=== PATIENT | male | born 1955 | race Caucasian/White ===

== ENCOUNTER 2019-11-20 13:26 | Emergency (ER) | payer MEDICARE, MEDICAID, SELFPAY ==
--- NOTE | 2019-11-20 | XR_ITS ---
EXAMINATION: XR ELBOW, LEFT CLINICAL INFORMATION: Fall, trauma, pain COMPARISON: None TECHNIQUE: Left elbow is imaged in 3 views. FINDINGS: There is no fracture, dislocation, or visible elbow capsular effusion. Bony mineralization is normal. There are no erosive changes. There is bulky spurring from the olecranon and lateral epicondyles. There are corticated ossicles adjacent to the medial and lateral epicondyles. IMPRESSION: 1. No fracture or dislocation. 2. Spurring at the epicondyles and olecranon.
--- NOTE | 2019-11-20 | XR_ITS ---
EXAMINATION: XR SHOULDER, LEFT CLINICAL INFORMATION: Fall, trauma, pain COMPARISON: Radiographs left shoulder 10/18/2018 TECHNIQUE: Left shoulder is imaged in 3 views. FINDINGS: There is no fracture or dislocation. No destructive process. No visible rotator cuff calcifications. There are mild degenerative changes acromioclavicular joint and small spur from the greater tuberosity. Acromioclavicular alignment is normal. IMPRESSION: No fracture or dislocation.
--- NOTE | 2019-11-20 | XR_ITS ---
EXAMINATION: XR LUMBOSACRAL SPINE CLINICAL INFORMATION: Fall, trauma, pain COMPARISON: Lumbar spine radiographs 04/14/2018 TECHNIQUE: Three views of the lumbosacral spine. FINDINGS: There is no visible fracture, vertebral compression, or spondylolisthesis. There is normal lumbar segmentation with 5 nonrib-bearing lumbar vertebrae of normal height. There are degenerative disc changes with borderline disc narrowing and vertebral spurring L2-L3, L3-L4, L4-L5. The SI joints and visualized sacrum are unremarkable. IMPRESSION: 1. No acute bony abnormality. No visible fracture, vertebral compression, or spondylolisthesis. 2. Mild degenerative disc changes L2-L3, L3-L4, and L4-L5.
[2019-11-20 13:39] VITALS: BP 130/72; PULSE 105; RESP 16; TEMP 36.4; O2SAT 96; BMI 30.8
--- NOTE | 2019-11-20 14:08 | ED_ITS ---
HPI - Fall General Chief Complaint: Fall Stated Complaint: fell hurt arm And lower back Time Seen by Provider: 11/20/19 13:54 History of Present Illness HPI Narrative: patient was going to sit down in a chair, and someone moved the chair and he fell hurting his lower back and his left elbow and his left shoulder This happened 3 days ago He had no loss of consciousness neck pain or any other injury, he has no numbness or weakness or change of bowel or bladder The pain is described as moderate, there is no radiation of pain Related Data Previous Rx's Medication Instructions Recorded acetaminophen [Tylenol] 650 mg PO Q6H PRN #20 tab 11/20/19 oxycodone 5 mg PO Q6H PRN #10 cap 11/20/19 Allergies Allergy/AdvReac Type Severity Reaction Status Date / Time aspirin [Aspirin] Allergy Mild RASH Verified 11/20/19 15:32 Penicillins Allergy Mild RASH Verified 11/20/19 15:32 penicillin V Allergy Unknown rash Verified 11/20/19 15:32 tramadol AdvReac Unknown abdominal Verified 11/20/19 15:32 pain Review of Systems Review of Systems: there is no head injury, no headache no nausea no vomiting no numbness no weakness no paresthesias no dizziness, there is no changes to bowel or bladder there is no laceration, there is no pain in the abdomen, no pain in the chest Yes all other systems are reviewed and are negative [facility] Past Medical History Source: nursing notes reviewed Medical History (Updated 11/20/19 @ 15:43 by DAMIR Peck) Arthritis Asthma Diabetes High blood pressure No known health problems Social History Social History Smoked in Last 30 Days: No Use of substances other than those prescribed or required for medical reasons: No Advance Directives: No Advance Directives Information Provided: No Physical Exam Vital Signs and I&O and Narrative: Vital Signs and I&O: Vital Signs Temp 97.6 F 11/20/19 13:39 Pulse 93 11/20/19 15:42 Resp 17 11/20/19 15:42 BP 121/67 11/20/19 15:42 Pulse Ox 97 11/20/19 15:42 Intake & Output 11/19/19 11/20/19 11/20/19 18:59 06:59 18:59 Weight 108.862 kg Body Mass Index 30.8 General appearance the patient is in no acute distress, A&O x3, cooperative, ambulatory The head is normocephalic atraumatic The neck is supple and nontender The chest is nontender Respiratory no respiratory distress The back exam there is diffuse tenderness to the lower lumbar area including bony tenderness, skin is intact, no redness warmth or swelling, no rash The extremities both legs are normal with full range of motion no limp The left shoulder has full range of motion but is very tender in the deltoid area and range of motion is painful The left elbow is tender over olecranon process and has full range of motion but again uncomfortable The hand and wrist are neurovascular intact Neuro A&O x3, no weakness, no numbness Course Course Course Narrative: x-rays of lumbar spine left shoulder and left elbow were negative for acute injury Patient remains comfortable throughout ER visit and improved after towardol Discharge Plan Discharge Clinical Impression: Sprain and strain of elbow Back pain Qualifiers: Back pain location: low back pain Patient Disposition: Home, Self-Care Additional Instructions: follow with orthopedist for left arm and shoulder pain X-rays did not show any bony injury Return any concerns Follow with primary doctor for back pain Prescriptions: New oxycodone 5 mg capsule 5 mg PO Q6H PRN (Reason: pain) Qty: 10 RF: 0 acetaminophen [Tylenol] 325 mg tablet 650 mg PO Q6H PRN (Reason: pain) Qty: 20 RF: 0 Referrals: Shiva Ortiz MD [Physician] - 2 days
[2019-11-20] MEDS: Ketorolac Tromethamine 30 MG/ML VIAL IM (15:35)
[2019-11-20 15:42] VITALS: BP 121/67; PULSE 93; RESP 17; O2SAT 97
== END 2019-11-20 16:07 | disposition home or self-care (01) ==
PROVIDERS: Emergency Provider Internal Medicine; PCP Internal Medicine
DX: S53.402A Unspecified sprain of left elbow, initial encounter (principal); M79.602 Pain in left arm; M54.5 Low back pain; W01.0XXA Fall on same level from slipping, tripping and stumbling without subsequent striking against object, initial encounter; Y93.9 Activity, unspecified; Y92.009 Unspecified place in unspecified non-institutional (private) residence as the place of occurrence of the external cause; Z79.899 Other long term (current) drug therapy
CPT/HCPCS: 72100; 73030; 73070; 96372; 99284; J1885

== ENCOUNTER → 2020-01-15 09:49 | Outpatient (BNVA) | payer OTHER, SELFPAY | PROVIDERS: PCP Internal Medicine; Visit Provider Orthopaedic Surgery | DX: M75.100 Unspecified rotator cuff tear or rupture of unspecified shoulder, not specified as traumatic (principal) | CPT/HCPCS: 99212 ==

== ENCOUNTER 2020-01-23 12:48 | Emergency (ER) | payer MEDICARE, SELFPAY ==
[2020-01-23 13:06] VITALS: BP 134/72; PULSE 89; RESP 14; TEMP 36.7; O2SAT 99; BMI 30.8
--- NOTE | 2020-01-23 13:27 | XR_ITS ---
EXAMINATION: X-RAY CLAVICLE, RIGHT X-RAY SHOULDER, RIGHT CLINICAL INFORMATION: Right shoulder and clavicle pain COMPARISON: None TECHNIQUE: Axial view of the right clavicle. AP, Grashey, Y and axillary views of the right shoulder FINDINGS: There is normal alignment of the right shoulder and right clavicle without acute fracture or dislocation. The glenohumeral joint space is preserved. There is acromioclavicular joint space narrowing with associated hypertrophic changes. The sternoclavicular joint is intact. The visualized portion of the lungs is clear. XR/XR clavicle RT IMPRESSION: No acute bony abnormality of the right shoulder and right clavicle. Mild to moderate degenerative changes of the acromioclavicular joint.
--- NOTE | 2020-01-23 13:27 | XR_ITS ---
EXAMINATION: X-RAY CLAVICLE, RIGHT X-RAY SHOULDER, RIGHT CLINICAL INFORMATION: Right shoulder and clavicle pain COMPARISON: None TECHNIQUE: Axial view of the right clavicle. AP, Grashey, Y and axillary views of the right shoulder FINDINGS: There is normal alignment of the right shoulder and right clavicle without acute fracture or dislocation. The glenohumeral joint space is preserved. There is acromioclavicular joint space narrowing with associated hypertrophic changes. The sternoclavicular joint is intact. The visualized portion of the lungs is clear. XR/XR shoulder RT min 2V IMPRESSION: No acute bony abnormality of the right shoulder and right clavicle. Mild to moderate degenerative changes of the acromioclavicular joint.
--- NOTE | 2020-01-23 13:32 | ED.UPPEXIN ---
HPI - Extremity Injury (Upper) General Chief Complaint: Neck Pain/Injury Stated Complaint: shoulder, neck pain Time Seen by Provider: 01/23/20 13:27 Source: patient Mode of arrival: ambulatory Limitations: no limitations History of Present Illness HPI narrative: This is a 64 years old male presented with right shoulder/right clavicular region pain, pain described as constant dull aching pain just localized to right shoulder area and radiate to the front aspect of the neck, pain started 5 days ago and described as constant, pain is severe 09/20, pain is worsening by moving the right shoulder, patient declined any trauma or history of falling, nothing relieves the pain patient tried Tylenol with no relief. Related Data Home Medications Medication Instructions Recorded Confirmed albuterol sulfate 0.63 mg/3 mL mg INHALATION Q4H PRN 01/11/20 01/15/20 solution for nebulization atorvastatin 40 mg tablet mg PO 01/11/20 01/15/20 blood sugar diagnostic #10 ea 01/11/20 01/15/20 citalopram 20 mg tablet 20 mg PO DAILY 01/11/20 01/15/20 clonazepam 1 mg tablet 1 mg PO BEDTIME PRN 01/11/20 01/15/20 dulaglutide 1.5 mg/0.5 mL mg SUBCUT 01/11/20 01/15/20 subcutaneous pen injector metformin 500 mg tablet,extended 1,000 mg PO BID 01/11/20 01/15/20 release 24 hr tamsulosin 0.4 mg capsule 0.4 mg PO DAILY 01/11/20 01/15/20 Previous Rx's Medication Instructions Recorded acetaminophen [Tylenol] 650 mg PO Q6H PRN #20 tab 11/20/19 cyclobenzaprine 5 mg PO TID PRN #14 tab 11/20/19 lisinopril 10 mg tablet 10 mg PO DAILY 90 Days #90 tab 01/11/20 zolpidem 10 mg tablet 10 mg PO BEDTIME PRN 30 Days #30 01/11/20 tab oxycodone 5 mg PO BID PRN #7 cap 01/23/20 Allergies Allergy/AdvReac Type Severity Reaction Status Date / Time aspirin [Aspirin] Allergy Mild RASH Verified 01/15/20 11:12 Penicillins Allergy Mild RASH Verified 01/15/20 11:12 penicillin V Allergy Unknown rash Verified 01/15/20 11:12 tramadol AdvReac Unknown abdominal Verified 01/15/20 11:12 pain Review of Systems Review of Systems: All other systems are reviewed and are negative Constitutional: Reports as per HPI and Reports no additional constitutional complaints Eyes: Reports as per HPI and Reports no additional eye complaints Reports system reviewed and no additional complaints, except as documented Cardiovascular: Reports as per HPI and Reports no additional cardiovascular complaints Respiratory: Reports as per HPI and Reports no additional respiratory complaints Gastrointestinal: Reports as per HPI and Reports no additional gastrointestinal complaints Genitourinary: Reports no additional female genitourinary complaints Musculoskeletal: Reports no additional musculoskeletal complaints Skin/Breast: Reports system reviewed and no additional complaints, except as docu Psychiatric: Reports no additional psychiatric complaints Endocrine: Reports no additional endocrine complaints Hematologic/Lymphatic: Reports no additional hematologic/lymphatic complaints Allergic/Immunologic: Reports no additional allergic/immunologic complaints Reports system reviewed and no additional complaints, except as documented and Reports Abnormal speech present [facility] Past Medical History Medical History Arthritis Asthma Diabetes mellitus Essential hypertension High blood pressure Insomnia No known health problems Obesity Pure hypercholesterolemia Rotator cuff tear Surgical History History of knee replacement procedure of right knee Family History Family History Father No problems noted. Mother Diabetes Hypertension Brother Throat cancer Social History Social History Smoking Status: Former smoker Advance Directives: No Advance Directives Information Provided: No Physical Exam Vital Signs: Vital Signs: Last Vital Signs Temp 98.1 F 01/23/20 13:06 Pulse 89 01/23/20 13:06 Resp 14 01/23/20 13:06 BP 134/72 01/23/20 13:06 Pulse Ox 99 01/23/20 13:06 Body Mass Index 30.8 Vital signs have been reviewed as normal and appeared to be correct. Blood pressure normal. Heart rate normal. Respiration rate normal. Temperature normal. Oxygen saturation normal. Appearance: Alert. Oriented X3. No acute distress. Head: Normal external exam. Normocephalic. Atraumatic. No Saha signs noted. No raccoon eyes noted Eyes: PERRLA. EOMI. Conjunctiva and sclera normal. Eyelids normal. ENT: EAC normal. TM's Normal. Pharynx normal. Uvula midline. Moist mucous membranes. No trismus noted. No drooling noted. No muffled voice noted. Neck: Normal inspection. Neck supple. FROM. No adenopathy. Thyroid Normal. No meningeal signs. No neck mass noted. CVS: Normal heart rate and rhythm. Heart sound normal. No murmurs noted. Pulses normal throughout. Respiratory: No respiratory distress. Painless inspiration. Breath sounds normal. No wheezes/rales/rhonchi noted. Chest nontender. No accessory muscle usage noted or decreased air movement noted. Abdomen: Soft and nontender. Bowel sounds normal in all 4 quadrants. No distention noted. No organomegaly noted. No visible injury noted. Back: No CVA tenderness. Full range of motion noted. Skin: Skin warm and dry. Normal skin color. Normal skin turgor. No rashes/lesions/lacerations noted. Extremities: No lower extremity edema. Tenderness over the right clavicular region, no palpable deformity, increased pain over the right clavicle when he stretch and turn his head to the left side, patient declined any trauma to this area. Neuro: Oriented X 3. No motor deficit. No sensory deficit. Reflexes normal. MDM - Extremity Injury (Upper) MDM Narrative Medical decision making narrative: 64 years old male presented with 5 days of pain over the clavicular region with no trauma or fall, physical exam showed no deformity x-ray showed no acute fracture, but physical exam is consistent with localized tenderness over the right clavicular area, patient has normal vital signs including respiratory rate of 14/O2 saturation is 99% on room air making PE is unfavorable diagnosis. Patient felt better after was given oxycodone in the emergency department, will provide patient with right shoulder sling and pain medication. Imaging Data Right shoulder/clavicle x-ray: Radiologist's impression: No acute bony abnormality of the right shoulder and right clavicle. Mild to moderate degenerative changes of the acromioclavicular joint. Discharge Plan Discharge Clinical Impression: Arthralgia of both acromioclavicular joints Patient Disposition: Home, Self-Care Instructions: Arthralgia (ED) Prescriptions: New oxycodone 5 mg capsule 5 mg PO BID PRN (Reason: pain) Qty: 7 RF: 0 No Action acetaminophen [Tylenol] 325 mg tablet 650 mg PO Q6H PRN (Reason: pain) Qty: 20 RF: 0 cyclobenzaprine 5 mg tablet 5 mg PO TID PRN (Reason: muscle spasm) Qty: 14 RF: 0 citalopram 20 mg tablet 20 mg PO DAILY RF: 0 clonazepam 1 mg tablet 1 mg PO BEDTIME PRNRF: 0 (DME) FreeStyle Lite Strips Strip See Rx Instructions ea Not Applicable TID Qty: 10 RF: 0 albuterol sulfate 0.63 mg/3 mL solution for nebulization inhalation Q4H PRNRF: 0 Trulicity 1.5 mg/0.5 mL pen injector subcut RF: 0 tamsulosin 0.4 mg capsule 0.4 mg PO DAILY RF: 0 metformin 500 mg tablet extended release 24 hr 1,000 mg PO BID RF: 0 atorvastatin 40 mg tablet PO RF: 0 lisinopril 10 mg tablet 10 mg PO DAILY 90 Days Qty: 90 RF: 3 zolpidem 10 mg tablet 10 mg PO BEDTIME PRN (Reason: sleep) 30 Days Qty: 30 RF: 0 Referrals: Allison Maradiaga MD [Primary Care Provider] - 2 days
[2020-01-23] MEDS: oxyCODONE HCl Immed Release 5 MG TABLET PO (13:42)
== END 2020-01-23 15:01 | disposition home or self-care (01) ==
PROVIDERS: Emergency Provider Emergency Medicine; PCP Internal Medicine
DX: M25.511 Pain in right shoulder (principal); I10 Essential (primary) hypertension; E11.9 Type 2 diabetes mellitus without complications; Z79.84 Long term (current) use of oral hypoglycemic drugs; Z79.899 Other long term (current) drug therapy
CPT/HCPCS: 73000; 73030; 99283

== ENCOUNTER → 2020-02-25 13:07 | Outpatient (BNVA) | payer MEDICARE, SELFPAY | PROVIDERS: PCP Internal Medicine; Visit Provider Nurse Practitioner Gerontology | DX: Z13.89 Encounter for screening for other disorder (principal) | CPT/HCPCS: Q3014 ==

== ENCOUNTER 2020-04-17 10:16 | Emergency (ER) | payer MEDICARE, SELFPAY ==
[2020-04-17 10:18] VITALS: RESP 16; TEMP 36.3; BMI 30.8
--- NOTE | 2020-04-17 11:42 | ED.BACK ---
HPI - Back Pain/Injury General Chief Complaint: Back Pain/Injury Stated Complaint: BACK PAIN LEG TINGLING Time Seen by Provider: 04/17/20 11:40 Source: patient Mode of arrival: ambulatory Limitations: language barrier (conference interpreter present for all interactions) History of Present Illness HPI Narrative: Pleasant 64-year-old male primarily [place]-speaking presenting ambulatory with complaint of right-sided lower back pain that sometimes radiates down to the mid thigh onset past 2 days. States he recently was doing pain job around the house and pain the day after. 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 Otherwise denies any GI symptoms. No lower extremity weakness. Pain feels similar to previous. No fever. No IV drug use. No history of CA. MD elicited complaint: back pain and back injury Pertinent past history: prior back pain Timing: intermittent Severity: moderate Similar Symptoms Previously: Yes Quality: aching Location: lumbar spine Exacerbating factors: movement Relieving factors: immobilization Context: turning/twisting Associated symptoms: denies other symptoms Treatments prior to arrival: cold therapy Work related injury: No Related Data Home Medications Medication Instructions Recorded Confirmed albuterol sulfate 0.63 mg/3 mL mg INHALATION Q4H PRN 01/11/20 02/25/20 solution for nebulization blood sugar diagnostic #10 ea 01/11/20 02/25/20 citalopram 20 mg tablet 20 mg PO DAILY 01/11/20 02/25/20 clonazepam 1 mg tablet 1 mg PO BEDTIME PRN 01/11/20 02/25/20 atorvastatin 40 mg tablet 40 mg PO tab 02/25/20 02/25/20 dulaglutide 1.5 mg/0.5 mL 1.5 mg SUBCUT ml 02/25/20 02/25/20 subcutaneous pen injector duloxetine 20 mg capsule,delayed 20 mg PO DAILY 02/25/20 02/25/20 release omeprazole 20 mg capsule,delayed 20 mg PO QAM 02/25/20 02/25/20 release Previous Rx's Medication Instructions Recorded acetaminophen [Tylenol] 650 mg PO Q6H PRN #20 tab 11/20/19 cyclobenzaprine 5 mg PO TID PRN #14 tab 11/20/19 lisinopril 10 mg tablet 10 mg PO DAILY 90 Days #90 tab 01/11/20 oxycodone 5 mg PO BID PRN #7 cap 01/23/20 fluticasone propionate 50 1 spray INTRANASAL DAILY 30 Days 01/24/20 mcg/actuation nasal #15.8 ml spray,suspension lancets 28 gauge #300 ea 02/25/20 metformin 500 mg tablet,extended 1,000 mg PO BID #360 tab 02/25/20 release 24 hr tamsulosin 0.4 mg capsule 0.4 mg PO DAILY #90 cap 03/03/20 zolpidem 10 mg tablet 10 mg PO BEDTIME PRN 30 Days #30 03/25/20 tab cyclobenzaprine 10 mg PO TID PRN #20 tab 04/17/20 ibuprofen 800 mg PO Q8H PRN #14 tab 04/17/20 Allergies Allergy/AdvReac Type Severity Reaction Status Date / Time aspirin [Aspirin] Allergy Mild RASH Verified 02/25/20 13:34 Penicillins Allergy Mild RASH Verified 02/25/20 13:34 penicillin V Allergy Unknown rash Verified 02/25/20 13:34 tramadol AdvReac Unknown abdominal Verified 02/25/20 13:34 pain Review of Systems Review of Systems: Constitutional: No Weight loss, No Fever, No Chills, No Night Sweats, No Fatigue, No Malaise ENT/Mouth: No Hearing loss, No Ear Pain, No Nasal Congestion, No Sinus Pain, No Hoarseness, No sore throat, No Rhinorrhea, No Swallowing Difficulty Eyes: No Eye Pain, No Swelling, No Redness, No Foreign Body, No Discharge, No Vision Changes Cardiovascular: No Chest Pain, No SOB, No Dyspnea on Exertion, No Orthopnea, No Edema, No Palpitations Respiratory: No Cough, No Sputum, No Wheezing, No Smoke Exposure, No Dyspnea Gastrointestinal: No Nausea, No Vomiting, No Diarrhea, No Constipation, No abdominal Pain, No Hematochezia, No Melena Genitourinary: No Dysuria, No Urinary Frequency, No Hematuria, No Urinary Incontinence, No Urgency, No Flank Pain, No Urinary Flow Changes, No Hesitancy Musculoskeletal: No joint pain, No Myalgias, No Joint Swelling, right-sided low back pain as noted per HPI Skin: No Skin Lesions, No rash Neuro: No Weakness, No Numbness, No Paresthesias, No Loss of Consciousness, No Dizziness, No Headache Psych: No Social Issues Heme/Lymph: No Bruising, No Bleeding,No Lymphadenopathy Endocrine: No Polyuria, No Polydipsia, No Temperature Intolerance Yes all other systems are reviewed and are negative [facility] Past Medical History Medical History Arthritis Asthma BPH (benign prostatic hyperplasia) Diabetes mellitus Essential hypertension GERD (gastroesophageal reflux disease) High blood pressure Hyperlipidemia LDL goal <100 Insomnia No known health problems Obesity Pure hypercholesterolemia Rotator cuff tear Type 2 diabetes mellitus with diabetic polyneuropathy Surgical History History of knee replacement procedure of right knee Family History Family History Father No problems noted. Mother Diabetes Hypertension Brother Throat cancer Social History Social History Household Members: Spouse Smoking Status: Former smoker Advance Directives: No Advance Directives Information Provided: No Physical Exam Vital Signs: Vital Signs: Last Vital Signs Temp 97.4 F 04/17/20 10:18 Resp 16 04/17/20 10:18 Body Mass Index 30.8 Reviewed Const: General: cooperative and healthy appearing; No acute distress or intoxicated appearing Nutritional Appearance: average body habitus Orientation/consciousness: patient oriented x3 HENMT: Head: Yes normal to inspection Ears: hearing grossly normal bilaterally Eyes: General: appearance normal, both eyes and all related structures Visual Borges: normal visual borges by confrontation Neck: Neck: Yes normal visual inspection, No positive Brudzinski's sign, No positive Kernig's sign and No tender Thyroid: Thyroid normal Chest: Chest palpation & inspection: normal inspection of the chest Resp: Effort & Inspection: normal respiratory effort Cardio: Jugular venous distension: no JVD Rhythm: regular rhythm Heart sounds: S1 normal heart sound present and S2 normal heart sound present GI: Inspection: Yes normal to inspection Palpation (GI): Soft to palpation Percussion: Yes normal to percussion Auscultation: normal bowel sounds : General: Yes no CVA tenderness Back/Spine/Pelvis: Back: no CVA tenderness Thoracic/Lumbar Spine: paraspinal muscle tenderness (Over the lower lumbar paraspinous muscle and gluteus) on the right Skin: General skin exam: no rashes or lesions noted Neuro: General: patient oriented x3 Extrem: Other: Positive pain with leg lift at about 65 degrees, negative Homans, reflexes within normal limits. Pulses within normal limits. General: Yes normal to inspection MDM - Back Pain/Injury MDM Narrative Medical decision making narrative: AP consistent with lumbar paraspinous muscle strain with sciatic involvement will need Toradol injection, muscle relaxants and NSAIDs for home short course. Exam without low back pain red flags, no signs or symptoms saddle anesthesia/cord compression. No B/B involvement. Additionally he reports all of his other chronic medical problems are well managed including his diabetes POC this morning of . Differential Diagnosis Differential diagnosis: Likely lumbar radiculopathy, sciatica and strain of lumbar region; Unlikely renal colic, pyelonephritis, thoracic back pain, AAA and discitis Medical Records Attestation: I reviewed the patient's medical records. Lab Data Attestation: I reviewed the patient's lab results. Discharge Plan Discharge Clinical Impression: Acute lumbar myofascial strain Qualifiers: Encounter type: initial encounter Qualified Code(s): S39.012A - Strain of muscle, fascia and tendon of lower back, initial encounter Patient Disposition: Home, Self-Care Instructions: Low Back Strain (ED), Lower Back Exercises (ED) Additional Instructions: Gentle stretching Home care for low back pain as reviewed Warm compresses Return precautions provided including worsening back pain, fever, abdominal pain, blood in the urine, nausea, vomiting, headache or neck pain Follow up with primary care doctor as planned Thank Prescriptions: New cyclobenzaprine 10 mg tablet 10 mg PO TID PRN (Reason: muscle spasm) Qty: 20 RF: 0 ibuprofen 800 mg tablet 800 mg PO Q8H PRN (Reason: pain) Qty: 14 RF: 0 No Action fluticasone propionate [Allergy Relief (fluticasone)] 50 mcg/actuation spray,suspension 1 spray intranasal DAILY 30 Days Qty: 15.8 RF: 8 tamsulosin 0.4 mg capsule 0.4 mg PO DAILY Qty: 90 RF: 1 zolpidem 10 mg tablet 10 mg PO BEDTIME PRN (Reason: sleep) 30 Days Qty: 30 RF: 0 oxycodone 5 mg capsule 5 mg PO BID PRN (Reason: pain) Qty: 7 RF: 0 acetaminophen [Tylenol] 325 mg tablet 650 mg PO Q6H PRN (Reason: pain) Qty: 20 RF: 0 cyclobenzaprine 5 mg tablet 5 mg PO TID PRN (Reason: muscle spasm) Qty: 14 RF: 0 citalopram 20 mg tablet 20 mg PO DAILY RF: 0 clonazepam 1 mg tablet 1 mg PO BEDTIME PRNRF: 0 (DME) FreeStyle Lite Strips Strip See Rx Instructions ea Not Applicable TID Qty: 10 RF: 0 albuterol sulfate 0.63 mg/3 mL solution for nebulization inhalation Q4H PRNRF: 0 lisinopril 10 mg tablet 10 mg PO DAILY 90 Days Qty: 90 RF: 3 atorvastatin 40 mg tablet 40 mg PO RF: 0 dulaglutide 1.5 mg/0.5 mL pen injector 1.5 mg subcut RF: 0 duloxetine 20 mg capsule,delayed release(DR/EC) 20 mg PO DAILY RF: 0 omeprazole 20 mg capsule,delayed release(DR/EC) 20 mg PO QAM RF: 0 (DME) lancets [FreeStyle Lancets] 28 gauge misc See Rx Instructions .ROUTE .MEDSUPPLY Qty: 300 RF: 3 metformin 500 mg tablet extended release 24 hr 1,000 mg PO BID Qty: 360 RF: 0 Referrals: Allison Maradiaga MD [Primary Care Provider] - 1 week
[2020-04-17] MEDS: Ketorolac Tromethamine 60 MG/2 ML VIAL IM (11:44)
== END 2020-04-17 11:55 | disposition home or self-care (01) ==
PROVIDERS: Emergency Provider Emergency Medicine; PCP Internal Medicine
DX: S39.012A Strain of muscle, fascia and tendon of lower back, initial encounter (principal); X50.1XXA Overexertion from prolonged static or awkward postures, initial encounter; Y93.E9 Activity, other interior property and clothing maintenance; Y92.019 Unspecified place in single-family (private) house as the place of occurrence of the external cause; Y99.9 Unspecified external cause status; E11.9 Type 2 diabetes mellitus without complications; I10 Essential (primary) hypertension; E78.5 Hyperlipidemia, unspecified; Z87.891 Personal history of nicotine dependence
CPT/HCPCS: 96372; 99283; 99284; J1885

== ENCOUNTER → 2020-05-23 13:14 | Outpatient (BNVA) | payer MEDICARE, SELFPAY | PROVIDERS: PCP Internal Medicine; Visit Provider Nurse Practitioner Gerontology | DX: E11.42 Type 2 diabetes mellitus with diabetic polyneuropathy (principal); E78.5 Hyperlipidemia, unspecified; I10 Essential (primary) hypertension; E66.09 Other obesity due to excess calories; Z68.32 Body mass index [BMI] 32.0-32.9, adult | CPT/HCPCS: 82947; 99212 ==

== ENCOUNTER 2020-06-06 10:50 | Emergency (ER) | payer MEDICARE, SELFPAY ==
[2020-06-06 11:18] VITALS: BP 119/66; PULSE 88; RESP 18; TEMP 37.1; O2SAT 96; BMI 30.8
--- NOTE | 2020-06-06 11:46 | ED.EPISTAXIS ---
History of Present Illness General Chief Complaint: Epistaxis Stated Complaint: nosebleed Time Seen by Provider: 06/06/20 11:45 History of Present Illness HPI Narrative: Patient complains of nasal congestion x3 weeks, he is using Flonase which does not help he has a lot of pressure feeling around his bridge of his nose , worse with bending down, there is a yellowish nasal discharge, no fever no headache no shortness of breath no chest pain Related Data Home Medications Medication Instructions Recorded Confirmed albuterol sulfate 0.63 mg/3 mL mg INHALATION Q4H PRN 01/11/20 05/23/20 solution for nebulization citalopram 20 mg tablet 20 mg PO DAILY 01/11/20 05/23/20 omeprazole 20 mg capsule,delayed 20 mg PO QAM 02/25/20 05/23/20 release Previous Rx's Medication Instructions Recorded acetaminophen [Tylenol] 650 mg PO Q6H PRN #20 tab 11/20/19 lisinopril 10 mg tablet 10 mg PO DAILY 90 Days #90 tab 01/11/20 oxycodone 5 mg PO BID PRN #7 cap 01/23/20 fluticasone propionate 50 1 spray INTRANASAL DAILY 30 Days 01/24/20 mcg/actuation nasal #15.8 ml spray,suspension lancets 28 gauge #300 ea 02/25/20 metformin 500 mg tablet,extended 1,000 mg PO BID #360 tab 02/25/20 release 24 hr tamsulosin 0.4 mg capsule 0.4 mg PO DAILY #90 cap 03/03/20 ibuprofen 800 mg PO Q8H PRN #14 tab 04/17/20 atorvastatin 40 mg tablet 40 mg PO BEDTIME #90 tab 05/23/20 dulaglutide 1.5 mg/0.5 mL 1.5 mg SUBCUT QWEEK #6 ml 05/23/20 subcutaneous pen injector zolpidem 10 mg tablet 10 mg PO BEDTIME PRN 30 Days #30 05/23/20 tab blood sugar diagnostic #200 ea 05/24/20 cetirizine 10 mg PO DAILY PRN #30 cap 06/06/20 doxycycline hyclate 100 mg PO BID 7 Days #14 cap 06/06/20 oxymetazoline [Afrin 3 spray INTRANASAL Q12H PRN 5 Days 06/06/20 (oxymetazoline)] #22 ml prednisone 60 mg PO DAILY 4 Days #12 tab 06/06/20 Allergies Allergy/AdvReac Type Severity Reaction Status Date / Time aspirin [Aspirin] Allergy Mild RASH Verified 06/06/20 11:18 Penicillins Allergy Mild RASH Verified 06/06/20 11:18 penicillin V Allergy Unknown rash Verified 06/06/20 11:18 tramadol AdvReac Unknown abdominal Verified 06/06/20 11:18 pain Review of Systems Review of Systems: Positive for nasal congestion and sinus pressure Negatives are no fever no chills no dizziness no weakness no earache no headache no sore throat no neck pain no chest pain no shortness of breath no rash PMFSH Past Medical History Source: nursing notes reviewed Medical History Arthritis Asthma BPH (benign prostatic hyperplasia) Diabetes mellitus Essential hypertension GERD (gastroesophageal reflux disease) High blood pressure Hyperlipidemia LDL goal <100 Insomnia No known health problems Obesity Pure hypercholesterolemia Rotator cuff tear Type 2 diabetes mellitus with diabetic polyneuropathy Surgical History History of knee replacement procedure of right knee Family History Family History Father No problems noted. Mother Diabetes Hypertension Brother Throat cancer Social History Social History Household Members: Spouse Smoking Status: Former smoker Advance Directives: No Advance Directives Information Provided: No Physical Exam Vital Signs: Vital Signs: Last Vital Signs Temp 98.7 F 06/06/20 11:18 Pulse 88 06/06/20 11:18 Resp 18 06/06/20 11:18 BP 119/66 06/06/20 11:18 Pulse Ox 96 06/06/20 11:18 Body Mass Index 30.8 General appearance no acute distress, calm comfortable relaxed and cooperative The eyes were not red, no discharge There was some tenderness bilaterally maxillary sinus tenderness, worse with bending head forward The nose the mucosa was somewhat inflamed, patient was congested and had difficulty breathing through his nose Pharynx was clear Neck was supple Chest was clear to auscultation bilaterally with symmetric equal breath sounds no wheezing Skin no rash Extremities full range of motion x4 Neuro no focal motor deficit, gait balance were normal Course Course Course Narrative: Patient with nasal congestion and some sinus pressure is treated for likely inflammation and allergy with prednisone and Zyrtec as well as Afrin short course for congestion As this is going on for 3 weeks he is also covered with antibiotic for possible sinusitis Discharge Plan Discharge Clinical Impression: Congested nose Sinusitis Qualifiers: Sinusitis location: unspecified location Chronicity: acute Recurrence: not specified as recurrent Qualified Code(s): J01.90 - Acute sinusitis, unspecified Patient Disposition: Home, Self-Care Additional Instructions: We are treating for possible infection with antibiotic doxycycline Main reasons for congestion are allergy and inflammation so we are treating with Zyrtec anti allergy medicine and prednisone anti inflammatory Prednisone can sometimes make sugar go up so check the sugar daily It is okay to continue the Flonase as it may help a little You can use Afrin spray 2 or 3 sprays in each nostril every 12 hours which often is the strongest nasal decongestant, but if you use it for too long more than 5 days it may stop working Follow with primary doctor for further evaluation and if these treatments do not work you may need a referral to an learning consultant Return anytime for fever, any worse condition any concerns Prescriptions: New prednisone 20 mg tablet 60 mg PO DAILY 4 Days Qty: 12 RF: 0 doxycycline hyclate 100 mg capsule 100 mg PO BID 7 Days Qty: 14 RF: 0 cetirizine 10 mg capsule 10 mg PO DAILY PRN (Reason: allergy symptoms) Qty: 30 RF: 0 oxymetazoline [Afrin (oxymetazoline)] 0.05 % spray,non-aerosol 3 spray intranasal Q12H PRN (Reason: nasal congestion) 5 Days Qty: 22 RF: 0 No Action fluticasone propionate [Allergy Relief (fluticasone)] 50 mcg/actuation spray,suspension 1 spray intranasal DAILY 30 Days Qty: 15.8 RF: 8 tamsulosin 0.4 mg capsule 0.4 mg PO DAILY Qty: 90 RF: 1 zolpidem 10 mg tablet 10 mg PO BEDTIME PRN (Reason: sleep) 30 Days Qty: 30 RF: 0 (DME) FreeStyle Lite Strips Strip See Rx Instructions .ROUTE .MEDSUPPLY Qty: 200 RF: 3 oxycodone 5 mg capsule 5 mg PO BID PRN (Reason: pain) Qty: 7 RF: 0 ibuprofen 800 mg tablet 800 mg PO Q8H PRN (Reason: pain) Qty: 14 RF: 0 acetaminophen [Tylenol] 325 mg tablet 650 mg PO Q6H PRN (Reason: pain) Qty: 20 RF: 0 citalopram 20 mg tablet 20 mg PO DAILY RF: 0 albuterol sulfate 0.63 mg/3 mL solution for nebulization inhalation Q4H PRNRF: 0 lisinopril 10 mg tablet 10 mg PO DAILY 90 Days Qty: 90 RF: 3 omeprazole 20 mg capsule,delayed release(DR/EC) 20 mg PO QAM RF: 0 (DME) lancets [FreeStyle Lancets] 28 gauge misc See Rx Instructions .ROUTE .MEDSUPPLY Qty: 300 RF: 3 metformin 500 mg tablet extended release 24 hr 1,000 mg PO BID Qty: 360 RF: 0 dulaglutide 1.5 mg/0.5 mL pen injector 1.5 mg subcut QWEEK Qty: 6 RF: 3 atorvastatin 40 mg tablet 40 mg PO BEDTIME Qty: 90 RF: 1 Interventions: ED Discharge Assessment Last Done: 06/06/20 12:10 Discharge Date/Time: 06/06/20 12:12
[2020-06-06] MEDS: predniSONE 20 MG TABLET 60 MG PO (12:08)
[2020-06-06] MEDS: Loratadine 10 MG TABLET PO (12:08)
== END 2020-06-06 12:12 | disposition home or self-care (01) ==
PROVIDERS: Emergency Provider Emergency Medicine; PCP Internal Medicine
DX: R09.81 Nasal congestion (principal); J01.90 Acute sinusitis, unspecified; E11.9 Type 2 diabetes mellitus without complications; I10 Essential (primary) hypertension; K21.9 Gastro-esophageal reflux disease without esophagitis; E78.5 Hyperlipidemia, unspecified; J45.909 Unspecified asthma, uncomplicated
CPT/HCPCS: 99283

== ENCOUNTER 2020-09-04 15:00 | Emergency (ER) | payer OTHER, SELFPAY | END 2020-09-04 16:51 | disposition left against medical advice (07) | PROVIDERS: Emergency Provider Emergency Medicine; PCP Internal Medicine | DX: R51.9 Headache, unspecified (principal) | CPT/HCPCS: 99281 ==

== ENCOUNTER 2020-09-05 05:42 | Emergency (ER) | payer OTHER, SELFPAY ==
--- NOTE | ~2020-09-05 | CT_ITS ---
EXAMINATION: CT HEAD WITHOUT CONTRAST CLINICAL INFORMATION: Right-sided headache. Rule out bleed, stroke. COMPARISON: None TECHNIQUE: Contiguous axial imaging was performed from the skull base to vertex without intravenous administration of contrast. This CT examination was performed using dose optimization techniques as appropriate, variously including the following: *Automated exposure control *Adjustment of mA and/or kV according to patient size (this includes techniques or standardized protocols for targeted exams where dose is matched to indication/reason for exam; i.e. extremities or head) *Use of iterative reconstruction technique DLP: 759 mGy-cm FINDINGS: There is no evidence of acute intracranial hemorrhage or territorial infarction. No abnormal mass effect or midline shift is seen. Lee to white matter differentiation is well preserved. No extra-axial fluid collections are identified. The ventricles are normal in size. There is no abnormal attenuation within the brain parenchyma. The osseous structures and soft tissues are normal. The mastoid air cells and visualized portions of the paranasal sinuses are well aerated. CT/CT head/brain wo con IMPRESSION: No acute intracranial process seen.
[2020-09-05 06:58] VITALS: BP 129/61; PULSE 82; RESP 16; TEMP 36.4; O2SAT 97; BMI 30.8
--- NOTE | 2020-09-05 07:14 | PC.NURSE ---
pt received in room 2 with complaint of unilateral headache associated with ear pain. Awaiting proposal manager for further evaluation. No bruising or lesions noted to scalp
[2020-09-05 07:43] VITALS: BP 109/67; PULSE 80; RESP 18; TEMP 36.6; O2SAT 97
--- NOTE | 2020-09-05 08:01 | ED_ITS ---
HPI - Headache General Chief Complaint: Headache Stated Complaint: head/ear pain Time Seen by Provider: 09/05/20 07:50 Source: patient Mode of arrival: ambulatory Limitations: no limitations History of Present Illness HPI Narrative: 65-year-old male who presents emergency department for evaluation of right-sided headache x4 days. He states the headache came on gradually. States the headache has been intermittent. The headache will last approximately 25 minutes and then resolved. He states that the headache is a pressure-like sensation. The pain is 9/10 at its worst. The pain is associated with nausea but no vomiting. He denied fever, chills, numbness, weakness, changes vision or change in his hearing. He states these had a buzzing sensation in both ears for approximately 10 years and currently he is hearing the buzzing sensation in his left ear. Patient states that it is rare for him to get headaches and that he has not had a headache that is been this persistent. Related Data Home Medications Medication Instructions Recorded Confirmed albuterol sulfate 0.63 mg/3 mL mg INHALATION Q4H PRN 01/11/20 08/23/20 solution for nebulization citalopram 20 mg tablet 20 mg PO DAILY 01/11/20 08/23/20 Previous Rx's Medication Instructions Recorded acetaminophen [Tylenol] 650 mg PO Q6H PRN #20 tab 11/20/19 lisinopril 10 mg tablet 10 mg PO DAILY 90 Days #90 tab 01/11/20 oxycodone 5 mg PO BID PRN #7 cap 01/23/20 fluticasone propionate 50 1 spray INTRANASAL DAILY 30 Days 01/24/20 mcg/actuation nasal #15.8 ml spray,suspension metformin 500 mg tablet,extended 1,000 mg PO BID #360 tab 02/25/20 release 24 hr tamsulosin 0.4 mg capsule 0.4 mg PO DAILY #90 cap 03/03/20 ibuprofen 800 mg PO Q8H PRN #14 tab 04/17/20 dulaglutide 1.5 mg/0.5 mL 1.5 mg SUBCUT QWEEK #6 ml 05/23/20 subcutaneous pen injector blood sugar diagnostic #200 ea 05/24/20 cetirizine 10 mg PO DAILY PRN #30 cap 06/06/20 lancets 28 gauge #200 ea 07/06/20 atorvastatin 40 mg tablet 40 mg PO BEDTIME #90 tab 07/25/20 omeprazole 20 mg capsule,delayed 20 mg PO QAM 90 Days #90 cap 08/23/20 release zolpidem 10 mg tablet 10 mg PO BEDTIME PRN 90 Days #90 08/23/20 tab metoclopramide HCl [Reglan] 10 mg PO Q6H PRN #14 tab 09/05/20 Allergies Allergy/AdvReac Type Severity Reaction Status Date / Time penicillin V Allergy Intermediate rash Verified 08/23/20 17:25 aspirin [Aspirin] Allergy Mild RASH Verified 08/23/20 17:25 Penicillins Allergy Mild RASH Verified 08/23/20 17:25 tramadol AdvReac Intermediate abdominal Verified 08/23/20 17:25 pain Review of Systems Review of Systems: Yes all other systems are reviewed and are negative [facility] Past Medical History [facility] Narrative: Social history: The patient is a former tobacco user, he denies alcohol and drug use. Medical History Arthritis Asthma BPH (benign prostatic hyperplasia) Diabetes mellitus Essential hypertension GERD (gastroesophageal reflux disease) High blood pressure Hyperlipidemia LDL goal <100 Insomnia No known health problems Obesity Pure hypercholesterolemia Rotator cuff tear Type 2 diabetes mellitus with diabetic polyneuropathy Surgical History History of knee replacement procedure of right knee Family History Family History (Updated 08/23/20 @ 17:12 by SINAN Torres) Father No problems noted. Mother Diabetes Hypertension Brother Throat cancer Social History Social History Household Members: Spouse Housing: Apartment Alcohol intake: unknown Patient Tobacco Use Status: Former Tobacco user Tobacco use type: Cigarette e-Cigarette/Vaping Use: Never Used Second Hand Smoke Exposure: No Use of substances other than those prescribed or required for medical reasons: No Advance Directives: Yes Advance Directives Information Provided: Yes Advance Directives on File: No service: No Current occupational status: disabled Physical Exam Vital Signs: Vital Signs: Last Vital Signs Temp 97.8 F 09/05/20 10:24 Pulse 74 09/05/20 10:24 Resp 18 09/05/20 10:24 BP 131/63 09/05/20 10:24 Pulse Ox 99 09/05/20 10:24 Body Mass Index 30.8 Const: General: cooperative and healthy appearing Orientation/consciousnes s: oriented to person and oriented to place Limitations: no limitations HENMT: Other: No tenderness palpation of the temporal artery regions of his scalp Head: Yes normal to inspection, Yes normocephalic and Yes atraumatic Ears: external ears normal General nose exam: Normal external nose present Face and sinus: Yes normal facial exam Mouth: Normal oral and palatal mucosa present Throat: Yes posterior oropharynx normal Eyes: Periorbital: periorbital findings normal Eyelids: Yes eyelids normal Conjunctivae: conjunctivae normal Sclerae: sclerae normal Corneas: corneas normal Pupils: Equal, round and reactive pupils present Direct Ophthalmoscopy: normal light reflex Neck: Neck: Yes full ROM, Yes no lymphadenopathy, Yes no meningeal signs, Yes trachea midline and Yes supple Chest: Chest palpation & inspection: normal inspection of the chest and normal palpation of entire chest wall Resp: Effort & Inspection: normal respiratory effort and able to speak in complete sentences Auscultation: clear to auscultation bilaterally Cardio: Rate: regular rate Rhythm: regular rhythm Heart sounds: S1 normal heart sound present, S2 normal heart sound present and no murmurs GI: Inspection: Yes normal to inspection Palpation (GI): Soft to palpation, nontender, no guarding, not rigid and No hepatosplenomegaly present : General: Yes no CVA tenderness Back/Spine/Pelvis: Back: no CVA tenderness Cervical Spine: normal cervical lordosis Thoracic/Lumbar Spine: thoracic and lumbar spine normal to inspection Skin: Lesions: no lesions Rashes: no rashes Wounds: no wounds Neuro: General: oriented to person, oriented to place and no meningeal signs Cranial nerves: Yes CN's II-XII intact bilaterally and Yes Equal, round and reactive pupils present Cognition (Neuro): normal cognition Motor exam (neuro): 5/5 motor strength present throughout Extrem: General: Yes normal to inspection and Yes full ROM Psych: Appearance: well kempt Mental Status: mental status grossly normal Speech and movement: Normal speech and movement present Affect: normal affect Attitude: cooperative Thought process: Normal thought process present Thought content: Normal thought content present Course Course Course Narrative: 65-year-old male who presents emergency department for ev aluation of headache x4 days. The headache came on gradually, the pain is an intermittent pressure-like pain the last 25 minutes then resolved. The pain is 9/10 at its worst. He has had associated nausea with no other associated symptoms. Vital signs were normal. Physical examination was unremarkable. I ordered a laboratory evaluation of the patient to include an ESR. Also I ordered a CT scan of the patient's brain to rule out stroke, bleed or mass effect. The patient's headache was treated with Tylenol 975 mg orally. 1041: The CT scan of the patient's head was negative. The patient's laboratory evaluation revealed mild anemia with an H&H of 12.5 and 36.8 and a slightly low platelet count of a [id number], had a normal MCV. Sedimentation rate was normal. This time, I believe the patient's headache is consistent with a migraine syndrome. Patient will be discharged home and treated with regular and 10 mg orally, Benadryl 50 mg orally and Excedrin migraine 2 tablets orally every 6 hours as needed for headache. The patient was given verbal and printed instructions prior to discharge. The patient was advised to follow-up with his PCP in 2 days and to return to the emergency department if his symptoms get worse or if they develop any new symptoms that are concerning to him. MDM - Headache Lab Data Result diagrams: 09/05/20 08:49 09/05/20 08:49 Labs: Lab Results 09/05/20 09/05/20 09/05/20 Range/Units 08:49 08:49 08:49 WBC 6.1 (4.8-10.8) X10*3/uL RBC 4.42 L (4.60-5.80) X10*6/uL Hgb 12.5 L (14.0-18.0) g/dl Hct 36.8 L (42-52) % MCV 83.3 (80-98) fL MCH 28.3 (27.0-33.0) pg MCHC 34.0 (31.0-36.0) g/dl RDW 12.4 (11.0-16.0) % Plt Count 154 L (160-400) X10*3/uL MPV 10.3 (9.4-12.4) fL Immature Gran % (Auto) 0.2 (0.0-0.4) % Neut % (Auto) 64.5 (45-73) % Lymph % (Auto) 22.0 (20-40) % [place] % (Auto) 8.8 (2-11) % Eos % (Auto) 4.2 H (0-4) % Baso % (Auto) 0.3 (0-2) % Lymph # (Auto) 1.4 (1.2-4.9) X10*3/uL [place] # (Auto) 0.5 (0.1-1.2) X10*3/uL Eos # (Auto) 0.3 (0.0-0.4) X10*3/uL Baso # (Auto) 0.0 (0.0-0.2) X10*3/uL Abs Immat Gran (auto) 0.01 (0.00-0.03) X10*3/uL Absolute Neuts (auto) 4.0 (2.0-8.3) X10*3/uL Absolute Nucleated RBC 0.000 (0.0-0.012) X10*3/uL Nucleated RBC % (auto) 0.0 (0.0-0.2) /100WBC ESR 6 (0-15) MM/HR Sodium 139 (135-145) mmol/L Potassium 4.3 (3.3-5.1) mmol/L Chloride 104 (96-108) mmol/L Carbon Dioxide 26 (22-29) mmol/L Anion Gap 13 (12-20) BUN 19 H (9-16) mg/dL Creatinine 0.87 (0.5-1.4) mg/dL Estim Creat Clear Calc 114.1 Estimated GFR > 60 Random Glucose 125 H (60-115) mg/dL Calcium 8.4 (8.4-10.2) mg/dL Total Bilirubin 0.3 (0.0-1.0) mg/dL AST 20 (5-37) U/L ALT 25 (0-40) U/L Alkaline Phosphatase 80 (39-117) U/L Total Protein 6.0 L (6.5-8.0) g/dL Albumin 3.9 (3.5-5.0) g/dL Discharge Plan Discharge Clinical Impression: Migraine Patient Disposition: Home, Self-Care Instructions: Acute Headache (ED) Additional Instructions: Your symptoms are consistent with a migraine. I want you to take the following 3 medications together every 6 hours as needed for headache, nausea or vomiting. Reglan (metoclopramide) in 10 mg, 1 pill Benadryl 25 mg, 2 pills Excedrin migraine, 2 pills. After you take these medications, lie down in a dark quiet room and try to fall asleep. These medications will make you sleepy, do not drive or work after taking these medications. Follow-up with your doctor in 2 days. Please return to the emergency department if your symptoms get worse or if you develop any symptoms that are concerning to you. Prescriptions: New metoclopramide HCl [Reglan] 10 mg tablet 10 mg PO Q6H PRN (Reason: nausea and vomiting) Qty: 14 RF: 0 No Action fluticasone propionate [Allergy Relief (fluticasone)] 50 mcg/actuation spray,suspension 1 spray intranasal DAILY 30 Days Qty: 15.8 RF: 8 tamsulosin 0.4 mg capsule 0.4 mg PO DAILY Qty: 90 RF: 1 (DME) FreeStyle Lite Strips Strip See Rx Instructions .ROUTE .MEDSUPPLY Qty: 200 RF: 3 (DME) lancets [FreeStyle Lancets] 28 gauge misc See Rx Instructions .ROUTE .MEDSUPPLY Qty: 200 RF: 3 atorvastatin 40 mg tablet 40 mg PO BEDTIME Qty: 90 RF: 1 oxycodone 5 mg capsule 5 mg PO BID PRN (Reason: pain) Qty: 7 RF: 0 ibuprofen 800 mg tablet 800 mg PO Q8H PRN (Reason: pain) Qty: 14 RF: 0 acetaminophen [Tylenol] 325 mg tablet 650 mg PO Q6H PRN (Reason: pain) Qty: 20 RF: 0 cetirizine 10 mg capsule 10 mg PO DAILY PRN (Reason: allergy symptoms) Qty: 30 RF: 0 citalopram 20 mg tablet 20 mg PO DAILY RF: 0 albuterol sulfate 0.63 mg/3 mL solution for nebulization inhalation Q4H PRNRF: 0 lisinopril 10 mg tablet 10 mg PO DAILY 90 Days Qty: 90 RF: 3 zolpidem 10 mg tablet 10 mg PO BEDTIME PRN (Reason: sleep) 90 Days Qty: 90 RF: 0 omeprazole 20 mg capsule,delayed release(DR/EC) 20 mg PO QAM 90 Days Qty: 90 RF: 1 metformin 500 mg tablet extended release 24 hr 1,000 mg PO BID Qty: 360 RF: 0 dulaglutide 1.5 mg/0.5 mL pen injector 1.5 mg subcut QWEEK Qty: 6 RF: 3
[2020-09-05 08:53] LABS: MANUAL DIFF FLAG NO
[2020-09-05] MEDS: Acetaminophen 325 MG TABLET 975 MG PO (08:53)
[2020-09-05 08:54] LABS: Basophils Percent Auto 0.3 % (0-2); Eosinophils Absolute Auto 0.3 X10*3/uL (0.0-0.4); Eosinophils Percent Auto 4.2 % (0-4); Hematocrit 36.8 % (42-52); Hemoglobin 12.5 g/dl (14.0-18.0); Imm Gran Abs Auto 0.01 X10*3/uL (0.00-0.03); Imm Gran Pct Auto 0.2 % (0.0-0.4); Lymphocytes Absolute Auto 1.4 X10*3/uL (1.2-4.9); Mean Corpuscular Hemoglobin 28.3 pg (27.0-33.0); Mean Corpuscular Volume 83.3 fL (80-98); Mean Platelet Volume 10.3 fL (9.4-12.4); Monocytes Absolute Auto 0.5 X10*3/uL (0.1-1.2); Monocytes Percent Auto 8.8 % (2-11); Neutrophils Percent Auto 64.5 % (45-73); Platelet Count 154 X10*3/uL (160-400); Red Blood Count 4.42 X10*6/uL (4.60-5.80); Red Cell Distribution Width 12.4 % (11.0-16.0); White Blood Count 6.1 X10*3/uL (4.8-10.8)
[2020-09-05 09:37] VITALS: BP 116/56; PULSE 72; RESP 12; TEMP 36.6; O2SAT 98
[2020-09-05 09:39] LABS: Alanine Aminotransferase 25 U/L (0-40); Albumin Level 3.9 g/dL (3.5-5.0); Alkaline Phosphatase 80 U/L (39-117); Anion Gap 13 (12-20); Aspartate Amino Transferase 20 U/L (5-37); Bilirubin Total 0.3 mg/dL (0.0-1.0); Blood Urea Nitrogen 19 mg/dL (9-16); Calcium 8.4 mg/dL (8.4-10.2); Carbon Dioxide 26 mmol/L (22-29); Chloride 104 mmol/L (96-108); Creatinine Clr Calc Pharmacy 114.1; Estimated Glomerular Filt Rate > 60; Glucose Random 125 mg/dL (60-115); Potassium 4.3 mmol/L (3.3-5.1); Sodium 139 mmol/L (135-145)
[2020-09-05 10:01] LABS: Erythrocyte Sedimentation Rate 6 MM/HR (0-15)
[2020-09-05 10:24] VITALS: BP 131/63; PULSE 74; RESP 18; TEMP 36.6; O2SAT 99
== END 2020-09-05 11:01 | disposition home or self-care (01) ==
PROVIDERS: Emergency Provider Emergency Medicine Emergency Medical Services; PCP Internal Medicine
DX: G43.909 Migraine, unspecified, not intractable, without status migrainosus (principal); E11.9 Type 2 diabetes mellitus without complications; I10 Essential (primary) hypertension; E66.9 Obesity, unspecified; E78.00 Pure hypercholesterolemia, unspecified; E78.5 Hyperlipidemia, unspecified; Z79.899 Other long term (current) drug therapy; Z79.84 Long term (current) use of oral hypoglycemic drugs; Z79.02 Long term (current) use of antithrombotics/antiplatelets; Z87.891 Personal history of nicotine dependence
CPT/HCPCS: 36415; 70450; 80053; 85025; 85652; 99284

== ENCOUNTER 2020-09-13 20:32 | Emergency (ER) | payer OTHER, SELFPAY ==
[2020-09-13 20:37] VITALS: BP 156/84; PULSE 110; O2SAT 98
[2020-09-13 20:42] VITALS: BP 158/80; PULSE 110; RESP 20; TEMP 36.9; O2SAT 95; BMI 36.4
--- NOTE | 2020-09-13 22:17 | ED_ITS ---
HPI - General Adult General Chief complaint: General Medical Stated complaint: ANXIETY,PANIC ATTACK Time Seen by Provider: 09/13/20 21:52 Source: patient Mode of arrival: ambulatory Limitations: language barrier ([employer] used, electronic/video) History of Present Illness HPI narrative: Patient is a 65-year-old male past medical history of type 2 DM, arthritis, HTN, HLD, insomnia and obesity who presents with anxiety and panic attacks. Patient states he took of what he believes is a 30 mg oxycodone which his friend gave to him for his arthritis pain. He took this medication approximately 3 hours ago and he said within 30 minutes, he started feeling anxious and panicky and shaky like his heart was racing. He states he is feeling much better now. He took the medication on an empty stomach and has never taken this much oxycodone before. He denies any headache, dizziness, nausea vomiting or diarrhea. He does admit to some nasal stuffiness and is asking for a Flonase. He states he is fully vaccinated for COVID and has had no exposures. Related Data Home Medications Medication Instructions Recorded Confirmed albuterol sulfate 0.63 mg/3 mL mg INHALATION Q4H PRN 01/11/20 08/23/20 solution for nebulization citalopram 20 mg tablet 20 mg PO DAILY 01/11/20 08/23/20 Previous Rx's Medication Instructions Recorded acetaminophen 325 mg tablet 650 mg PO Q6H PRN #20 tab 11/20/19 (Tylenol) lisinopril 10 mg tablet 10 mg PO DAILY 90 Days #90 tab 01/11/20 oxycodone 5 mg capsule 5 mg PO BID PRN #7 cap 01/23/20 fluticasone propionate 50 1 spray INTRANASAL DAILY 30 Days 01/24/20 mcg/actuation nasal #15.8 ml spray,suspension (Allergy Relief (fluticasone)) metformin 500 mg tablet,extended 1,000 mg PO BID #360 tab 02/25/20 release 24 hr tamsulosin 0.4 mg capsule 0.4 mg PO DAILY #90 cap 03/03/20 ibuprofen 800 mg tablet 800 mg PO Q8H PRN #14 tab 04/17/20 dulaglutide 1.5 mg/0.5 mL 1.5 mg SUBCUT QWEEK #6 ml 05/23/20 subcutaneous pen injector blood sugar diagnostic (FreeStyle #200 ea 05/24/20 Lite Strips) cetirizine 10 mg capsule 10 mg PO DAILY PRN #30 cap 06/06/20 lancets 28 gauge (FreeStyle #200 ea 07/06/20 Lancets) atorvastatin 40 mg tablet 40 mg PO BEDTIME #90 tab 07/25/20 omeprazole 20 mg capsule,delayed 20 mg PO QAM 90 Days #90 cap 08/23/20 release zolpidem 10 mg tablet 10 mg PO BEDTIME PRN 90 Days #90 08/23/20 tab metoclopramide HCl 10 mg tablet 10 mg PO Q6H PRN #14 tab 09/05/20 (Reglan) albuterol sulfate 90 mcg/actuation 1 inh INHALATION QID PRN #6.7 g 09/13/20 aerosol inhaler fluticasone propionate 50 2 spray INTRANASAL DAILY #16 g 09/13/20 mcg/actuation nasal spray,suspension (Flonase Allergy Relief) naproxen 500 mg tablet 500 mg PO BID PRN #14 tab 09/13/20 Allergies Allergy/AdvReac Type Severity Reaction Status Date / Time penicillin V Allergy Intermediate rash Verified 09/13/20 20:47 aspirin [Aspirin] Allergy Mild RASH Verified 09/13/20 20:47 Penicillins Allergy Mild RASH Verified 09/13/20 20:47 tramadol AdvReac Intermediate abdominal Verified 09/13/20 20:47 pain Review of Systems Review of Systems: Yes all other systems are reviewed and are negative [facility] Past Medical History Medical History Arthritis Asthma BPH (benign prostatic hyperplasia) Diabetes mellitus Essential hypertension GERD (gastroesophageal reflux disease) High blood pressure Hyperlipidemia LDL goal <100 Insomnia No known health problems Obesity Pure hypercholesterolemia Rotator cuff tear Type 2 diabetes mellitus with diabetic polyneuropathy Surgical History History of knee replacement procedure of right knee Family History Family History Father No problems noted. Mother Diabetes Hypertension Brother Throat cancer Social History Social History Household Members: Spouse Housing: Apartment Alcohol intake: unknown Patient Tobacco Use Status: Former Tobacco user Tobacco use type: Cigarette e-Cigarette/Vaping Use: Never Used Second Hand Smoke Exposure: No Advance Directives: No Advance Directives Information Provided: Yes service: No Current occupational status: disabled Physical Exam Vital Signs: Vital Signs: Last Vital Signs Temp 98.4 F 09/13/20 20:42 Pulse 110 H 09/13/20 20:42 Resp 20 09/13/20 20:42 BP 158/80 H 09/13/20 20:42 Pulse Ox 95 09/13/20 20:42 Body Mass Index 36.4 Const: General: cooperative, healthy appearing, comfortable and no acute distress Nutritional Appearance: obese Orientation/consciousness: patient oriented x3 Limitations: language barrier HENMT: Head: Yes normal to inspection, Yes No palpable skull fracture present and Yes normocephalic Ears: hearing grossly normal bilaterally General nose exam: Normal external nose present Face and sinus: Yes normal facial exam and Yes sinuses nontender Mouth: Normal oral and palatal mucosa present and lip normal Throat: Yes posterior oropharynx normal, Yes tonsils normal and Yes uvula midline Eyes: General: appearance normal, both eyes and all related structures Neck: Neck: Yes normal visual inspection and Yes full ROM Resp: Effort & Inspection: normal respiratory effort and able to speak in co mplete sentences Cardio: Rate: regular rate Neuro: General: patient oriented x3 Extrem: General: Yes normal to inspection and Yes full ROM Discharge Plan Discharge Clinical Impression: Arthritis Medication reaction Qualifiers: Encounter type: initial encounter Qualified Code(s): T50.905A - Adverse effect of unspecified drugs, medicaments and biological substances, initial encounter URI (upper respiratory infection) Qualifiers: URI type: unspecified viral URI Qualified Code(s): J06.9 - Acute upper respiratory infection, unspecified Patient Disposition: Home, Self-Care Additional Instructions: You likely took too much of the medication your friend gave you and that cause you to feel panicked, it is not safe to take prescription medications from friends. Please only take prescription medications that are prescribed to you by a doctor. A more appropriate medication for your arthritis is naproxen, I will send a 1 week supply to your pharmacy for you to try. If it works well for you, your primary care doctor can refill the medication. This medication is not good for your kidneys so your kidneys will need to be monitored if you are going to take it chronically. You also have they slight upper respiratory infection, is most likely viral. I have called in a prescription for Flonase to relieve your nasal congestion. Please treat your symptoms with [id number] medications. Prescriptions: New naproxen 500 mg tablet 500 mg PO BID PRN (Reason: arthritis pain) Qty: 14 RF: 0 fluticasone propionate [Flonase Allergy Relief] 50 mcg/actuation spray,suspension 2 spray intranasal DAILY Qty: 16 RF: 0 albuterol sulfate 90 mcg/actuation HFA aerosol inhaler 1 inh inhalation QID PRN (Reason: shortness of breath or wheezing) Qty: 6.7 RF: 0 No Action fluticasone propionate [Allergy Relief (fluticasone)] 50 mcg/actuation spray,suspension 1 spray intranasal DAILY 30 Days Qty: 15.8 RF: 8 tamsulosin 0.4 mg capsule 0.4 mg PO DAILY Qty: 90 RF: 1 (DME) FreeStyle Lite Strips Strip See Rx Instructions .ROUTE .MEDSUPPLY Qty: 200 RF: 3 (DME) lancets [FreeStyle Lancets] 28 gauge misc See Rx Instructions .ROUTE .MEDSUPPLY Qty: 200 RF: 3 atorvastatin 40 mg tablet 40 mg PO BEDTIME Qty: 90 RF: 1 oxycodone 5 mg capsule 5 mg PO BID PRN (Reason: pain) Qty: 7 RF: 0 ibuprofen 800 mg tablet 800 mg PO Q8H PRN (Reason: pain) Qty: 14 RF: 0 metoclopramide HCl [Reglan] 10 mg tablet 10 mg PO Q6H PRN (Reason: nausea and vomiting) Qty: 14 RF: 0 acetaminophen [Tylenol] 325 mg tablet 650 mg PO Q6H PRN (Reason: pain) Qty: 20 RF: 0 cetirizine 10 mg capsule 10 mg PO DAILY PRN (Reason: allergy symptoms) Qty: 30 RF: 0 citalopram 20 mg tablet 20 mg PO DAILY RF: 0 albuterol sulfate 0.63 mg/3 mL solution for nebulization inhalation Q4H PRNRF: 0 lisinopril 10 mg tablet 10 mg PO DAILY 90 Days Qty: 90 RF: 3 zolpidem 10 mg tablet 10 mg PO BEDTIME PRN (Reason: sleep) 90 Days Qty: 90 RF: 0 omeprazole 20 mg capsule,delayed release(DR/EC) 20 mg PO QAM 90 Days Qty: 90 RF: 1 metformin 500 mg tablet extended release 24 hr 1,000 mg PO BID Qty: 360 RF: 0 dulaglutide 1.5 mg/0.5 mL pen injector 1.5 mg subcut QWEEK Qty: 6 RF: 3 Print Language: Cypriot
[2020-09-13 22:32] VITALS: BP 131/64; PULSE 101; RESP 18; O2SAT 97
[2020-09-13] MEDS: diphenhydrAMINE HCL 25 MG TABLET PO (22:41)
[2020-09-13] MEDS: Fluticasone Propionate Nasal 16 GM SPRAY 2 SPRAY NOSTRIL-B (22:41)
== END 2020-09-13 22:43 | disposition home or self-care (01) ==
PROVIDERS: Emergency Provider Emergency Medicine
DX: J06.9 Acute upper respiratory infection, unspecified (principal); F41.1 Generalized anxiety disorder; F43.0 Acute stress reaction; E11.9 Type 2 diabetes mellitus without complications; I10 Essential (primary) hypertension; Z79.899 Other long term (current) drug therapy; Z87.891 Personal history of nicotine dependence
CPT/HCPCS: 99283; Q0163

== ENCOUNTER 2020-10-08 10:41 | Emergency (ER) | payer OTHER, SELFPAY ==
--- NOTE | ~2020-10-08 | CT_ITS ---
EXAMINATION: CT ANGIOGRAM OF THE HEAD CT ANGIOGRAM OF THE NECK CLINICAL INFORMATION: Headache, dizziness, gait disturbance. COMPARISON: CT scan of the head 09/07/2020. TECHNIQUE: A noncontrast axial CT scan of the head was obtained. Test bolus series followed by intravenous administration 70 mL of Omnipaque 350. Helical imaging was performed in the axial plane from the mediastinum to the skull vertex. The degree of stenosis is based off NASCET criteria. The data was processed at the staff technologist workstation for generation of MIP images. Three-dimensional volume rendered reformatted images were also generated at an offline 3-D workstation. This CT examination was performed using dose optimization techniques as appropriate, variously including the following: *Automated exposure control *Adjustment of mA and/or kV according to patient size (this includes techniques or standardized protocols for targeted exams where dose is matched to indication/reason for exam; i.e. extremities or head) *Use of iterative reconstruction technique DLP: 2647 mGy-cm. FINDINGS: CT Head: There is no evidence of acute intracranial hemorrhage or territorial infarction. No abnormal mass-effect or midline shift is seen. Lee to white matter differentiation is well preserved. No extra-axial fluid collections are identified. There is no abnormal enhancement. There is mild commensurate prominence of the ventricles and sulci consistent with diffuse volume loss. Brain parenchymal attenuation appears normal. There are no acute osseous findings. There is a persistent metopic suture. The soft tissues are unremarkable. The mastoid air cells and visualized portions of the paranasal sinuses are well-aerated. CTA Neck: There is a classic configuration of the arch of the aorta. The great vessels of the neck are widely patent. The subclavian arteries appear normal bilaterally. The common carotid arteries have normal caliber. The carotid bifurcations bilaterally appear normal. The internal carotid arteries in the neck bilaterally have uniform and normal caliber. The origins of both vertebral arteries are well seen and appear normal. Both vertebral arteries are widely patent and demonstrate good opacification throughout their cervical course. The left vertebral artery is slightly dominant. Nonvascular: The visualized lung apices are well-aerated. The right lobe of the thyroid gland appears bulky, and there is a 5 mm low-density nodule with a focus of calcification. There is no cervical lymphadenopathy. There are moderate to severe bilateral facet arthropathic changes at multiple levels. There is narrowing of intervertebral disc height at C5-C6 and C6-C7. CTA Head: There are mild atheromatous calcifications of the right cavernous internal carotid artery. The middle and anterior cerebral arteries bilaterally demonstrate normal caliber with no evidence of focal stenosis, aneurysm or vascular malformation. There is normal arborization of the middle cerebral artery branches. The anterior communicating artery is normal. In the posterior circulation, the left vertebral artery is dominant. The vertebral arteries intradurally have uniform caliber. The basilar artery appears normal. The posterior cerebral arteries have normal caliber. The venous sinuses opacify normally. CT/CT angio head neck IMPRESSION: CT head and neck: 1. There are no acute bleeds or infarcts. There are no masses or areas of abnormal enhancement. 2. There is mild diffuse volume loss. 3. There is a 5 mm low-density nodule with calcification in the right lobe of thyroid gland which appears slightly bulky. This could be further evaluated with nonemergent ultrasound of the thyroid gland. CTA head and neck: 1. There are no flow-limiting stenoses in the neck and upper chest vasculature. 2. Intracranially there are no focal stenoses, aneurysms or vascular malformations. There are mild atheromatous calcifications of the right cavernous internal carotid artery.
[2020-10-08 10:45] VITALS: BP 127/59; PULSE 93; RESP 16; TEMP 36.9; O2SAT 97; BMI 30.8
[2020-10-08 11:31] VITALS: BP 139/74; PULSE 94
[2020-10-08 11:33] VITALS: BP 130/64; PULSE 95
[2020-10-08 11:35] VITALS: BP 154/64; PULSE 96
--- NOTE | 2020-10-08 11:48 | ECG_ITS ---
Test Reason : DIZZINESS Blood Pressure : / mmHG Vent. Rate : 087 BPM Atrial Rate : 087 BPM P-R Int : 176 ms QRS Dur : 100 ms QT Int : 368 ms P-R-T Axes : 064 022 064 degrees QTc Int : 442 ms Normal sinus rhythm Normal ECG When compared with ECG of 20-MAY-2019 19:10, No significant change was found Referred By: Maura Ahmadi Electronically Signed By:JERRI GOMEZ
[2020-10-08 12:14] LABS: MANUAL DIFF FLAG NO
[2020-10-08 12:15] LABS: Basophils Percent Auto 0.3 % (0-2); Eosinophils Absolute Auto 0.3 X10*3/uL (0.0-0.4); Eosinophils Percent Auto 5.7 % (0-4); Hematocrit 39.8 % (42-52); Hemoglobin 13.5 g/dl (14.0-18.0); Imm Gran Abs Auto 0.01 X10*3/uL (0.00-0.03); Imm Gran Pct Auto 0.2 % (0.0-0.4); Lymphocytes Absolute Auto 1.3 X10*3/uL (1.2-4.9); Mean Corpuscular HGB Conc 33.9 g/dl (31.0-36.0); Mean Corpuscular Hemoglobin 28.8 pg (27.0-33.0); Mean Corpuscular Volume 84.9 fL (80-98); Mean Platelet Volume 10.6 fL (9.4-12.4); Monocytes Absolute Auto 0.6 X10*3/uL (0.1-1.2); Monocytes Percent Auto 10.3 % (2-11); Neutrophils Absolute Auto 3.6 X10*3/uL (2.0-8.3); Neutrophils Percent Auto 61.5 % (45-73); Platelet Count 191 X10*3/uL (160-400); Red Blood Count 4.69 X10*6/uL (4.60-5.80); Red Cell Distribution Width 12.4 % (11.0-16.0); White Blood Count 5.9 X10*3/uL (4.8-10.8)
--- NOTE | 2020-10-08 12:15 | ED.GENADULT ---
HPI - General Adult General Chief complaint: Dizziness Stated complaint: headache Time Seen by Provider: 10/08/20 11:06 Source: patient Mode of arrival: ambulatory Limitations: language barrier History of Present Illness HPI narrative: 65-year-old male with a past medical history of type 2 diabetes, hypertension, hyperlipidemia, obesity, anxiety, arthritis, insomnia presents for 4 days of headache with dizziness. States 4 days ago he woke up with a headache that was 7/10 and located in the right side of his head. The pain feels like pressure in his head, and he is nauseous. He also has been dizzy, and feels that he cannot walk without falling to one side or the other. Reports lying in bed he feels that the room is spinning. He had a migraine in August 2020 and was seen here in the emergency room, and this headache is similar to the headache he had last month, but is worse today, and the dizziness is new. He felt congested recently but no couigh, ear pain, sore throat, no fevers, no vomiting. States his vision is a little more blurry now. States his head pain is now a 10/10 and he cannot sleep due to the pain. Denies photophobia, chest pain, shortness of breath, neck pain. Onset (ago): day(s) (4) Location: head Radiation: non-radiation Severity: severe Severity scale (1-10): 10 Quality: stabbing and aching Pain Consistency: constant Relieving factors: none Exacerbating factors: movement Associated symptoms: headaches Treatments prior to arrival: none Related Data Home Medications Medication Instructions Recorded Confirmed albuterol sulfate 0.63 mg/3 mL mg INHALATION Q4H PRN 01/11/20 08/23/20 solution for nebulization citalopram 20 mg tablet 20 mg PO DAILY 01/11/20 08/23/20 Previous Rx's Medication Instructions Recorded acetaminophen 325 mg tablet 650 mg PO Q6H PRN #20 tab 11/20/19 (Tylenol) lisinopril 10 mg tablet 10 mg PO DAILY 90 Days #90 tab 01/11/20 oxycodone 5 mg capsule 5 mg PO BID PRN #7 cap 01/23/20 tamsulosin 0.4 mg capsule 0.4 mg PO DAILY #90 cap 03/03/20 ibuprofen 800 mg tablet 800 mg PO Q8H PRN #14 tab 04/17/20 dulaglutide 1.5 mg/0.5 mL 1.5 mg SUBCUT QWEEK #6 ml 05/23/20 subcutaneous pen injector blood sugar diagnostic (FreeStyle #200 ea 05/24/20 Lite Strips) cetirizine 10 mg capsule 10 mg PO DAILY PRN #30 cap 06/06/20 lancets 28 gauge (FreeStyle #200 ea 07/06/20 Lancets) atorvastatin 40 mg tablet 40 mg PO BEDTIME #90 tab 07/25/20 omeprazole 20 mg capsule,delayed 20 mg PO QAM 90 Days #90 cap 08/23/20 release zolpidem 10 mg tablet 10 mg PO BEDTIME PRN 90 Days #90 08/23/20 tab metoclopramide HCl 10 mg tablet 10 mg PO Q6H PRN #14 tab 09/05/20 (Reglan) albuterol sulfate 90 mcg/actuation 1 inh INHALATION QID PRN #6.7 g 09/13/20 aerosol inhaler fluticasone propionate 50 2 spray INTRANASAL DAILY #16 g 09/13/20 mcg/actuation nasal spray,suspension (Flonase Allergy Relief) naproxen 500 mg tablet 500 mg PO BID PRN #14 tab 09/13/20 fluticasone propionate 50 1 spray INTRANASAL DAILY 30 Days 09/14/20 mcg/actuation nasal #48 ml spray,suspension metformin 500 mg tablet,extended 1,000 mg PO BID #360 tab 09/14/20 release 24 hr dexamethasone 6 mg tablet 6 mg PO DAILY 3 Days #3 tab 10/08/20 meclizine 25 mg tablet 25 mg PO BID PRN #10 tab 10/08/20 Allergies Allergy/AdvReac Type Severity Reaction Status Date / Time penicillin V Allergy Intermediate rash Verified 09/13/20 20:47 aspirin [Aspirin] Allergy Mild RASH Verified 09/13/20 20:47 Penicillins Allergy Mild RASH Verified 09/13/20 20:47 tramadol AdvReac Intermediate abdominal Verified 09/13/20 20:47 pain Review of Systems Constitutional: Constitutional: Denies chills, Denies fever(s), Reports headache(s) and Denies weakness Eyes: Eyes: Reports blurry vision, Denies diplopia, Denies loss of vision, Denies eye pain and Denies tunnel vision ENT: Reports vertigo, Reports dizziness, Denies otalgia, Reports headache(s), Denies neck pain, Reports disequilibrium, Denies post nasal drip, Denies sinus pain, Denies sinus pressure and Denies sore throat Cardiovascular: Cardiovascular: Denies chest pain, Denies leg edema and Denies dyspnea Respiratory: Respiratory: Denies chest congestion, Denies cough, Denies dyspnea and Denies wheezing Gastrointestinal: Gastrointestinal: Denies abdominal pain, Denies hematochezia, Denies coffee ground emesis, Denies diarrhea, Reports nausea, Denies vomiting and Denies hematemesis Genitourinary: Genitourinary: Reports no additional male genitourinary complaints Musculoskeletal: Musculoskeletal: Denies back pain, Denies neck pain, Denies numbness and Denies tingling Integumentary/Breasts: Skin/Breast: Denies erythema, Denies rash and Denies skin pain Neurologic: Denies Abnormal speech present, Reports vertigo, Reports dizziness, Reports headache(s), Denies loss of vision, Denies numbness, Denies Sensory deficit (Neuro), Denies tingling, Denies paresthesias, Reports disequilibrium and Denies weakness Psychiatric: Psychiatric: Reports anxiety Allergic/Immunologic: Allergic/Immunologic: Denies wheezing PMFSH Past Medical History Medical History Arthritis Asthma BPH (benign prostatic hyperplasia) Diabetes mellitus Essential hypertension GERD (gastroesophageal reflux disease) High blood pressure Hyperlipidemia LDL goal <100 Insomnia No known health problems Obesity Pure hypercholesterolemia Rotator cuff tear Type 2 diabetes mellitus with diabetic polyneuropathy Surgical History History of knee replacement procedure of right knee Family History Family History Father No problems noted. Mother Diabetes Hypertension Brother Throat cancer Social History Social History Household Members: Spouse Housing: Apartment Alcohol intake: never Patient Tobacco Use Status: Former Tobacco user Tobacco use type: Cigarette e-Cigarette/Vaping Use: Never Used Second Hand Smoke Exposure: No Use of substances other than those prescribed or required for medical reasons: No Advance Directives: Yes Advance Directives Information Provided: Yes Advance Directives on File: No service: No Current occupational status: disabled Physical Exam Vital Signs: Vital Signs: Last Vital Signs Temp 98.0 F 10/08/20 14:00 Pulse 91 10/08/20 14:00 Resp 17 10/08/20 14:00 BP 120/59 L 10/08/20 14:00 Pulse Ox 98 10/08/20 14:00 Body Mass Index 30.8 Const: General: no acute distress, alert and awake Nutritional Appearance: obese centrally obese Orientation/consciousness: patient oriented x3 Limitations: language barrier HENMT: Head: Yes normal to inspection, Yes normocephalic and Yes atraumatic Ears: hearing grossly normal bilaterally, external ears normal, TM's normal bilaterally, EAC's normal and mastoids normal General nose exam: Normal external nose present and Normal nares present Face and sinus: Yes normal facial exam and Yes sinuses nontender Mouth: Normal oral and palatal mucosa present Throat: Yes posterior oropharynx normal Eyes: Pupils: Equal, round and reactive pupils present EOM: EOMs intact bilaterally Neck: Neck: Yes normal visual inspection, Yes full ROM, Yes no meningeal signs, Yes trachea midline and Yes supple Resp: Effort & Inspection: normal respiratory effort and able to speak in complete sentences Auscultation: clear to auscultation bilaterally, no crackles, no rales, no rhonchi and no wheezes Cardio: Rate: regular rate Rhythm: regular rhythm Heart sounds: S1 normal heart sound present and S2 normal heart sound present GI: Inspection: Yes normal to inspection Palpation (GI): Soft to palpation, nontender and no guarding Back/Spine/Pelvis: Cervical Spine: cervical ROM normal, cervical spasm (right), No Cervical spine tenderness and No step off deformity Thoracic/Lumbar Spine: No thoracic spinal tenderness and No lumbar spinal tenderness Skin: General skin exam: no rashes or lesions noted Neuro: General: patient oriented x3 and no meningeal signs Cranial nerves: Yes CN's II-XII intact bilaterally, Yes Equal, round and reactive pupils present, Yes Bilaterally intact EOM present, Yes Nystagmus not present, Yes Normal facial strength present, Yes Midline tongue present, Yes Ability to bilaterally rotate head present and Yes Ability to bilaterally elevate shoulders present Cognition (Neuro): normal cognition Speech: No Abnormal speech present Gait exam (Neuro): Ataxic gait present Motor exam (neuro): 5/5 motor strength present throughout and Pronator motor function not present Sensory Exam: No Sensory deficit (Neuro) Deep tendon reflexes (DTR's): Right brachioradialis reflex intensity grade: 1+, Left brachioradialis reflex intensity grade: 1+, Right patellar reflex intensity grade: 1+ and Left patellar reflex intensity grade: 1+ Coordination: No [id number] test normal (Able to perform, but very slowly), [id number] test normal, Romberg test negative (Patient felt dizzy with Romberg) and No Normal rapid alternating movements of the distal upper extremity present (Neuro) (Slow hand flipping on by) Pupils: Normal pupillary reactivity/response: bilateral Extrem: General: Yes normal to inspection, Yes full ROM and Yes capillary refill normal Psych: Appearance: grossly normal Mental Status: mental status grossly normal Speech and movement: Normal speech and movement present and Clear speech present Affect: Anxious affect present Course Course Course Narrative: 65-year-old diabetic male presents for 4 days of headache with dizziness, mild blurry vision, gait ataxia. He has been nauseous but not vomiting. On exam, patient is tender in his right cervical muscles, he has an ataxic gait, his mrltzw-hw-amev is very slow as is rapid alternating hand movements. Who get head CT with CTA head and neck, EKG, troponin, ESR, labs. Gave patient Zofran, Reglan, Benadryl, Tylenol. Will re-evaluate after imaging comes back for Toradol. Patient's last creatinine was 0.8 Patient has an EKG that shows normal sinus no acute ischemia. Troponin is negative. CBC shows mild anemia with an H&H of 13.5 and 39.8. ESR is 7. CMP is within normal limits. CT/CTA shows: CT head and neck: 1. There are no acute bleeds or infarcts. There are no masses or areas of abnormal enhancement. 2. There is mild diffuse volume loss. 3. There is a 5 mm low-density nodule with calcification in the right lobe of thyroid gland which appears slightly bulky. This could be further evaluated with nonemergent ultrasound of the thyroid gland. ? CTA head and neck: 1. There are no flow-limiting stenoses in the neck and upper chest vasculature. 2. Intracranially there are no focal stenoses, aneurysms or vascular malformations. There are mild atheromatous calcifications of the right cavernous internal carotid artery. Sent patient home with meclizine, dexamethasone for rebound headache. Follow-up with primary care provider for incidentaloma of nodule of thyroid gland. Reevaluation(s) Reevaluation #1: Under exam, patient's headache is XXX his dizziness is XXX Medical Decision Making Lab Data Result diagrams: 10/08/20 12:09 10/08/20 12:09 Labs: Lab Results 10/08/20 10/08/20 10/08/20 Range/Units 12:09 12:09 12:09 WBC 5.9 (4.8-10.8) X10*3/uL RBC 4.69 (4.60-5.80) X10*6/uL Hgb 13.5 L (14.0-18.0) g/dl Hct 39.8 L (42-52) % MCV 84.9 (80-98) fL MCH 28.8 (27.0-33.0) pg MCHC 33.9 (31.0-36.0) g/dl RDW 12.4 (11.0-16.0) % Plt Count 191 (160-400) X10*3/uL MPV 10.6 (9.4-12.4) fL Immature Gran % (Auto) 0.2 (0.0-0.4) % Neut % (Auto) 61.5 (45-73) % Lymph % (Auto) 22.0 (20-40) % [place] % (Auto) 10.3 (2-11) % Eos % (Auto) 5.7 H (0-4) % Baso % (Auto) 0.3 (0-2) % Lymph # (Auto) 1.3 (1.2-4.9) X10*3/uL [place] # (Auto) 0.6 (0.1-1.2) X10*3/uL Eos # (Auto) 0.3 (0.0-0.4) X10*3/uL Baso # (Auto) 0.0 (0.0-0.2) X10*3/uL Abs Immat Gran (auto) 0.01 (0.00-0.03) X10*3/uL Absolute Neuts (auto) 3.6 (2.0-8.3) X10*3/uL Absolute Nucleated RBC 0.000 (0.0-0.012) X10*3/uL Nucleated RBC % (auto) 0.0 (0.0-0.2) /100WBC ESR (0-15) MM/HR Sodium 137 (135-145) mmol/L Potassium 4.9 (3.3-5.1) mmol/L Chloride 104 (96-108) mmol/L Carbon Dioxide 26 (22-29) mmol/L Anion Gap 12 (12-20) BUN 19 H (9-16) mg/dL Creatinine 0.95 (0.5-1.4) mg/dL Estim Creat Clear Calc 104.5 Estimated GFR > 60 Random Glucose 134 H (60-115) mg/dL Calcium 8.9 (8.4-10.2) mg/dL Total Bilirubin 0.6 (0.0-1.0) mg/dL AST 25 (5-37) U/L ALT 29 (0-40) U/L Alkaline Phosphatase 80 (39-117) U/L Troponin I High Sens < 3.5 (<3.5-35.0) ng/L Total Protein 6.8 (6.5-8.0) g/dL Albumin 4.1 (3.5-5.0) g/dL 10/08/20 Range/Units 12:09 WBC (4.8-10.8) X10*3/uL RBC (4.60-5.80) X10*6/uL Hgb (14.0-18.0) g/dl Hct (42-52) % MCV (80-98) fL MCH (27.0-33.0) pg MCHC (31.0-36.0) g/dl RDW (11.0-16.0) % Plt Count (160-400) X10*3/uL MPV (9.4-12.4) fL Immature Gran % (Auto) (0.0-0.4) % Neut % (Auto) (45-73) % Lymph % (Auto) (20-40) % [place] % (Auto) (2-11) % Eos % (Auto) (0-4) % Baso % (Auto) (0-2) % Lymph # (Auto) (1.2-4.9) X10*3/uL [place] # (Auto) (0.1-1.2) X10*3/uL Eos # (Auto) (0.0-0.4) X10*3/uL Baso # (Auto) (0.0-0.2) X10*3/uL Abs Immat Gran (auto) (0.00-0.03) X10*3/uL Absolute Neuts (auto) (2.0-8.3) X10*3/uL Absolute Nucleated RBC (0.0-0.012) X10*3/uL Nucleated RBC % (auto) (0.0-0.2) /100WBC ESR 7 (0-15) MM/HR Sodium (135-145) mmol/L Potassium (3.3-5.1) mmol/L Chloride (96-108) mmol/L Carbon Dioxide (22-29) mmol/L Anion Gap (12-20) BUN (9-16) mg/dL Creatinine (0.5-1.4) mg/dL Estim Creat Clear Calc Estimated GFR Random Glucose (60-115) mg/dL Calcium (8.4-10.2) mg/dL Total Bilirubin (0.0-1.0) mg/dL AST (5-37) U/L ALT (0-40) U/L Alkaline Phosphatase (39-117) U/L Troponin I High Sens (<3.5-35.0) ng/L Total Protein (6.5-8.0) g/dL Albumin (3.5-5.0) g/dL ECG Data Interpretation: EKG shows sinus at a rate of 87, normal axis, GA interval 176, QRS 100, QTC 442. No ST elevations or depressions, no T-wave inversions. Discharge Plan Discharge Clinical Impression: Migraine Qualifiers: Migraine type: without aura Status migrainosus presence: without status migrainosus Intractability: not intractable Qualified Code(s): G43.009 - Migraine without aura, not intractable, without status migrainosus Patient Disposition: Home, Self-Care Instructions: Acute Headache (ED), Dizziness (ED) Additional Instructions: Please use the meclizine for dizziness as needed. Please take the dexamethasone starting tomorrow for the next 3 days. This will help your headache not return. Please call your primary care provider, your head CT showed a nodule on your thyroid which will need an ultrasound. This is not an emergency, and this is something a primary care provider can provide. Please return to emergency room if you have any worsening symptoms, including new and severe headache, neck pain, blurry vision, vomiting, chest pain, shortness of breath or any other new or concerning symptoms Utilice la meclizina para los mareos seg?n sea necesario. [place] la dexametasona a partir de ma?jonna jamaal los pr?ximos 3 d?as. [place] ayudar? a que senior dolor de donaldo no regrese. Llame a senior proveedor de atenci?n primaria, la tomograf?a computarizada de senior donaldo mostr? un n?dulo en la tiroides que necesitar? juju ecograf?a. No se trata de juju emergencia y es algo que puede proporcionar un proveedor de atenci?n primaria. Regrese a la cheryle de emergencias si tiene alg?n s?ntoma que empeora, vivi dolor de donaldo nuevo y keiko, dolor de [place], visi?n borrosa, v?mitos, dolor en el pecho, dificultad para respirar o cualquier otro s?ntoma nuevo o preocupante. Prescriptions: New meclizine 25 mg tablet 25 mg PO BID PRN (Reason: dizziness) Qty: 10 RF: 0 dexamethasone 6 mg tablet 6 mg PO DAILY 3 Days Qty: 3 RF: 0 No Action tamsulosin 0.4 mg capsule 0.4 mg PO DAILY Qty: 90 RF: 1 (DME) FreeStyle Lite Strips Strip See Rx Instructions .ROUTE .MEDSUPPLY Qty: 200 RF: 3 (DME) lancets [FreeStyle Lancets] 28 gauge misc See Rx Instructions .ROUTE .MEDSUPPLY Qty: 200 RF: 3 atorvastatin 40 mg tablet 40 mg PO BEDTIME Qty: 90 RF: 1 fluticasone propionate 50 mcg/actuation spray,suspension 1 spray intranasal DAILY 30 Days Qty: 48 RF: 2 metformin 500 mg tablet extended release 24 hr 1,000 mg PO BID Qty: 360 RF: 0 oxycodone 5 mg capsule 5 mg PO BID PRN (Reason: pain) Qty: 7 RF: 0 ibuprofen 800 mg tablet 800 mg PO Q8H PRN (Reason: pain) Qty: 14 RF: 0 metoclopramide HCl [Reglan] 10 mg tablet 10 mg PO Q6H PRN (Reason: nausea and vomiting) Qty: 14 RF: 0 naproxen 500 mg tablet 500 mg PO BID PRN (Reason: arthritis pain) Qty: 14 RF: 0 fluticasone propionate [Flonase Allergy Relief] 50 mcg/actuation spray,suspension 2 spray intranasal DAILY Qty: 16 RF: 0 albuterol sulfate 90 mcg/actuation HFA aerosol inhaler 1 inh inhalation QID PRN (Reason: shortness of breath or wheezing) Qty: 6.7 RF: 0 acetaminophen [Tylenol] 325 mg tablet 650 mg PO Q6H PRN (Reason: pain) Qty: 20 RF: 0 cetirizine 10 mg capsule 10 mg PO DAILY PRN (Reason: allergy symptoms) Qty: 30 RF: 0 citalopram 20 mg tablet 20 mg PO DAILY RF: 0 albuterol sulfate 0.63 mg/3 mL solution for nebulization inhalation Q4H PRNRF: 0 lisinopril 10 mg tablet 10 mg PO DAILY 90 Days Qty: 90 RF: 3 zolpidem 10 mg tablet 10 mg PO BEDTIME PRN (Reason: sleep) 90 Days Qty: 90 RF: 0 omeprazole 20 mg capsule,delayed release(DR/EC) 20 mg PO QAM 90 Days Qty: 90 RF: 1 dulaglutide 1.5 mg/0.5 mL pen injector 1.5 mg subcut QWEEK Qty: 6 RF: 3 Print Language: Turkmen
[2020-10-08] MEDS: Metoclopramide HCl 10 MG/2 ML VIAL IVPUSH (12:16)
[2020-10-08] MEDS: ondansetron HCL 4 MG/2 ML VIAL IVPUSH (12:16)
[2020-10-08] MEDS: diphenhydrAMINE HCL 50 MG/ML VIAL IVPUSH (12:16)
[2020-10-08] MEDS: 0.9 % Sodium Chloride 1,000 ML 999 ML IV (12:17)
[2020-10-08] MEDS: Acetaminophen 325 MG TABLET 975 MG PO (12:17)
[2020-10-08 12:41] LABS: Alanine Aminotransferase 29 U/L (0-40); Albumin Level 4.1 g/dL (3.5-5.0); Alkaline Phosphatase 80 U/L (39-117); Anion Gap 12 (12-20); Aspartate Amino Transferase 25 U/L (5-37); Bilirubin Total 0.6 mg/dL (0.0-1.0); Blood Urea Nitrogen 19 mg/dL (9-16); Calcium 8.9 mg/dL (8.4-10.2); Carbon Dioxide 26 mmol/L (22-29); Chloride 104 mmol/L (96-108); Creatinine Clr Calc Pharmacy 104.5; Estimated Glomerular Filt Rate > 60; Glucose Random 134 mg/dL (60-115); Potassium 4.9 mmol/L (3.3-5.1); Sodium 137 mmol/L (135-145); Total Protein 6.8 g/dL (6.5-8.0)
[2020-10-08 12:44] LABS: Troponin-I High Sensitivity < 3.5 ng/L (<3.5-35.0)
[2020-10-08 12:56] LABS: Erythrocyte Sedimentation Rate 7 MM/HR (0-15)
[2020-10-08 13:14] VITALS: BP 111/42; PULSE 93; RESP 16; TEMP 36.6; O2SAT 97
[2020-10-08 14:00] VITALS: BP 120/59; PULSE 91; RESP 17; TEMP 36.7; O2SAT 98
--- NOTE | 2020-10-08 14:00 | PC.NURSE ---
patient a&ox3, family at bedside, pt still c/o dizziness and headache, youth nutritional monitor nsr, will continue to monitor.
--- NOTE | 2020-10-08 14:34 | PC.NURSE ---
pt continues to be in radiology, will medicate when he returns
[2020-10-08] MEDS: Meclizine HCl 25 MG TABLET 50 MG PO (14:44)
--- NOTE | 2020-10-08 14:45 | PC.NURSE ---
pt returned from ct scan, residential monitor reapplied, nsr 80s-90s, vitals stable, pt medicated per order, will continue to monitor.
[2020-10-08] MEDS: iohexoL 350 MG/ML 100 ML INFUS..BTL 70 ML IV (14:57)
[2020-10-08] MEDS: dexAMETHasone 6 MG TABLET PO (17:01)
== END 2020-10-08 17:19 | disposition home or self-care (01) ==
PROVIDERS: Physician Assistant; Emergency Provider Emergency Medicine; PCP Internal Medicine
DX: G43.009 Migraine without aura, not intractable, without status migrainosus (principal); R42 Dizziness and giddiness; E11.9 Type 2 diabetes mellitus without complications; I10 Essential (primary) hypertension; E78.00 Pure hypercholesterolemia, unspecified; Z79.02 Long term (current) use of antithrombotics/antiplatelets
CPT/HCPCS: 36415; 70496; 70498; 80053; 84484; 85025; 85652; 93005; 96361; 96374; 96375; 99285; J1200; J2405; J2765; J8540; Q9967

== ENCOUNTER 2020-11-12 07:05 | Emergency (ER) | payer OTHER, SELFPAY ==
--- NOTE | 2020-11-12 07:44 | ED_ITS ---
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 Mode of arrival: ambulatory Limitations: no limitations History of Present Illness MD elicited complaint: other (headaches, neck pain) Pertinent past history: migraines Onset (ago): month(s) Onset description: gradually Location: right, temporal, neck and down into neck Severity: moderate Quality & Timing: throbbing and sharp Exacerbating factors: movement of head/neck Relieving factors: nothing Context: occurred at rest Associated symptoms: none Treatments prior to arrival: none Related Data Home Medications Medication Instructions Recorded Confirmed albuterol sulfate 0.63 mg/3 mL mg INHALATION Q4H PRN 01/11/20 08/23/20 solution for nebulization citalopram 20 mg tablet 20 mg PO DAILY 01/11/20 08/23/20 Previous Rx's Medication Instructions Recorded acetaminophen 325 mg tablet 650 mg PO Q6H PRN #20 tab 11/20/19 (Tylenol) lisinopril 10 mg tablet 10 mg PO DAILY 90 Days #90 tab 01/11/20 oxycodone 5 mg capsule 5 mg PO BID PRN #7 cap 01/23/20 tamsulosin 0.4 mg capsule 0.4 mg PO DAILY #90 cap 03/03/20 ibuprofen 800 mg tablet 800 mg PO Q8H PRN #14 tab 04/17/20 dulaglutide 1.5 mg/0.5 mL 1.5 mg SUBCUT QWEEK #6 ml 05/23/20 subcutaneous pen injector blood sugar diagnostic (FreeStyle #200 ea 05/24/20 Lite Strips) cetirizine 10 mg capsule 10 mg PO DAILY PRN #30 cap 06/06/20 lancets 28 gauge (FreeStyle #200 ea 07/06/20 Lancets) atorvastatin 40 mg tablet 40 mg PO BEDTIME #90 tab 07/25/20 omeprazole 20 mg capsule,delayed 20 mg PO QAM 90 Days #90 cap 08/23/20 release zolpidem 10 mg tablet 10 mg PO BEDTIME PRN 90 Days #90 08/23/20 tab metoclopramide HCl 10 mg tablet 10 mg PO Q6H PRN #14 tab 09/05/20 (Reglan) albuterol sulfate 90 mcg/actuation 1 inh INHALATION QID PRN #6.7 g 09/13/20 aerosol inhaler fluticasone propionate 50 2 spray INTRANASAL DAILY #16 g 09/13/20 mcg/actuation nasal spray,suspension (Flonase Allergy Relief) naproxen 500 mg tablet 500 mg PO BID PRN #14 tab 09/13/20 fluticasone propionate 50 1 spray INTRANASAL DAILY 30 Days 09/14/20 mcg/actuation nasal #48 ml spray,suspension metformin 500 mg tablet,extended 1,000 mg PO BID #360 tab 09/14/20 release 24 hr dexamethasone 6 mg tablet 6 mg PO DAILY 3 Days #3 tab 10/08/20 meclizine 25 mg tablet 25 mg PO BID PRN #10 tab 10/08/20 lidocaine 4 % topical patch 1 patch TOPICAL DAILY PRN #10 ea 11/12/20 Allergies Allergy/AdvReac Type Severity Reaction Status Date / Time penicillin V Allergy Intermediate rash Verified 09/13/20 20:47 aspirin [Aspirin] Allergy Mild RASH Verified 09/13/20 20:47 Penicillins Allergy Mild RASH Verified 09/13/20 20:47 tramadol AdvReac Intermediate abdominal Verified 09/13/20 20:47 pain Review of Systems Review of Systems: Constitutional : No Fever, No Chills, No Fatigue ENT/Mouth : No sore throat, No Rhinorrhea, pos neck pain Eyes: No Eye Pain, No Swelling, No Redness Cardiovascular : No Chest Pain, No SOB, No Dyspnea on Exertion Respiratory : No Cough, No Sputum Gastrointestinal : No Nausea, No Vomiting, No Diarrhea, No abdominal Pain Genitourinary : No Dysuria, No Urinary Frequency, No Hematuria, Musculoskeletal : No joint pain, No Myalgias, No Joint Swelling Skin : No Skin Lesions, No rash Neuro : No Weakness, No Numbness, No Dizziness, positive Headache Psych : No Anxiety/Panic, No Depression Heme/Lymph: No Bruising, No Bleeding,No Lymphadenopathy Endocrine : No Polyuria, No Polydipsia All other systems reviewed and are negative [facility] Past Medical History Attestation statement: The following information was validated with the patient. Medical History Arthritis Asthma BPH (benign prostatic hyperplasia) Diabetes mellitus Essential hypertension GERD (gastroesophageal reflux disease) High blood pressure Hyperlipidemia LDL goal <100 Insomnia No known health problems Obesity Pure hypercholesterolemia Rotator cuff tear Type 2 diabetes mellitus with diabetic polyneuropathy Surgical History History of knee replacement procedure of right knee Family History Family History Father No problems noted. Mother Diabetes Hypertension Brother Throat cancer Social History Social History Household Members: Spouse Housing: Apartment Alcohol intake: never Patient Tobacco Use Status: Former Tobacco user Tobacco use type: Cigarette e-Cigarette/Vaping Use: Never Used Second Hand Smoke Exposure: No Use of substances other than those prescribed or required for medical reasons: No Advance Directives: Yes Advance Directives Information Provided: Yes Advance Directives on File: No service: No Current occupational status: disabled Physical Exam Vital Signs: Vital Signs: Last Vital Signs Pulse 85 11/12/20 07:46 Resp 16 11/12/20 07:46 BP 110/80 11/12/20 07:46 Pulse Ox 98 11/12/20 07:46 Body Mass Index 31.4 Appearance: Alert. Oriented X3. No acute distress. Eyes: Pupils equal, round and reactive to light. ENT: Pharynx normal. Neck: Normal inspection. R trapezius spasm, no mass felt CVS: Normal heart rate and rhythm. Pulses normal. Respiratory: No respiratory distress. Breath sounds normal. Abdomen: Soft and nontender. Skin: Skin warm and dry. Normal skin color. Normal skin turgor. Extremities: No lower extremity edema. No calf ttp Neuro: Oriented X 3. No motor deficit. No sensory deficit. MDM - Headache MDM Narrative Medical decision making narrative: 65 yo male with hx of DM, HLD, HTN, migraines, DM - has been to to our ED multiple times for headaches and neck pain most recently September where he underwent CTA that has no acute findings - at this time given chronicity as well as prior workup I suspect this is actually cervical pain will apply lidocaine patch and valium - I do not suspect SA[employer] infection given chronicity and prior workups Discharge Plan Discharge Clinical Impression: Cervicalgia Patient Disposition: Home, Self-Care Instructions: Acute Neck Pain (ED), Chronic Neck Pain (DC) Additional Instructions: return to ED for any worsening symptoms or concerns Prescriptions: New lidocaine 4 % adhesive patch,medicated 1 patch topical DAILY PRN (Reason: pain) Qty: 10 RF: 0 No Action tamsulosin 0.4 mg capsule 0.4 mg PO DAILY Qty: 90 RF: 1 (DME) FreeStyle Lite Strips Strip See Rx Instructions .ROUTE .MEDSUPPLY Qty: 200 RF: 3 (DME) lancets [FreeStyle Lancets] 28 gauge misc See Rx Instructions .ROUTE .MEDSUPPLY Qty: 200 RF: 3 atorvastatin 40 mg tablet 40 mg PO BEDTIME Qty: 90 RF: 1 fluticasone propionate 50 mcg/actuation spray,suspension 1 spray intranasal DAILY 30 Days Qty: 48 RF: 2 metformin 500 mg tablet extended release 24 hr 1,000 mg PO BID Qty: 360 RF: 0 oxycodone 5 mg capsule 5 mg PO BID PRN (Reason: pain) Qty: 7 RF: 0 ibuprofen 800 mg tablet 800 mg PO Q8H PRN (Reason: pain) Qty: 14 RF: 0 metoclopramide HCl [Reglan] 10 mg tablet 10 mg PO Q6H PRN (Reason: nausea and vomiting) Qty: 14 RF: 0 naproxen 500 mg tablet 500 mg PO BID PRN (Reason: arthritis pain) Qty: 14 RF: 0 fluticasone propionate [Flonase Allergy Relief] 50 mcg/actuation spray,suspension 2 spray intranasal DAILY Qty: 16 RF: 0 albuterol sulfate 90 mcg/actuation HFA aerosol inhaler 1 inh inhalation QID PRN (Reason: shortness of breath or wheezing) Qty: 6.7 RF: 0 meclizine 25 mg tablet 25 mg PO BID PRN (Reason: dizziness) Qty: 10 RF: 0 dexamethasone 6 mg tablet 6 mg PO DAILY 3 Days Qty: 3 RF: 0 acetaminophen [Tylenol] 325 mg tablet 650 mg PO Q6H PRN (Reason: pain) Qty: 20 RF: 0 cetirizine 10 mg capsule 10 mg PO DAILY PRN (Reason: allergy symptoms) Qty: 30 RF: 0 citalopram 20 mg tablet 20 mg PO DAILY RF: 0 albuterol sulfate 0.63 mg/3 mL solution for nebulization inhalation Q4H PRNRF: 0 lisinopril 10 mg tablet 10 mg PO DAILY 90 Days Qty: 90 RF: 3 zolpidem 10 mg tablet 10 mg PO BEDTIME PRN (Reason: sleep) 90 Days Qty: 90 RF: 0 omeprazole 20 mg capsule,delayed release(DR/EC) 20 mg PO QAM 90 Days Qty: 90 RF: 1 dulaglutide 1.5 mg/0.5 mL pen injector 1.5 mg subcut QWEEK Qty: 6 RF: 3 Referrals: Allison Maradiaga MD [Primary Care Provider] - 2 days (if not better) Print Language: Bolivian
[2020-11-12 07:46] VITALS: BP 110/80; PULSE 85; RESP 16; O2SAT 98; BMI 31.4
[2020-11-12] MEDS: diazePAM 5 MG TABLET PO (08:20)
[2020-11-12] MEDS: Lidocaine 4 % Patch ADH..PATCH 1 PATCH TRANSDERMA (08:20)
== END 2020-11-12 09:03 | disposition home or self-care (01) ==
PROVIDERS: Emergency Provider Emergency Medicine; PCP Internal Medicine
DX: R51.9 Headache, unspecified (principal); M54.2 Cervicalgia; Z79.899 Other long term (current) drug therapy; Z87.891 Personal history of nicotine dependence
CPT/HCPCS: 99283; 99284

== ENCOUNTER 2020-11-15 07:07 | Outpatient (REF) | payer OTHER, SELFPAY ==
[2020-11-15 07:55] LABS: Alanine Aminotransferase 37 U/L (0-40); Albumin Level 3.9 g/dL (3.5-5.0); Alkaline Phosphatase 96 U/L (39-117); Anion Gap 11 (12-20); Aspartate Amino Transferase 26 U/L (5-37); Bilirubin Total 0.5 mg/dL (0.0-1.0); Blood Urea Nitrogen 14 mg/dL (9-16); Calcium 8.3 mg/dL (8.4-10.2); Carbon Dioxide 29 mmol/L (22-29); Chloride 102 mmol/L (96-108); Cholesterol 137 mg/dL; Estimated Glomerular Filt Rate > 60; Glucose Fasting 136 mg/dL (60-99); HDL Cholesterol 25 mg/dL; LDL Cholesterol Calculated 41 mg/dl; Potassium 4.1 mmol/L (3.3-5.1); Sodium 138 mmol/L (135-145); Total Protein 6.3 g/dL (6.5-8.0); Triglycerides 355 mg/dL
[2020-11-15 08:13] LABS: Creatinine Urine 211.49 mg/dL; Microalbum/Creatinine Ratio Ur 3.3 ug/mg cr
[2020-11-21 13:02] LABS: Vitamin D 25-OH, D2 <4 ng/mL; Vitamin D 25-OH, D3 22 ng/mL; Vitamin D 25-OH, Total 22 ng/mL (30-100)
== END 2020-11-15 07:08 | disposition home or self-care (01) ==
LOC: HO.LAB 07:07
PROVIDERS: PCP Internal Medicine; Visit Provider Nurse Practitioner Gerontology
DX: E78.5 Hyperlipidemia, unspecified (principal); E66.09 Other obesity due to excess calories; Z68.32 Body mass index [BMI] 32.0-32.9, adult; E11.42 Type 2 diabetes mellitus with diabetic polyneuropathy; E55.9 Vitamin D deficiency, unspecified
CPT/HCPCS: 36415; 80053; 80061; 82043; 82306; 82947; 83036; 99212

== ENCOUNTER 2020-11-19 07:10 | Emergency (ER) | payer OTHER, SELFPAY ==
[2020-11-19 07:18] VITALS: BP 134/65; PULSE 88; RESP 16; TEMP 36.4; O2SAT 98; BMI 29.9
--- NOTE | 2020-11-19 08:15 | ED.BACK ---
HPI - Back Pain/Injury General Chief Complaint: Back Pain/Injury Stated Complaint: back pain Time Seen by Provider: 11/19/20 08:09 Source: patient Mode of arrival: ambulatory Limitations: no limitations History of Present Illness HPI Narrative: 65 yo male with past medical history of DM, HTN and HLD presents to the ED with middle/lower back pain after lifting a refrigerator down three flights of stairs X5 days ago. He states after he put the refrigerator down he immediately started feeling pain to his middle/lower back. He states the pain is on the left and right side, worse on the left. The pain does not radiate. He denies trauma to the area, no previous back surgeries. He has taken tylenol w/o relief. He denies fevers, chills, IV drug use, shortness of breath, chest pain, nausea, vomiting, diarrhea, weakness, changes in bowel habits. MD elicited complaint: back pain Onset (ago): day(s) (5) Timing: constant Severity: moderate Similar Symptoms Previously: No Quality: sharp Location: lumbar spine and thoracic spine Radiation: none Exacerbating factors: movement Relieving factors: immobilization Context: while lifting Associated symptoms: denies other symptoms Work related injury: No Related Data Home Medications Medication Instructions Recorded Confirmed albuterol sulfate 0.63 mg/3 mL mg INHALATION Q4H PRN 01/11/20 11/15/20 solution for nebulization citalopram 20 mg tablet 20 mg PO DAILY 01/11/20 11/15/20 Previous Rx's Medication Instructions Recorded acetaminophen 325 mg tablet 650 mg PO Q6H PRN #20 tab 11/20/19 (Tylenol) lisinopril 10 mg tablet 10 mg PO DAILY 90 Days #90 tab 01/11/20 ibuprofen 800 mg tablet 800 mg PO Q8H PRN #14 tab 04/17/20 dulaglutide 1.5 mg/0.5 mL 1.5 mg SUBCUT QWEEK #6 ml 05/23/20 subcutaneous pen injector blood sugar diagnostic (FreeStyle #200 ea 05/24/20 Lite Strips) cetirizine 10 mg capsule 10 mg PO DAILY PRN #30 cap 06/06/20 lancets 28 gauge (FreeStyle #200 ea 07/06/20 Lancets) atorvastatin 40 mg tablet 40 mg PO BEDTIME #90 tab 07/25/20 omeprazole 20 mg capsule,delayed 20 mg PO QAM 90 Days #90 cap 08/23/20 release zolpidem 10 mg tablet 10 mg PO BEDTIME PRN 90 Days #90 08/23/20 tab metoclopramide HCl 10 mg tablet 10 mg PO Q6H PRN #14 tab 09/05/20 (Reglan) albuterol sulfate 90 mcg/actuation 1 inh INHALATION QID PRN #6.7 g 09/13/20 aerosol inhaler fluticasone propionate 50 2 spray INTRANASAL DAILY #16 g 09/13/20 mcg/actuation nasal spray,suspension (Flonase Allergy Relief) naproxen 500 mg tablet 500 mg PO BID PRN #14 tab 09/13/20 fluticasone propionate 50 1 spray INTRANASAL DAILY 30 Days 09/14/20 mcg/actuation nasal #48 ml spray,suspension dexamethasone 6 mg tablet 6 mg PO DAILY 3 Days #3 tab 10/08/20 meclizine 25 mg tablet 25 mg PO BID PRN #10 tab 10/08/20 lidocaine 4 % topical patch 1 patch TOPICAL DAILY PRN #10 ea 11/12/20 metformin 500 mg tablet,extended 1,000 mg PO BID 90 Days #360 tab 11/15/20 release 24 hr acetaminophen 500 mg tablet 500 mg PO Q6H PRN #14 tab 11/19/20 (Tylenol Extra Strength) cyclobenzaprine 10 mg tablet 10 mg PO BEDTIME PRN #10 tab 11/19/20 lidocaine 5 % topical patch 1 patch TOPICAL DAILY #15 ea 11/19/20 (Lidoderm) Allergies Allergy/AdvReac Type Severity Reaction Status Date / Time penicillin V Allergy Intermediate rash Verified 11/15/20 09:25 aspirin [Aspirin] Allergy Mild RASH Verified 11/15/20 09:25 Penicillins Allergy Mild RASH Verified 11/15/20 09:25 tramadol AdvReac Intermediate abdominal Verified 11/15/20 09:25 pain Review of Systems Review of Systems: Constitutional : No trauma, No Weight loss, No Fever, No Chills, ENT/Mouth : No Hearing loss, No Ear Pain, No Nasal Congestion, No Sinus Pain, No Hoarseness, No sore throat, No Rhinorrhea, No Swallowing Difficulty Cardiovascular : No Chest Pain, No SOB Respiratory : No Cough, No Dyspnea Gastrointestinal : No Nausea, No Vomiting, No Diarrhea, No abdominal Pain, Genitourinary : No Dysuria, No Urinary Frequency, No Hematuria, No Urinary or Bowel Incontinence/retention Musculoskeletal : + Back pain, No neck pain, No joint stiffness, No joint swelling Skin : No Skin Lesions, No rash or signs of infection Neuro : No Weakness, No radiation, No Numbness, No Paresthesias, No headache, no loss of bowel or bladder incontinence, no saddle anesthesia, Focal weakness, No radiation Denies history of IV drug usage. Yes all other systems are reviewed and are negative [facility] Past Medical History Attestation statement: The following information was validated with the patient. Source: old records reviewed and nursing notes reviewed Medical History Arthritis Asthma BPH (benign prostatic hyperplasia) Diabetes mellitus DM2 (diabetes mellitus, type 2) Essential hypertension GERD (gastroesophageal reflux disease) High blood pressure Hyperlipidemia LDL goal <100 Insomnia No known health problems Obesity Pure hypercholesterolemia Rotator cuff tear Surgical History History of knee replacement procedure of right knee Family History Family History Father No problems noted. Mother Diabetes Hypertension Brother Throat cancer Social History Social History Household Members: Spouse Housing: Apartment Alcohol intake: never Patient Tobacco Use Status: Former Tobacco user Tobacco use type: Cigarette e-Cigarette/Vaping Use: Never Used Second Hand Smoke Exposure: No Advance Directives: No service: No Current occupational status: disabled Physical Exam Vital Signs: Vital Signs: Last Vital Signs Temp 97.5 F 11/19/20 07:18 Pulse 88 11/19/20 07:18 Resp 16 11/19/20 07:18 BP 134/65 11/19/20 07:18 Pulse Ox 98 11/19/20 07:18 Body Mass Index 29.9 vital signs have been reviewed as normal and appeared to be correct. Blood pressure normal. Heart rate normal. Respiration rate normal. Temperature normal. Oxygen saturation normal. Appearance: Alert. Oriented X3. No acute distress. Head: Normal external exam. Normocephalic. Atraumatic. Neck: Normal inspection. Neck supple. FROM. No adenopathy. Thyroid Normal. No meningeal signs. No neck mass noted. CVS: Normal heart rate and rhythm. Heart sound normal. No murmurs noted. Pulses normal throughout. Respiratory: No respiratory distress. Painless inspiration. Breath sounds normal. No wheezes/rales/rhonchi noted. Chest nontender. No accessory muscle usage noted or decreased air movement noted. Abdomen: Soft and nontender. Bowel sounds normal in all 4 quadrants. No distention noted. No organomegaly noted. No visible injury noted. Back: No CVA tenderness. + Full painful ROM noted. No obvious deformities, or edema. + Mild para-spinal muscular tenderness from thoracic region to lumbar region. Full ROM to lower extremities. 5/5 strength hip extension/flexion, abduction, adduction. Mild Lumbar pain with hip flexion against resistance. + Straight leg raise test positive on right; Straight leg raise test negative on left; Reflexes normal ankle and knee bilaterally; EHL motor strength normal bilaterally. No rashes/lesion/signs of infection noted Skin: Skin warm and dry. Normal skin color. Normal skin turgor. No rashes/lesions/lacerations noted. Extremities: No lower extremity edema. Extremities exhibit normal range of motion. Extremities nontender. Neuro: Oriented X 3. No motor deficit. No sensory deficit. Reflexes normal. Patient has a normal steady gait. Course Course Course Narrative: 65-year-old male pmhx significant for HLD,HTN and DM presents to the ED with 5 days of thoracic/lumbar back pain after lifting a refrigerator, and carrying down 3 flights of stairs. He denies urinary symptoms, weakness, paresthesias, numbness. He has no previous back surgeries, he is not an IV drug user. He has been using a cane for ambulation, which he states has been helping him. Upon physical examination there is a positive straight leg raise to the right. He has paraspinous tenderness overlying thoracic, and lumbar region. There is no midline tenderness. There is no trauma to the area, for this reason there is no need for imaging at this time. I did discuss this with the patient and he agreed that he did not need an Xray due to the mechanism of injury.Not concerned for epidural abscess, patient is afebrile, his vitals are within normal limits, and pain is only present when he is moving, and not at rest. Not concerned for cauda equina, there is no urinary symptoms, he is having 5/5 strength to upper and lower extremities, sensation is intact to upper and lower extremities. At this time based off the mode of injury, this is likely muscle spasms to the thoracic, and lumbar back. He will be discharged home with a muscle relaxer, NSAID and lidoderm patch to apply to the area. He is safe for DC home and should follow up with PCP MDM - Back Pain/Injury Medical Records Attestation: I reviewed the patient's medical records. Critical Care Time Critical Care Time Critical Care Time: No Discharge Plan Discharge Clinical Impression: Back pain Qualifiers: Back pain location: low back pain Chronicity: acute Back pain laterality: bilateral Sciatica presence: without sciatica Qualified Code(s): M54.50 - Low back pain, unspecified Back strain Qualifiers: Encounter type: initial encounter Qualified Code(s): S39.012A - Strain of muscle, fascia and tendon of lower back, initial encounter Lumbago Qualifiers: Chronicity: acute Back pain laterality: bilateral Sciatica presence: without sciatica Qualified Code(s): M54.50 - Low back pain, unspecified Patient Disposition: Home, Self-Care Instructions: Muscle Strain (ED), Low Back Strain (ED), Acute Low Back Pain (ED), Back Pain (ED) Additional Instructions: Follow up with Dr. Bertrand in one week Take medications as prescribed Cyclobenzaprine can make you sleepy, take it at night, don't drive with this mediction. Return with new or worsening symptoms or if you develop weakness, urinary/bowel incontinence, severe back pain, or if you cant feel your legs. Prescriptions: New acetaminophen [Tylenol Extra Strength] 500 mg tablet 500 mg PO Q6H PRN (Reason: pain) Qty: 14 RF: 0 lidocaine [Lidoderm] 5 % adhesive patch,medicated 1 patch topical DAILY Qty: 15 RF: 0 cyclobenzaprine 10 mg tablet 10 mg PO BEDTIME PRN (Reason: Muscle spasm) Qty: 10 RF: 0 No Action (DME) FreeStyle Lite Strips Strip See Rx Instructions .ROUTE .MEDSUPPLY Qty: 200 RF: 3 (DME) lancets [FreeStyle Lancets] 28 gauge misc See Rx Instructions .ROUTE .MEDSUPPLY Qty: 200 RF: 3 atorvastatin 40 mg tablet 40 mg PO BEDTIME Qty: 90 RF: 1 fluticasone propionate 50 mcg/actuation spray,suspension 1 spray intranasal DAILY 30 Days Qty: 48 RF: 2 ibuprofen 800 mg tablet 800 mg PO Q8H PRN (Reason: pain) Qty: 14 RF: 0 metoclopramide HCl [Reglan] 10 mg tablet 10 mg PO Q6H PRN (Reason: nausea and vomiting) Qty: 14 RF: 0 naproxen 500 mg tablet 500 mg PO BID PRN (Reason: arthritis pain) Qty: 14 RF: 0 fluticasone propionate [Flonase Allergy Relief] 50 mcg/actuation spray,suspension 2 spray intranasal DAILY Qty: 16 RF: 0 albuterol sulfate 90 mcg/actuation HFA aerosol inhaler 1 inh inhalation QID PRN (Reason: shortness of breath or wheezing) Qty: 6.7 RF: 0 meclizine 25 mg tablet 25 mg PO BID PRN (Reason: dizziness) Qty: 10 RF: 0 dexamethasone 6 mg tablet 6 mg PO DAILY 3 Days Qty: 3 RF: 0 acetaminophen [Tylenol] 325 mg tablet 650 mg PO Q6H PRN (Reason: pain) Qty: 20 RF: 0 cetirizine 10 mg capsule 10 mg PO DAILY PRN (Reason: allergy symptoms) Qty: 30 RF: 0 lidocaine 4 % adhesive patch,medicated 1 patch topical DAILY PRN (Reason: pain) Qty: 10 RF: 0 citalopram 20 mg tablet 20 mg PO DAILY RF: 0 albuterol sulfate 0.63 mg/3 mL solution for nebulization inhalation Q4H PRNRF: 0 lisinopril 10 mg tablet 10 mg PO DAILY 90 Days Qty: 90 RF: 3 zolpidem 10 mg tablet 10 mg PO BEDTIME PRN (Reason: sleep) 90 Days Qty: 90 RF: 0 omeprazole 20 mg capsule,delayed release(DR/EC) 20 mg PO QAM 90 Days Qty: 90 RF: 1 metformin 500 mg tablet extended release 24 hr 1,000 mg PO BID 90 Days Qty: 360 RF: 2 dulaglutide 1.5 mg/0.5 mL pen injector 1.5 mg subcut QWEEK Qty: 6 RF: 3
[2020-11-19] MEDS: Lidocaine 4 % Patch ADH..PATCH 1 PATCH TRANSDERMA (08:28)
[2020-11-19] MEDS: Ketorolac Tromethamine 15 MG/ML VIAL 30 MG IM (08:29)
== END 2020-11-19 09:28 | disposition home or self-care (01) ==
PROVIDERS: Emergency Provider Emergency Medicine Emergency Medical Services; PCP Internal Medicine
DX: S39.012A Strain of muscle, fascia and tendon of lower back, initial encounter (principal); X50.9XXA Other and unspecified overexertion or strenuous movements or postures, initial encounter; X50.0XXA Overexertion from strenuous movement or load, initial encounter; Y93.9 Activity, unspecified; Y92.009 Unspecified place in unspecified non-institutional (private) residence as the place of occurrence of the external cause; Y99.9 Unspecified external cause status; Z79.899 Other long term (current) drug therapy; F17.210 Nicotine dependence, cigarettes, uncomplicated; Z71.6 Tobacco abuse counseling
CPT/HCPCS: 96372; 99283; 99284; J1885

== ENCOUNTER 2021-05-23 13:07 | Outpatient (REF) | payer OTHER, SELFPAY ==
[2021-05-23 15:28] LABS: Alanine Aminotransferase 25 U/L (0-40); Albumin Level 4.2 g/dL (3.5-5.0); Alkaline Phosphatase 83 U/L (39-117); Anion Gap 13 (12-20); Aspartate Amino Transferase 24 U/L (5-37); Bilirubin Total 0.4 mg/dL (0.0-1.0); Blood Urea Nitrogen 23 mg/dL (9-16); Calcium 9.7 mg/dL (8.4-10.2); Carbon Dioxide 29 mmol/L (22-29); Chloride 100 mmol/L (96-108); Cholesterol 221 mg/dL; Estimated Glomerular Filt Rate > 60; Glucose Fasting 95 mg/dL (60-99); HDL Cholesterol 31 mg/dL; Potassium 5.1 mmol/L (3.3-5.1); Sodium 137 mmol/L (135-145); Total Protein 7.2 g/dL (6.5-8.0); Triglycerides 628 mg/dL
[2021-05-23 15:48] LABS: Creatinine Urine 113.68 mg/dL; Microalbum/Creatinine Ratio Ur 4.3 ug/mg cr
[2021-05-23 15:50] LABS: Free T4 (Free Thyroxine) 0.85 ng/dL (0.71-1.85); TSH reflex Free T4 (Prenatal) 0.91 uIU/mL; Vitamin D 25-OH Total 20.1 ng/mL (>30)
[2021-05-23 16:06] LABS: Vitamin B12 303 pg/mL (200-900)
== END 2021-05-23 13:08 | disposition home or self-care (01) ==
LOC: HO.LAB 13:07
PROVIDERS: PCP Internal Medicine; Visit Provider Nurse Practitioner Gerontology
DX: E04.1 Nontoxic single thyroid nodule (principal); E55.9 Vitamin D deficiency, unspecified; E11.9 Type 2 diabetes mellitus without complications; E78.5 Hyperlipidemia, unspecified; I10 Essential (primary) hypertension; E66.09 Other obesity due to excess calories; Z68.32 Body mass index [BMI] 32.0-32.9, adult; Z71.3 Dietary counseling and surveillance
CPT/HCPCS: 36415; 80053; 80061; 82043; 82306; 82607; 82947; 84439; 99212

== ENCOUNTER 2021-09-03 12:28 | Emergency (ER) | payer OTHER, SELFPAY ==
--- NOTE | ~2021-09-03 | XR_ITS ---
EXAMINATION: XR CHEST CLINICAL INFORMATION: 66-year-old male with cough COMPARISON: 05/20/2019 TECHNIQUE: Frontal view of the chest was obtained. FINDINGS: There are mildly increased interstitial markings in the left lower lobe basilar atelectasis. Cardiomediastinal silhouette is normal. No evidence of consolidation. No signs of lung nodules. XR/XR chest 1V IMPRESSION: Prominent interstitial markings bilaterally and atelectasis.
[2021-09-03 12:34] VITALS: PULSE 85; RESP 24; O2SAT 98; BMI 30.8
--- NOTE | 2021-09-03 12:36 | ECG_ITS ---
Test Reason : CHEST TIGHTNESS Blood Pressure : / mmHG Vent. Rate : 085 BPM Atrial Rate : 085 BPM P-R Int : 164 ms QRS Dur : 096 ms QT Int : 356 ms P-R-T Axes : 069 010 065 degrees QTc Int : 423 ms Normal sinus rhythm Minimal voltage criteria for LVH, may be normal variant ( Dania product ) Borderline ECG When compared with ECG of 08-OCT-2020 12:30, No significant change was found Referred By: Generic ED Physician Electronically Signed By:[place] LI
--- NOTE | 2021-09-03 13:05 | ED.SOB ---
HPI - SOB/Dyspnea General Chief Complaint: Dyspnea Stated Complaint: asthma, hard time breathing Time Seen by Provider: 09/03/21 12:59 Source: patient Mode of arrival: ambulatory Limitations: no limitations History of Present Illness HPI Narrative: This is 66 years old male presented to the emergency department with a chief complaint of shortness of breath/wheezing . Denies any fever chills. He has been feeling like this for about 3 days MD elicited complaint: shortness of breath and cough Pertinent past history: asthma Onset (ago): day(s) (3) Timing: constant Severity: moderate Exacerbating factors: nothing Relieving factors: nothing Known history of: asthma Associated symptoms: denies other symptoms Related Data Home oxygen amount: none Home Medications Medication Instructions Recorded Confirmed albuterol sulfate 0.63 mg/3 mL mg inhalation Q4H PRN 01/11/20 05/22/21 solution for nebulization citalopram 20 mg tablet 20 mg PO DAILY 01/11/20 05/22/21 Previous Rx's Medication Instructions Recorded acetaminophen 325 mg tablet 650 mg PO Q6H PRN pain #20 tabs 11/20/19 (Tylenol) ibuprofen 800 mg tablet 800 mg PO Q8H PRN pain #14 tabs 04/17/20 blood sugar diagnostic (FreeStyle #200 ea 05/24/20 Lite Strips) cetirizine 10 mg capsule 10 mg PO DAILY PRN allergy 06/06/20 symptoms #30 caps lancets 28 gauge (FreeStyle #200 ea 07/06/20 Lancets) omeprazole 20 mg capsule,delayed 20 mg PO QAM 90 days #90 caps 08/23/20 release metoclopramide HCl 10 mg tablet 10 mg PO Q6H PRN nausea and 09/05/20 (Reglan) vomiting #14 tabs albuterol sulfate 90 mcg/actuation 1 inh inhalation QID PRN shortness 09/13/20 aerosol inhaler of breath or wheezing #6.7 grams fluticasone propionate 50 2 spray intranasal DAILY #16 grams 09/13/20 mcg/actuation nasal spray,suspension (Flonase Allergy Relief) naproxen 500 mg tablet 500 mg PO BID PRN arthritis pain 09/13/20 #14 tabs dexamethasone 6 mg tablet 6 mg PO DAILY 3 days #3 tabs 10/08/20 meclizine 25 mg tablet 25 mg PO BID PRN dizziness #10 tabs 10/08/20 lidocaine 4 % topical patch 1 patch topical DAILY PRN pain #10 11/12/20 ea acetaminophen 500 mg tablet 500 mg PO Q6H PRN pain #14 tabs 11/19/20 (Tylenol Extra Strength) cyclobenzaprine 10 mg tablet 10 mg PO BEDTIME PRN Muscle spasm 11/19/20 #10 tabs lidocaine 5 % topical patch 1 patch topical DAILY pain #15 ea 11/19/20 (Lidoderm) zolpidem 10 mg tablet 10 mg PO BEDTIME PRN sleep 90 days 02/20/21 #90 tabs atorvastatin 40 mg tablet 40 mg PO BEDTIME #90 tabs 05/22/21 zolpidem 10 mg tablet 10 mg PO BEDTIME PRN sleep 90 days 05/22/21 #90 tabs dulaglutide 1.5 mg/0.5 mL 1.5 mg (0.5 mL) subcut QWEEK #6 mL 05/23/21 subcutaneous pen injector gabapentin 100 mg capsule 100 mg PO DAILY #30 caps 05/23/21 metformin 500 mg tablet,extended 1,000 mg PO BID 90 days #360 tabs 05/24/21 release 24 hr fluticasone propionate 50 1 spray intranasal DAILY 30 days 06/05/21 mcg/actuation nasal #48 mL spray,suspension lisinopril 10 mg tablet 10 mg PO DAILY #90 tabs 07/20/21 albuterol sulfate 90 mcg/actuation 1 inh inhalation QID PRN shortness 09/03/21 aerosol inhaler (ProAir HFA) of breath or wheezing #8.5 grams prednisone 20 mg tablet 60 mg PO DAILY #15 tabs 09/03/21 Allergies Allergy/AdvReac Type Severity Reaction Status Date / Time penicillin V Allergy Intermediate rash Verified 05/23/21 13:57 aspirin [Aspirin] Allergy Mild RASH Verified 05/23/21 13:57 Penicillins Allergy Mild RASH Verified 05/23/21 13:57 tramadol AdvReac Intermediate abdominal Verified 05/23/21 13:57 pain Review of Systems Review of Systems: Yes all other systems are reviewed and are negative ENT: Reports system reviewed and no additional complaints, except as documented Respiratory: Respiratory: Reports no additional respiratory complaints and Reports wheezing Neurologic: Reports system reviewed and no additional complaints, except as documented Allergic/Immunologic: Allergic/Immunologic: Reports wheezing PMFSH Past Medical History Medical History Arthritis Asthma Bladder pain BPH (benign prostatic hyperplasia) Diabetes mellitus DM2 (diabetes mellitus, type 2) Essential hypertension GERD (gastroesophageal reflux disease) High blood pressure Hyperlipidemia LDL goal <100 Insomnia No known health problems Obesity Pure hypercholesterolemia Rotator cuff tear Thyroid nodule Surgical History History of knee replacement procedure of right knee Family History Family History Father No problems noted. Mother Diabetes Hypertension Brother Throat cancer Social History Social History Household Members: Spouse Housing: Apartment Alcohol intake: never Patient Tobacco Use Status: Former Tobacco user Tobacco use type: Cigarette e-Cigarette/Vaping Use: Never Used Second Hand Smoke Exposure: No Advance Directives: No Advance Directives Information Provided: Yes service: No Current occupational status: disabled Cognitive needs: Yes Hearing needs: Yes Vision needs: Yes Physical Exam Vital Signs: Vital Signs: Last Vital Signs Pulse 79 09/03/21 13:22 Resp 20 09/03/21 13:22 Pulse Ox 98 09/03/21 12:34 O2 Del Method 09/03/21 12:34 BMI result Body Mass Index 30.8 Const: General: cooperative Nutritional Appearance: average body habitus Orientation/consciousness: patient oriented x3 Limitations: no limitations HEENT: Head: Yes normal to inspection Ears: hearing grossly normal bilaterally General nose exam: Normal external nose present Face and sinus: Yes normal facial exam Mouth: Normal oral and palatal mucosa present Neck: Neck: Yes normal visual inspection, Yes full ROM and Yes no lymphadenopathy Chest: Chest palpation & inspection: normal inspection of the chest Resp: Effort & Inspection: normal respiratory effort Auscultation: wheezes Percussion: percussion normal Cardio: Rate: regular rate Rhythm: regular rhythm GI: Inspection: Yes normal to inspection Percussion: Yes normal to percussion Skin: General skin exam: no rashes or lesions noted, elasticity normal and turgor normal Neuro: General: patient oriented x3 MDM - SOB/Dyspnea Lab Data Result diagrams: 09/03/21 13:24 09/03/21 13:24 Labs: Lab Results 09/03/21 09/03/21 Range/Units 13:24 13:24 WBC 5.3 (4.8-10.8) X10*3/uL RBC 4.68 (4.60-5.80) X10*6/uL Hgb 13.4 L (14.0-18.0) g/dl Hct 38.7 L (42.0-52.0) % MCV 82.7 (80.0-98.0) fL MCH 28.6 (27.0-33.0) pg MCHC 34.6 (31.0-36.0) g/dl RDW 12.6 (11.0-16.0) % Plt Count 197 (160-400) X10*3/uL MPV 10.6 (9.4-12.4) fL Immature Gran % (Auto) 0.2 (0.0-0.4) % Neut % (Auto) 58.7 (45-73) % Lymph % (Auto) 24.3 (20-40) % Winston % (Auto) 10.0 (2-11) % Eos % (Auto) 6.2 H (0-4) % Baso % (Auto) 0.6 (0-2) % Lymph # (Auto) 1.3 (1.2-4.9) X10*3/uL Winston # (Auto) 0.5 (0.1-1.2) X10*3/uL Eos # (Auto) 0.3 (0.0-0.4) X10*3/uL Baso # (Auto) 0.0 (0.0-0.2) X10*3/uL Abs Immat Gran (auto) 0.01 (0.00-0.03) X10*3/uL Absolute Neuts (auto) 3.1 (2.0-8.3) x10*3/uL Absolute Nucleated RBC 0.000 (0.0-0.012) X10*3/uL Nucleated RBC % (auto) 0.0 (0.0-0.2) /100WBC Sodium 135 (135-145) mmol/L Potassium 4.7 (3.3-5.1) mmol/L Chloride 99 (96-108) mmol/L Carbon Dioxide 27 (22-29) mmol/L Anion Gap 14 (12-20) BUN 19 H (9-16) mg/dL Creatinine 0.88 (0.5-1.4) mg/dL Estim Creat Clear Calc 111.3 Estimated GFR > 60 Random Glucose 117 H (60-115) mg/dL Calcium 9.0 D (8.4-10.2) mg/dL Total Bilirubin 0.4 (0.0-1.0) mg/dL AST 24 (5-37) U/L ALT 31 (0-40) U/L Alkaline Phosphatase 84 (39-117) U/L Total Protein 7.4 (6.5-8.0) g/dL Albumin 4.0 (3.5-5.0) g/dL Discharge Plan Discharge Clinical Impression: Asthma exacerbation, Asthma with exacerbation Patient Disposition: Home, Self-Care Instructions: Wheezing (ED) Prescriptions: New albuterol sulfate [ProAir HFA] 90 mcg/actuation HFA aerosol inhaler 1 inh inhalation QID PRN (Reason: shortness of breath or wheezing) Qty: 8.5 0RF prednisone 20 mg tablet 60 mg PO DAILY Qty: 15 0RF No Action (DME) FreeStyle Lite Strips Strip See Rx Instructions .ROUTE .MEDSUPPLY Qty: 200 3RF Rx Instructions: As directed twice a day (DME) lancets [FreeStyle Lancets] 28 gauge misc See Rx Instructions .ROUTE .MEDSUPPLY Qty: 200 3RF Rx Instructions: two time a day zolpidem 10 mg tablet 10 mg PO BEDTIME PRN (Reason: sleep) 90 Days Qty: 90 0RF metformin 500 mg tablet extended release 24 hr 1,000 mg PO BID 90 Days Qty: 360 2RF fluticasone propionate 50 mcg/actuation spray,suspension 1 spray intranasal DAILY 30 Days Qty: 48 2RF lisinopril 10 mg tablet 10 mg PO DAILY Qty: 90 3RF ibuprofen 800 mg tablet 800 mg PO Q8H PRN (Reason: pain) Qty: 14 0RF metoclopramide HCl [Reglan] 10 mg tablet 10 mg PO Q6H PRN (Reason: nausea and vomiting) Qty: 14 0RF naproxen 500 mg tablet 500 mg PO BID PRN (Reason: arthritis pain) Qty: 14 0RF fluticasone propionate [Flonase Allergy Relief] 50 mcg/actuation spray,suspension 2 spray intranasal DAILY Qty: 16 0RF Rx Instructions: administer into each nostril albuterol sulfate 90 mcg/actuation HFA aerosol inhaler 1 inh inhalation QID PRN (Reason: shortness of breath or wheezing) Qty: 6.7 0RF meclizine 25 mg tablet 25 mg PO BID PRN (Reason: dizziness) Qty: 10 0RF dexamethasone 6 mg tablet 6 mg PO DAILY 3 Days Qty: 3 0RF acetaminophen [Tylenol] 325 mg tablet 650 mg PO Q6H PRN (Reason: pain) Qty: 20 0RF cetirizine 10 mg capsule 10 mg PO DAILY PRN (Reason: allergy symptoms) Qty: 30 0RF lidocaine 4 % adhesive patch,medicated 1 patch topical DAILY PRN (Reason: pain) Qty: 10 0RF Rx Instructions: may leave on for up to 12 hrs acetaminophen [Tylenol Extra Strength] 500 mg tablet 500 mg PO Q6H PRN (Reason: pain) Qty: 14 0RF lidocaine [Lidoderm] 5 % adhesive patch,medicated 1 patch topical DAILY Qty: 15 0RF Rx Instructions: leave on most painful area for up to 12 hrs. May be substituted cyclobenzaprine 10 mg tablet 10 mg PO BEDTIME PRN (Reason: Muscle spasm) Qty: 10 0RF citalopram 20 mg tablet 20 mg PO DAILY albuterol sulfate 0.63 mg/3 mL solution for nebulization inhalation Q4H PRN omeprazole 20 mg capsule,delayed release(DR/EC) 20 mg PO QAM 90 Days Qty: 90 1RF atorvastatin 40 mg tablet 40 mg PO BEDTIME Qty: 90 1RF zolpidem 10 mg tablet 10 mg PO BEDTIME PRN (Reason: sleep) 90 Days Qty: 90 0RF dulaglutide 1.5 mg/0.5 mL pen injector 1.5 mg subcut QWEEK Qty: 6 1RF gabapentin 100 mg capsule 100 mg PO DAILY Qty: 30 6RF Referrals: Allison Maradiaga MD [Primary Care Provider] - 2 days Interventions: ED Discharge Assessment Last Done: 09/03/21 16:16 Discharge Date/Time: 09/03/21 16:16
[2021-09-03] MEDS: Albuterol Sulfate (0.083%) 2.5 MG/3 ML VIAL.NEB 7.5 MG INHALE (13:20)
[2021-09-03 13:22] VITALS: PULSE 79; RESP 20; O2SAT 97
[2021-09-03 13:28] LABS: MANUAL DIFF FLAG NO
[2021-09-03 13:30] LABS: Basophils Percent Auto 0.6 % (0-2); Eosinophils Absolute Auto 0.3 X10*3/uL (0.0-0.4); Eosinophils Percent Auto 6.2 % (0-4); Hematocrit 38.7 % (42.0-52.0); Hemoglobin 13.4 g/dl (14.0-18.0); Imm Gran Abs Auto 0.01 X10*3/uL (0.00-0.03); Imm Gran Pct Auto 0.2 % (0.0-0.4); Lymphocytes Absolute Auto 1.3 X10*3/uL (1.2-4.9); Lymphocytes Percent Auto 24.3 % (20-40); Mean Corpuscular HGB Conc 34.6 g/dl (31.0-36.0); Mean Corpuscular Hemoglobin 28.6 pg (27.0-33.0); Mean Corpuscular Volume 82.7 fL (80.0-98.0); Mean Platelet Volume 10.6 fL (9.4-12.4); Monocytes Absolute Auto 0.5 X10*3/uL (0.1-1.2); Neutrophils Absolute Auto 3.1 x10*3/uL (2.0-8.3); Neutrophils Percent Auto 58.7 % (45-73); Platelet Count 197 X10*3/uL (160-400); Red Blood Count 4.68 X10*6/uL (4.60-5.80); Red Cell Distribution Width 12.6 % (11.0-16.0); White Blood Count 5.3 X10*3/uL (4.8-10.8)
[2021-09-03] MEDS: methylPREDNISolone Sod Succ 125 MG/2 ML VIAL IVPUSH (13:40)
[2021-09-03 13:51] LABS: Alanine Aminotransferase 31 U/L (0-40); Alkaline Phosphatase 84 U/L (39-117); Anion Gap 14 (12-20); Aspartate Amino Transferase 24 U/L (5-37); Bilirubin Total 0.4 mg/dL (0.0-1.0); Blood Urea Nitrogen 19 mg/dL (9-16); Carbon Dioxide 27 mmol/L (22-29); Chloride 99 mmol/L (96-108); Creatinine Clr Calc Pharmacy 111.3; Estimated Glomerular Filt Rate > 60; Glucose Random 117 mg/dL (60-115); Potassium 4.7 mmol/L (3.3-5.1); Sodium 135 mmol/L (135-145); Total Protein 7.4 g/dL (6.5-8.0)
== END 2021-09-03 16:16 | disposition home or self-care (01) ==
PROVIDERS: Emergency Provider Emergency Medicine; PCP Internal Medicine
DX: J45.901 Unspecified asthma with (acute) exacerbation (principal); R06.02 Shortness of breath; R07.89 Other chest pain; Z87.891 Personal history of nicotine dependence; Z79.899 Other long term (current) drug therapy
CPT/HCPCS: 36415; 71045; 80053; 85025; 93005; 94640; 94644; 96374; 99284; J2930

== ENCOUNTER 2021-10-08 08:47 | Emergency (ER) | payer OTHER, SELFPAY ==
[2021-10-08 08:54] VITALS: BP 130/58; PULSE 80; RESP 18; TEMP 36.1; O2SAT 97; BMI 30.8
--- NOTE | 2021-10-08 09:12 | ED_ITS ---
HPI - Allergic Reaction General Chief complaint: Allergic Reaction Stated complaint: Bee sting T-1/ L sided eye swelling Time Seen by Provider: 10/08/21 09:12 Source: patient Mode of arrival: ambulatory Limitations: no limitations History of Present Illness HPI narrative: Patient presents emergency department for evaluation of a bee sting. He states yesterday at 11 in the morning he was stung by a bee to the side of his left eye. He states that the swelling has not improved as of this morning. The eye has been itchy therefore he has been rubbing it He has not taken any antihistamines. Denies pain with movement of the eye vision changes. Denies any headache, dizziness, lightheadedness, chest pain, palpitations, shortness of breath, difficulty breathing, swelling of the lower face or tongue, difficulty swallowing. Related Data Home Medications Medication Instructions Recorded Confirmed albuterol sulfate 0.63 mg/3 mL mg inhalation Q4H PRN 01/11/20 05/22/21 solution for nebulization citalopram 20 mg tablet 20 mg PO DAILY 01/11/20 05/22/21 Previous Rx's Medication Instructions Recorded acetaminophen 325 mg tablet 650 mg PO Q6H PRN pain #20 tabs 11/20/19 (Tylenol) ibuprofen 800 mg tablet 800 mg PO Q8H PRN pain #14 tabs 04/17/20 blood sugar diagnostic (FreeStyle #200 ea 05/24/20 Lite Strips) cetirizine 10 mg capsule 10 mg PO DAILY PRN allergy 06/06/20 symptoms #30 caps lancets 28 gauge (FreeStyle #200 ea 07/06/20 Lancets) omeprazole 20 mg capsule,delayed 20 mg PO QAM 90 days #90 caps 08/23/20 release metoclopramide HCl 10 mg tablet 10 mg PO Q6H PRN nausea and 09/05/20 (Reglan) vomiting #14 tabs albuterol sulfate 90 mcg/actuation 1 inh inhalation QID PRN shortness 09/13/20 aerosol inhaler of breath or wheezing #6.7 grams fluticasone propionate 50 2 spray intranasal DAILY #16 grams 09/13/20 mcg/actuation nasal spray,suspension (Flonase Allergy Relief) naproxen 500 mg tablet 500 mg PO BID PRN arthritis pain 09/13/20 #14 tabs dexamethasone 6 mg tablet 6 mg PO DAILY 3 days #3 tabs 10/08/20 meclizine 25 mg tablet 25 mg PO BID PRN dizziness #10 tabs 10/08/20 lidocaine 4 % topical patch 1 patch topical DAILY PRN pain #10 11/12/20 ea acetaminophen 500 mg tablet 500 mg PO Q6H PRN pain #14 tabs 11/19/20 (Tylenol Extra Strength) cyclobenzaprine 10 mg tablet 10 mg PO BEDTIME PRN Muscle spasm 11/19/20 #10 tabs lidocaine 5 % topical patch 1 patch topical DAILY pain #15 ea 11/19/20 (Lidoderm) zolpidem 10 mg tablet 10 mg PO BEDTIME PRN sleep 90 days 02/20/21 #90 tabs dulaglutide 1.5 mg/0.5 mL 1.5 mg (0.5 mL) subcut QWEEK #6 mL 05/23/21 subcutaneous pen injector gabapentin 100 mg capsule 100 mg PO DAILY #30 caps 05/23/21 metformin 500 mg tablet,extended 1,000 mg PO BID 90 days #360 tabs 05/24/21 release 24 hr fluticasone propionate 50 1 spray intranasal DAILY 30 days 06/05/21 mcg/actuation nasal #48 mL spray,suspension lisinopril 10 mg tablet 10 mg PO DAILY #90 tabs 07/20/21 albuterol sulfate 90 mcg/actuation 1 inh inhalation QID PRN shortness 09/03/21 aerosol inhaler (ProAir HFA) of breath or wheezing #8.5 grams prednisone 20 mg tablet 60 mg PO DAILY #15 tabs 09/03/21 atorvastatin 40 mg tablet 40 mg PO BEDTIME #90 tabs 09/04/21 zolpidem 10 mg tablet 10 mg PO BEDTIME PRN sleep 90 days 09/04/21 #90 tabs cetirizine 10 mg tablet (All Day 10 mg PO DAILY #7 tabs 10/08/21 Allergy (cetirizine)) prednisone 20 mg tablet 40 mg PO DAILY 3 days #6 tabs 10/08/21 Allergies Allergy/AdvReac Type Severity Reaction Status Date / Time penicillin V Allergy Intermediate rash Verified 10/08/21 08:51 aspirin [Aspirin] Allergy Mild RASH Verified 10/08/21 08:51 Penicillins Allergy Mild RASH Verified 10/08/21 08:51 tramadol AdvReac Intermediate abdominal Verified 10/08/21 08:51 pain Review of Systems Review of Systems: Constitutional: No weight loss, fever, chills, weakness or fatigue. Eye: Positive periorbital swelling Skin: No rash or itching. Cardiovascular: No chest pain, chest pressure or chest discomfort. No palpitations Respiratory: No shortness of breath, cough or sputum production. Gastrointestinal: No nausea, vomiting or diarrhea. No abdominal pain Genitourinary: No burning micturition. No urinary frequency or incontinence. Musculoskeletal: No muscle pain, back pain, joint pain or stiffness. Psychiatric: No depression or anxiety. Yes all other systems are reviewed and are negative PMFSH Past Medical History Attestation statement: The following information was validated with the patient. Source: old records reviewed Medical History Arthritis Asthma Bladder pain BPH (benign prostatic hyperplasia) Diabetes mellitus DM2 (diabetes mellitus, type 2) Essential hypertension GERD (gastroesophageal reflux disease) High blood pressure Hyperlipidemia LDL goal <100 Insomnia No known health problems Obesity Pure hypercholesterolemia Rotator cuff tear Thyroid nodule Surgical History History of knee replacement procedure of right knee Family History Family History Father No problems noted. Mother Diabetes Hypertension Brother Throat cancer Social History Social History Household Members: Spouse Housing: Apartment Alcohol intake: never Patient Tobacco Use Status: Former Tobacco user Tobacco use type: Cigarette e-Cigarette/Vaping Use: Never Used Second Hand Smoke Exposure: No Advance Directives: No Advance Directives Information Provided: No service: No Current occupational status: disabled Cognitive needs: Yes Hearing needs: Yes Vision needs: Yes Physical Exam ED Vital Signs: Vital Signs - 24 hr 10/08/21 08:54 Temperature 97.0 F Pulse Rate 80 Respiratory Rate 18 Blood Pressure 130/58 L Pulse Oximetry 97 Oxygen Delivery Method Room Air BMI result Body Mass Index 30.8 Appearance: Alert.?Oriented to person, place and time. No acute distress.?Normal affect. Eyes: Pupils equal, round and reactive to light.? EOMI. No nystagmus. Lateral and lower periorbital swelling ENT: Pharynx normal.?? Neck: Normal inspection.? Neck supple.?? CVS: Heart sounds normal. Normal heart rate and rhythm.? Pulses normal.?? Respiratory: No respiratory distress.? Lung sounds clear to auscultation bilaterally?? Abdomen: Soft and non-tender. Skin: Skin warm and dry.? Normal skin color.? Extremities: No lower extremity edema.? Neuro: Moves all extremities spontaneously. Sensation intact bilaterally. No motor deficits Ambulates with normal steady gait. Course Course Course Narrative: Patient is a 66-year-old male presents emergency department for evaluation of an insect sting to the lateral aspect of the left eye having occurred 22 hours prior to examination. No improvement in swelling per patient's report. Extraocular movements are intact. Does not appear consistent with orbital cellulitis. No respiratory distress he is speaking clear full sentences and managing secretions appropriately. Fluorescein staining with no uptake, not consistent with corneal abrasion. Discussed plan of care for discharge home, cool compresses, prednisone, NSAIDs for pain, cetirizine for pruritus. Discussed worrisome signs and symptoms to return back to the emergency department for. All questions were answered, and patient was discharged home in stable condition. MDM - Allergic Reaction Medical Records Attestation: I reviewed the patient's medical records. Discharge Plan Discharge Clinical Impression: Bee sting reaction Patient Disposition: Home, Self-Care Instructions: Insect Bite or Sting (ED) Additional Instructions: Apply cool compress for 10-15 minutes a few times daily. You can take Tylenol 500 mg, 2 tablets (1,000mg) every 4-6 hours as needed for pain, but not to exceed 3 doses daily (3,000mg). Use cetirizine daily for itching. You have been given a prescription for prednisone, this is a steroid, to help decrease the swelling/inflammation. This may cause an increase in your blood sugars, please carefully monitor your blood sugars while taking this medication. If you develop worsening of redness, swelling, and pain, or fevers, chills, pain with movement of your eye, particularly 3-5 days after the sting this should be re-evaluated. Please contact your primary care provider to arrange for a follow-up visit. Return to emergency department with any new or worsening symptoms or concerns ? Prescriptions: New cetirizine [All Day Allergy (cetirizine)] 10 mg tablet 10 mg PO DAILY Qty: 7 0RF prednisone 20 mg tablet 40 mg PO DAILY 3 Days Qty: 6 0RF No Action (DME) FreeStyle Lite Strips Strip See Rx Instructions .ROUTE .MEDSUPPLY Qty: 200 3RF Rx Instructions: As directed twice a day (DME) lancets [FreeStyle Lancets] 28 gauge misc See Rx Instructions .ROUTE .MEDSUPPLY Qty: 200 3RF Rx Instructions: two time a day zolpidem 10 mg tablet 10 mg PO BEDTIME PRN (Reason: sleep) 90 Days Qty: 90 0RF metformin 500 mg tablet extended release 24 hr 1,000 mg PO BID 90 Days Qty: 360 2RF fluticasone propionate 50 mcg/actuation spray,suspension 1 spray intranasal DAILY 30 Days Qty: 48 2RF lisinopril 10 mg tablet 10 mg PO DAILY Qty: 90 3RF atorvastatin 40 mg tablet 40 mg PO BEDTIME Qty: 90 1RF zolpidem 10 mg tablet 10 mg PO BEDTIME PRN (Reason: sleep) 90 Days Qty: 90 0RF ibuprofen 800 mg tablet 800 mg PO Q8H PRN (Reason: pain) Qty: 14 0RF metoclopramide HCl [Reglan] 10 mg tablet 10 mg PO Q6H PRN (Reason: nausea and vomiting) Qty: 14 0RF naproxen 500 mg tablet 500 mg PO BID PRN (Reason: arthritis pain) Qty: 14 0RF fluticasone propionate [Flonase Allergy Relief] 50 mcg/actuation spray,suspension 2 spray intranasal DAILY Qty: 16 0RF Rx Instructions: administer into each nostril albuterol sulfate 90 mcg/actuation HFA aerosol inhaler 1 inh inhalation QID PRN (Reason: shortness of breath or wheezing) Qty: 6.7 0RF meclizine 25 mg tablet 25 mg PO BID PRN (Reason: dizziness) Qty: 10 0RF dexamethasone 6 mg tablet 6 mg PO DAILY 3 Days Qty: 3 0RF acetaminophen [Tylenol] 325 mg tablet 650 mg PO Q6H PRN (Reason: pain) Qty: 20 0RF cetirizine 10 mg capsule 10 mg PO DAILY PRN (Reason: allergy symptoms) Qty: 30 0RF lidocaine 4 % adhesive patch,medicated 1 patch topical DAILY PRN (Reason: pain) Qty: 10 0RF Rx Instructions: may leave on for up to 12 hrs acetaminophen [Tylenol Extra Strength] 500 mg tablet 500 mg PO Q6H PRN (Reason: pain) Qty: 14 0RF lidocaine [Lidoderm] 5 % adhesive patch,medicated 1 patch topical DAILY Qty: 15 0RF Rx Instructions: leave on most painful area for up to 12 hrs. May be substituted cyclobenzaprine 10 mg tablet 10 mg PO BEDTIME PRN (Reason: Muscle spasm) Qty: 10 0RF albuterol sulfate [ProAir HFA] 90 mcg/actuation HFA aerosol inhaler 1 inh inhalation QID PRN (Reason: shortness of breath or wheezing) Qty: 8.5 0RF prednisone 20 mg tablet 60 mg PO DAILY Qty: 15 0RF citalopram 20 mg tablet 20 mg PO DAILY albuterol sulfate 0.63 mg/3 mL solution for nebulization inhalation Q4H PRN omeprazole 20 mg capsule,delayed release(DR/EC) 20 mg PO QAM 90 Days Qty: 90 1RF dulaglutide 1.5 mg/0.5 mL pen injector 1.5 mg subcut QWEEK Qty: 6 1RF gabapentin 100 mg capsule 100 mg PO DAILY Qty: 30 6RF Interventions: ED Discharge Assessment Last Done: 10/08/21 10:00 Discharge Date/Time: 10/08/21 10:01 Print Language: Vincentian
[2021-10-08] MEDS: Tetracaine HCl/PF 0.5% Oph Sol 4 ML DROPS 1 DROP EYE-LEFT (09:24)
[2021-10-08] MEDS: Fluorescein Sodium STRIP 1 STRIP EYE-LEFT (09:24)
== END 2021-10-08 10:01 | disposition home or self-care (01) ==
PROVIDERS: Emergency Provider Emergency Medicine; PCP Internal Medicine
DX: L50.0 Allergic urticaria (principal); Z79.899 Other long term (current) drug therapy
CPT/HCPCS: 99283

== ENCOUNTER 2022-02-06 10:24 | Emergency (ER) | payer OTHER, SELFPAY ==
--- NOTE | ~2022-02-06 | XR_ITS ---
EXAMINATION: XR CHEST CLINICAL INFORMATION: Shortness of breath COMPARISON: Previous chest x-ray most recent August 2021 TECHNIQUE: Frontal view of the chest was obtained. FINDINGS: The cardiac and mediastinal contours are stable. There is slight elevation of the left hemidiaphragm. There are coarse lung markings similar to previous exam. There may be atelectasis or small infiltrate at the left lung base. There is no pleural effusion or pneumothorax. There are degenerative changes of the spine. The stomach is air filled and slightly distended. XR/XR chest 1V IMPRESSION: Coarse lung markings and question of atelectasis or small infiltrate at the left lung base. Slight elevation of the left hemidiaphragm. Gas-filled slightly distended stomach.
--- NOTE | ~2022-02-06 | CT_ITS ---
EXAMINATION: CT CHEST WITHOUT CONTRAST CLINICAL INFORMATION: Left lower lobe infiltrate. Shortness of breath. COMPARISON: Previous chest x-ray from earlier the same day TECHNIQUE: Multidetector volumetric CT imaging of the chest was done. Axial MIP volume rendering provided. Sagittal and coronal reformatted images were obtained. This CT examination was performed using dose optimization techniques as appropriate, variously including the following: *Automated exposure control *Adjustment of mA and/or kV according to patient size (this includes techniques or standardized protocols for targeted exams where dose is matched to indication/reason for exam; i.e. extremities or head) *Use of iterative reconstruction technique DLP: 375 mGy-cm FINDINGS: LUNGS: Increased linear markings suggestive of subsegmental atelectasis. There is also focal increased interstitial markings and round glass attenuation suggestive of small infiltrate. Small calcified pulmonary nodules in the left upper and right lower lobes probably representing calcified granulomas. MEDIASTINUM: Small mediastinal lymph nodes. No enlarged lymph nodes. Prominent fat in the posterior mediastinum. The esophagus is normal. There is a widened esophageal diaphragmatic hiatus and this may represent herniation of fat. Normal heart size. No pericardial effusion. Normal caliber thoracic aorta. CORONARY ARTERY CALCIFICATION: None visualized on this study. PLEURA: There is no pleural effusion. No pleural mass or thickening. AXILLA: No lymphadenopathy. UPPER ABDOMEN: Slightly enlarged spleen measuring 14.5 cm in length. OSSEOUS STRUCTURES: Degenerative changes of the spine. CT/CT chest wo IV con IMPRESSION: Left lower lobe atelectasis/small infiltrate. Fleischner guidelines were followed.
[2022-02-06 10:35] VITALS: BP 141/57; PULSE 130; RESP 24; TEMP 37.4; O2SAT 95; BMI 29.9
--- NOTE | 2022-02-06 10:59 | ECG_ITS ---
Test Reason : SOB Blood Pressure : / mmHG Vent. Rate : 129 BPM Atrial Rate : 129 BPM P-R Int : 158 ms QRS Dur : 096 ms QT Int : 306 ms P-R-T Axes : 066 002 076 degrees QTc Int : 448 ms Sinus tachycardia Minimal voltage criteria for LVH, may be normal variant ( Link product ) Borderline ECG When compared with ECG of 03-SEP-2021 12:40, Vent. rate has increased BY 44 BPM Referred By: Alexia Escobar Electronically Signed By:LAKE SHEPAPRD MD
[2022-02-06] MEDS: Albuterol Sulfate 5 MG, Albuterol Sulfate (0.083%) 2.5 MG 7.5 MG INHALE (11:13)
[2022-02-06] MEDS: Albuterol/Iprat 2.5/0.5MG 3 ML AMPUL.NEB INHALE (11:13)
[2022-02-06 11:14] VITALS: BP 123/67; PULSE 129; RESP 20; TEMP 37.4; O2SAT 96
[2022-02-06 11:15] VITALS: PULSE 129; RESP 20; O2SAT 94
[2022-02-06 11:20] LABS: INTERNATIONAL NORM RATIO 1.1 (0.9-1.1); Prothrombin Time 12.1 SEC (10.0-13.1)
--- NOTE | 2022-02-06 11:23 | ED_ITS ---
HPI - General Adult General Chief complaint: General Medical Stated complaint: Asthma Time Seen by Provider: 02/06/22 10:59 Source: patient Mode of arrival: ambulatory Limitations: language barrier ( English-speaking durable medical equipment repairer utilized) History of Present Illness HPI narrative: Patient is a 66 year male presents emergency department for evaluation of shortness of breath and difficulty breathing with onset of symptoms yesterday. He reports a history of asthma, states that he has taken his albuterol inhaler at home without significant improvement, he has a nebulizer machine at home but does not have the medication for this. In addition, he is also complaining of lower abdominal pain and difficulty urinating. Related Data Home Medications Medication Instructions Recorded Confirmed albuterol sulfate 0.63 mg/3 mL mg inhalation Q4H PRN 01/11/20 01/08/22 solution for nebulization citalopram 20 mg tablet 20 mg PO DAILY 01/11/20 01/08/22 Previous Rx's Medication Instructions Recorded ibuprofen 800 mg tablet 800 mg PO Q8H PRN pain #14 tabs 04/17/20 blood sugar diagnostic (FreeStyle #200 ea 05/24/20 Lite Strips) lancets 28 gauge (FreeStyle #200 ea 07/06/20 Lancets) acetaminophen 500 mg tablet 500 mg PO Q6H PRN pain #14 tabs 11/19/20 (Tylenol Extra Strength) dulaglutide 1.5 mg/0.5 mL 1.5 mg (0.5 mL) subcut QWEEK #6 mL 05/23/21 subcutaneous pen injector gabapentin 100 mg capsule 100 mg PO DAILY #30 caps 05/23/21 metformin 500 mg tablet,extended 1,000 mg PO BID 90 days #360 tabs 05/24/21 release 24 hr fluticasone propionate 50 1 spray intranasal DAILY 30 days 06/05/21 mcg/actuation nasal #48 mL spray,suspension lisinopril 10 mg tablet 10 mg PO DAILY #90 tabs 07/20/21 cetirizine 10 mg tablet (All Day 10 mg PO DAILY #7 tabs 10/08/21 Allergy (cetirizine)) atorvastatin 40 mg tablet 40 mg PO BEDTIME #90 tabs 11/13/21 zolpidem 10 mg tablet 10 mg PO BEDTIME PRN sleep 90 days 11/13/21 #90 tabs omeprazole 20 mg capsule,delayed 20 mg PO QAM 90 days #90 caps 01/08/22 release albuterol sulfate 90 mcg/actuation 1 inh inhalation QID PRN shortness 01/30/22 aerosol inhaler (ProAir HFA) of breath or wheezing #8.5 grams albuterol sulfate 0.63 mg/3 mL 0.63 mg (3 mL) inhalation Q4-6H 02/06/22 solution for nebulization PRN shortness of breath or wheezing #75 mL nirmatrelvir 300 mg (150 mg See Rx Instructions PO .COMPLEX 02/06/22 x2)-ritonavir 100 mg tablet,dose #30 ea pack(EUA) (Paxlovid) Allergies Allergy/AdvReac Type Severity Reaction Status Date / Time penicillin V Allergy Intermediate rash Verified 01/08/22 08:18 aspirin [Aspirin] Allergy Mild RASH Verified 01/08/22 08:18 Penicillins Allergy Mild RASH Verified 01/08/22 08:18 tramadol AdvReac Intermediate abdominal Verified 01/08/22 08:18 pain Review of Systems Review of Systems: Constitutional: No fever. No chills. No weakness. No fatigue. Eye: No swelling. No redness. ENT: No sore throat. No rhinorrhea. Positive nasal congestion. No sore throat. No difficulty swallowing. Skin: No rash. No itching. Cardiovascular: positive chest pain. No palpitations. No pedal edema. Respiratory: positive shortness of breath. positive cough. positive sputum production. Gastrointestinal:. No nausea. No vomiting. No diarrhea. positive abdominal pain. No blood in stool. Genitourinary: positive dysuria Neurologic: No headache. No dizziness. No pre-syncope/ syncope. No unilateral weakness. No ataxia. No numbness. No tingling. No change in bowel or bladder control. Musculoskeletal: No muscle pain. No back pain. No joint pain. No stiffness. Yes all other systems are reviewed and are negative PMFSH Past Medical History Attestation statement: The following information was validated with the patient. Source: old records reviewed Medical History Arthritis Asthma Bladder pain BPH (benign prostatic hyperplasia) Diabetes mellitus DM2 (diabetes mellitus, type 2) Essential hypertension GERD (gastroesophageal reflux disease) Hearing difficulty of left ear High blood pressure Hyperlipidemia LDL goal <100 Insomnia No known health problems Obesity Onychomycosis Pure hypercholesterolemia Rotator cuff tear Thyroid nodule Surgical History History of knee replacement procedure of right knee Family History Family History Father No problems noted. Mother Diabetes Hypertension Brother Throat cancer Social History Social History Household Members: Spouse Housing: Apartment Alcohol intake: never Patient Tobacco Use Status: Former Tobacco user Tobacco use type: Cigarette Smoked in Last 30 Days: No e-Cigarette/Vaping Use: Never Used Second Hand Smoke Exposure: No Use of substances other than those prescribed or required for medical reasons: No Advance Directives: No Advance Directives Information Provided: Yes service: No Current occupational status: disabled Cognitive needs: Yes Hearing needs: Yes Vision needs: Yes Physical Exam ED Vital Signs: Vital Signs - 24 hr 02/06/22 10:35 02/06/22 11:15 02/06/22 11:14 Temperature 99.4 F 99.4 F Pulse Rate 130 H 129 H 129 H Respiratory Rate 24 H 20 20 Blood Pressure 141/57 H 123/67 Pulse Oximetry 95 96 Oxygen Delivery Method Room Air Room Air 02/06/22 13:53 02/06/22 15:44 02/06/22 16:57 Temperature 99.8 F 99.8 F Pulse Rate 126 H 111 H Respiratory Rate 23 H 21 H 16 Blood Pressure 105/44 L 112/44 L 116/48 L Pulse Oximetry 96 94 96 Oxygen Delivery Method Room Air Room Air Room Air BMI result Body Mass Index 29.9 Appearance: Alert.?Oriented to person, place and time. No acute distress.?Normal affect. Eyes: Pupils equal, round and reactive to light.? ENT: Pharynx normal.?? Neck: Normal inspection.? Neck supple.?? CVS: Heart sounds normal. Normal heart rate and rhythm.? Pulses normal.?? Respiratory: No respiratory distress.? Lung sounds with inspiratory and expiatory wheezing bilaterally, significantly diminished at the bases? Abdomen: Soft and non-tender. Normoactive bowel sounds. ? Skin: Skin warm and dry.? Normal skin color.? Extremities: No lower extremity edema.? No calf ttp? Neuro: Moves all extremities spontaneously. Sensation intact bilaterally. No focal neuro deficits. Ambulates with normal steady gait. Course Reevaluation(s) Reevaluation #1: received call from lab regarding critical findings magnesium 1.1, will replace with 2 g IV, and lactic acid is elevated at 2.3, blood cultures are pending, patient has so far received 1 L of normal saline IV fluids. CBC without evidence of leukocytosis but there is however left shift. CMP is overall unremarkable. He is noted to be COVID - 19 positive , we discussed emergency use authorization for Paxlovid; potential side effects, medication interactions, complications with use and patient would like to pursue treatment with Paxlovid. At this time suspect tachycardia, tachypnea to be related to viral infection as opposed to bacterial infection with sepsis at this time. troponin <3.5, EKG feeling sinus tachycardia without acute ischemic findings, do not suspect ACS at this time. Time: 11:40 Reevaluation #2: chest x-ray was reviewed and interpreted, there is question of atelectasis or infiltrate at the left lung base with elevation of the hemidiaphragm and, gas- filled distended stomach will obtain chest CT for further evaluation. Time: 12:45 Reevaluation #3: lactic acid has increased to 2.9, however this was drawn after patient had received 10 mg of albuterol, this increases likely due to albuterol usage as opposed to sepsis at this time. Patient to receive an additional 1 L normal saline IV fluids. urinalysis is without evidence of infection at this time. Time: 14:17 Additional Reevaluation(s): 15:47 - chest CT reveals left lower lobe small infiltrate 16:30 - patient completed his 2 L of normal saline IV fluids. Ambulatory O2 trial with heart rate up to 115, O2 saturation greater 90% the entire time. At this time patient is requesting to be discharged home. He states that he would like to receive prescription for Paxlovid in addition to albuterol solution for nebulizer. He states that he typically is tachycardic after the use of albuterol, but he feels well enough to return home. Given presence of COVID pneumonia, persistent tachycardia and mild tachypnea I did offer him admission he declines. Prescription for Paxilovid will be sent to the pharmacy and albuterol solution. discussed worrisome signs and symptoms to return back to the emergency department for. Advised outpatient follow-up with primary care provider. All questions answered. He departed in stable condition, ambulatory with a steady gait, and no no respiratory distress. Medications Administered Discontinued Medications Generic Name Dose Route Start Last Admin Trade Name Maranda PRN Reason Stop Dose Admin Albuterol Sulfate 5 mg/ 7.5 mg 02/06/22 11:03 02/06/22 11:13 Albuterol Sulfate 2.5 mg INHALE 02/06/22 11:04 7.5 mg ONCE ONE Administration Albuterol/Ipratropium 3 ml 02/06/22 11:03 02/06/22 11:13 Albuterol/Iprat 2.5/0.5mg 3 Ml Ampul.Neb INHALE 02/06/22 11:04 3 ml ONCE ONE Administration Magnesium Sulfate 2 gm in 50 mls @ 25 mls/hr 02/06/22 11:42 02/06/22 13:42 Magnesium Sulfate/H2o IV 02/06/22 13:41 Infused ONCE ONE Infusion Sodium Chloride 1,000 mls @ 999 mls/hr 02/06/22 11:45 02/06/22 13:42 Ns IV 02/06/22 12:45 Infused .Q1H1M NICOLAS Infusion Sodium Chloride 1,000 mls @ 999 mls/hr 02/06/22 15:00 02/06/22 16:44 Ns IV 02/06/22 16:00 Infused .Q1H1M NICOLAS Infusion Ibuprofen 600 mg 02/06/22 11:58 02/06/22 12:11 Ibuprofen 600 Mg Tablet PO 02/06/22 11:59 600 mg ONCE ONE Administration Methylprednisolone Sodium Succinate 125 mg 02/06/22 12:16 02/06/22 12:25 Methylprednisolone Sod Succ 125 Mg/2 Ml Vial IVPUSH 02/06/22 12:17 125 mg ONCE ONE Administration Medical Decision Making Medical Decision Making MDM Narrative: patient is a 66 old male with a past medical history of arthritis, asthma, BPH, type 2 diabetes, hypertension, GERD, hypertension, hyperlipidemia who presents to the emergency department for evaluation of shortness of breath with cough in addition to abdominal pain and dysuria. on initial examination he has increased work of breathing, is tachycardic, tachypneic, without hypoxia. Respiratory called to bedside to give albuterol nebulizer treatment and order placed for Solu-Medrol. Will obtain viral testing. Will obtain CBC to evaluate for leukocytosis/ anemia, CMP and lipase to evaluate for abnormal electrolytes /abnormal renal function/ abnormal hepatic/biliary function, EKG and troponin to evaluate for ischemia/ACS. Chest x-ray to evaluate for consolidation/ infiltrate/ mass/ pulmonary congestion and Urinalysis. Patient was bladder scanned upon arrival, 104 mL, no evidence of significant urinary retention. Admission/Observation Consideration of admission/observation: Escalation of care including admissi on/observation considered I considered admission for COVID- 19 pneumonia/asthma exacerbation, used shared decision making with patient, and declines interest in admission this time. No hypoxia on ambulatory O2 trial. Lab Data MDM Lab Attestation statement: I reviewed the patient's lab results. Result Diagrams: 02/06/22 11:08 02/06/22 11:08 Labs: Lab Results 02/06/22 02/06/22 02/06/22 Range/Units 10:49 11:08 11:08 WBC 7.2 (4.8-10.8) X10*3/uL RBC 4.93 (4.60-5.80) X10*6/uL Hgb 13.8 L (14.0-18.0) g/dl Hct 41.0 L (42.0-52.0) % MCV 83.2 (80.0-98.0) fL MCH 28.0 (27.0-33.0) pg MCHC 33.7 (31.0-36.0) g/dl RDW 12.1 (11.0-16.0) % Plt Count 152 L (160-400) X10*3/uL MPV 11.0 (9.4-12.4) fL Immature Gran % (Auto) 0.6 H (0.0-0.4) % Neut % (Auto) 84.5 H (45-73) % Lymph % (Auto) 5.3 L (20-40) % [place] % (Auto) 8.0 (2-11) % Eos % (Auto) 1.5 (0-4) % Baso % (Auto) 0.1 (0-2) % Lymph # (Auto) 0.4 L (1.2-4.9) X10*3/uL [place] # (Auto) 0.6 (0.1-1.2) X10*3/uL Eos # (Auto) 0.1 (0.0-0.4) X10*3/uL Baso # (Auto) 0.0 (0.0-0.2) X10*3/uL Abs Immat Gran (auto) 0.04 H (0.00-0.03) X10*3/uL Absolute Neuts (auto) 6.1 (2.0-8.3) x10*3/uL Absolute Nucleated RBC 0.000 (0.0-0.012) X10*3/uL Nucleated RBC % (auto) 0.0 (0.0-0.2) /100WBC PT 12.1 (10.0-13.1) SEC INR 1.1 (0.9-1.1) Sodium (135-145) mmol/L Potassium (3.3-5.1) mmol/L Chloride (96-108) mmol/L Carbon Dioxide (22-29) mmol/L Anion Gap (12-20) BUN (9-16) mg/dL Creatinine (0.5-1.4) mg/dL Estim Creat Clear Calc Estimated GFR Random Glucose (60-115) mg/dL Lactic Acid (0.5-2.0) mmol/L Lactic Acid F/U @ 2Hr (0.5-2.0) mmol/L Calcium (8.4-10.2) mg/dL Magnesium (1.6-2.6) mg/dL Total Bilirubin (0.0-1.0) mg/dL AST (5-37) U/L ALT (0-40) U/L Alkaline Phosphatase (39-117) U/L Troponin I High Sens (<3.5-35.0) ng/L B-Natriuretic Peptide (<100) pg/mL Total Protein (6.5-8.0) g/dL Albumin (3.5-5.0) g/dL Urine Color Urine Appearance Urine pH (5.0-9.0) Ur Specific [place] (1.005-1.025) Urine Protein (Neg-Trace) mg/dL Urine Glucose (UA) (Negative) mg/dL Urine Ketones (Negative) mg/dL Urine Blood (Negative) Urine Nitrite (Negative) Ur Leukocyte Esterase (Negative) Influenza Type A (PCR) NEGATIVE (Negative) Influenza Type B (PCR) NEGATIVE (Negative) RSV RNA Qual (PCR) NEGATIVE (Negative) SARS-CoV-2 RNA (RT-PCR) POSITIVE A (Negative) 02/06/22 02/06/22 02/06/22 Range/Units 11:08 11:08 11:09 WBC (4.8-10.8) X10*3/uL RBC (4.60-5.80) X10*6/uL Hgb (14.0-18.0) g/dl Hct (42.0-52.0) % MCV (80.0-98.0) fL MCH (27.0-33.0) pg MCHC (31.0-36.0) g/dl RDW (11.0-16.0) % Plt Count (160-400) X10*3/uL MPV (9.4-12.4) fL Immature Gran % (Auto) (0.0-0.4) % Neut % (Auto) (45-73) % Lymph % (Auto) (20-40) % [place] % (Auto) (2-11) % Eos % (Auto) (0-4) % Baso % (Auto) (0-2) % Lymph # (Auto) (1.2-4.9) X10*3/uL [place] # (Auto) (0.1-1.2) X10*3/uL Eos # (Auto) (0.0-0.4) X10*3/uL Baso # (Auto) (0.0-0.2) X10*3/uL Abs Immat Gran (auto) (0.00-0.03) X10*3/uL Absolute Neuts (auto) (2.0-8.3) x10*3/uL Absolute Nucleated RBC (0.0-0.012) X10*3/uL Nucleated RBC % (auto) (0.0-0.2) /100WBC PT (10.0-13.1) SEC INR (0.9-1.1) Sodium 135 (135-145) mmol/L Potassium 4.2 (3.3-5.1) mmol/L Chloride 100 (96-108) mmol/L Carbon Dioxide 26 (22-29) mmol/L Anion Gap 13 (12-20) BUN 19 H (9-16) mg/dL Creatinine 1.10 (0.5-1.4) mg/dL Estim Creat Clear Calc 90.4 Estimated GFR > 60 Random Glucose 219 H D (60-115) mg/dL Lactic Acid (0.5-2.0) mmol/L Lactic Acid F/U @ 2Hr (0.5-2.0) mmol/L Calcium 9.0 (8.4-10.2) mg/dL Magnesium 1.1 L* (1.6-2.6) mg/dL Total Bilirubin 0.8 (0.0-1.0) mg/dL AST 25 (5-37) U/L ALT 37 (0-40) U/L Alkaline Phosphatase 91 (39-117) U/L Troponin I High Sens < 3.5 (<3.5-35.0) ng/L B-Natriuretic Peptide < 10 (<100) pg/mL Total Protein 7.0 (6.5-8.0) g/dL Albumin 4.3 (3.5-5.0) g/dL Urine Color Urine Appearance Urine pH (5.0-9.0) Ur Specific [place] (1.005-1.025) Urine Protein (Neg-Trace) mg/dL Urine Glucose (UA) (Negative) mg/dL Urine Ketones (Negative) mg/dL Urine Blood (Negative) Urine Nitrite (Negative) Ur Leukocyte Esterase (Negative) Influenza Type A (PCR) (Negative) Influenza Type B (PCR) (Negative) RSV RNA Qual (PCR) (Negative) SARS-CoV-2 RNA (RT-PCR) (Negative) 02/06/22 02/06/22 02/06/22 Range/Units 11:17 13:56 13:58 WBC (4.8-10.8) X10*3/uL RBC (4.60-5.80) X10*6/uL Hgb (14.0-18.0) g/dl Hct (42.0-52.0) % MCV (80.0-98.0) fL MCH (27.0-33.0) pg MCHC (31.0-36.0) g/dl RDW (11.0-16.0) % Plt Count (160-400) X10*3/uL MPV (9.4-12.4) fL Immature Gran % (Auto) (0.0-0.4) % Neut % (Auto) (45-73) % Lymph % (Auto) (20-40) % [place] % (Auto) (2-11) % Eos % (Auto) (0-4) % Baso % (Auto) (0-2) % Lymph # (Auto) (1.2-4.9) X10*3/uL [place] # (Auto) (0.1-1.2) X10*3/uL Eos # (Auto) (0.0-0.4) X10*3/uL Baso # (Auto) (0.0-0.2) X10*3/uL Abs Immat Gran (auto) (0.00-0.03) X10*3/uL Absolute Neuts (auto) (2.0-8.3) x10*3/uL Absolute Nucleated RBC (0.0-0.012) X10*3/uL Nucleated RBC % (auto) (0.0-0.2) /100WBC PT (10.0-13.1) SEC INR (0.9-1.1) Sodium (135-145) mmol/L Potassium (3.3-5.1) mmol/L Chloride (96-108) mmol/L Carbon Dioxide (22-29) mmol/L Anion Gap (12-20) BUN (9-16) mg/dL Creatinine (0.5-1.4) mg/dL Estim Creat Clear Calc Estimated GFR Random Glucose (60-115) mg/dL Lactic Acid 2.3 H* (0.5-2.0) mmol/L Lactic Acid F/U @ 2Hr 2.9 H* (0.5-2.0) mmol/L Calcium (8.4-10.2) mg/dL Magnesium (1.6-2.6) mg/dL Total Bilirubin (0.0-1.0) mg/dL AST (5-37) U/L ALT (0-40) U/L Alkaline Phosphatase (39-117) U/L Troponin I High Sens (<3.5-35.0) ng/L B-Natriuretic Peptide (<100) pg/mL Total Protein (6.5-8.0) g/dL Albumin (3.5-5.0) g/dL Urine Color Yellow Urine Appearance Clear Urine pH 5.0 (5.0-9.0) Ur Specific [place] 1.025 (1.005-1.025) Urine Protein Negative (Neg-Trace) mg/dL Urine Glucose (UA) Negative (Negative) mg/dL Urine Ketones Trace (Negative) mg/dL Urine Blood Negative (Negative) Urine Nitrite Negative (Negative) Ur Leukocyte Esterase Negative (Negative) Influenza Type A (PCR) (Negative) Influenza Type B (PCR) (Negative) RSV RNA Qual (PCR) (Negative) SARS-CoV-2 RNA (RT-PCR) (Negative) Independent Interpretation I performed an independent interpretation of an: EKG and Plain X-Ray Interpretation: I have interpreted the chest x-ray and agree with radiologist impression Rate: 129 Rhythm:? sinus tachycardia [place]:? normal Normal P waves.? Normal LORI.?? Normal QRS complex.?? ST T wave :?? no ST elevation, ST depression, no T-wave inversion qTC: 448 prior studies:? August 2021 The study has been interpreted contemporaneously by me. Radiology Impression Discussion of test interpretation with radiology: I have reviewed the radiologist's reading. Radiologist Impression: XR/XR chest 1V IMPRESSION: Coarse lung markings and question of atelectasis or small infiltrate at the left lung base. Slight elevation of the left hemidiaphragm. Gas-filled slightly distended stomach. CT/CT chest wo IV con IMPRESSION: Left lower lobe atelectasis/small infiltrate. Fleischner guidelines were followed. Prescription Management I considered prescription management with: Antiviral ( Provided with prescription for Paxlovid) Discharge Plan Discharge Clinical Impression: COVID-19 Patient Disposition: Home, Self-Care Additional Instructions: While taking the Paxlovid, for COVID, do not take your atorvastatin or zolpidem at night, these will need to be on hold for 5 days as they may interact with the medication. You have been given the patient information packet regarding this medication please read through this thoroughly. The prescription for the nebulizer solution was sent to your pharmacy You can take ibuprofen 200 mg, 3 tablets (600mg) every 6-8 hours as needed for pain, in addition to Tylenol 500 mg, 2 tablets (1,000mg) every 4-6 hours as needed for pain, but not to exceed 3 doses daily (3,000mg).? as discussed, please return to the emergency department with any new or w orsening symptoms or concerns such as worsening shortness of breath, difficulty breathing, chest pain, dizziness, lightheadedness. The soonest that you may end isolation is 02/10/2022, given that your symptoms are improving in you are without a fever for 24 hour. Without the use of Tylenol or ibuprofen, although you should continue to wear a mask for 5 days following this to prevent spread of infection. Prescriptions: New albuterol sulfate 0.63 mg/3 mL solution for nebulization 0.63 mg inhalation Q4-6H PRN (Reason: shortness of breath or wheezing) Qty: 75 0RF Paxlovid (EUA) 300 mg (150 mg x 2)-100 mg tablets,dose pack See Rx Instructions .ROUTE .COMPLEX Qty: 30 0RF Rx Instructions: take TWO 150 mg tablets of nirmatrelvir with ONE 100 mg tablet of ritonavir twice daily for 5 days No Action (DME) FreeStyle Lite Strips Strip See Rx Instructions .ROUTE .MEDSUPPLY Qty: 200 3RF Rx Instructions: As directed twice a day (DME) lancets [FreeStyle Lancets] 28 gauge misc See Rx Instructions .ROUTE .MEDSUPPLY Qty: 200 3RF Rx Instructions: two time a day metformin 500 mg tablet extended release 24 hr 1,000 mg PO BID 90 Days Qty: 360 2RF fluticasone propionate 50 mcg/actuation spray,suspension 1 spray intranasal DAILY 30 Days Qty: 48 2RF lisinopril 10 mg tablet 10 mg PO DAILY Qty: 90 3RF atorvastatin 40 mg tablet 40 mg PO BEDTIME Qty: 90 1RF zolpidem 10 mg tablet 10 mg PO BEDTIME PRN (Reason: sleep) 90 Days Qty: 90 0RF albuterol sulfate [ProAir HFA] 90 mcg/actuation HFA aerosol inhaler 1 inh inhalation QID PRN (Reason: shortness of breath or wheezing) Qty: 8.5 0RF ibuprofen 800 mg tablet 800 mg PO Q8H PRN (Reason: pain) Qty: 14 0RF acetaminophen [Tylenol Extra Strength] 500 mg tablet 500 mg PO Q6H PRN (Reason: pain) Qty: 14 0RF cetirizine [All Day Allergy (cetirizine)] 10 mg tablet 10 mg PO DAILY Qty: 7 0RF citalopram 20 mg tablet 20 mg PO DAILY albuterol sulfate 0.63 mg/3 mL solution for nebulization inhalation Q4H PRN omeprazole 20 mg capsule,delayed release(DR/EC) 20 mg PO QAM 90 Days Qty: 90 1RF dulaglutide 1.5 mg/0.5 mL pen injector 1.5 mg subcut QWEEK Qty: 6 1RF gabapentin 100 mg capsule 100 mg PO DAILY Qty: 30 6RF Referrals: Allison Maradiaga MD [Primary Care Provider] - Interventions: ED Discharge Assessment Last Done: 02/06/22 17:35 Print Language: English
[2022-02-06 11:33] LABS: Influenza A PCR NEGATIVE (Negative); Influenza B PCR NEGATIVE (Negative); Resp Syncy Virus RNA Qual PCR NEGATIVE (Negative); SARS COV2 PCR INHOUSE POSITIVE (Negative)
[2022-02-06 11:38] LABS: MANUAL DIFF FLAG NO
[2022-02-06 11:40] LABS: Alanine Aminotransferase 37 U/L (0-40); Albumin Level 4.3 g/dL (3.5-5.0); Alkaline Phosphatase 91 U/L (39-117); Anion Gap 13 (12-20); Aspartate Amino Transferase 25 U/L (5-37); Bilirubin Total 0.8 mg/dL (0.0-1.0); Blood Urea Nitrogen 19 mg/dL (9-16); Carbon Dioxide 26 mmol/L (22-29); Chloride 100 mmol/L (96-108); Creatinine Clr Calc Pharmacy 90.4; Estimated Glomerular Filt Rate > 60; Glucose Random 219 mg/dL (60-115); Potassium 4.2 mmol/L (3.3-5.1); Sodium 135 mmol/L (135-145)
[2022-02-06 11:42] LABS: Lactic Acid 2.3 mmol/L (0.5-2.0)
[2022-02-06 11:42] LABS: Magnesium 1.1 mg/dL (1.6-2.6)
[2022-02-06 11:43] LABS: B Type Natriuretic Peptide < 10 pg/mL (<100)
[2022-02-06 11:43] LABS: Basophils Percent Auto 0.1 % (0-2); Eosinophils Absolute Auto 0.1 X10*3/uL (0.0-0.4); Eosinophils Percent Auto 1.5 % (0-4); Hemoglobin 13.8 g/dl (14.0-18.0); Imm Gran Abs Auto 0.04 X10*3/uL (0.00-0.03); Imm Gran Pct Auto 0.6 % (0.0-0.4); Lymphocytes Absolute Auto 0.4 X10*3/uL (1.2-4.9); Lymphocytes Percent Auto 5.3 % (20-40); Mean Corpuscular HGB Conc 33.7 g/dl (31.0-36.0); Mean Corpuscular Volume 83.2 fL (80.0-98.0); Monocytes Absolute Auto 0.6 X10*3/uL (0.1-1.2); Neutrophils Absolute Auto 6.1 x10*3/uL (2.0-8.3); Neutrophils Percent Auto 84.5 % (45-73); Platelet Count 152 X10*3/uL (160-400); Red Blood Count 4.93 X10*6/uL (4.60-5.80); Red Cell Distribution Width 12.1 % (11.0-16.0); White Blood Count 7.2 X10*3/uL (4.8-10.8)
[2022-02-06] MEDS: 0.9 % Sodium Chloride 1,000 ML 999 ML IV ×2 (11:55→15:36)
[2022-02-06] MEDS: Magnesium Sulfate/H2O 2 GM/50 ML PIGGYBACK IV (11:55)
[2022-02-06 12:10] LABS: Troponin-I High Sensitivity < 3.5 ng/L (<3.5-35.0)
[2022-02-06] MEDS: Ibuprofen 600 MG TABLET PO (12:11)
[2022-02-06] MEDS: methylPREDNISolone Sod Succ 125 MG/2 ML VIAL IVPUSH (12:25)
[2022-02-06 13:19] LABS: Reflex Lactate? Lactic Acid Added
[2022-02-06 13:53] VITALS: BP 105/44; PULSE 126; RESP 23; TEMP 37.7; O2SAT 96
[2022-02-06 14:05] LABS: Appearance Urine Clear; Color Urine Yellow; Glucose Urine UA Negative (Negative); Leukocyte Esterase Urine Negative (Negative); Nitrite Urine Negative (Negative); Specific Gravity - Urine 1.025 (1.005-1.025); Urine Blood Negative (Negative); Urine Ketones Trace mg/dL (Negative); Urine Protein Negative (Neg-Trace)
[2022-02-06 14:18] LABS: ~Lactic Acid-LAB USE ONLY 2.9 mmol/L (0.5-2.0)
--- NOTE | 2022-02-06 15:38 | PC.NURSE ---
This RN went in with chief medical director to explain the need for an additional liter of fluids, pt explained that he does not want to be here anymore because he is having noises in his ears . This RN explained that she would let the doctor know and in the meantime asked if it would be okay to start the second bag of fluids. Pt agreeable to this plan
[2022-02-06 15:44] VITALS: BP 112/44; RESP 21; TEMP 37.7; O2SAT 94
[2022-02-06 16:01] LABS: Reflex Lactate? 2 Y
[2022-02-06 16:57] VITALS: BP 116/48; PULSE 111; RESP 16; O2SAT 96
--- NOTE | 2022-02-06 17:00 | PC.NURSE ---
COLEEN Garcia performed ambulatory sat with pt. Pt heart rate trinity from 110 to about 133. Rasta, GREASE PRESS HELPER aware
--- NOTE | 2022-02-06 17:02 | PC.NURSE ---
awaiting inventory technician for discharge
== END 2022-02-06 17:37 | disposition home or self-care (01) ==
PROVIDERS: Nurse Practitioner Family; Emergency Provider Student in an Organized Health Care Education/Training Program; PCP Internal Medicine
DX: U07.1 COVID-19 (principal); R06.02 Shortness of breath; R30.0 Dysuria; E11.9 Type 2 diabetes mellitus without complications; I10 Essential (primary) hypertension; Z79.899 Other long term (current) drug therapy
CPT/HCPCS: 0241U; 36415; 51798; 71045; 71250; 80053; 81003; 83605; 83735; 83880; 84484; 85025; 85610; 87040; 93005; 94640; 96361; 96374; 96375; 99285; J2930; J3475

== ENCOUNTER 2022-02-17 21:40 | Emergency (ER) | payer OTHER, SELFPAY ==
[2022-02-17 21:46] VITALS: BP 144/70; PULSE 102; RESP 20; TEMP 36.6; O2SAT 100; BMI 30.8
[2022-02-17 21:56] LABS: Glucose, Whole Blood 394 mg/dL (60-115)
[2022-02-17 22:00] LABS: MANUAL DIFF FLAG NO
[2022-02-17 22:01] LABS: Basophils Percent Auto 0.2 % (0-2); Eosinophils Percent Auto 0.2 % (0-4); Hematocrit 39.1 % (42.0-52.0); Hemoglobin 13.2 g/dl (14.0-18.0); Imm Gran Abs Auto 0.14 X10*3/uL (0.00-0.03); Imm Gran Pct Auto 1.3 % (0.0-0.4); Lymphocytes Absolute Auto 1.4 X10*3/uL (1.2-4.9); Lymphocytes Percent Auto 12.8 % (20-40); Mean Corpuscular HGB Conc 33.8 g/dl (31.0-36.0); Mean Corpuscular Hemoglobin 27.6 pg (27.0-33.0); Mean Corpuscular Volume 81.6 fL (80.0-98.0); Mean Platelet Volume 10.3 fL (9.4-12.4); Monocytes Absolute Auto 0.7 X10*3/uL (0.1-1.2); Monocytes Percent Auto 6.8 % (2-11); Neutrophils Absolute Auto 8.6 x10*3/uL (2.0-8.3); Neutrophils Percent Auto 78.7 % (45-73); Platelet Count 234 X10*3/uL (160-400); Red Blood Count 4.79 X10*6/uL (4.60-5.80); Red Cell Distribution Width 11.9 % (11.0-16.0); White Blood Count 10.9 X10*3/uL (4.8-10.8)
[2022-02-17 22:17] LABS: Anion Gap 20 (12-20); Blood Urea Nitrogen 23 mg/dL (9-16); Calcium 9.5 mg/dL (8.4-10.2); Carbon Dioxide 23 mmol/L (22-29); Chloride 97 mmol/L (96-108); Creatinine Clr Calc Pharmacy 85.9; Estimated Glomerular Filt Rate > 60; Glucose Random 390 mg/dL (60-115); Potassium 4.8 mmol/L (3.3-5.1); Sodium 135 mmol/L (135-145)
[2022-02-18] VITALS: BP 126/52; PULSE 95; RESP 16; TEMP 36.9; O2SAT 97
[2022-02-18 00:15] LABS: Glucose, Whole Blood 243 mg/dL (60-115)
[2022-02-18 00:32] LABS: Acetone, serum QL Negative (Negative); Alanine Aminotransferase 41 U/L (0-40); Albumin Level 4.2 g/dL (3.5-5.0); Alkaline Phosphatase 118 U/L (39-117); Aspartate Amino Transferase 22 U/L (5-37); Bilirubin Direct < 0.2 mg/dL (0.0-0.5); Bilirubin Total 0.4 mg/dL (0.0-1.0)
--- NOTE | 2022-02-18 00:37 | ED_ITS ---
HPI - Recheck/Abnormal Lab/Rx General Chief Complaint: Recheck/Abnormal Lab/Rx Stated Complaint: low blood sugar Time Seen by Provider: 02/17/22 23:27 [facility]: [facility] Mode of arrival: ambulatory History of Present Illness HPI narrative: 66-year-old male presents with concerns regarding high sugar levels in a few days of increased urinary frequency without pain or burning and denies any fever chills or nausea, vomiting. Patient does endorse that he recently was treated for asthma exacerbation with inhalers as well as steroids. But also endorses that he used to received Trulicity shots weekly, but his physician left 3 months ago and he has not followed up with any other providers. He otherwise denies shortness. Related Data Home Medications Medication Instructions Recorded Confirmed albuterol sulfate 0.63 mg/3 mL mg inhalation Q4H PRN 01/11/20 01/08/22 solution for nebulization citalopram 20 mg tablet 20 mg PO DAILY 01/11/20 01/08/22 Previous Rx's Medication Instructions Recorded ibuprofen 800 mg tablet 800 mg PO Q8H PRN pain #14 tabs 04/17/20 blood sugar diagnostic (FreeStyle #200 ea 05/24/20 Lite Strips) lancets 28 gauge (FreeStyle #200 ea 07/06/20 Lancets) acetaminophen 500 mg tablet 500 mg PO Q6H PRN pain #14 tabs 11/19/20 (Tylenol Extra Strength) dulaglutide 1.5 mg/0.5 mL 1.5 mg (0.5 mL) subcut QWEEK #6 mL 05/23/21 subcutaneous pen injector gabapentin 100 mg capsule 100 mg PO DAILY #30 caps 05/23/21 metformin 500 mg tablet,extended 1,000 mg PO BID 90 days #360 tabs 05/24/21 release 24 hr fluticasone propionate 50 1 spray intranasal DAILY 30 days 06/05/21 mcg/actuation nasal #48 mL spray,suspension lisinopril 10 mg tablet 10 mg PO DAILY #90 tabs 07/20/21 cetirizine 10 mg tablet (All Day 10 mg PO DAILY #7 tabs 10/08/21 Allergy (cetirizine)) atorvastatin 40 mg tablet 40 mg PO BEDTIME #90 tabs 11/13/21 zolpidem 10 mg tablet 10 mg PO BEDTIME PRN sleep 90 days 11/13/21 #90 tabs omeprazole 20 mg capsule,delayed 20 mg PO QAM 90 days #90 caps 01/08/22 release albuterol sulfate 90 mcg/actuation 1 inh inhalation QID PRN shortness 01/30/22 aerosol inhaler (ProAir HFA) of breath or wheezing #8.5 grams albuterol sulfate 0.63 mg/3 mL 0.63 mg (3 mL) inhalation Q4-6H 02/06/22 solution for nebulization PRN shortness of breath or wheezing #75 mL nirmatrelvir 300 mg (150 mg See Rx Instructions PO .COMPLEX 02/06/22 x2)-ritonavir 100 mg tablet,dose #30 ea pack(EUA) (Paxlovid) Allergies Allergy/AdvReac Type Severity Reaction Status Date / Time penicillin V Allergy Intermediate rash Verified 02/17/22 21:53 aspirin [Aspirin] Allergy Mild RASH Verified 02/17/22 21:53 Penicillins Allergy Mild RASH Verified 02/17/22 21:53 tramadol AdvReac Intermediate abdominal Verified 02/17/22 21:53 pain Review of Systems Review of Systems: Pertinent positives and negatives as stated in HPI. [facility] Past Medical History Source: nursing notes reviewed Medical History Arthritis Asthma Bladder pain BPH (benign prostatic hyperplasia) Diabetes mellitus DM2 (diabetes mellitus, type 2) Essential hypertension GERD (gastroesophageal reflux disease) Hearing difficulty of left ear High blood pressure Hyperlipidemia LDL goal <100 Insomnia No known health problems Obesity Onychomycosis Pure hypercholesterolemia Rotator cuff tear Thyroid nodule Surgical History History of knee replacement procedure of right knee Family History Family History Father No problems noted. Mother Diabetes Hypertension Brother Throat cancer Social History Social History Household Members: Spouse Housing: Apartment Alcohol intake: never Patient Tobacco Use Status: Former Tobacco user Tobacco use type: Cigarette Smoked in Last 30 Days: No e-Cigarette/Vaping Use: Never Used Second Hand Smoke Exposure: No Use of substances other than those prescribed or required for medical reasons: No Advance Directives: No service: No Current occupational status: disabled Cognitive needs: Yes Hearing needs: Yes Vision needs: Yes Physical Exam Vital Signs: Vital Signs: Last Vital Signs Temp 98.4 F 02/18/22 00:00 Pulse 95 02/18/22 00:00 Resp 16 02/18/22 00:00 BP 126/52 L 02/18/22 00:00 Pulse Ox 97 02/18/22 00:00 O2 Del Method 02/18/22 00:00 BMI result Body Mass Index 30.8 VITAL SIGNS: Reviewed. GENERAL: Well developed, well nourished, in no acute distress. HEAD: Normocephalic/atraumatic EYES: PERRLA, EOMI LUNGS: Normal breath sounds. No adventitious sounds or accessory muscle use. SpO 2<97> CARDIOVASCULAR: Regular rate and rhythm without noted murmurs, no JVD or lower extremity edema. ABDOMEN: Soft, non-tender, non-distended with bowel sounds. MUSCULOSKELETAL: No tenderness, deformities, or effusions noted on gross inspection. EXTREMITIES: No cyanosis, clubbing or edema. SKIN: Inspection of the skin reveals no rashes, no diaphoresis NEUROLOGIC: Alert and oriented x 4. Strength and sensation to light touch were grossly intact x 4. Medical Decision Making Medical Decision Making [facility] Narrative: 66-year-old male who presents with hyperglycemia for at least a number of days given his reports of polyuria. Patient does not have symptoms of DKA such as tachypnea, nausea, vomiting and has recently been on a course of steroids which likely has caused significant derangements in his glucose levels. I have reviewed and interpreted his laboratory results as isolated hyperglycemia without evidence of DKA or HHS. Patient's repeat glucose levels continue to trend downward. Patient has no evidence of dizziness or diaphoresis at this time, he is reassured to follow-up with his primary care provider on Saturday morning to discuss restarting his Trulicity and that his sugars were gradually improve as the course of steroids resolves. Differential Diagnosis Differential Diagnoses: The differential diagnosis associated with the presentation includes Please see the discussion above Lab Data [facility] Lab Attestation statement: I reviewed the patient's lab results. Please see the discussion above 02/17/22 21:56 02/17/22 21:56 Labs: Lab Results 01/07/23 01/07/23 01/07/23 Range/Units 21:52 21:56 21:56 WBC 10.9 H (4.8-10.8) X10*3/uL RBC 4.79 (4.60-5.80) X10*6/uL Hgb 13.2 L (14.0-18.0) g/dl Hct 39.1 L (42.0-52.0) % MCV 81.6 (80.0-98.0) fL MCH 27.6 (27.0-33.0) pg MCHC 33.8 (31.0-36.0) g/dl RDW 11.9 (11.0-16.0) % Plt Count 234 D (160-400) X10*3/uL MPV 10.3 (9.4-12.4) fL Immature Gran % (Auto) 1.3 H (0.0-0.4) % Neut % (Auto) 78.7 H (45-73) % Lymph % (Auto) 12.8 L (20-40) % [place] % (Auto) 6.8 (2-11) % Eos % (Auto) 0.2 (0-4) % Baso % (Auto) 0.2 (0-2) % Lymph # (Auto) 1.4 (1.2-4.9) X10*3/uL [place] # (Auto) 0.7 (0.1-1.2) X10*3/uL Eos # (Auto) 0.0 (0.0-0.4) X10*3/uL Baso # (Auto) 0.0 (0.0-0.2) X10*3/uL Abs Immat Gran (auto) 0.14 H (0.00-0.03) X10*3/uL Absolute Neuts (auto) 8.6 H (2.0-8.3) x10*3/uL Absolute Nucleated RBC 0.000 (0.0-0.012) X10*3/uL Nucleated RBC % (auto) 0.0 (0.0-0.2) /100WBC Sodium 135 (135-145) mmol/L Potassium 4.8 (3.3-5.1) mmol/L Chloride 97 (96-108) mmol/L Carbon Dioxide 23 (22-29) mmol/L Anion Gap 20 (12-20) BUN 23 H (9-16) mg/dL Creatinine 1.14 (0.5-1.4) mg/dL Estim Creat Clear Calc 85.9 Estimated GFR > 60 POC Glucose 394 H* (60-115) mg/dL Random Glucose 390 H* (60-115) mg/dL Calcium 9.5 (8.4-10.2) mg/dL Total Bilirubin 0.4 (0.0-1.0) mg/dL Direct Bilirubin < 0.2 (0.0-0.5) mg/dL AST 22 (5-37) U/L ALT 41 H (0-40) U/L Alkaline Phosphatase 118 H (39-117) U/L Total Protein 7.0 (6.5-8.0) g/dL Albumin 4.2 (3.5-5.0) g/dL Acetone, Qual Negative (Negative) 02/18/22 Range/Units 00:10 WBC (4.8-10.8) X10*3/uL RBC (4.60-5.80) X10*6/uL Hgb (14.0-18.0) g/dl Hct (42.0-52.0) % MCV (80.0-98.0) fL MCH (27.0-33.0) pg MCHC (31.0-36.0) g/dl RDW (11.0-16.0) % Plt Count (160-400) X10*3/uL MPV (9.4-12.4) fL Immature Gran % (Auto) (0.0-0.4) % Neut % (Auto) (45-73) % Lymph % (Auto) (20-40) % [place] % (Auto) (2-11) % Eos % (Auto) (0-4) % Baso % (Auto) (0-2) % Lymph # (Auto) (1.2-4.9) X10*3/uL [place] # (Auto) (0.1-1.2) X10*3/uL Eos # (Auto) (0.0-0.4) X10*3/uL Baso # (Auto) (0.0-0.2) X10*3/uL Abs Immat Gran (auto) (0.00-0.03) X10*3/uL Absolute Neuts (auto) (2.0-8.3) x10*3/uL Absolute Nucleated RBC (0.0-0.012) X10*3/uL Nucleated RBC % (auto) (0.0-0.2) /100WBC Sodium (135-145) mmol/L Potassium (3.3-5.1) mmol/L Chloride (96-108) mmol/L Carbon Dioxide (22-29) mmol/L Anion Gap (12-20) BUN (9-16) mg/dL Creatinine (0.5-1.4) mg/dL Estim Creat Clear Calc Estimated GFR POC Glucose 243 H (60-115) mg/dL Random Glucose (60-115) mg/dL Calcium (8.4-10.2) mg/dL Total Bilirubin (0.0-1.0) mg/dL Direct Bilirubin (0.0-0.5) mg/dL AST (5-37) U/L ALT (0-40) U/L Alkaline Phosphatase (39-117) U/L Total Protein (6.5-8.0) g/dL Albumin (3.5-5.0) g/dL Acetone, Qual (Negative) Independent Interpretation I performed an independent interpretation of an: EKG Interpretation: Normal sinus rhythm, HR -90, no STEMI, NM/QRS/QTC is within normal limits. Chronic Conditions Patient?s care impacted by: Diabetes Discharge Plan Discharge Clinical Impression: Hyperglycemia without ketosis Patient Disposition: Home, Self-Care Instructions: Diabetic Hyperglycemia (ED) Additional Instructions: 1. Reanudar todos los medicamentos caseros seg?n lo prescrito. 2. Le recomendamos que elliot un seguimiento con senior proveedor de atenci?n primaria el lunes por la ma?allison para analizar m?s a fondo el reinicio de senior Trulicity. Regrese a la cheryle de emergencias si los s?ntomas empeoran. 1. Resume all home medications as prescribed. 2. Recommend that you follow-up with your primary care provider on Saturday morning to further discuss restarting your Trulicity. Return to the ER for any worsening symptoms. Prescriptions: No Action (DME) FreeStyle Lite Strips Strip See Rx Instructions .ROUTE .MEDSUPPLY Qty: 200 3RF Rx Instructions: As directed twice a day (DME) lancets [FreeStyle Lancets] 28 gauge misc See Rx Instructions .ROUTE .MEDSUPPLY Qty: 200 3RF Rx Instructions: two time a day metformin 500 mg tablet extended release 24 hr 1,000 mg PO BID 90 Days Qty: 360 2RF fluticasone propionate 50 mcg/actuation spray,suspension 1 spray intranasal DAILY 30 Days Qty: 48 2RF lisinopril 10 mg tablet 10 mg PO DAILY Qty: 90 3RF atorvastatin 40 mg tablet 40 mg PO BEDTIME Qty: 90 1RF zolpidem 10 mg tablet 10 mg PO BEDTIME PRN (Reason: sleep) 90 Days Qty: 90 0RF albuterol sulfate [ProAir HFA] 90 mcg/actuation HFA aerosol inhaler 1 inh inhalation QID PRN (Reason: shortness of breath or wheezing) Qty: 8.5 0RF ibuprofen 800 mg tablet 800 mg PO Q8H PRN (Reason: pain) Qty: 14 0RF albuterol sulfate 0.63 mg/3 mL solution for nebulization 0.63 mg inhalation Q4-6H PRN (Reason: shortness of breath or wheezing) Qty: 75 0RF Paxlovid (EUA) 300 mg (150 mg x 2)-100 mg tablets,dose pack See Rx Instructions .ROUTE .COMPLEX Qty: 30 0RF Rx Instructions: take TWO 150 mg tablets of nirmatrelvir with ONE 100 mg tablet of ritonavir twice daily for 5 days acetaminophen [Tylenol Extra Strength] 500 mg tablet 500 mg PO Q6H PRN (Reason: pain) Qty: 14 0RF cetirizine [All Day Allergy (cetirizine)] 10 mg tablet 10 mg PO DAILY Qty: 7 0RF citalopram 20 mg tablet 20 mg PO DAILY albuterol sulfate 0.63 mg/3 mL solution for nebulization inhalation Q4H PRN omeprazole 20 mg capsule,delayed release(DR/EC) 20 mg PO QAM 90 Days Qty: 90 1RF dulaglutide 1.5 mg/0.5 mL pen injector 1.5 mg subcut QWEEK Qty: 6 1RF gabapentin 100 mg capsule 100 mg PO DAILY Qty: 30 6RF Referrals: Allison Maradiaga MD [Primary Care Provider] - (Patient needs to restart his Trulicity) Print Language: Azerbaijani
--- NOTE | 2022-02-18 00:42 | ECG_ITS ---
Test Reason : HYPERGLYCEMIA Blood Pressure : / mmHG Vent. Rate : 090 BPM Atrial Rate : 090 BPM P-R Int : 162 ms QRS Dur : 098 ms QT Int : 354 ms P-R-T Axes : 060 007 060 degrees QTc Int : 433 ms Normal sinus rhythm Normal ECG When compared with ECG of 06-FEB-2022 11:01, No significant change was found Referred By: Alexia Escobar Electronically Signed By:GEORGIA LI
== END 2022-02-18 01:20 | disposition home or self-care (01) ==
PROVIDERS: Emergency Provider Student in an Organized Health Care Education/Training Program; PCP Internal Medicine
DX: E11.65 Type 2 diabetes mellitus with hyperglycemia (principal); I10 Essential (primary) hypertension; E78.5 Hyperlipidemia, unspecified; Z79.84 Long term (current) use of oral hypoglycemic drugs; Z79.02 Long term (current) use of antithrombotics/antiplatelets; Z79.899 Other long term (current) drug therapy; Z87.891 Personal history of nicotine dependence
CPT/HCPCS: 36415; 80048; 80076; 82009; 82947; 85025; 93005; 99283; 99284

== ENCOUNTER 2022-04-02 08:02 | Day surgery (SDC) | payer OTHER, SELFPAY ==
[2022-04-02 08:09] VITALS: BP 168/76; PULSE 110; RESP 20; TEMP 35.6; O2SAT 97; BMI 26.2
--- NOTE | 2022-04-02 08:09 | ED.SKABFB ---
HPI - Skin/Abscess/Foreign Bdy General Chief complaint: Dyspnea Stated complaint: FO in throat Time Seen by Provider: 04/02/22 08:09 Source: patient Mode of arrival: ambulatory Limitations: language barrier History of Present Illness HPI narrative: History by general supervisor. Patient swallowed a toothbrush protector. It is now stuck in his esophagous. complaint: foreign body (in throat) Onset (ago): hour(s) (1) Severity: mild Pain Consistency: constant Related Data Home Medications Medication Instructions Recorded Confirmed albuterol sulfate 0.63 mg/3 mL mg inhalation Q4H PRN 01/11/20 01/08/22 solution for nebulization citalopram 20 mg tablet 20 mg PO DAILY 01/11/20 01/08/22 Previous Rx's Medication Instructions Recorded ibuprofen 800 mg tablet 800 mg PO Q8H PRN pain #14 tabs 04/17/20 blood sugar diagnostic (FreeStyle #200 ea 05/24/20 Lite Strips) lancets 28 gauge (FreeStyle #200 ea 07/06/20 Lancets) acetaminophen 500 mg tablet 500 mg PO Q6H PRN pain #14 tabs 11/19/20 (Tylenol Extra Strength) gabapentin 100 mg capsule 100 mg PO DAILY #30 caps 05/23/21 metformin 500 mg tablet,extended 1,000 mg PO BID 90 days #360 tabs 05/24/21 release 24 hr fluticasone propionate 50 1 spray intranasal DAILY 30 days 06/05/21 mcg/actuation nasal #48 mL spray,suspension lisinopril 10 mg tablet 10 mg PO DAILY #90 tabs 07/20/21 cetirizine 10 mg tablet (All Day 10 mg PO DAILY #7 tabs 10/08/21 Allergy (cetirizine)) atorvastatin 40 mg tablet 40 mg PO BEDTIME #90 tabs 11/13/21 omeprazole 20 mg capsule,delayed 20 mg PO QAM 90 days #90 caps 01/08/22 release albuterol sulfate 90 mcg/actuation 1 inh inhalation QID PRN shortness 01/30/22 aerosol inhaler (ProAir HFA) of breath or wheezing #8.5 grams albuterol sulfate 0.63 mg/3 mL 0.63 mg (3 mL) inhalation Q4-6H 02/06/22 solution for nebulization PRN shortness of breath or wheezing #75 mL nirmatrelvir 300 mg (150 mg See Rx Instructions PO .COMPLEX 02/06/22 x2)-ritonavir 100 mg tablet,dose #30 ea pack(EUA) (Paxlovid) dulaglutide 1.5 mg/0.5 mL 1.5 mg (0.5 mL) subcut QWEEK #6 mL 02/19/22 subcutaneous pen injector zolpidem 10 mg tablet 10 mg PO BEDTIME PRN sleep 90 days 03/21/22 #90 tabs Allergies Allergy/AdvReac Type Severity Reaction Status Date / Time penicillin V Allergy Intermediate rash Verified 04/02/22 08:12 aspirin [Aspirin] Allergy Mild RASH Verified 04/02/22 08:12 Penicillins Allergy Mild RASH Verified 04/02/22 08:12 tramadol AdvReac Intermediate abdominal Verified 04/02/22 08:12 pain Review of Systems Review of Systems: Yes all other systems are reviewed and are negative Neurologic: Denies Sensory deficit (Neuro) PMFSH Past Medical History Medical History Arthritis Asthma Bladder pain BPH (benign prostatic hyperplasia) Diabetes mellitus DM2 (diabetes mellitus, type 2) Essential hypertension GERD (gastroesophageal reflux disease) Hearing difficulty of left ear High blood pressure Hyperlipidemia LDL goal <100 Insomnia No known health problems Obesity Onychomycosis Pure hypercholesterolemia Rotator cuff tear Thyroid nodule Surgical History History of knee replacement procedure of right knee Family History Family History Father No problems noted. Mother Diabetes Hypertension Brother Throat cancer Social History Social History Household Members: Spouse Housing: Apartment Alcohol intake: never Patient Tobacco Use Status: Former Tobacco user Tobacco use type: Cigarette Smoked in Last 30 Days: No e-Cigarette/Vaping Use: Never Used Second Hand Smoke Exposure: No Use of substances other than those prescribed or required for medical reasons: No Advance Directives: No Advance Directives Information Provided: Yes service: No Current occupational status: disabled Cognitive needs: Yes Hearing needs: Yes Vision needs: Yes Physical Exam Vital Signs: Vital Signs: Last Vital Signs Temp 96.1 F L 04/02/22 08:09 Pulse 17 L 04/02/22 08:36 Resp 16 04/02/22 08:36 BP 158/65 H 04/02/22 08:36 Pulse Ox 98 04/02/22 08:36 O2 Del Method 04/02/22 08:36 BMI result Body Mass Index 26.2 Const: Other: very anxious out of proportion General: healthy appearing Nutritional Appearance: average body habitus Orientation/consciousness: oriented to person and patient oriented x3 Limitations: no limitations HEENT: Other: scrape and irritation to back of throat Ears: external ears normal General nose exam: Normal external nose present Mouth: Normal oral and palatal mucosa present and oropharynx normal Throat: Yes posterior oropharynx normal Eyes: General: appearance normal, both eyes and all related structures Neck: Other: supple Neck: Yes normal visual inspection Chest: Chest palpation & inspection: normal inspection of the chest Resp: Auscultation: clear to auscultation bilaterally Cardio: Jugular venous distension: no JVD Rate: regular rate Rhythm: regular rhythm Heart sounds: S1 normal heart sound present and S2 normal heart sound present GI: Inspection: Yes normal to inspection Palpation (GI): Soft to palpation, nontender and No hepatosplenomegaly present Auscultation: normal bowel sounds : General: Yes no CVA tenderness Back/Spine/Pelvis: Back: no CVA tenderness Skin: General skin exam: no rashes or lesions noted Neuro: General: oriented to person and patient oriented x3 Cranial nerves: Yes CN's II-XII intact bilaterally Motor exam (neuro): 5/5 motor strength present throughout Sensory Exam: No Sensory deficit (Neuro) Extrem: General: Yes normal to inspection Psych: Appearance: grossly normal Course Reevaluation(s) Reevaluation #1: Patient no able to swallow secondary to pain will go to the OR Time: 09:45 Medical Decision Making Differential Diagnosis Differential Diagnoses: The differential diagnosis associated with the presentation includes (esophageal foreign body, esophageal perforation) Admission/Observation Consideration of admission/observation: Escalation of care including admission/observation considered (Patient needs to go to OR) Consult Healthcare Provider Management of the patient was discussed with: Tobacco Dipper (GI: Mickie Rogers) Lab Data MDM Lab Attestation statement: I reviewed the patient's lab results. 04/02/22 08:22 04/02/22 08:22 Labs: Lab Results 04/02/22 04/02/22 04/02/22 Range/Units 08:22 08:22 08:22 WBC 6.8 (4.8-10.8) X10*3/uL RBC 5.10 (4.60-5.80) X10*6/uL Hgb 14.5 (14.0-18.0) g/dl Hct 42.7 (42.0-52.0) % MCV 83.7 (80.0-98.0) fL MCH 28.4 (27.0-33.0) pg MCHC 34.0 (31.0-36.0) g/dl RDW 12.7 (11.0-16.0) % Plt Count 224 (160-400) X10*3/uL MPV 9.9 (9.4-12.4) fL Immature Gran % (Auto) 0.6 H (0.0-0.4) % Neut % (Auto) 63.0 (45-73) % Lymph % (Auto) 23.3 (20-40) % [place] % (Auto) 8.6 (2-11) % Eos % (Auto) 4.1 H (0-4) % Baso % (Auto) 0.4 (0-2) % Lymph # (Auto) 1.6 (1.2-4.9) X10*3/uL [place] # (Auto) 0.6 (0.1-1.2) X10*3/uL Eos # (Auto) 0.3 (0.0-0.4) X10*3/uL Baso # (Auto) 0.0 (0.0-0.2) X10*3/uL Abs Immat Gran (auto) 0.04 H (0.00-0.03) X10*3/uL Absolute Neuts (auto) 4.3 (2.0-8.3) x10*3/uL Absolute Nucleated RBC 0.000 (0.0-0.012) X10*3/uL Nucleated RBC % (auto) 0.0 (0.0-0.2) /100WBC Sodium 138 (135-145) mmol/L Potassium 4.3 (3.3-5.1) mmol/L Chloride 101 (96-108) mmol/L Carbon Dioxide 29 (22-29) mmol/L Anion Gap 12 (12-20) BUN 18 H (9-16) mg/dL Creatinine 0.91 (0.5-1.4) mg/dL Estim Creat Clear Calc 95.3 Estimated GFR > 60 Random Glucose 147 H (60-115) mg/dL Calcium 9.4 (8.4-10.2) mg/dL COVID-19 (ISATU) Negative (Negative) COVID-19 Clin Com See Note Discharge Plan Discharge Clinical Impression: Esophageal foreign body Patient Disposition: Xfer Other Transfer Details: operating room Prescriptions: No Action (DME) FreeStyle Lite Strips Strip See Rx Instructions .ROUTE .MEDSUPPLY Qty: 200 3RF Rx Instructions: As directed twice a day (DME) lancets [FreeStyle Lancets] 28 gauge misc See Rx Instructions .ROUTE .MEDSUPPLY Qty: 200 3RF Rx Instructions: two time a day metformin 500 mg tablet extended release 24 hr 1,000 mg PO BID 90 Days Qty: 360 2RF fluticasone propionate 50 mcg/actuation spray,suspension 1 spray intranasal DAILY 30 Days Qty: 48 2RF lisinopril 10 mg tablet 10 mg PO DAILY Qty: 90 3RF atorvastatin 40 mg tablet 40 mg PO BEDTIME Qty: 90 1RF albuterol sulfate [ProAir HFA] 90 mcg/actuation HFA aerosol inhaler 1 inh inhalation QID PRN (Reason: shortness of breath or wheezing) Qty: 8.5 0RF dulaglutide 1.5 mg/0.5 mL pen injector 1.5 mg subcut QWEEK Qty: 6 1RF zolpidem 10 mg tablet 10 mg PO BEDTIME PRN (Reason: sleep) 90 Days Qty: 90 0RF ibuprofen 800 mg tablet 800 mg PO Q8H PRN (Reason: pain) Qty: 14 0RF albuterol sulfate 0.63 mg/3 mL solution for nebulization 0.63 mg inhalation Q4-6H PRN (Reason: shortness of breath or wheezing) Qty: 75 0RF Paxlovid (EUA) 300 mg (150 mg x 2)-100 mg tablets,dose pack See Rx Instructions .ROUTE .COMPLEX Qty: 30 0RF Rx Instructions: take TWO 150 mg tablets of nirmatrelvir with ONE 100 mg tablet of ritonavir twice daily for 5 days acetaminophen [Tylenol Extra Strength] 500 mg tablet 500 mg PO Q6H PRN (Reason: pain) Qty: 14 0RF cetirizine [All Day Allergy (cetirizine)] 10 mg tablet 10 mg PO DAILY Qty: 7 0RF citalopram 20 mg tablet 20 mg PO DAILY albuterol sulfate 0.63 mg/3 mL solution for nebulization inhalation Q4H PRN omeprazole 20 mg capsule,delayed release(DR/EC) 20 mg PO QAM 90 Days Qty: 90 1RF gabapentin 100 mg capsule 100 mg PO DAILY Qty: 30 6RF
--- NOTE | 2022-04-02 08:13 | ECG_ITS ---
Test Reason : FOREIGN BODY Blood Pressure : / mmHG Vent. Rate : 101 BPM Atrial Rate : 101 BPM P-R Int : 186 ms QRS Dur : 100 ms QT Int : 334 ms P-R-T Axes : 065 006 071 degrees QTc Int : 433 ms Sinus tachycardia Otherwise normal ECG When compared with ECG of 18-FEB-2022 00:49, No significant change was found Referred By: Beto Ambriz Electronically Signed By:GEORGIA LI
[2022-04-02 08:25] LABS: MANUAL DIFF FLAG NO
[2022-04-02 08:27] LABS: Basophils Percent Auto 0.4 % (0-2); Eosinophils Absolute Auto 0.3 X10*3/uL (0.0-0.4); Eosinophils Percent Auto 4.1 % (0-4); Hematocrit 42.7 % (42.0-52.0); Hemoglobin 14.5 g/dl (14.0-18.0); Imm Gran Abs Auto 0.04 X10*3/uL (0.00-0.03); Imm Gran Pct Auto 0.6 % (0.0-0.4); Lymphocytes Absolute Auto 1.6 X10*3/uL (1.2-4.9); Lymphocytes Percent Auto 23.3 % (20-40); Mean Corpuscular Hemoglobin 28.4 pg (27.0-33.0); Mean Corpuscular Volume 83.7 fL (80.0-98.0); Mean Platelet Volume 9.9 fL (9.4-12.4); Monocytes Absolute Auto 0.6 X10*3/uL (0.1-1.2); Monocytes Percent Auto 8.6 % (2-11); Neutrophils Absolute Auto 4.3 x10*3/uL (2.0-8.3); Platelet Count 224 X10*3/uL (160-400); Red Cell Distribution Width 12.7 % (11.0-16.0); White Blood Count 6.8 X10*3/uL (4.8-10.8)
[2022-04-02 08:36] VITALS: BP 158/65; PULSE 17; RESP 16; O2SAT 98
--- NOTE | 2022-04-02 08:41 | PC.NURSE ---
Pt reports swallowing a toothbrush cover accidentally this AM, reports sensation in throat at this time uncomfortable 09/20. Skin PWD. Speaking full sentences. at bedside. Awaiting for OR.
[2022-04-02 08:42] LABS: COVID-19 Test Negative (Negative); IDNOW Serial# BCCEAD1C
[2022-04-02 08:45] LABS: Anion Gap 12 (12-20); Blood Urea Nitrogen 18 mg/dL (9-16); Calcium 9.4 mg/dL (8.4-10.2); Carbon Dioxide 29 mmol/L (22-29); Chloride 101 mmol/L (96-108); Creatinine Clr Calc Pharmacy 95.3; Estimated Glomerular Filt Rate > 60; Glucose Random 147 mg/dL (60-115); Potassium 4.3 mmol/L (3.3-5.1); Sodium 138 mmol/L (135-145)
--- NOTE | 2022-04-02 09:22 | PC.NURSE ---
Report given to Iliana in OR. Pt feeling worse, VSS. No other changes. Plan for pt to go to OR at 0935, Pt aware/agreeable
--- NOTE | 2022-04-02 09:45 | P.CONAN_ITS ---
HPI - Anesthesia Eval Consult details Narrative: 66 M w/ FBA. Tooth bruch cap likely lodged in esophagus Denies N/V. Able to swallow/manage secretions. PMFSH Active Problems Active Problems: All Active Problems (Updated 02/19/22 @ 00:01 by Jhony Huerta) COVID-19 (Acute) Hearing difficulty of left ear (Acute) Onychomycosis (Acute) Bladder pain (Acute) Thyroid nodule (Acute) DM2 (diabetes mellitus, type 2) (Acute) Hyperlipidemia LDL goal <100 (Acute) Essential hypertension (Acute) Obesity (Acute) Rotator cuff tear (Acute) Insomnia (Acute) Pure hypercholesterolemia (Acute) Diabetes mellitus (Acute) Past Medical History Medical History Arthritis Asthma Bladder pain BPH (benign prostatic hyperplasia) Diabetes mellitus DM2 (diabetes mellitus, type 2) Essential hypertension GERD (gastroesophageal reflux disease) Hearing difficulty of left ear High blood pressure Hyperlipidemia LDL goal <100 Insomnia No known health problems Obesity Onychomycosis Pure hypercholesterolemia Rotator cuff tear Thyroid nodule Family History Family History Father No problems noted. Mother Diabetes Hypertension Brother Throat cancer Family history of problems with anesthesia: No Surgical History Surgical History History of knee replacement procedure of right knee History of Problems with Anesthesia: No Social History Social History Household Members: Spouse Housing: Apartment Alcohol intake: never Patient Tobacco Use Status: Former Tobacco user Tobacco use type: Cigarette Smoked in Last 30 Days: No e-Cigarette/Vaping Use: Never Used Second Hand Smoke Exposure: No Use of substances other than those prescribed or required for medical reasons: No Advance Directives: No Advance Directives Information Provided: Yes service: No Current occupational status: disabled Cognitive needs: Yes Hearing needs: Yes Vision needs: Yes Meds Allergies Allergy/AdvReac Type Severity Reaction Status Date / Time penicillin V Allergy Intermediate rash Verified 04/02/22 08:12 aspirin [Aspirin] Allergy Mild RASH Verified 04/02/22 08:12 Penicillins Allergy Mild RASH Verified 04/02/22 08:12 tramadol AdvReac Intermediate abdominal Verified 04/02/22 08:12 pain Home Medications Medication Instructions Recorded Confirmed Last Taken Type albuterol sulfate 0.63 mg/3 mL mg inhalation Q4H PRN 01/11/20 01/08/22 Unknown History solution for nebulization citalopram 20 mg tablet 20 mg PO DAILY 01/11/20 01/08/22 Unknown History Exam Exam Date and Time: April 02, 2022 0945 Height,Weight and Vital Signs: Height 6 ft 2 in Weight 204 lb Last Vital Signs Temp 96.1 F L 04/02/22 08:09 Pulse 17 L 04/02/22 08:36 Resp 16 04/02/22 08:36 BP 158/65 H 04/02/22 08:36 Pulse Ox 98 04/02/22 08:36 O2 Del Method 04/02/22 08:36 Pertinent Lab Results Pertinent Lab Results: Laboratory Tests 04/02/22 04/02/22 04/02/22 08:22 08:22 08:22 WBC 6.8 RBC 5.10 Hgb 14.5 Hct 42.7 MCV 83.7 MCH 28.4 MCHC 34.0 RDW 12.7 Plt Count 224 MPV 9.9 Immature Gran % (Auto) 0.6 H Neut % (Auto) 63.0 Lymph % (Auto) 23.3 [place] % (Auto) 8.6 Eos % (Auto) 4.1 H Baso % (Auto) 0.4 Lymph # (Auto) 1.6 [place] # (Auto) 0.6 Eos # (Auto) 0.3 Baso # (Auto) 0.0 Abs Immat Gran (auto) 0.04 H Absolute Neuts (auto) 4.3 Absolute Nucleated RBC 0.000 Nucleated RBC % (auto) 0.0 Sodium 138 Potassium 4.3 Chloride 101 Carbon Dioxide 29 Anion Gap 12 BUN 18 H Creatinine 0.91 Estim Creat Clear Calc 95.3 Estimated GFR > 60 Random Glucose 147 H Calcium 9.4 COVID-19 ([facility]AT[facility]) Negative COVID-19 Clin Com See Note Airway Mallampati Class: I TM Dist: >3cm Neck ROM: Full Loose/Missing/Broken Teeth: Yes and No Assessment and Plan Assessment Anesthesia Assessment: Anesthesia Plan Discussed Final Anesthetic Review Family History of Problems with Anesthesia: No History of Problems with Anesthesia: No NPO: Yes ASA Class: III and Emergency Final Preanesthetic Review: No Changes in Pt Med Stat, Meds/Allgs Chart Reviewed, Consent Obtained/Reviewed and Anes Risks/Benef Reviewed Patient Risk: Intermediate Procedure Risk: Intermediate Anesthetic Plan Anesthetic Plan: MAC: Disposition: Standard PACU
--- NOTE | 2022-04-02 09:50 | P.CNGI_ITS ---
History of Present Illness Data of Consult Service Date: 04/02/22 Requesting physician: Beto Ambriz Primary Care Provider: Allison Fenton MD HPI Reason for consult: Foreign body in esophagus This is a 66-year-old gentleman with past medical history of type 2 diabetes, hypertension, GERD, arthritis, asthma, who presented to the hospital this morning for sensation of foreign body stuck in esophagus. History was obtained from the patient with the help of a basket hand braider, who states that around 730 this morning, when he was about to brush his teeth, he did not notice the cap on his toothbrush and he swallowed it. Since then, he has been having significant pain in his throat and feels that he has not been able to swallow anything. No shortness of breath, voice changes, fevers or chills. Does not report any prior history of food impaction. Has never required an upper endoscopy did have a colonoscopy for CRC screening purpose. Review of Systems Review of Systems: Yes all other systems are reviewed and are negative PMFSH Past Medical History Medical History Arthritis Asthma Bladder pain BPH (benign prostatic hyperplasia) Diabetes mellitus DM2 (diabetes mellitus, type 2) Essential hypertension GERD (gastroesophageal reflux disease) Hearing difficulty of left ear High blood pressure Hyperlipidemia LDL goal <100 Insomnia No known health problems Obesity Onychomycosis Pure hypercholesterolemia Rotator cuff tear Thyroid nodule Family History Family History Father No problems noted. Mother Diabetes Hypertension Brother Throat cancer Surgical History Surgical History History of knee replacement procedure of right knee Social History Social History Household Members: Spouse Housing: Apartment Alcohol intake: never Patient Tobacco Use Status: Former Tobacco user Tobacco use type: Cigarette Smoked in Last 30 Days: No e-Cigarette/Vaping Use: Never Used Second Hand Smoke Exposure: No Use of substances other than those prescribed or required for medical reasons: No Advance Directives: No Advance Directives Information Provided: Yes service: No Current occupational status: disabled Cognitive needs: Yes Hearing needs: Yes Vision needs: Yes Meds Allergies Allergy/AdvReac Type Severity Reaction Status Date / Time penicillin V Allergy Intermediate rash Verified 04/02/22 08:12 aspirin [Aspirin] Allergy Mild RASH Verified 04/02/22 08:12 Penicillins Allergy Mild RASH Verified 04/02/22 08:12 tramadol AdvReac Intermediate abdominal Verified 04/02/22 08:12 pain Home Medications Medication Instructions Recorded Confirmed Last Taken Type albuterol sulfate 0.63 mg/3 mL mg inhalation Q4H PRN 01/11/20 01/08/22 Unknown History solution for nebulization citalopram 20 mg tablet 20 mg PO DAILY 01/11/20 01/08/22 Unknown History Physical Exam Vital Signs: Vital Signs: Last Vital Signs Temp 96.1 F L 04/02/22 08:09 Pulse 17 L 04/02/22 08:36 Resp 16 04/02/22 08:36 BP 158/65 H 04/02/22 08:36 Pulse Ox 98 04/02/22 08:36 O2 Del Method 04/02/22 08:36 BMI result Body Mass Index 26.2 Gen appear: No acute distress HEENT: no icterus, small abrasion in the posterior pharyngeal wall Chest: No overt resp distress Abd: soft, nontender, nondistended Psych: Stable affect, answering questions appropriately Neuro: A/Ox3 noted to move all extremities spontaneously Ext: no peripheral edema Results Labs 04/02/22 08:22 04/02/22 08:22 Labs: Short CBC 04/02/22 Range/Units 08:22 WBC 6.8 (4.8-10.8) X10*3/uL Hgb 14.5 (14.0-18.0) g/dl Hct 42.7 (42.0-52.0) % Plt Count 224 (160-400) X10*3/uL BMP 04/02/22 08:22 Sodium 138 Potassium 4.3 Chloride 101 Carbon Dioxide 29 BUN 18 H Creatinine 0.91 Calcium 9.4 Assessment and Plan (1) Foreign body in esophagus: Status: Acute Plan Likely has partial obstruction vs spontaneous passage of foreign body. We will arrange for urgent upper endoscopy for evaluation and management of foreign body as needed. - Please keep pt strict NPO - Further recommendations to nathaly in procedure note. Time Spent With Patient Time: Total time managing care of this patient today ____ minutes. Procedures Date of Service Date of Service: 04/02/22
--- NOTE | 2022-04-02 10:00 | P.OP_ITS ---
Operative Note Operative Note Date of Service: 04/02/22 Narrative: Procedure: Esophagogastroduodenoscopy Endoscopist: Mickie Rogers MD Indication: Foreign body Anesthesia Provider: Dr Francis Anesthesia Type: MAC Instrument: Olympus [id number] ?? EGD Procedure:?? The procedure, indications, preparation and potential complications were reviewed with the patient, who indicated understanding and gave written informed consent to proceed. A physical exam was performed. The endoscope was introduced through the mouth, and advanced to the antrum. The mucosa was carefully examined on slow withdrawal of the endoscope. The patient tolerated the procedure well. There were no immediate complications.? ? EGD Findings:? * Esophagus:? The clear plastic toothbrush cap was stuck at 25 cm. This was pushed down into the stomach. Normal mucosa was noted in the entire esophagus otherwise. * Stomach:? Normal mucosa was noted in the stomach. Since one end of the toothbrush cap was relatively sharp, decision was made to extract this out. The rescue net kept slipping off the cap so we used the rat-tooth forceps. We opened the forceps inside the cap and used it to hook the cap and bring it out through the mouth. EGD Impressions:? * Esophageal foreign body removed * Normal stomach ?? Recommendations:?? * Start lidocaine PO TID for symptomatic relief
[2022-04-02 10:35] VITALS: BP 93/48; PULSE 120; RESP 16; TEMP 36.7; O2SAT 98
[2022-04-02] MEDS: Mag&Al/Sim/Diphenhyd/Lidocaine 10 ML ORAL.SUSP PO (10:47)
[2022-04-02 10:50] VITALS: BP 118/72; PULSE 102; RESP 18; TEMP 36.8; O2SAT 97
== END 2022-04-02 10:54 | disposition home or self-care (01) ==
LOC: HO.ED 10:01 → HO.SSS 10:31
PROVIDERS: Emergency Provider Emergency Medicine; PCP Internal Medicine; Visit Provider Internal Medicine
PROC: (CPT 43266; principal; 2022-04-02 09:30)
PROC: (CPT 43247; 2022-04-02 09:30)
DX: T18.198A Other foreign object in esophagus causing other injury, initial encounter (principal); X58.XXXA Exposure to other specified factors, initial encounter; Y93.E8 Activity, other personal hygiene; Y92.9 Unspecified place or not applicable; Y99.8 Other external cause status; I10 Essential (primary) hypertension; E78.00 Pure hypercholesterolemia, unspecified; K21.9 Gastro-esophageal reflux disease without esophagitis; E04.1 Nontoxic single thyroid nodule; J45.909 Unspecified asthma, uncomplicated; E11.9 Type 2 diabetes mellitus without complications; Z79.84 Long term (current) use of oral hypoglycemic drugs; Z79.51 Long term (current) use of inhaled steroids; Z79.899 Other long term (current) drug therapy; Z88.0 Allergy status to penicillin; Z88.8 Allergy status to other drugs, medicaments and biological substances; Z20.822 Contact with and (suspected) exposure to COVID-19; Z87.891 Personal history of nicotine dependence
CPT/HCPCS: 43247; 36415; 80048; 85025; 87635; 93005; 99284; 99285

== ENCOUNTER 2022-04-20 12:19 | Emergency (ER) | payer OTHER, SELFPAY ==
--- NOTE | ~2022-04-20 | XR_ITS ---
EXAMINATION: XR RIBS, RIGHT, CHEST SINGLE VIEW CLINICAL INFORMATION: Pain status post fall. COMPARISON: Chest radiographs and CT scan dated 02/06/2022. TECHNIQUE: 3 views of the right ribs were obtained along with a PA view of the chest. FINDINGS: Lungs are clear. No consolidation, pneumothorax, or pleural effusion. The cardiomediastinal silhouette and pulmonary vasculature are normal. Osseous structures are unremarkable. Ribs are intact. No fractures are identified. XR/XR ribs RT min 3V w CXR1V IMPRESSION: Unremarkable examination.
--- NOTE | ~2022-04-20 | XR_ITS ---
EXAMINATION: XR CERVICAL SPINE CLINICAL INFORMATION: Neck pain status post fall. COMPARISON: None TECHNIQUE: 4 views of the cervical spine were obtained. FINDINGS: There is straightening of the normal cervical lordosis. Mild to moderate degenerative disc disease is seen at C5-6 and C6-7 with disc space narrowing and marginal osteophyte formation. Mild to moderate multilevel facet arthropathy is seen. The odontoid and spinous processes are intact. The soft tissues are unremarkable. XR/XR cervical spine 3V IMPRESSION: 1. Straightening of the normal cervical lordosis may be secondary to positioning and/or muscle spasm. 2. Mild to moderate degenerative changes without acute abnormality.
--- NOTE | 2022-04-20 12:53 | ED_ITS ---
HPI - Back Pain/Injury General Chief Complaint: Back Pain/Injury <DAMIR Govea - Last Filed: 04/20/22 12:59> Stated Complaint: r side pain down into leg <DAMIR Govea - Last Filed: 04/20/22 12:59> Time Seen by Provider: 04/20/22 13:18 <DAMIR Govea - Last Filed: 04/20/22 12:59> Source: patient <DAMIR Powers - Last Filed: 04/20/22 20:15> Mode of arrival: ambulatory <DAMIR Powers Last Filed: 04/20/22 20:15> Limitations: no limitations <DAMIR Powers Last Filed: 04/20/22 20:15> History of Present Illness HPI Narrative: Patient is a 66 year old assigned male at with a history of DM presenting to the emergency department today with right sided neck pain and rib pain. Patient states that 2 weeks ago he fell out of bed and landed on his right side and is continuing to have pain there. Patient denies any loss of consciousness with the incident. Patient denies any dizziness, lightheadedness, abdominal pain, nausea, vomiting, fever, chills, blurry vision, double vision, loss of vision, chest pain, difficulty breathing, shortness of breath, back pain, night sweats, pain with urination, increased urinary frequency, increased urinary urgency, blood in his urine or stool, syncope or a near syncopal epi sode, bowel incontinence, bladder incontinence, bowel retention, bladder retention, or any other complaints at this time. <DAMIR Powers - Last Filed: 04/20/22 20:15> MD elicited complaint: fall <DAMIR Powers - Last Filed: 04/20/22 20:15> Onset (ago): week(s) (2) <DAMIR Powers Last Filed: 04/20/22 20:15> Timing: constant <DAMIR Powers Last Filed: 04/20/22 20:15> Severity: mild <DAMIR Powers Last Filed: 04/20/22 20:15> Pain scale (0-10): 3 <DAMIR Powers Last Filed: 04/20/22 20:15> Quality: dull and aching <DAMIR Powers - Last Filed: 04/20/22 20:15> Exacerbating factors: none <DAMIR Powers - Last Filed: 04/20/22 20:15> Relieving factors: none <DAMIR Powers - Last Filed: 04/20/22 20:15> Context: fall <DAMIR Powers - Last Filed: 04/20/22 20:15> Work related injury: No <DAMIR Powers - Last Filed: 04/20/22 20:15> Related Data Home Medications: Home Medications Medication Instructions Recorded Confirmed albuterol sulfate 0.63 mg/3 mL mg inhalation Q4H PRN 01/11/20 01/08/22 solution for nebulization citalopram 20 mg tablet 20 mg PO DAILY 01/11/20 01/08/22 Previous Rx's Medication Instructions Recorded ibuprofen 800 mg tablet 800 mg PO Q8H PRN pain #14 tabs 04/17/20 blood sugar diagnostic (FreeStyle #200 ea 05/24/20 Lite Strips) lancets 28 gauge (FreeStyle #200 ea 07/06/20 Lancets) acetaminophen 500 mg tablet 500 mg PO Q6H PRN pain #14 tabs 11/19/20 (Tylenol Extra Strength) gabapentin 100 mg capsule 100 mg PO DAILY #30 caps 05/23/21 metformin 500 mg tablet,extended 1,000 mg PO BID 90 days #360 tabs 05/24/21 release 24 hr fluticasone propionate 50 1 spray intranasal DAILY 30 days 06/05/21 mcg/actuation nasal #48 mL spray,suspension lisinopril 10 mg tablet 10 mg PO DAILY #90 tabs 07/20/21 cetirizine 10 mg tablet (All Day 10 mg PO DAILY #7 tabs 10/08/21 Allergy (cetirizine)) atorvastatin 40 mg tablet 40 mg PO BEDTIME #90 tabs 11/13/21 omeprazole 20 mg capsule,delayed 20 mg PO QAM 90 days #90 caps 01/08/22 release albuterol sulfate 90 mcg/actuation 1 inh inhalation QID PRN shortness 01/30/22 aerosol inhaler (ProAir HFA) of breath or wheezing #8.5 grams albuterol sulfate 0.63 mg/3 mL 0.63 mg (3 mL) inhalation Q4-6H 02/06/22 solution for nebulization PRN shortness of breath or wheezing #75 mL nirmatrelvir 300 mg (150 mg See Rx Instructions PO .COMPLEX 02/06/22 x2)-ritonavir 100 mg tablet,dose #30 ea pack(EUA) (Paxlovid) dulaglutide 1.5 mg/0.5 mL 1.5 mg (0.5 mL) subcut QWEEK #6 mL 02/19/22 subcutaneous pen injector zolpidem 10 mg tablet 10 mg PO BEDTIME PRN sleep 90 days 03/21/22 #90 tabs Magic Mouthwash 10 ml PO .QID 3 days #240 mL 04/02/22 Diphen/Lido/Antacid 1:1:1 240 mL suspension cyclobenzaprine 5 mg tablet 5 mg PO TID PRN muscle spasm 7 04/20/22 days #21 tabs <DAMIR Govea - Last Filed: 04/20/22 12:59> Allergies/Adverse Reactions: Allergies Allergy/AdvReac Type Severity Reaction Status Date / Time penicillin V Allergy Intermediate rash Verified 04/02/22 08:12 aspirin [Aspirin] Allergy Mild RASH Verified 04/02/22 08:12 Penicillins Allergy Mild RASH Verified 04/02/22 08:12 tramadol AdvReac Intermediate abdominal Verified 04/02/22 08:12 pain <DAMIR Govea - Last Filed: 04/20/22 12:59> Review of Systems Constitutional: Constitutional: Reports no additional constitutional complaints, Denies chills, Denies fever(s) and Denies night sweats <DAMIR Powers Last Filed: 04/20/22 20:15> Eyes: Eyes: Reports no additional eye complaints, Denies blurry vision, Denies change in vision, Denies diplopia, Denies eye discharge, Denies loss of vision and Denies eye pain <DAMIR Powers Last Filed: 04/20/22 20:15> ENT: Denies dizziness and Reports neck pain <DAMIR Powers Last Filed: 04/20/22 20:15> Cardiovascular: Cardiovascular: Reports no additional cardiovascular complaints, Denies chest pain, Denies lightheadedness, Denies Loss of Consciousness and Denies dyspnea <DAMIR Powers - Last Filed: 04/11 20:15> Respiratory: Respiratory: Reports no additional respiratory complaints and Denies dyspnea <DAMIR Powers - Last Filed: 04/20/22 20:15> Gastrointestinal: Gastrointestinal: Reports no additional gastrointestinal complaints, Denies abdominal pain, Denies melena, Denies hematochezia, Denies change in bowel habits and Denies change in stool character <DAMIR Powers - Last Filed: 04/20/22 20:15> Genitourinary: Genitourinary: Reports no additional male genitourinary complaints, Denies hematuria, Denies oliguria, Denies difficulty urinating, Denies dysuria, Denies urinary frequency, Denies urinary hesitancy, Denies urinary incontinence and Denies urinary urgency <DAMIR Powers - Last Filed: 04/20/22 20:15> Musculoskeletal: Musculoskeletal: Reports no additional musculoskeletal complaints, Reports neck pain, Denies numbness and Denies tingling <DAMIR Powers - Last Filed: 04/20/22 20:15> Comments: right sided rib pain <DAMIR Powers - Last Filed: 04/20/22 20:15> Neurologic: Denies dizziness, Denies loss of vision, Denies numbness and Denies tingling <DAMIR Powers - Last Filed: 04/20/22 20:15> Psychiatric: Psychiatric: Reports no additional psychiatric complaints <DAMIR Powers - Last Filed: 04/20/22 20:15> Endocrine: Endocrine: Reports no additional endocrine complaints <DAMIR Powers - Last Filed: 04/20/22 20:15> Hematologic/Lymphatic: Hematologic/Lymphatic: Reports no additional hematologic/lymphatic complaints <DAMIR Powers - Last Filed: 04/20/22 20:15> Allergic/Immunologic: Allergic/Immunologic: Reports no additional allergic/immunologic complaints <DAMIR Powers - Last Filed: 04/20/22 20:15> PMFSH Past Medical History Attestation statement: The following information was validated with the patient. <DAMIR Powers - Last Filed: 04/20/22 20:15> Source: old records reviewed and nursing notes reviewed <DAMIR Powers - Last Filed: 04/20/22 20:15> Medical History: Medical History Arthritis Asthma Bladder pain BPH (benign prostatic hyperplasia) Diabetes mellitus DM2 (diabetes mellitus, type 2) Essential hypertension GERD (gastroesophageal reflux disease) Hearing difficulty of left ear High blood pressure Hyperlipidemia LDL goal <100 Insomnia No known health problems Obesity Onychomycosis Pure hypercholesterolemia Rotator cuff tear Thyroid nodule <DAMIR Govea - Last Filed: 04/20/22 12:59> Surgical History: Surgical History History of knee replacement procedure of right knee <DAMIR Govea - Last Filed: 04/20/22 12:59> Family History Family History: Family History Father No problems noted. Mother Diabetes Hypertension Brother Throat cancer <DAMIR Govea - Last Filed: 04/20/22 12:59> Social History Social History: Social History Household Members: Spouse Housing: Apartment Alcohol intake: never Patient Tobacco Use Status: Former Tobacco user Tobacco use type: Cigarette e-Cigarette/Vaping Use: Never Used Second Hand Smoke Exposure: No Advance Directives: Yes Advance Directives Information Provided: No Advance Directives on File: No service: No Current occupational status: disabled Cognitive needs: Yes Hearing needs: Yes Vision needs: Yes <DAMIR Govea - Last Filed: 04/20/22 12:59> Physical Exam Vital Signs: Vital Signs: Last Vital Signs Temp 97.9 F 04/20/22 12:54 Pulse 97 04/20/22 12:54 Resp 18 04/20/22 12:54 BP 131/61 04/20/22 12:54 Pulse Ox 97 04/20/22 12:54 O2 Del Method 04/20/22 12:54 BMI result Body Mass Index 29.9 <DAMIR Govea - Last Filed: 04/20/22 12:59> Vital Signs: Last Vital Signs Temp 97.9 F 04/20/22 12:54 Pulse 97 04/20/22 12:54 Resp 18 04/20/22 12:54 BP 131/61 04/20/22 12:54 Pulse Ox 97 04/20/22 12:54 O2 Del Method 04/20/22 12:54 BMI result Body Mass Index 29.9 <DAMIR Powers - Last Filed: 04/20/22 20:15> Const: General: cooperative, no acute distress, alert and awake <DAMIR Powers - Last Filed: 04/20/22 20:15> Nutritional Appearance: well nourished <DAMIR Powers - Last Filed: 04/20/22 20:15> Orientation/consciousness: patient oriented x3 <DAMIR Powers - Last Filed: 04/20/22 20:15> Limitations: no limitations <DAMIR Powers - Last Filed: 04/20/22 20:15> HEENT: Head: Yes normal to inspection and Yes atraumatic <DAMIR Powers - Last Filed: 04/20/22 20:15> Ears: hearing grossly normal bilaterally and external ears normal <DAMIR Powers - Last Filed: 04/20/22 20:15> General nose exam: Normal external nose present, no nasal discharge noted and no epistaxis <DAMIR Powers - Last Filed: 04/20/22 20:15> Face and sinus: Yes normal facial exam, No abrasion and No laceration <DAMIR Powers - Last Filed: 04/20/22 20:15> Mouth: Normal oral and palatal mucosa present, no drooling and no muffled voice <DAMIR Powers - Last Filed: 04/20/22 20:15> Eyes: General: appearance normal, both eyes and all related structures <DAMIR España - Last Filed: 04/20/22 20:15> Periorbital: periorbital findings normal <DAMIR Powers - Last Filed: 04/20/22 20:15> Eyelids: Yes eyelids normal <DAMIR Powers - Last Filed: 04/20/22 20:15> Conjunctivae: conjunctivae normal <DAMIR Powers - Last Filed: 04/20/22 20:15> Pupils: Equal, round and reactive pupils present <Mary Musa OR - Last Filed: 04/20/22 20:15> EOM: EOMs intact bilaterally <Mary Musa OR - Last Filed: 04/20/22 20:15> Neck: Neck: Yes normal visual inspection, Yes full ROM and Yes no lymphadenopathy <Mary Musa OR - Last Filed: 04/20/22 20:15> Chest: Chest palpation & inspection: normal inspection of the chest <Mary Musa OR - Last Filed: 04/20/22 20:15> Resp: Effort & Inspection: normal respiratory effort and able to speak in complete sentences <Mary Musa OR - Last Filed: 04/20/22 20:15> Auscultation: clear to auscultation bilaterally <Mary Musa OR - Last Filed: 04/20/22 20:15> Cardio: Rate: regular rate <Mary Musa OR - Last Filed: 04/20/22 20:15> Rhythm: regular rhythm <Mary uMsa OR - Last Filed: 04/20/22 20:15> GI: Inspection: Yes normal to inspection <Mary Musa OR - Last Filed: 04/20/22 20:15> Palpation (GI): Soft to palpation, not firm, nontender, no guarding and not rigid <Mary Musa OR - Last Filed: 04/20/22 20:15> Neuro: General: patient oriented x3 and moves all extremities <Mary Musa OR - Last Filed: 04/20/22 20:15> Cranial nerves: Yes Equal, round and reactive pupils present <Mary Musa OR - Last Filed: 04/20/22 20:15> Cognition (Neuro): normal cognition <Mary Musa OR - Last Filed: 04/20/22 20:15> Motor exam (neuro): 5/5 motor strength present throughout <Mary Musa PA - Last Filed: 04/20/22 20:15> Sensory Exam: Normal double simultaneous stimulation for sensation <Mary Lazopriya OR - Last Filed: 04/20/22 20:15> Coordination: [id number] test normal <DAMIR Powers - Last Filed: 04/20/22 20:15> Extrem: General: Yes normal to inspection, Yes full ROM and Yes capillary refill normal <DAMIR Powers - Last Filed: 04/20/22 20:15> Psych: Appearance: grossly normal <DAMIR Powers - Last Filed: 04/20/22 20:15> Mental Status: mental status grossly normal <DAMIR Powers - Last Filed: 04/20/22 20:15> Affect: normal affect <DAMIR Powers - Last Filed: 04/20/22 20:15> Attitude: cooperative <DAMIR Powers - Last Filed: 04/20/22 20:15> Thought process: Normal thought process present <DAMIR Powers Last Filed: 04/20/22 20:15> Thought content: Normal thought content present <DAMIR Powers - Last Filed: 04/20/22 20:15> Insight: Good insight present (Psych) <DAMIR Powers Last Filed: 04/20/22 20:15> Course Course Course Narrative: RMAspen - 66 yo M, with a past medical history of HTN, diabetes, and HLD, who presents to the ER with complaints of right sided body pain since rolling off of his bed after having a nightmare 2 weeks ago. He has been using bengay cream and OTC anti-inflammatories without any relief. He states that the worst pain is in his right ribs. Plan: Cervical spine and Right rib x-rays ordered. <DAMIR Govea - Last Filed: 04/20/22 12:59> Medications Administered Discontinued Medications Generic Name Dose Route Start Last Admin Trade Name Freq PRN Reason Stop Dose Admin Cyclobenzaprine HCl 5 mg 04/20/22 14:39 04/20/22 14:47 Cyclobenzaprine Hcl 5 Mg Tablet PO 04/20/22 14:40 5 mg ONCE ONE Administration Ketorolac Tromethamine 15 mg 04/20/22 14:39 04/20/22 14:47 Ketorolac Tromethamine 15 Mg/Ml Vial IM 04/20/22 14:40 15 mg ONCE ONE Administration <DAMIR Govea Last Filed: 04/20/22 12:59> Medications Administered Discontinued Medications Generic Name Dose Route Start Last Admin Trade Name Maranda PRN Reason Stop Dose Admin Cyclobenzaprine HCl 5 mg 04/20/22 14:39 04/20/22 14:47 Cyclobenzaprine Hcl 5 Mg Tablet PO 04/20/22 14:40 5 mg ONCE ONE Administration Ketorolac Tromethamine 15 mg 04/20/22 14:39 04/20/22 14:47 Ketorolac Tromethamine 15 Mg/Ml Vial IM 04/20/22 14:40 15 mg ONCE ONE Administration <DAMIR Powers - Last Filed: 04/20/22 20:15> Medical Decision Making Medical Decision Making MDM Narrative: Patient is a 66 year old assigned male at with a history of DM presenting to the emergency department today with right sided neck pain and right sided rib pain. Patient's physical exam was unremarkable. Patient's right rib and cervical spine x-rays showed no acute process. I explained my physical exam findings as well as all test results to the patient. I answered all questions asked by the patient. Patient received IM Toradol and PO Flexeril which he stated helped his symptoms significantly. I stressed the importance of the patient taking his medication as prescribed. I stressed the importance of the patient following up with his primary care provider. I stressed the importance of the patient returning to the emergency department immediately if his symptoms were to worsen or if he were to develop any dizziness, shortness of breath, difficulty breathing, chest pain, blurry vision, loss of vision, nausea, vomiting, abdominal pain, fever, chills, back pain, or any other complaints. Patient verbalized agreement and understanding with this treatment plan and discharge. <DAMIR Powers - Last Filed: 04/20/22 20:15> Differential Diagnosis Differential Diagnoses: The differential diagnosis associated with the presentation includes <DAMIR Powers - Last Filed: 04/20/22 20:15> fall <DAMIR Powers - Last Filed: 04/20/22 20:15> Independent Interpretation I performed an independent interpretation of an: Plain X-Ray <DAMIR Powers - Last Filed: 04/20/22 20:15> Interpretation: My interpretation is in agreement with the radiologist's impression of these imaging studies. ---- EXAMINATION: XR CERVICAL SPINE CLINICAL INFORMATION: Neck pain status post fall. COMPARISON: None TECHNIQUE: 4 views of the cervical spine were obtained. FINDINGS: There is straightening of the normal cervical lordosis. Mild to moderate degenerative disc disease is seen at C5-6 and C6-7 with disc space narrowing and marginal osteophyte formation. Mild to moderate multilevel facet arthropathy is seen. The odontoid and spinous processes are intact. The soft tissues are unremarkable. XR/XR cervical spine 3V IMPRESSION: 1.? Straightening of the normal cervical lordosis may be secondary to positioning and/or muscle spasm. 2.? Mild to moderate degenerative changes without acute abnormality. Dictated By: Todd Quach MD Signed By: Electronically signed by Todd Quach MD 04/20/22 1429 ------ EXAMINATION: XR RIBS, RIGHT, CHEST SINGLE VIEW CLINICAL INFORMATION: Pain status post fall. COMPARISON: Chest radiographs and CT scan dated 02/06/2022. TECHNIQUE: 3 views of the right ribs were obtained along with a PA view of the chest. FINDINGS: Lungs are clear. No consolidation, pneumothorax, or pleural effusion. The cardiomediastinal silhouette and pulmonary vasculature are normal. Osseous structures are unremarkable. Ribs are intact. No fractures are identified. XR/XR ribs RT min 3V w CXR1V IMPRESSION: Unremarkable examination. Dictated By: Todd Quach MD Signed By: Electronically signed by Todd Quach MD 04/20/22 1428 <DAMIR Powers - Last Filed: 04/20/22 20:15> Discharge Plan Discharge Clinical Impression: Fall <DAMIR Govea - Last Filed: 04/20/22 12:59> Patient Disposition: Home, Self-Care <DAMIR Govea - Last Filed: 04/20/22 12:59> Instructions: Fall Prevention (ED) <DAMIR Govea - Last Filed: 04/20/22 12:59> Additional Instructions: Follow up with your primary care provider. Return to the emergency department immediately if your symptoms worsen or if you develop any dizziness, shortness of breath, difficulty breathing, chest pain, blurry vision, loss of vision, nausea, vomiting, abdominal pain, fever, chills, back pain, or any other complaints. <DAMIR Govea - Last Filed: 04/20/22 12:59> Prescriptions: New cyclobenzaprine 5 mg tablet 5 mg PO TID PRN (Reason: muscle spasm) 7 Days Qty: 21 0RF No Action (DME) FreeStyle Lite Strips Strip See Rx Instructions .ROUTE .MEDSUPPLY Qty: 200 3RF Rx Instructions: As directed twice a day (DME) lancets [FreeStyle Lancets] 28 gauge misc See Rx Instructions .ROUTE .MEDSUPPLY Qty: 200 3RF Rx Instructions: two time a day metformin 500 mg tablet extended release 24 hr 1,000 mg PO BID 90 Days Qty: 360 2RF fluticasone propionate 50 mcg/actuation spray,suspension 1 spray intranasal DAILY 30 Days Qty: 48 2RF lisinopril 10 mg tablet 10 mg PO DAILY Qty: 90 3RF atorvastatin 40 mg tablet 40 mg PO BEDTIME Qty: 90 1RF albuterol sulfate [ProAir HFA] 90 mcg/actuation HFA aerosol inhaler 1 inh inhalation QID PRN (Reason: shortness of breath or wheezing) Qty: 8.5 0RF dulaglutide 1.5 mg/0.5 mL pen injector 1.5 mg subcut QWEEK Qty: 6 1RF zolpidem 10 mg tablet 10 mg PO BEDTIME PRN (Reason: sleep) 90 Days Qty: 90 0RF ibuprofen 800 mg tablet 800 mg PO Q8H PRN (Reason: pain) Qty: 14 0RF albuterol sulfate 0.63 mg/3 mL solution for nebulization 0.63 mg inhalation Q4-6H PRN (Reason: shortness of breath or wheezing) Qty: 75 0RF Paxlovid (EUA) 300 mg (150 mg x 2)-100 mg tablets,dose pack See Rx Instructions .ROUTE .COMPLEX Qty: 30 0RF Rx Instructions: take TWO 150 mg tablets of nirmatrelvir with ONE 100 mg tablet of ritonavir twice daily for 5 days Magic Mouthwash Diphen/Lido/Antacid 1:1:1 240 mL suspension 10 ml PO .QID 3 Days Qty: 240 0RF Rx Instructions: Lidocaine Viscous 2 % 80mL; diphenhydramine 12.5 mg/5 mL 80mL; aluminum-mag hydrox-simeth [id number]/5mL 80mL acetaminophen [Tylenol Extra Strength] 500 mg tablet 500 mg PO Q6H PRN (Reason: pain) Qty: 14 0RF cetirizine [All Day Allergy (cetirizine)] 10 mg tablet 10 mg PO DAILY Qty: 7 0RF citalopram 20 mg tablet 20 mg PO DAILY albuterol sulfate 0.63 mg/3 mL solution for nebulization inhalation Q4H PRN omeprazole 20 mg capsule,delayed release(DR/EC) 20 mg PO QAM 90 Days Qty: 90 1RF gabapentin 100 mg capsule 100 mg PO DAILY Qty: 30 6RF <DAMIR Govea - Last Filed: 04/20/22 12:59> Referrals: Allison Maradiaga MD [Primary Care Provider] - <DAMIR Govea - Last Filed: 04/20/22 12:59> Stand Alone Forms: Work/School Release <DAMIR Govea - Last Filed: 04/20/22 12:59> Interventions: ED Discharge Assessment Last Done: 04/20/22 14:52 <DAMIR Govea - Last Filed: 04/20/22 12:59> Discharge Date/Time: 04/20/22 14:53 <DAMIR Govea - Last Filed: 04/20/22 12:59> Print Language: [place] <DAMIR Govea - Last Filed: 04/20/22 12:59>
[2022-04-20 12:54] VITALS: BP 131/61; PULSE 97; RESP 18; TEMP 36.6; O2SAT 97; BMI 29.9
[2022-04-20] MEDS: Cyclobenzaprine HCl 5 MG TABLET PO (14:47)
[2022-04-20] MEDS: Ketorolac Tromethamine 15 MG/ML VIAL IM (14:47)
== END 2022-04-20 14:53 | disposition home or self-care (01) ==
PROVIDERS: Emergency Provider Emergency Medicine; PCP Internal Medicine
DX: M54.2 Cervicalgia (principal); R07.81 Pleurodynia; W06.XXXA Fall from bed, initial encounter; Y93.9 Activity, unspecified; Y92.9 Unspecified place or not applicable; Y99.9 Unspecified external cause status; E11.9 Type 2 diabetes mellitus without complications
CPT/HCPCS: 71101; 72040; 96372; 99283; 99284; J1885

== ENCOUNTER 2022-04-27 07:14 | Emergency (ER) | payer OTHER, SELFPAY ==
--- NOTE | ~2022-04-27 | XR_ITS ---
EXAMINATION: XR LUMBOSACRAL SPINE CLINICAL INFORMATION: Injury and pain COMPARISON: None available. TECHNIQUE: Three views of the lumbosacral spine. FINDINGS: There is normal lumbar lordosis the vertebral heights and alignment is normal. The disc heights are normal. No visible acute fracture, dislocation or subluxation seen. There is mild ventral spondylosis at the L3-L4 and L4-L5 disc levels. The SI joints are symmetrical. The soft tissues are normal. XR/XR lumbar spine 2-3V IMPRESSION: Mild ventral spondylosis L3-L4 and L4-L5 disc levels. No visible acute fracture, dislocation or subluxation seen.
[2022-04-27 07:16] VITALS: BP 145/68; PULSE 100; RESP 18; TEMP 36.6; O2SAT 98; BMI 30.8
--- NOTE | 2022-04-27 07:32 | PC.NURSE ---
67 y/o M pw back pain, was seen last week for same and given rx for flexeril. pt states it isnt working. aox3, VSS no other complaints
--- NOTE | 2022-04-27 08:00 | ED.BACK ---
HPI - Back Pain/Injury General Chief Complaint: Back Pain/Injury Stated Complaint: back pain Time Seen by Provider: 04/27/22 07:42 Source: patient Mode of arrival: ambulatory Limitations: no limitations History of Present Illness HPI Narrative: one month ago he fell at home rolling out of bed and has had back pain since then. He has had right sided back pain since then. Pertinent past history: prior back pain and recent trauma Onset (ago): week(s) Timing: intermittent Severity: mild Quality: sharp Related Data Home Medications Medication Instructions Recorded Confirmed albuterol sulfate 0.63 mg/3 mL mg inhalation Q4H PRN 01/11/20 01/08/22 solution for nebulization citalopram 20 mg tablet 20 mg PO DAILY 01/11/20 01/08/22 Previous Rx's Medication Instructions Recorded ibuprofen 800 mg tablet 800 mg PO Q8H PRN pain #14 tabs 04/17/20 blood sugar diagnostic (FreeStyle #200 ea 05/24/20 Lite Strips) lancets 28 gauge (FreeStyle #200 ea 07/06/20 Lancets) acetaminophen 500 mg tablet 500 mg PO Q6H PRN pain #14 tabs 11/19/20 (Tylenol Extra Strength) gabapentin 100 mg capsule 100 mg PO DAILY #30 caps 05/23/21 metformin 500 mg tablet,extended 1,000 mg PO BID 90 days #360 tabs 05/24/21 release 24 hr fluticasone propionate 50 1 spray intranasal DAILY 30 days 06/05/21 mcg/actuation nasal #48 mL spray,suspension lisinopril 10 mg tablet 10 mg PO DAILY #90 tabs 07/20/21 cetirizine 10 mg tablet (All Day 10 mg PO DAILY #7 tabs 10/08/21 Allergy (cetirizine)) atorvastatin 40 mg tablet 40 mg PO BEDTIME #90 tabs 11/13/21 omeprazole 20 mg capsule,delayed 20 mg PO QAM 90 days #90 caps 01/08/22 release albuterol sulfate 90 mcg/actuation 1 inh inhalation QID PRN shortness 01/30/22 aerosol inhaler (ProAir HFA) of breath or wheezing #8.5 grams albuterol sulfate 0.63 mg/3 mL 0.63 mg (3 mL) inhalation Q4-6H 02/06/22 solution for nebulization PRN shortness of breath or wheezing #75 mL nirmatrelvir 300 mg (150 mg See Rx Instructions PO .COMPLEX 02/06/22 x2)-ritonavir 100 mg tablet,dose #30 ea pack(EUA) (Paxlovid) dulaglutide 1.5 mg/0.5 mL 1.5 mg (0.5 mL) subcut QWEEK #6 mL 02/19/22 subcutaneous pen injector Magic Mouthwash 10 ml PO .QID 3 days #240 mL 04/02/22 Diphen/Lido/Antacid 1:1:1 240 mL suspension cyclobenzaprine 5 mg tablet 5 mg PO TID PRN muscle spasm 7 04/20/22 days #21 tabs naproxen 500 mg tablet (Naprosyn) 500 mg PO BID #20 tabs 04/27/22 acetaminophen 500 mg capsule 1,000 mg PO Q8H PRN pain #30 caps 04/28/22 oxycodone 5 mg tablet 5 mg PO Q6H PRN pain #14 tabs 04/28/22 zolpidem 10 mg tablet 10 mg PO BEDTIME PRN sleep 90 days 05/30/22 #90 tabs Allergies Allergy/AdvReac Type Severity Reaction Status Date / Time penicillin V Allergy Intermediate rash Verified 05/18/22 06:55 aspirin [Aspirin] Allergy Mild RASH Verified 05/18/22 06:55 Penicillins Allergy Mild RASH Verified 05/18/22 06:55 tramadol AdvReac Intermediate abdominal Verified 05/18/22 06:55 pain Review of Systems Review of Systems: Yes all other systems are reviewed and are negative Musculoskeletal: Musculoskeletal: Reports back pain (right sided) Neurologic: Denies Sensory deficit (Neuro) PMFSH Past Medical History Medical History Arthritis Asthma Bladder pain BPH (benign prostatic hyperplasia) Diabetes mellitus DM2 (diabetes mellitus, type 2) Essential hypertension GERD (gastroesophageal reflux disease) Hearing difficulty of left ear High blood pressure Hyperlipidemia LDL goal <100 Insomnia No known health problems Obesity Onychomycosis Pure hypercholesterolemia Rotator cuff tear Thyroid nodule Surgical History History of knee replacement procedure of right knee Family History Family History Father No problems noted. Mother Diabetes Hypertension Brother Throat cancer Social History Social History Household Members: Spouse Housing: Apartment Alcohol intake: never Patient Tobacco Use Status: Former Tobacco user Tobacco use type: Cigarette e-Cigarette/Vaping Use: Never Used Second Hand Smoke Exposure: No Advance Directives: No Advance Directives Information Provided: No service: No Current occupational status: disabled Cognitive needs: Yes Hearing needs: Yes Vision needs: Yes Physical Exam Vital Signs: Vital Signs: Last Vital Signs Temp 98 F 04/27/22 07:16 Pulse 83 04/27/22 09:58 Resp 16 04/27/22 09:58 BP 121/63 04/27/22 09:58 Pulse Ox 95 04/27/22 09:58 O2 Del Method Room Air 04/27/22 09:58 BMI result Body Mass Index 30.8 Const: General: healthy appearing Nutritional Appearance: average body habitus Orientation/consciousness: oriented to person and patient oriented x3 Limitations: no limitations HEENT: Head: Yes normal to inspection Ears: external ears normal General nose exam: Normal external nose present Mouth: Normal oral and palatal mucosa present and oropharynx normal Throat: Yes posterior oropharynx normal Eyes: General: appearance normal, both eyes and all related structures Neck: Other: supple Neck: Yes normal visual inspection Chest: Chest palpation & inspection: normal inspection of the chest Resp: Auscultation: clear to auscultation bilaterally Cardio: Jugular venous distension: no JVD Rate: regular rate Rhythm: regular rhythm Heart sounds: S1 normal heart sound present and S2 normal heart sound present GI: Inspection: Yes normal to inspection Palpation (GI): Soft to palpation, nontender and No hepatosplenomegaly present Auscultation: normal bowel sounds Back/Spine/Pelvis: Other: right paralumbar tenderness Skin: General skin exam: no rashes or lesions noted Neuro: General: oriented to person and patient oriented x3 Cranial nerves: Yes CN's II-XII intact bilaterally Motor exam (neuro): 5/5 motor strength present throughout Sensory Exam: No Sensory deficit (Neuro) Extrem: General: Yes normal to inspection Psych: Appearance: grossly normal Course Reevaluation(s) Reevaluation #1: Patient is feeling better will dc on naprosyn Time: 10:10 Medications Administered Discontinued Medications Generic Name Dose Route Start Last Admin Trade Name Freq PRN Reason Stop Dose Admin Ketorolac Tromethamine 60 mg 04/27/22 08:03 04/27/22 08:12 Ketorolac Tromethamine 60 Mg/2 Ml Vial IM 04/27/22 08:04 60 mg ONCE ONE Administration Medical Decision Making Differential Diagnosis Differential Diagnoses: The differential diagnosis associated with the presentation includes (lumbago, sciatica, back sprain) Independent Interpretation I performed an independent interpretation of an: Plain X-Ray (lumbar sacral spine with djd) Discharge Plan Discharge Clinical Impression: Strain of lumbar region Patient Disposition: Home, Self-Care Instructions: Acute Low Back Pain (ED), Back Pain (ED) Prescriptions: New naproxen [Naprosyn] 500 mg tablet 500 mg PO BID Qty: 20 0RF No Action (DME) FreeStyle Lite Strips Strip See Rx Instructions .ROUTE .MEDSUPPLY Qty: 200 3RF Rx Instructions: As directed twice a day (DME) lancets [FreeStyle Lancets] 28 gauge misc See Rx Instructions .ROUTE .MEDSUPPLY Qty: 200 3RF Rx Instructions: two time a day metformin 500 mg tablet extended release 24 hr 1,000 mg PO BID 90 Days Qty: 360 2RF fluticasone propionate 50 mcg/actuation spray,suspension 1 spray intranasal DAILY 30 Days Qty: 48 2RF lisinopril 10 mg tablet 10 mg PO DAILY Qty: 90 3RF atorvastatin 40 mg tablet 40 mg PO BEDTIME Qty: 90 1RF albuterol sulfate [ProAir HFA] 90 mcg/actuation HFA aerosol inhaler 1 inh inhalation QID PRN (Reason: shortness of breath or wheezing) Qty: 8.5 0RF dulaglutide 1.5 mg/0.5 mL pen injector 1.5 mg subcut QWEEK Qty: 6 1RF zolpidem 10 mg tablet 10 mg PO BEDTIME PRN (Reason: sleep) 90 Days Qty: 90 0RF ibuprofen 800 mg tablet 800 mg PO Q8H PRN (Reason: pain) Qty: 14 0RF albuterol sulfate 0.63 mg/3 mL solution for nebulization 0.63 mg inhalation Q4-6H PRN (Reason: shortness of breath or wheezing) Qty: 75 0RF Paxlovid (EUA) 300 mg (150 mg x 2)-100 mg tablets,dose pack See Rx Instructions .ROUTE .COMPLEX Qty: 30 0RF Rx Instructions: take TWO 150 mg tablets of nirmatrelvir with ONE 100 mg tablet of ritonavir twice daily for 5 days Magic Mouthwash Diphen/Lido/Antacid 1:1:1 240 mL suspension 10 ml PO .QID 3 Days Qty: 240 0RF Rx Instructions: Lidocaine Viscous 2 % 80mL; diphenhydramine 12.5 mg/5 mL 80mL; aluminum-mag hydrox-simeth [id number]/5mL 80mL acetaminophen 500 mg capsule 1,000 mg PO Q8H PRN (Reason: pain) Qty: 30 0RF oxycodone 5 mg tablet 5 mg PO Q6H PRN (Reason: pain) Qty: 14 0RF Rx Instructions: Partial Fill upon patient request. acetaminophen [Tylenol Extra Strength] 500 mg tablet 500 mg PO Q6H PRN (Reason: pain) Qty: 14 0RF cetirizine [All Day Allergy (cetirizine)] 10 mg tablet 10 mg PO DAILY Qty: 7 0RF cyclobenzaprine 5 mg tablet 5 mg PO TID PRN (Reason: muscle spasm) 7 Days Qty: 21 0RF citalopram 20 mg tablet 20 mg PO DAILY albuterol sulfate 0.63 mg/3 mL solution for nebulization inhalation Q4H PRN omeprazole 20 mg capsule,delayed release(DR/EC) 20 mg PO QAM 90 Days Qty: 90 1RF gabapentin 100 mg capsule 100 mg PO DAILY Qty: 30 6RF Interventions: ED Discharge Assessment Last Done: 04/27/22 10:33 Discharge Date/Time: 04/27/22 10:33
[2022-04-27 08:11] VITALS: BP 126/67; PULSE 94; RESP 16; O2SAT 95
[2022-04-27] MEDS: Ketorolac Tromethamine 60 MG/2 ML VIAL IM (08:12)
[2022-04-27 09:58] VITALS: BP 121/63; PULSE 83; RESP 16; O2SAT 95
== END 2022-04-27 10:33 | disposition home or self-care (01) ==
PROVIDERS: Emergency Provider Emergency Medicine; PCP Internal Medicine
DX: M54.50 Low back pain, unspecified (principal); E11.9 Type 2 diabetes mellitus without complications; Z79.84 Long term (current) use of oral hypoglycemic drugs; Z79.899 Other long term (current) drug therapy; Z87.891 Personal history of nicotine dependence
CPT/HCPCS: 72100; 96372; 99283; 99284; J1885

== ENCOUNTER 2022-04-28 14:50 | Emergency (ER) | payer OTHER, SELFPAY ==
--- NOTE | ~2022-04-28 | XR_ITS ---
EXAMINATION: XR LUMBOSACRAL SPINE CLINICAL INFORMATION: Back pain. COMPARISON: Lumbar spine radiographs dated 04/27/2022. TECHNIQUE: Three views of the lumbosacral spine. FINDINGS: Mild thoracolumbar dextro scoliosis is seen with apex at L1 to. Normal lumbar lordosis and spinal alignment is seen. Mild degenerative disc disease with disc space narrowing and marginal osteophyte formation is seen most pronounced at L3-4 and L4-5. There is no acute fracture. The soft tissues are unremarkable. XR/XR lumbar spine 2-3V IMPRESSION: Mild thoracolumbar dextro scoliosis and mild multilevel degenerative changes without acute abnormality or significant change.
[2022-04-28 15:01] VITALS: BP 101/74; PULSE 107; RESP 20; TEMP 36.5; O2SAT 98; BMI 30.8
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
[2022-04-28] MEDS: Acetaminophen 325 MG TABLET 975 MG PO (16:21)
[2022-04-28] MEDS: oxyCODONE HCl Immed Release 5 MG TABLET PO (16:21)
== END 2022-04-28 16:27 | disposition home or self-care (01) ==
PROVIDERS: Emergency Provider Emergency Medicine; PCP Internal Medicine
DX: S39.012A Strain of muscle, fascia and tendon of lower back, initial encounter (principal); V43.52XA Car driver injured in collision with other type car in traffic accident, initial encounter; Y93.9 Activity, unspecified; Y92.414 Local residential or business street as the place of occurrence of the external cause; Y99.9 Unspecified external cause status
CPT/HCPCS: 72100; 99283

== ENCOUNTER 2022-05-18 06:41 | Emergency (ER) | payer OTHER, SELFPAY ==
[2022-05-18 06:51] VITALS: BP 114/58; PULSE 87; RESP 18; TEMP 36.9; O2SAT 97; BMI 30.8
[2022-05-18 07:57] VITALS: BP 132/59; PULSE 80; RESP 18; TEMP 36.7; O2SAT 97
--- NOTE | 2022-05-18 09:08 | ED.BACK ---
HPI - Back Pain/Injury General Chief Complaint: Back Pain/Injury Stated Complaint: back pain Time Seen by Provider: 05/18/22 09:06 Related Data Home Medications Medication Instructions Recorded Confirmed albuterol sulfate 0.63 mg/3 mL mg inhalation Q4H PRN 01/11/20 01/08/22 solution for nebulization citalopram 20 mg tablet 20 mg PO DAILY 01/11/20 01/08/22 Previous Rx's Medication Instructions Recorded ibuprofen 800 mg tablet 800 mg PO Q8H PRN pain #14 tabs 04/17/20 blood sugar diagnostic (FreeStyle #200 ea 05/24/20 Lite Strips) lancets 28 gauge (FreeStyle #200 ea 07/06/20 Lancets) acetaminophen 500 mg tablet 500 mg PO Q6H PRN pain #14 tabs 11/19/20 (Tylenol Extra Strength) gabapentin 100 mg capsule 100 mg PO DAILY #30 caps 05/23/21 metformin 500 mg tablet,extended 1,000 mg PO BID 90 days #360 tabs 05/24/21 release 24 hr fluticasone propionate 50 1 spray intranasal DAILY 30 days 06/05/21 mcg/actuation nasal #48 mL spray,suspension lisinopril 10 mg tablet 10 mg PO DAILY #90 tabs 07/20/21 cetirizine 10 mg tablet (All Day 10 mg PO DAILY #7 tabs 10/08/21 Allergy (cetirizine)) atorvastatin 40 mg tablet 40 mg PO BEDTIME #90 tabs 11/13/21 omeprazole 20 mg capsule,delayed 20 mg PO QAM 90 days #90 caps 01/08/22 release albuterol sulfate 90 mcg/actuation 1 inh inhalation QID PRN shortness 01/30/22 aerosol inhaler (ProAir HFA) of breath or wheezing #8.5 grams albuterol sulfate 0.63 mg/3 mL 0.63 mg (3 mL) inhalation Q4-6H 02/06/22 solution for nebulization PRN shortness of breath or wheezing #75 mL nirmatrelvir 300 mg (150 mg See Rx Instructions PO .COMPLEX 02/06/22 x2)-ritonavir 100 mg tablet,dose #30 ea pack(EUA) (Paxlovid) dulaglutide 1.5 mg/0.5 mL 1.5 mg (0.5 mL) subcut QWEEK #6 mL 02/19/22 subcutaneous pen injector zolpidem 10 mg tablet 10 mg PO BEDTIME PRN sleep 90 days 03/21/22 #90 tabs Magic Mouthwash 10 ml PO .QID 3 days #240 mL 04/02/22 Diphen/Lido/Antacid 1:1:1 240 mL suspension cyclobenzaprine 5 mg tablet 5 mg PO TID PRN muscle spasm 7 04/20/22 days #21 tabs naproxen 500 mg tablet (Naprosyn) 500 mg PO BID #20 tabs 04/27/22 acetaminophen 500 mg capsule 1,000 mg PO Q8H PRN pain #30 caps 04/28/22 oxycodone 5 mg tablet 5 mg PO Q6H PRN pain #14 tabs 04/28/22 Allergies Allergy/AdvReac Type Severity Reaction Status Date / Time penicillin V Allergy Intermediate rash Verified 05/18/22 06:55 aspirin [Aspirin] Allergy Mild RASH Verified 05/18/22 06:55 Penicillins Allergy Mild RASH Verified 05/18/22 06:55 tramadol AdvReac Intermediate abdominal Verified 05/18/22 06:55 pain PMFSH Past Medical History Medical History Arthritis Asthma Bladder pain BPH (benign prostatic hyperplasia) Diabetes mellitus DM2 (diabetes mellitus, type 2) Essential hypertension GERD (gastroesophageal reflux disease) Hearing difficulty of left ear High blood pressure Hyperlipidemia LDL goal <100 Insomnia No known health problems Obesity Onychomycosis Pure hypercholesterolemia Rotator cuff tear Thyroid nodule Surgical History History of knee replacement procedure of right knee Family History Family History Father No problems noted. Mother Diabetes Hypertension Brother Throat cancer Social History Social History Household Members: Spouse Housing: Apartment Alcohol intake: never Patient Tobacco Use Status: Former Tobacco user Tobacco use type: Cigarette e-Cigarette/Vaping Use: Never Used Second Hand Smoke Exposure: No Advance Directives: No Advance Directives Information Provided: No service: No Current occupational status: disabled Cognitive needs: Yes Hearing needs: Yes Vision needs: Yes Physical Exam Vital Signs: Vital Signs: Last Vital Signs Temp 98.1 F 05/18/22 07:57 Pulse 80 05/18/22 07:57 Resp 18 05/18/22 07:57 BP 132/59 L 05/18/22 07:57 Pulse Ox 97 05/18/22 07:57 O2 Del Method Room Air 05/18/22 07:57 BMI result Body Mass Index 30.8 Discharge Plan Discharge Prescriptions: No Action (DME) FreeStyle Lite Strips Strip See Rx Instructions .ROUTE .MEDSUPPLY Qty: 200 3RF Rx Instructions: As directed twice a day (DME) lancets [FreeStyle Lancets] 28 gauge misc See Rx Instructions .ROUTE .MEDSUPPLY Qty: 200 3RF Rx Instructions: two time a day metformin 500 mg tablet extended release 24 hr 1,000 mg PO BID 90 Days Qty: 360 2RF fluticasone propionate 50 mcg/actuation spray,suspension 1 spray intranasal DAILY 30 Days Qty: 48 2RF lisinopril 10 mg tablet 10 mg PO DAILY Qty: 90 3RF atorvastatin 40 mg tablet 40 mg PO BEDTIME Qty: 90 1RF albuterol sulfate [ProAir HFA] 90 mcg/actuation HFA aerosol inhaler 1 inh inhalation QID PRN (Reason: shortness of breath or wheezing) Qty: 8.5 0RF dulaglutide 1.5 mg/0.5 mL pen injector 1.5 mg subcut QWEEK Qty: 6 1RF zolpidem 10 mg tablet 10 mg PO BEDTIME PRN (Reason: sleep) 90 Days Qty: 90 0RF ibuprofen 800 mg tablet 800 mg PO Q8H PRN (Reason: pain) Qty: 14 0RF albuterol sulfate 0.63 mg/3 mL solution for nebulization 0.63 mg inhalation Q4-6H PRN (Reason: shortness of breath or wheezing) Qty: 75 0RF Paxlovid (EUA) 300 mg (150 mg x 2)-100 mg tablets,dose pack See Rx Instructions .ROUTE .COMPLEX Qty: 30 0RF Rx Instructions: take TWO 150 mg tablets of nirmatrelvir with ONE 100 mg tablet of ritonavir twice daily for 5 days Magic Mouthwash Diphen/Lido/Antacid 1:1:1 240 mL suspension 10 ml PO .QID 3 Days Qty: 240 0RF Rx Instructions: Lidocaine Viscous 2 % 80mL; diphenhydramine 12.5 mg/5 mL 80mL; aluminum-mag hydrox-simeth [id number]/5mL 80mL naproxen [Naprosyn] 500 mg tablet 500 mg PO BID Qty: 20 0RF acetaminophen 500 mg capsule 1,000 mg PO Q8H PRN (Reason: pain) Qty: 30 0RF oxycodone 5 mg tablet 5 mg PO Q6H PRN (Reason: pain) Qty: 14 0RF Rx Instructions: Partial Fill upon patient request. acetaminophen [Tylenol Extra Strength] 500 mg tablet 500 mg PO Q6H PRN (Reason: pain) Qty: 14 0RF cetirizine [All Day Allergy (cetirizine)] 10 mg tablet 10 mg PO DAILY Qty: 7 0RF cyclobenzaprine 5 mg tablet 5 mg PO TID PRN (Reason: muscle spasm) 7 Days Qty: 21 0RF citalopram 20 mg tablet 20 mg PO DAILY albuterol sulfate 0.63 mg/3 mL solution for nebulization inhalation Q4H PRN omeprazole 20 mg capsule,delayed release(DR/EC) 20 mg PO QAM 90 Days Qty: 90 1RF gabapentin 100 mg capsule 100 mg PO DAILY Qty: 30 6RF
== END 2022-05-18 09:20 | disposition left against medical advice (07) ==
PROVIDERS: Emergency Provider Emergency Medicine; PCP Internal Medicine
DX: M54.50 Low back pain, unspecified (principal)
CPT/HCPCS: 99281; 99283

== ENCOUNTER 2022-09-09 07:21 | Emergency (ER) | payer OTHER, SELFPAY ==
--- NOTE | ~2022-09-09 | XR_ITS ---
EXAMINATION: XR CHEST CLINICAL INFORMATION: Asthma. Crackles on inspiration. COMPARISON: Right rib x-rays including frontal chest April 20, [address] February 06, 2022 TECHNIQUE: 2 views of the chest were obtained. FINDINGS: Cardiac silhouette is normal in size. The lungs are adequately aerated. There is similar mild asymmetric elevation of the left hemidiaphragm. Some subtle bibasilar linear opacities are nonspecific but most suggestive of atelectasis versus scarring. There is no lobar consolidation. No pleural effusion or pneumothorax. Mild degenerative changes of the spine. XR/XR chest 2V IMPRESSION: Suspected bibasilar atelectasis versus scarring. No lobar consolidation.
[2022-09-09 07:23] VITALS: BP 120/56; PULSE 80; RESP 16; TEMP 36.9; O2SAT 97; BMI 30.8
--- NOTE | 2022-09-09 07:56 | ED_ITS ---
HPI - General Adult General Chief complaint: Upper Respiratory Symptoms Stated complaint: Nose bleed Time Seen by Provider: 09/09/22 07:35 Source: patient and translator/interpreter Mode of arrival: ambulatory History of Present Illness HPI narrative: 67-year-old male who is a diabetic and states that he has been experiencing lack of smell for 4 weeks and then that he has also been experiencing a foul smell at times when he inhales. Patient denies any blurred or double vision, denies any headaches or dizziness, denies any sore throat denies any COVID positivity approximately 1 month ago, denies any purulence drainage or fever or chills. Patient states that he followed up with his primary care provider 3 weeks ago and was prescribed what appears to be Flonase but says that has not helped. He denies any traumatic events. Related Data Previous Rx's Medication Instructions Recorded blood sugar diagnostic (FreeStyle #200 ea 05/24/20 Lite Strips) lancets 28 gauge (FreeStyle #200 ea 07/06/20 Lancets) lisinopril 10 mg tablet 10 mg PO DAILY #90 tabs 07/20/21 atorvastatin 40 mg tablet 40 mg PO BEDTIME #90 tabs 11/13/21 omeprazole 20 mg capsule,delayed 20 mg PO QAM 90 days #90 caps 01/08/22 release albuterol sulfate 90 mcg/actuation 1 inh inhalation QID PRN shortness 01/30/22 aerosol inhaler (ProAir HFA) of breath or wheezing #8.5 grams albuterol sulfate 0.63 mg/3 mL 0.63 mg (3 mL) inhalation Q4-6H 02/06/22 solution for nebulization PRN shortness of breath or wheezing #75 mL Magic Mouthwash 10 ml PO .QID 3 days #240 mL 04/02/22 Diphen/Lido/Antacid 1:1:1 240 mL suspension fluticasone propionate 44 1 puff inhalation BID 30 days 07/10/22 mcg/actuation HFA aerosol inhaler #10.6 grams (Flovent HFA) triamcinolone acetonide 55 mcg 1 spray intranasal DAILY 30 days 07/10/22 nasal spray aerosol (Nasacort) #16.9 mL dulaglutide 1.5 mg/0.5 mL 1.5 mg (0.5 mL) subcut QWEEK #6 mL 08/06/22 subcutaneous pen injector metformin 500 mg tablet,extended 1,000 mg PO BID 90 days #360 tabs 08/20/22 release 24 hr zolpidem 10 mg tablet 10 mg PO BEDTIME PRN sleep 90 days 08/27/22 #90 tabs Allergies Allergy/AdvReac Type Severity Reaction Status Date / Time penicillin V Allergy Intermediate rash Verified 09/09/22 07:28 aspirin [Aspirin] Allergy Mild RASH Verified 09/09/22 07:28 Penicillins Allergy Mild RASH Verified 09/09/22 07:28 tramadol AdvReac Intermediate abdominal Verified 09/09/22 07:28 pain Review of Systems Review of Systems: Pertinent positives and negatives as stated in HPI [facility] Past Medical History Source: nursing notes reviewed Medical History Arthritis Asthma Bladder pain BPH (benign prostatic hyperplasia) Diabetes mellitus DM2 (diabetes mellitus, type 2) Essential hypertension GERD (gastroesophageal reflux disease) Hearing difficulty of left ear High blood pressure Hyperlipidemia LDL goal <100 Insomnia No known health problems Obesity Onychomycosis Pure hypercholesterolemia Rotator cuff tear Thyroid nodule Surgical History History of knee replacement procedure of right knee Family History Family History Father No problems noted. Mother Diabetes Hypertension Brother Throat cancer Social History Social History Household Members: Spouse Housing: Apartment Alcohol intake: never Patient Tobacco Use Status: Former Tobacco user Tobacco use type: Cigarette e-Cigarette/Vaping Use: Never Used Second Hand Smoke Exposure: No Advance Directives: No Advance Directives Information Provided: Yes service: No Current occupational status: disabled Cognitive needs: Yes Hearing needs: Yes Vision needs: Yes Physical Exam ED Vital Signs: Vital Signs - 24 hr 09/09/22 07:23 Temperature 98.4 F Pulse Rate 80 Respiratory Rate 16 Blood Pressure 120/56 L Pulse Oximetry 97 Oxygen Delivery Method Room Air BMI result Body Mass Index 30.8 VITAL SIGNS: Reviewed. GENERAL: Well developed, well nourished, in no acute distress. HEAD: Normocephalic/atraumatic EYES: PERRLA, EOMI EARS: Ext canals without abnormality NOSE: Nares patent bilateral, no boggy turbinates, no purulence drainage, no bilateral tenderness to palpation of maxillary sinuses OROPHARYNX: no oral lesions noted, posterior pharynx clear NECK: Supple, no adenopathy LUNGS: Normal breath sounds. No adventitious sounds or accessory muscle use. SpO2<97> CARDIOVASCULAR: Regular rate and rhythm without noted murmurs ABDOMEN: Soft, non-tender, non-distended with bowel sounds. MUSCULOSKELETAL: No tenderness, deformities, or effusions noted on gross inspection. EXTREMITIES: No cyanosis, clubbing or edema. SKIN: Inspection of the skin reveals no rashes NEUROLOGIC: Alert and oriented x 4. Strength and sensation to light touch were grossly intact x 4. Medical Decision Making Medical Decision Making MDM Narrative: 67-year-old male with 4 weeks of anosmia and phantosmia, without concerning symptoms of mass or sinus infection. Patient does not appear to be improving with fluticasone and there is a possibility that he may have contracted COVID-19 4 weeks ago and is experiencing symptoms, he otherwise denies any medication changes that would be identified is a possible side effect. I will provide him with a referral to follow-up with ENT but it was explained to him that he will still need to have his primary care provider send the referral over as well. He is otherwise discharged home in stable condition. Differential Diagnosis Differential Diagnoses: The differential diagnosis associated with the presentation includes Please see the discussion above Chronic Conditions Patient?s care impacted by: Diabetes Discharge Plan Discharge Clinical Impression: Anosmia, Phantosmia Patient Disposition: Home, Self-Care Additional Instructions: 1. Reanudar todos los medicamentos caseros seg?n lo prescrito. 2. Se le castillo dado juju remisi?n para un seguimiento con un especialista en o?dos, nariz y garganta y debe llamarlos el lunes por la ma?allison. 3. Tambi?n debe llamar a senior m?dico de atenci?n primaria el lunes por la ma?allison, ya que deber?n proporcionarle juju remisi?n adicional para albert a shira especialista. Regrese a la cheryle de emergencias si los s?ntomas empeoran. 1. Resume all home medications as prescribed. 2. You have been given a referral to follow-up with Ear, Nose, Throat specialist and should call them on Saturday. 3. You should also call your primary care doctor on Saturday as they will need to provide you with an additional referral to see this specialist. Return to the ER for any worsening symptoms. Prescriptions: No Action (DME) FreeStyle Lite Strips Strip See Rx Instructions .ROUTE .MEDSUPPLY Qty: 200 3RF Rx Instructions: As directed twice a day (DME) lancets [FreeStyle Lancets] 28 gauge misc See Rx Instructions .ROUTE .MEDSUPPLY Qty: 200 3RF Rx Instructions: two time a day lisinopril 10 mg tablet 10 mg PO DAILY Qty: 90 3RF atorvastatin 40 mg tablet 40 mg PO BEDTIME Qty: 90 1RF albuterol sulfate [ProAir HFA] 90 mcg/actuation HFA aerosol inhaler 1 inh inhalation QID PRN (Reason: shortness of breath or wheezing) Qty: 8.5 0RF dulaglutide 1.5 mg/0.5 mL pen injector 1.5 mg subcut QWEEK Qty: 6 1RF metformin 500 mg tablet extended release 24 hr 1,000 mg PO BID 90 Days Qty: 360 2RF zolpidem 10 mg tablet 10 mg PO BEDTIME PRN (Reason: sleep) 90 Days Qty: 90 0RF albuterol sulfate 0.63 mg/3 mL solution for nebulization 0.63 mg inhalation Q4-6H PRN (Reason: shortness of breath or wheezing) Qty: 75 0RF Magic Mouthwash Diphen/Lido/Antacid 1:1:1 240 mL suspension 10 ml PO .QID 3 Days Qty: 240 0RF Rx Instructions: Lidocaine Viscous 2 % 80mL; diphenhydramine 12.5 mg/5 mL 80mL; aluminum-mag hydrox-simeth [id number]/5mL 80mL omeprazole 20 mg capsule,delayed release(DR/EC) 20 mg PO QAM 90 Days Qty: 90 1RF fluticasone propionate [Flovent HFA] 44 mcg/actuation HFA aerosol inhaler 1 puff inhalation BID 30 Days Qty: 10.6 6RF Rx Instructions: administer with spacer triamcinolone acetonide [Nasacort] 55 mcg aerosol,spray 1 spray intranasal DAILY 30 Days Qty: 16.9 1RF Rx Instructions: administer into each nostril Referrals: Robert Latham [Physician] - (Anosmia and Phantosmia) Allison Maradiaga MD [Primary Care Provider] - Print Language: Mauritanian
== END 2022-09-09 08:17 | disposition home or self-care (01) ==
PROVIDERS: Emergency Provider Student in an Organized Health Care Education/Training Program; PCP Internal Medicine
DX: R43.0 Anosmia (principal); J45.909 Unspecified asthma, uncomplicated; R06.02 Shortness of breath; Z79.899 Other long term (current) drug therapy
CPT/HCPCS: 71046; 99282; 99283

== ENCOUNTER 2022-09-28 14:41 | Emergency (ER) | payer OTHER, SELFPAY ==
--- NOTE | 2022-09-28 14:43 | ED_ITS ---
HPI - General Adult General Chief complaint: Upper Respiratory Symptoms Stated complaint: asthma /chest pain Time Seen by Provider: 09/28/22 16:44 Source: patient Mode of arrival: ambulatory Limitations: no limitations History of Present Illness HPI narrative: 67-year-old male with history of asthma diabetes presents with shortness breath. Symptoms started today. There are moderate to severe. There was worth a worse with exertion. There were not associated with chest pain, cough or mucus production. Denies any fevers or chills. Patient is without any medications at home for his nebulizer machine or an inhaler. He denies any lower extremity edema. Denies any history of blood clots his lungs are his legs. He has no recent surgery or immobility. Patient reports a long history of asthma symptoms with exception of 1 year of his life. Related Data Previous Rx's Medication Instructions Recorded blood sugar diagnostic (FreeStyle #200 ea 05/24/20 Lite Strips) lancets 28 gauge (FreeStyle #200 ea 07/06/20 Lancets) lisinopril 10 mg tablet 10 mg PO DAILY #90 tabs 07/20/21 omeprazole 20 mg capsule,delayed 20 mg PO QAM 90 days #90 caps 01/08/22 release albuterol sulfate 90 mcg/actuation 1 inh inhalation QID PRN shortness 01/30/22 aerosol inhaler (ProAir HFA) of breath or wheezing #8.5 grams albuterol sulfate 0.63 mg/3 mL 0.63 mg (3 mL) inhalation Q4-6H 02/06/22 solution for nebulization PRN shortness of breath or wheezing #75 mL Magic Mouthwash 10 ml PO .QID 3 days #240 mL 04/02/22 Diphen/Lido/Antacid 1:1:1 240 mL suspension fluticasone propionate 44 1 puff inhalation BID 30 days 07/10/22 mcg/actuation HFA aerosol inhaler #10.6 grams (Flovent HFA) triamcinolone acetonide 55 mcg 1 spray intranasal DAILY 30 days 07/10/22 nasal spray aerosol (Nasacort) #16.9 mL dulaglutide 1.5 mg/0.5 mL 1.5 mg (0.5 mL) subcut QWEEK #6 mL 08/06/22 subcutaneous pen injector metformin 500 mg tablet,extended 1,000 mg PO BID 90 days #360 tabs 08/20/22 release 24 hr zolpidem 10 mg tablet 10 mg PO BEDTIME PRN sleep 90 days 09/17/22 #90 tabs atorvastatin 40 mg tablet 40 mg PO BEDTIME #90 tabs 09/23/22 albuterol sulfate 2.5 mg/3 mL 2.5 mg (3 mL) inhalation Q4-6H PRN 09/28/22 (0.083 %) solution for nebulization shortness of breath or wheezing #75 mL albuterol sulfate 90 mcg/actuation 2 puff inhalation 6XD PRN 09/28/22 aerosol inhaler shortness of breath or wheezing #6.7 grams prednisone 20 mg tablet 20 mg PO DAILY #5 tabs 09/28/22 Allergies Allergy/AdvReac Type Severity Reaction Status Date / Time penicillin V Allergy Intermediate rash Verified 09/09/22 07:28 aspirin [Aspirin] Allergy Mild RASH Verified 09/09/22 07:28 Penicillins Allergy Mild RASH Verified 09/09/22 07:28 tramadol AdvReac Intermediate abdominal Verified 09/09/22 07:28 pain Review of Systems Review of Systems: CONSTITUTIONAL: Denies weight loss, fever and chills. HEENT: Denies changes in vision and hearing. RESPIRATORY: + SOB - cough. CV: Denies palpitations no CP. GI: Denies abdominal pain, nausea, vomiting and diarrhea. : Denies dysuria and urinary frequency. MSK: Denies myalgia and joint pain. SKIN: Denies rash and pruritus. NEUROLOGICAL: Denies headache and syncope. PSYCHIATRIC: Denies recent changes in mood. Denies anxiety and depression. All other ROS are negative unless in HPI PMFSH Past Medical History Medical History Arthritis Asthma Bladder pain BPH (benign prostatic hyperplasia) Diabetes mellitus DM2 (diabetes mellitus, type 2) Essential hypertension GERD (gastroesophageal reflux disease) Hearing difficulty of left ear High blood pressure Hyperlipidemia LDL goal <100 Insomnia No known health problems Obesity Onychomycosis Pure hypercholesterolemia Rotator cuff tear Thyroid nodule Surgical History History of knee replacement procedure of right knee Family History Family History Father No problems noted. Mother Diabetes Hypertension Brother Throat cancer Social History Social History Household Members: Spouse Housing: Apartment Alcohol intake: former Patient Tobacco Use Status: Former Tobacco user Tobacco use type: Cigarette Smoked in Last 30 Days: No e-Cigarette/Vaping Use: Never Used Second Hand Smoke Exposure: No Use of substances other than those prescribed or required for medical reasons: No Advance Directives: Yes Advance Directives Information Provided: Yes Advance Directives on File: No service: No Current occupational status: disabled Cognitive needs: Yes Hearing needs: Yes Vision needs: Yes Physical Exam ED Vital Signs: Vital Signs - 24 hr 09/28/22 14:44 09/28/22 15:43 09/28/22 15:46 Temperature 97 F Pulse Rate 106 H 102 H Respiratory Rate 19 24 H Blood Pressure 119/63 Pulse Oximetry 98 94 Oxygen Delivery Method Room Air Room Air 09/28/22 15:46 09/28/22 16:04 Temperature 98.2 F Pulse Rate 95 103 H Respiratory Rate 18 20 Blood Pressure 117/52 L 113/56 L Pulse Oximetry 98 Oxygen Delivery Method BMI result Body Mass Index 30.6 GEN: Well developed, no acute distress, alert, oriented HEENT: Normocephalic, atraumatic, normal external ears, nose appears normal, no oropharyngeal edema or exudates Eyes: Normal to appearance Neck: Supple, no lymphadenopathy Respiratory: Talks in complete sentences, no respiratory distress, clear to auscultation bilaterally Cardiovascular: Regular rate and rhythm, no murmurs rubs or gallops Abdomen: Soft, nontender, nondistended, no guarding, no rebound Back: No CVA tenderness Extremities: No clubbing cyanosis or edema Neurologic: No focal neurologic deficits, cranial nerves 2-12 intact, strength is 5/5 bilaterally Skin: No rash Course Course Course Narrative: RME performed by Mary Musa PA-C. Patient is a 67 year old assigned male at presenting to the emergency department with asthma. Labs, swab, imaging ordered. Patient placed back in the waiting room pending room availability and results. Reevaluation(s) Reevaluation #1: The workup is complete. Patient is feeling much better. His pulmonary exam reveals no wheezing, prolonged expiration. Denies any chest pain. Will discharge the patient at this time. Time: 16:59 Medications Administered Discontinued Medications Generic Name Dose Route Start Last Admin Trade Name Maranda PRN Reason Stop Dose Admin Albuterol Sulfate 4 puff 09/28/22 14:45 09/28/22 15:14 Albuterol Sulfate 90 Mcg 8 Gm Inhaler INHALE 09/28/22 14:46 4 puff ONCE ONE Administration Albuterol/Ipratropium 3 ml 09/28/22 15:05 09/28/22 15:14 Albuterol/Iprat 2.5/0.5mg 3 Ml Ampul.Neb INHALE 09/28/22 15:06 3 ml ONCE ONE Administration Albuterol Sulfate 7.5 mg/ 0 mg 09/28/22 15:23 09/28/22 15:30 Albuterol/Ipratropium 3 ml INHALE 09/28/22 15:24 7.5 each ONCE ONE Administration Magnesium Sulfate 2 gm in 50 mls @ 25 mls/hr 09/28/22 15:23 09/28/22 16:08 Magnesium Sulfate/H2o IV 09/28/22 17:22 Infused ONCE ONE Infusion Methylprednisolone Sodium Succinate 60 mg 09/28/22 15:35 09/28/22 15:43 Methylprednisolone Sod Succ 125 Mg/2 Ml Vial IVPUSH 09/28/22 15:36 60 mg ONCE ONE Administration Medical Decision Making Medical Decision Making [facility] Narrative: 67-year-old male presents with shortness of breath. Patient was having severe dyspnea. Differential diagnosis includes asthma exacerbation, COPD, pneumonia, bronchitis. Most likely this is an asthma exacerbation. He is without medications which is likely the cause his inability to control his asthma home. My plan will be to provide the patient with medications and symptomatic relief. If hearing able to do so, patient will require admission. Differential Diagnosis Differential Diagnoses: The differential diagnosis associated with the presentation includes (See above) Admission/Observation Consideration of admission/observation: Escalation of care including admission/observation considered Lab Data [facility] Lab Attestation statement: I reviewed the patient's lab results. 09/28/22 15:15 09/28/22 15:15 Labs: Lab Results 09/28/22 09/28/22 09/28/22 Range/Units 15:15 15:15 15:15 WBC 8.7 (4.8-10.8) X10*3/uL RBC 5.14 (4.60-5.80) X10*6/uL Hgb 14.3 (14.0-18.0) g/dl Hct 41.3 L (42.0-52.0) % MCV 80.4 (80.0-98.0) fL MCH 27.8 (27.0-33.0) pg MCHC 34.6 (31.0-36.0) g/dl RDW 12.4 (11.0-16.0) % Plt Count 219 (160-400) X10*3/uL MPV 10.4 (9.4-12.4) fL Immature Gran % (Auto) 0.2 (0.0-0.4) % Neut % (Auto) 63.2 (45-73) % Lymph % (Auto) 21.7 (20-40) % [place] % (Auto) 8.1 (2-11) % Eos % (Auto) 6.6 H (0-4) % Baso % (Auto) 0.2 (0-2) % Lymph # (Auto) 1.9 (1.2-4.9) X10*3/uL [place] # (Auto) 0.7 (0.1-1.2) X10*3/uL Eos # (Auto) 0.6 H (0.0-0.4) X10*3/uL Baso # (Auto) 0.0 (0.0-0.2) X10*3/uL Abs Immat Gran (auto) 0.02 (0.00-0.03) X10*3/uL Absolute Neuts (auto) 5.5 (2.0-8.3) x10*3/uL Absolute Nucleated RBC 0.000 (0.0-0.012) X10*3/uL Nucleated RBC % (auto) 0.0 (0.0-0.2) /100WBC Sodium 138 (135-145) mmol/L Potassium 4.4 (3.3-5.1) mmol/L Chloride 105 (96-108) mmol/L Carbon Dioxide 23 (22-29) mmol/L Anion Gap 14 (12-20) BUN 21 H (9-16) mg/dL Creatinine 0.84 (0.5-1.4) mg/dL Estim Creat Clear Calc 114.7 Estimated GFR > 60 Random Glucose 107 (60-115) mg/dL Calcium 9.8 (8.4-10.2) mg/dL Magnesium 1.3 L* (1.6-2.6) mg/dL Total Bilirubin 0.5 (0.0-1.0) mg/dL AST 30 (5-37) U/L ALT 37 (0-40) U/L Alkaline Phosphatase 82 (39-117) U/L Total Protein 6.8 (6.5-8.0) g/dL Albumin 4.1 (3.5-5.0) g/dL COVID-19 ([facility]) Negative (Negative) COVID-19 Clin Com See Note Independent Historian Clinical information obtained from an independent historian. History obtained from or confirmed by: Spouse Prescription Management I considered prescription management with: Antibiotic Chronic Conditions Patient?s care impacted by: Diabetes Critical Care Time Critical Care Time Total Critical Care Time: 35 Attestation: Approximately 35 minutes of critical care time was spent on this patient terms of direct patient care, which evaluation, re-evaluation, interpretation and medical data, medical management for severe asthma exacerbation requiring multiple nebulizer treatments, intravenous magnesium and Solu-Medrol. Discharge Plan Discharge Clinical Impression: Asthma exacerbation Patient Disposition: Home, Self-Care Instructions: Asthma (ED), How to Use a Metered-Dose Inhaler (ED), How to Use a Nebulizer (ED) Prescriptions: New albuterol sulfate 2.5 mg /3 mL (0.083 %) solution for nebulization 2.5 mg inhalation Q4-6H PRN (Reason: shortness of breath or wheezing) Qty: 75 0RF albuterol sulfate 90 mcg/actuation HFA aerosol inhaler 2 puff inhalation 6XD PRN (Reason: shortness of breath or wheezing) Qty: 6.7 0RF prednisone 20 mg tablet 20 mg PO DAILY Qty: 5 0RF No Action (DME) FreeStyle Lite Strips Strip See Rx Instructions .ROUTE .MEDSUPPLY Qty: 200 3RF Rx Instructions: As directed twice a day (DME) lancets [FreeStyle Lancets] 28 gauge misc See Rx Instructions .ROUTE .MEDSUPPLY Qty: 200 3RF Rx Instructions: two time a day lisinopril 10 mg tablet 10 mg PO DAILY Qty: 90 3RF albuterol sulfate [ProAir HFA] 90 mcg/actuation HFA aerosol inhaler 1 inh inhalation QID PRN (Reason: shortness of breath or wheezing) Qty: 8.5 0RF dulaglutide 1.5 mg/0.5 mL pen injector 1.5 mg subcut QWEEK Qty: 6 1RF metformin 500 mg tablet extended release 24 hr 1,000 mg PO BID 90 Days Qty: 360 2RF zolpidem 10 mg tablet 10 mg PO BEDTIME PRN (Reason: sleep) 90 Days Qty: 90 0RF atorvastatin 40 mg tablet 40 mg PO BEDTIME Qty: 90 1RF albuterol sulfate 0.63 mg/3 mL solution for nebulization 0.63 mg inhalation Q4-6H PRN (Reason: shortness of breath or wheezing) Qty: 75 0RF Magic Mouthwash Diphen/Lido/Antacid 1:1:1 240 mL suspension 10 ml PO .QID 3 Days Qty: 240 0RF Rx Instructions: Lidocaine Viscous 2 % 80mL; diphenhydramine 12.5 mg/5 mL 80mL; aluminum-mag hydrox-simeth [id number] 80mL omeprazole 20 mg capsule,delayed release(DR/EC) 20 mg PO QAM 90 Days Qty: 90 1RF fluticasone propionate [Flovent HFA] 44 mcg/actuation HFA aerosol inhaler 1 puff inhalation BID 30 Days Qty: 10.6 6RF Rx Instructions: administer with spacer triamcinolone acetonide [Nasacort] 55 mcg aerosol,spray 1 spray intranasal DAILY 30 Days Qty: 16.9 1RF Rx Instructions: administer into each nostril Referrals: Allison Maradiaga MD [Primary Care Provider] - 2 days Interventions: ED Discharge Assessment Last Done: 09/28/22 17:33 Discharge Date/Time: 09/28/22 17:33
[2022-09-28 14:44] VITALS: BP 119/63; PULSE 106; RESP 19; TEMP 36.1; O2SAT 98; BMI 30.6
[2022-09-28] MEDS: Albuterol/Iprat 2.5/0.5MG 3 ML AMPUL.NEB INHALE (15:14)
[2022-09-28] MEDS: Albuterol Sulfate 90 MCG 8 GM INHALER 4 PUFF INHALE (15:14)
[2022-09-28 15:20] LABS: MANUAL DIFF FLAG NO
[2022-09-28 15:22] LABS: Basophils Percent Auto 0.2 % (0-2); Eosinophils Absolute Auto 0.6 X10*3/uL (0.0-0.4); Eosinophils Percent Auto 6.6 % (0-4); Hematocrit 41.3 % (42.0-52.0); Hemoglobin 14.3 g/dl (14.0-18.0); Imm Gran Abs Auto 0.02 X10*3/uL (0.00-0.03); Imm Gran Pct Auto 0.2 % (0.0-0.4); Lymphocytes Absolute Auto 1.9 X10*3/uL (1.2-4.9); Lymphocytes Percent Auto 21.7 % (20-40); Mean Corpuscular HGB Conc 34.6 g/dl (31.0-36.0); Mean Corpuscular Hemoglobin 27.8 pg (27.0-33.0); Mean Corpuscular Volume 80.4 fL (80.0-98.0); Mean Platelet Volume 10.4 fL (9.4-12.4); Monocytes Absolute Auto 0.7 X10*3/uL (0.1-1.2); Monocytes Percent Auto 8.1 % (2-11); Neutrophils Absolute Auto 5.5 x10*3/uL (2.0-8.3); Neutrophils Percent Auto 63.2 % (45-73); Platelet Count 219 X10*3/uL (160-400); Red Blood Count 5.14 X10*6/uL (4.60-5.80); Red Cell Distribution Width 12.4 % (11.0-16.0); White Blood Count 8.7 X10*3/uL (4.8-10.8)
[2022-09-28] MEDS: Albuterol Sulfate 7.5 MG, Albuterol/Iprat 2.5/0.5MG 3 ML 3 ML INHALE (15:30)
[2022-09-28] MEDS: Magnesium Sulfate/H2O 2 GM/50 ML PIGGYBACK IV (15:35)
[2022-09-28 15:42] LABS: Alanine Aminotransferase 37 U/L (0-40); Albumin Level 4.1 g/dL (3.5-5.0); Alkaline Phosphatase 82 U/L (39-117); Anion Gap 14 (12-20); Aspartate Amino Transferase 30 U/L (5-37); Bilirubin Total 0.5 mg/dL (0.0-1.0); Blood Urea Nitrogen 21 mg/dL (9-16); Calcium 9.8 mg/dL (8.4-10.2); Carbon Dioxide 23 mmol/L (22-29); Chloride 105 mmol/L (96-108); Creatinine Clr Calc Pharmacy 114.7; Estimated Glomerular Filt Rate > 60; Glucose Random 107 mg/dL (60-115); Magnesium 1.3 mg/dL (1.6-2.6); Potassium 4.4 mmol/L (3.3-5.1); Sodium 138 mmol/L (135-145); Total Protein 6.8 g/dL (6.5-8.0)
[2022-09-28 15:43] VITALS: PULSE 102; RESP 24; O2SAT 96
[2022-09-28] MEDS: methylPREDNISolone Sod Succ 125 MG/2 ML VIAL 60 MG IVPUSH (15:43)
[2022-09-28 15:44] LABS: COVID-19 Test Negative (Negative); IDNOW Serial# BCCEAD1C
[2022-09-28 15:46] VITALS: BP 117/52; PULSE 95; RESP 18; TEMP 36.8; O2SAT 94
--- NOTE | 2022-09-28 15:49 | PC.NURSE ---
Alert and oriented, mostly guinean speaking. arrived from home with sob and wheezing. patient stating he has asthma. Wheezing heard bilaterally Updraft given with good effect. 94% on RA. vss, nsr on monitor. Patient denies being around anyone who has been sick
[2022-09-28 16:04] VITALS: BP 113/56; PULSE 103; RESP 20; O2SAT 98
--- NOTE | 2022-09-28 16:06 | PC.NURSE ---
Patient reporting feeling better after updraft and IV meds. Wheezing resolved, no sob noted
--- NOTE | 2022-09-28 17:34 | PC.NURSE ---
Discharge instructions reviewed with patient who verbalized understanding
== END 2022-09-28 17:33 | disposition home or self-care (01) ==
PROVIDERS: Physician Assistant Medical; Emergency Provider Emergency Medicine; PCP Internal Medicine
DX: J45.901 Unspecified asthma with (acute) exacerbation (principal); Z20.822 Contact with and (suspected) exposure to COVID-19; E11.9 Type 2 diabetes mellitus without complications; I10 Essential (primary) hypertension; E78.5 Hyperlipidemia, unspecified; Z87.891 Personal history of nicotine dependence; Z79.84 Long term (current) use of oral hypoglycemic drugs; Z79.899 Other long term (current) drug therapy
CPT/HCPCS: 80053; 83735; 85025; 87635; 94640; 96365; 96375; 99285; J2930; J3475

== ENCOUNTER 2022-10-03 16:02 | Outpatient (AMB) | payer OTHER, SELFPAY ==
--- NOTE | 2022-10-03 16:15 | A.OFFPC_ITS ---
Vital Signs 10/03/22 16:16 Height 6 ft 2 in Weight 237 lb BMI 30.4 BP 120/72 Blood Pressure Location Lt brachial Position Sitting Intake Visit Reasons: Environmental Science Technician referral Intake Note: Patient here for Environmental Science Technician referral request, follow up ED visit for Asthma Electrical Maintenance Technician Required: No Accompanied by: Spouse Allergies penicillin V Allergy (Intermediate, Verified 10/03/22 16:30) rash aspirin [Aspirin] Allergy (Mild, Verified 10/03/22 16:30) RASH Penicillins Allergy (Mild, Verified 10/03/22 16:30) RASH tramadol Adverse Reaction (Intermediate, Verified 10/03/22 16:30) abdominal pain Medication List - Last Reconciled 10/03/22 by Allison Fenton MD albuterol sulfate 0.63 mg (3 mL) inhalation Q4-6H PRN albuterol sulfate 2.5 mg (3 mL) inhalation Q4-6H PRN albuterol sulfate 90 mcg/actuation 2 puffs inhalation 6XD PRN albuterol sulfate 90 mcg/actuation (ProAir HFA) 1 inh inhalation QID PRN atorvastatin 40 mg PO BEDTIME blood sugar diagnostic (FreeStyle Lite Strips) As directed twice a day dulaglutide 1.5 mg (0.5 mL) subcut QWEEK fluticasone propionate 44 mcg/actuation (Flovent HFA) 1 puff inhalation BID 30 days lancets (FreeStyle Lancets) two time a day lisinopril 10 mg PO DAILY Magic Mouthwash Diphen/Lido/Antacid 1:1:1 10 mL PO .QID 3 days metformin ER 1,000 mg (2 x 500 mg) PO BID 90 days omeprazole 20 mg PO QAM 90 days prednisone 20 mg PO DAILY triamcinolone acetonide (Nasacort) 1 spray intranasal DAILY 30 days zolpidem 10 mg PO BEDTIME PRN 90 days Tobacco use date assessed: 07/10/22 Fall risk assessment: No Falls in past year Last assessed Fall Risk: 10/03/22 Dental Screening Dental Screen Date: 10/03/22 Did you have a dental visit in the last 12 months?: No Did you have a dental problem in the last 6 months where you did not have access to dental care?: No Was dental information given to patient?: Patient has dentist HPI HPI Comments History of Present Illness Details This is a 67-year-old male with diabetes mellitus type 2, hypertension, pure hypercholesterolemia and moderate asthma that comes accompanied by female partner for hospital discharge follow-up with discharge date 09/28/2022 due to asthma exacerbation. Was feeling short of breath with wheezing and was given prednisone which completed today. Feels markedly improved with his breathing. Still has some nasal congestion with green discharge and I will prescribe an antibiotic. Blood glucose well control. Blood pressure stable. LDL goal should be less than 70. No chest pain or shortness of breath. Needs diabetic eye exam. Labs at ER show low magnesium that will be supplemented. [facility] Medical History (Updated 10/03/22 @ 17:38 by Allison Fenton MD) Arthritis Asthma Bladder pain BPH (benign prostatic hyperplasia) Diabetes mellitus DM2 (diabetes mellitus, type 2) Essential hypertension GERD (gastroesophageal reflux disease) Hearing difficulty of left ear High blood pressure Hyperlipidemia LDL goal <100 Insomnia No known health problems Obesity Onychomycosis Pure hypercholesterolemia Rotator cuff tear Thyroid nodule Surgical History History of knee replacement procedure of right knee Family History Father No problems noted. Mother Diabetes Hypertension Brother Throat cancer Social History Household Members: Spouse Housing: Apartment Alcohol intake: former Patient Tobacco Use Status: Former Tobacco user Tobacco use type: Cigarette e-Cigarette/Vaping Use: Never Used Second Hand Smoke Exposure: No service: No Current occupational status: disabled Cognitive needs: Yes Hearing needs: Yes Vision needs: Yes Questionnaire Thrive Questionnaire Date Thrive assessed: 07/10/22 MILDRED-7 AMB Questionnaire MILDRED-7 Date MILDRED - 7 assessed: 07/10/22 Source: Developed by Drs. Eduardo Werner, Lesli Farfan, Carmelo Fleming and colleagues, with an educational mala from [employer]. Review of Systems Const All systems reviewed & are unremarkable except as noted in HPI and below Eyes Reports no additional complaints, Denies change in vision and Denies other visual disturbances Card Denies chest pain at rest, Denies chest pain with activity, Denies edema, Denies irregular heart rhythm, Denies claudication, Denies dyspnea, Denies dyspnea on exertion, Denies orthopnea, Denies paroxysmal nocturnal dyspnea and Denies slow heart rate Resp Denies cough, Denies dyspnea and Denies dyspnea on exertion GI Denies abdominal pain, Denies change in bowel habits, Denies excessive flatus, Denies nausea and Denies vomiting Denies urinary hesitancy, Denies urinary incontinence and Denies urinary urgency Musc Denies abnormal gait, Denies atrophy, Denies deformity and Denies limited range of motion Skin/Breast Denies bleeding lesions, Denies changing lesions and Denies rash Neuro Denies abnormal gait and Denies lack of coordination Physical exam (Primary Care) Vital Signs: Last Vital Signs BP 120/72 10/03/22 16:16 BMI result Body Mass Index 30.4 Tobacco/Smoking Status: Tobacco use Status Tobacco use date assessed 07/10/22 10/03/22 16:25 Patient Tobacco Use Status Former Tobacco user 10/03/22 16:25 Tobacco use type Cigarette 10/03/22 16:25 e-Cigarette/Vaping Use Never Used 10/03/22 16:25 Thrive Assessment: Date of Thrive Assessment Date Thrive assessed 07/10/22 10/03/22 16:25 Eyes General: appearance normal, both eyes and all related structures Eyelids: Yes eyelids normal Conjunctivae: conjunctivae normal Neck Neck: Yes normal visual inspection and Yes supple Resp Effort & Inspection: normal respiratory effort Auscultation: clear to auscultation bilaterally Cardio Jugular venous distension: no JVD Rate: regular rate Rhythm: regular rhythm Heart sounds: S1 normal heart sound present and S2 normal heart sound present Extrem General: Yes full ROM Assessment and Plan Assessment & Plan (1) Hospital discharge follow-up: Code(s): Z09 - Encounter for follow-up examination after completed treatment for conditions other than malignant neoplasm Plan: Discharge date of as [id number] due to asthma exacerbation. Was given nebulizer solution. (2) Asthma exacerbation: Code(s): J45.901 - Unspecified asthma with (acute) exacerbation Plan: Prednisone completed. Feels markedly improved. Use rescue inhaler as needed. (3) Diabetes mellitus: Code(s): E11.9 - Type 2 diabetes mellitus without complications Qualifiers: Diabetes mellitus type: type 2 Diabetes mellitus detention insulin use: without smoking pipe coater use Diabetes mellitus complication status: without complication Qualified Code(s): E11.9 - Type 2 diabetes mellitus without complications Plan: Continue metformin. A1c goal is equal or less than 7%. (4) Pure hypercholesterolemia: Code(s): E78.00 - Pure hypercholesterolemia, unspecified Plan: Continue statins. Repeat lipid. LDL goal is less than 70. (5) Essential hypertension: Code(s): I10 - Essential (primary) hypertension Plan: Continue lisinopril. Blood pressure goal is equal or less than 30/80. Orders: Referrals Ophthalmology Referral E11.9 - Type 2 diabetes mellitus without complications Medications: New doxycycline hyclate 100 mg PO BID 10 tabs 0RF 5 days magnesium 250 mg PO DAILY 30 tabs 0RF 30 days Refilled albuterol sulfate 2.5 mg (3 mL) inhalation Q4-6H PRN 75 mL 0RF shortness of breath or wheezing Coding Level of Care Code TCM Mod MDM <= 7 Days Diagnoses Hospital discharge follow-up Z09 Asthma exacerbation J45.901 Diabetes mellitus E11.9 Diabetes mellitus type: type 2 Diabetes mellitus detention insulin use: without smoking pipe coater use Diabetes mellitus complication status: without complication Pure hypercholesterolemia E78.00 Essential hypertension I10 Time Spent (min) 24
[2022-10-03 16:16] VITALS: BP 120/72; BMI 30.4
== END 2022-10-03 16:37 | disposition home or self-care (01) ==
PROVIDERS: PCP Internal Medicine; Visit Provider Internal Medicine
DX: J45.901 Unspecified asthma with (acute) exacerbation (principal); E11.9 Type 2 diabetes mellitus without complications; I10 Essential (primary) hypertension; Z09 Encounter for follow-up examination after completed treatment for conditions other than malignant neoplasm; E78.00 Pure hypercholesterolemia, unspecified
CPT/HCPCS: 99214

== ENCOUNTER 2022-11-02 10:46 | Outpatient (REF) | payer OTHER, SELFPAY ==
--- NOTE | ~2022-11-02 | CT_ITS ---
CT SINUS WITHOUT CONTRAST HISTORY: Sinonasal polyp TECHNIQUE: CT images of the paranasal sinuses were acquired without contrast. This CT examination was performed using dose optimization techniques as appropriate, variously including the following: *Automated exposure control *Adjustment of mA and/or kV according to patient size (this includes techniques or standardized protocols for targeted exams where dose is matched to indication/reason for exam; i.e. extremities or head) *Use of iterative reconstruction technique DLP: 128 mGycm COMPARISON: None available FINDINGS: NASAL CAVITY: Slight rightward nasal septal deviation posteriorly with a rightward bony spur encroaching upon the right middle nasal turbinate. The nasal cavity is well aerated. No nasal cavity polyp as clinically queried. Shallow appearance of the left greater than right olfactory fossae. No evidence of Keros type III cribriform plate (lateral lamella 8-16 mm). FRONTAL SINUS: The bilateral frontal sinuses are well aerated with trace mucosal thickening along the frontal sinus drainage outflow tracts which remain widely patent. MAXILLARY SINUS: Mild bilateral maxillary sinus mucosal disease with patent ostiomeatal units. Prominent ethmoid bullae are noted, more pronounced on the left. ETHMOID AIR CELLS: Trace scattered mucosal disease. Lamina papyracea: Intact. Anterior ethmoid canals do not traverse through the ethmoid air cells. SPHENOID SINUS: Trace mucosal disease within the anterior right greater than left sphenoid sinuses severely narrowing/partially opacifying the sphenoid sinus ostia. Patent sphenoethmoidal recesses. The sphenoid septum inserts onto the right paraclinoid carotid canal. Sphenoethmoidal ([place]) cell: None. OTHER: Normal appearance of the orbits. The carotid canals are covered by bone. The temporomandibular joints are normal. The mastoid air cells and middle ear cavities are well aerated. Mild global cerebral volume loss. Mild calcific atherosclerosis of the carotid siphons. Calcified left palatine tonsilloliths. CT/CT sinus wo IV con IMPRESSION: No sinonasal polyp. Slight rightward nasal septal deviation posteriorly with a rightward bony spur encroaching upon the right middle nasal turbinate. Minimal scattered paranasal sinus mucosal disease as above.
== END 2022-11-02 10:47 | disposition home or self-care (01) ==
LOC: HO.CT 10:46
PROVIDERS: PCP Internal Medicine; Visit Provider Otolaryngology
DX: J33.0 Polyp of nasal cavity (principal); R43.0 Anosmia
CPT/HCPCS: 70486

== ENCOUNTER 2022-11-10 20:56 | Emergency (ER) | payer OTHER, SELFPAY ==
[2022-11-10] VITALS (7 sets, daily range): BP systolic 127–135; BP diastolic 56–76; PULSE 103–110; RESP 14–24; TEMP 36.6; O2SAT 96–108; BMI 31.4
--- NOTE | ~2022-11-10 | XR_ITS ---
EXAMINATION: XR CHEST CLINICAL INFORMATION: SOB COMPARISON: Chest x-ray 09/09/2022 TECHNIQUE: Frontal view of the chest was obtained. FINDINGS: The lungs are expanded and clear of acute pneumonic process. Heart size is within normal limits. There are prominent bilateral pulmonary vascular markings question mild congestion. No gross bony abnormality. XR/XR chest 1V IMPRESSION: Suspect mild pulmonary vascular congestion.
--- NOTE | 2022-11-10 21:11 | ED_ITS ---
HPI - SOB/Dyspnea General Chief Complaint: Dyspnea Stated Complaint: Diff. breathing,no relief from inhaler, chest pain Time Seen by Provider: 11/10/22 21:02 Source: patient and translator and interpreter Mode of arrival: EMS History of Present Illness HPI Narrative: 67-year-old male with increasing difficulty breathing, no relief from his inhaler describes corresponding chest discomfort started after the shortness of breath. He denies any fevers chills. Related Data Previous Rx's Medication Instructions Recorded blood sugar diagnostic (FreeStyle #200 ea 05/24/20 Lite Strips) lancets 28 gauge (FreeStyle #200 ea 07/06/20 Lancets) omeprazole 20 mg capsule,delayed 20 mg PO QAM 90 days #90 caps 01/08/22 release albuterol sulfate 90 mcg/actuation 1 inh inhalation QID PRN shortness 01/30/22 aerosol inhaler (ProAir HFA) of breath or wheezing #8.5 grams albuterol sulfate 0.63 mg/3 mL 0.63 mg (3 mL) inhalation Q4-6H 02/06/22 solution for nebulization PRN shortness of breath or wheezing #75 mL Magic Mouthwash 10 ml PO .QID 3 days #240 mL 04/02/22 Diphen/Lido/Antacid 1:1:1 240 mL suspension fluticasone propionate 44 1 puff inhalation BID 30 days 07/10/22 mcg/actuation HFA aerosol inhaler #10.6 grams (Flovent HFA) triamcinolone acetonide 55 mcg 1 spray intranasal DAILY 30 days 07/10/22 nasal spray aerosol (Nasacort) #16.9 mL dulaglutide 1.5 mg/0.5 mL 1.5 mg (0.5 mL) subcut QWEEK #6 mL 08/06/22 subcutaneous pen injector metformin 500 mg tablet,extended 1,000 mg (2 x 500 mg) PO BID 90 08/20/22 release 24 hr days #360 tabs zolpidem 10 mg tablet 10 mg PO BEDTIME PRN sleep 90 days 09/17/22 #90 tabs atorvastatin 40 mg tablet 40 mg PO BEDTIME #90 tabs 09/23/22 albuterol sulfate 90 mcg/actuation 2 puff inhalation 6XD PRN 09/28/22 aerosol inhaler shortness of breath or wheezing #6.7 grams prednisone 20 mg tablet 20 mg PO DAILY #5 tabs 09/28/22 albuterol sulfate 2.5 mg/3 mL 2.5 mg (3 mL) inhalation Q4-6H PRN 10/03/22 (0.083 %) solution for nebulization shortness of breath or wheezing #75 mL doxycycline hyclate 100 mg tablet 100 mg PO BID 5 days #10 tabs 10/03/22 magnesium 250 mg tablet 250 mg PO DAILY 30 days #30 tabs 10/03/22 lisinopril 10 mg tablet 10 mg PO DAILY #90 tabs 10/20/22 prednisone 50 mg tablet 50 mg PO DAILY 4 days #4 tabs 11/10/22 Allergies Allergy/AdvReac Type Severity Reaction Status Date / Time penicillin V Allergy Intermediate rash Verified 11/10/22 21:10 aspirin [Aspirin] Allergy Mild RASH Verified 11/10/22 21:10 Penicillins Allergy Mild RASH Verified 11/10/22 21:10 tramadol AdvReac Intermediate abdominal Verified 11/10/22 21:10 pain Review of Systems 2 Review of Systems: Pertinent positives and negatives as stated in [facility] Past Medical History Source: nursing notes reviewed Medical History Arthritis Asthma Bladder pain BPH (benign prostatic hyperplasia) Diabetes mellitus DM2 (diabetes mellitus, type 2) Essential hypertension GERD (gastroesophageal reflux disease) Hearing difficulty of left ear High blood pressure Hyperlipidemia LDL goal <100 Insomnia No known health problems Obesity Onychomycosis Pure hypercholesterolemia Rotator cuff tear Thyroid nodule Surgical History History of knee replacement procedure of right knee Family History Family History Father No problems noted. Mother Diabetes Hypertension Brother Throat cancer Social History Social History Household Members: Spouse Housing: Apartment Alcohol intake: former Patient Tobacco Use Status: Former Tobacco user Tobacco use type: Cigarette Smoked in Last 30 Days: No e-Cigarette/Vaping Use: Never Used Second Hand Smoke Exposure: No Use of substances other than those prescribed or required for medical reasons: No Advance Directives: No Advance Directives Information Provided: No service: No Current occupational status: disabled Cognitive needs: Yes Hearing needs: Yes Vision needs: Yes Physical Exam 2 Vital Signs: Vital Signs: Last Vital Signs Temp 97.9 F 11/10/22 21:57 Pulse 104 H 11/10/22 23:30 Resp 18 11/10/22 23:30 BP 131/59 L 11/10/22 23:30 Pulse Ox 100 11/10/22 23:30 O2 Del Method Room Air 11/10/22 23:30 BMI result Body Mass Index 31.4 VITAL SIGNS: Reviewed. GENERAL: Well developed, well nourished, in no acute distress. HEAD: Normocephalic/atraumatic EYES: PERRLA, EOMI EARS: Ext canals without abnormality NOSE: Nares patent bilateral OROPHARYNX: no oral lesions noted, posterior pharynx clear NECK: Supple, no adenopathy LUNGS: Tachypnea present with decreased breath sounds bilaterally. CARDIOVASCULAR: Regular rate and rhythm without noted murmurs ABDOMEN: Soft, non-tender, non-distended with bowel sounds. MUSCULOSKELETAL: No tenderness, deformities, or effusions noted on gross inspection. EXTREMITIES: No cyanosis, clubbing or edema. SKIN: Inspection of the skin reveals no rashes NEUROLOGIC: Alert and oriented x 4. Strength and sensation to light touch were grossly intact x 4. Medications Administered Discontinued Medications Generic Name Dose Route Start Last Admin Trade Name Freq PRN Reason Stop Dose Admin Albuterol Sulfate 5 mg/ 7.5 mg 11/10/22 21:19 11/10/22 21:30 Albuterol Sulfate 2.5 mg INHALE 11/10/22 21:20 7.5 mg ONCE ONE Administration Albuterol Sulfate 2 puff 11/10/22 23:06 11/10/22 23:26 Albuterol Sulfate 90 Mcg 8 Gm Inhaler INHALE 11/10/22 23:07 2 puff ONCE ONE Administration Magnesium Sulfate 2 gm in 50 mls @ 150 mls/hr 11/10/22 21:11/10/22 21:52 Magnesium Sulfate/H2o IV 11/10/22 21:25 Infused ONCE ONE Infusion Methylprednisolone Sodium Succinate 125 mg 11/10/22 21:06 11/10/22 21:15 Methylprednisolone Sod Succ 125 Mg/2 Ml Vial IVPUSH 11/10/22 21:07 125 mg ONCE ONE Administration Medical Decision Making Medical Decision Making MDM Narrative: 67-year-old male with history and clinical presentation, DDX: Acute asthma exacerbation, viral infection, less likely felt to be a pneumonia or ACS. INTERVENTION: Nebulized treatments, steroids, magnesium I reviewed all investigations and hematologic indices are negative for leukocytosis or left shift, no thrombocytopenia, patient has normocytic anemia which appears to be chronically stable and no history of bleeding. Chemistry indices are without evidence of HAROLDO or electrolytes/liver enzyme abnormalities. Troponin is undetectable and no acute changes on EKG. COVID-19 testing. Chest x-ray negative for infiltrate and although radiology is reading findings suggestive of venous congestion on comparison to chest x-ray from 09/09 of this year appears consistent and there are no clinical findings to suggest a fluid overload status. Patient is not hypoxic in on re-evaluation after interventions there is good air movement, patient is no longer tachypneic and states he is feeling much better. My interpretation is patient presents with acute asthma exacerbation with good control and will be discharged on short course of steroids. Differential Diagnosis Differential Diagnoses: The differential diagnosis associated with the presentation includes Please see the discussion above Admission/Observation Consideration of admission/observation: Escalation of care including admission/observation considered Please see the discussion above Lab Data [facility] Lab Attestation statement: I reviewed the patient's lab results. Please see the discussion above 11/10/22 21:16 11/10/22 21:16 Labs: Lab Results 11/10/22 Range/Units 21:16 WBC 6.8 (4.8-10.8) X10*3/uL RBC 4.69 (4.60-5.80) X10*6/uL Hgb 13.4 L (14.0-18.0) g/dl Hct 39.0 L (42.0-52.0) % MCV 83.2 (80.0-98.0) fL MCH 28.6 (27.0-33.0) pg MCHC 34.4 (31.0-36.0) g/dl RDW 12.7 (11.0-16.0) % Plt Count 210 (160-400) X10*3/uL MPV 10.2 (9.4-12.4) fL Immature Gran % (Auto) 0.1 (0.0-0.4) % Neut % (Auto) 62.2 (45-73) % Lymph % (Auto) 26.5 (20-40) % [place] % (Auto) 8.3 (2-11) % Eos % (Auto) 2.5 (0-4) % Baso % (Auto) 0.4 (0-2) % Lymph # (Auto) 1.8 (1.2-4.9) X10*3/uL [place] # (Auto) 0.6 (0.1-1.2) X10*3/uL Eos # (Auto) 0.2 (0.0-0.4) X10*3/uL Baso # (Auto) 0.0 (0.0-0.2) X10*3/uL Abs Immat Gran (auto) 0.01 (0.00-0.03) X10*3/uL Absolute Neuts (auto) 4.2 (2.0-8.3) x10*3/uL Absolute Nucleated RBC 0.000 (0.0-0.012) X10*3/uL Nucleated RBC % (auto) 0.0 (0.0-0.2) /100WBC Sodium 140 (135-145) mmol/L Potassium 3.8 (3.3-5.1) mmol/L Chloride 105 (96-108) mmol/L Carbon Dioxide 20 L (22-29) mmol/L Anion Gap 19 (12-20) BUN 20 H (9-16) mg/dL Creatinine 0.77 (0.5-1.4) mg/dL Estim Creat Clear Calc 126.6 Estimated GFR > 60 Random Glucose 190 H (60-115) mg/dL Calcium 8.8 D (8.4-10.2) mg/dL Total Bilirubin 0.4 (0.0-1.0) mg/dL AST 20 (5-37) U/L ALT 24 (0-40) U/L Alkaline Phosphatase 81 (39-117) U/L Troponin I High Sens < 2.7 (<3.5-35.0) ng/L Total Protein 6.5 (6.5-8.0) g/dL Albumin 4.0 (3.5-5.0) g/dL COVID-19 (ISATU) Negative (Negative) COVID-19 Clin Com See Note Independent Interpretation I performed an independent interpretation of an: EKG Interpretation: Sinus tachycardia, HR-1 week, no STEMI, NH/QTC are within normal limits. Radiology Impression Discussion of test interpretation with radiology: I have reviewed the radiologist's reading. Radiologist Impression: Please see the discussion above External Record Review External record reviewed: Outpatient record, Prior outpatient labs and Prior outpatient radiology Chronic Conditions Patient?s care impacted by: Diabetes and Other Asthma Critical Care Time Critical Care Time Critical Care Time: Yes Total Critical Care Time: 30 Attestation: I personally attest to this time spent taking care of the patient. Discharge Plan Discharge Clinical Impression: Asthma exacerbation Patient Disposition: Home, Self-Care Instructions: Asthma (ED) Additional Instructions: 1. Reanudar todos los medicamentos caseros seg?n lo recetado. 2. Complete el tratamiento con esteroides seg?n lo prescrito. 3. Visita de seguimiento con tu m?dico de atenci?n primaria el lunes por la ma?allison. Regrese a la cheryle de emergencias si los s?ntomas empeoran. 1. Resume all home medications as prescribed. 2. Complete the course of steroids as prescribed. 3. Follow-up with your primary care doctor on Saturday morning Return to the ER for any worsening symptoms. Prescriptions: New prednisone 50 mg tablet 50 mg PO DAILY 4 Days Qty: 4 0RF No Action (DME) FreeStyle Lite Strips Strip See Rx Instructions .ROUTE .MEDSUPPLY Qty: 200 3RF Rx Instructions: As directed twice a day (DME) lancets [FreeStyle Lancets] 28 gauge misc See Rx Instructions .ROUTE .MEDSUPPLY Qty: 200 3RF Rx Instructions: two time a day albuterol sulfate [ProAir HFA] 90 mcg/actuation HFA aerosol inhaler 1 inh inhalation QID PRN (Reason: shortness of breath or wheezing) Qty: 8.5 0RF dulaglutide 1.5 mg/0.5 mL pen injector 1.5 mg subcut QWEEK Qty: 6 1RF metformin 500 mg tablet extended release 24 hr 1,000 mg PO BID 90 Days Qty: 360 2RF zolpidem 10 mg tablet 10 mg PO BEDTIME PRN (Reason: sleep) 90 Days Qty: 90 0RF atorvastatin 40 mg tablet 40 mg PO BEDTIME Qty: 90 1RF lisinopril 10 mg tablet 10 mg PO DAILY Qty: 90 3RF albuterol sulfate 0.63 mg/3 mL solution for nebulization 0.63 mg inhalation Q4-6H PRN (Reason: shortness of breath or wheezing) Qty: 75 0RF Magic Mouthwash Diphen/Lido/Antacid 1:1:1 240 mL suspension 10 ml PO .QID 3 Days Qty: 240 0RF Rx Instructions: Lidocaine Viscous 2 % 80mL; diphenhydramine 12.5 mg/5 mL 80mL; aluminum-mag hydrox-simeth [id number]/5mL 80mL albuterol sulfate 90 mcg/actuation HFA aerosol inhaler 2 puff inhalation 6XD PRN (Reason: shortness of breath or wheezing) Qty: 6.7 0RF prednisone 20 mg tablet 20 mg PO DAILY Qty: 5 0RF omeprazole 20 mg capsule,delayed release(DR/EC) 20 mg PO QAM 90 Days Qty: 90 1RF fluticasone propionate [Flovent HFA] 44 mcg/actuation HFA aerosol inhaler 1 puff inhalation BID 30 Days Qty: 10.6 6RF Rx Instructions: administer with spacer triamcinolone acetonide [Nasacort] 55 mcg aerosol,spray 1 spray intranasal DAILY 30 Days Qty: 16.9 1RF Rx Instructions: administer into each nostril doxycycline hyclate 100 mg tablet 100 mg PO BID 5 Days Qty: 10 0RF magnesium 250 mg tablet 250 mg PO DAILY 30 Days Qty: 30 0RF albuterol sulfate 2.5 mg /3 mL (0.083 %) solution for nebulization 2.5 mg inhalation Q4-6H PRN (Reason: shortness of breath or wheezing) Qty: 75 0RF Referrals: Allison Maradiaga MD [Primary Care Provider] - Interventions: ED Discharge Assessment Last Done: 11/10/22 23:31 Discharge Date/Time: 11/10/22 23:32 Print Language: Kazakh
[2022-11-10] MEDS: Magnesium Sulfate/H2O 2 GM/50 ML PIGGYBACK IV (21:15)
[2022-11-10] MEDS: methylPREDNISolone Sod Succ 125 MG/2 ML VIAL IVPUSH (21:15)
--- NOTE | 2022-11-10 21:18 | PC.NURSE ---
respiratory at bedside for neb treatment. sats 98% RA. pt medicated per apr.
[2022-11-10 21:19] LABS: MANUAL DIFF FLAG NO
[2022-11-10 21:26] LABS: Basophils Percent Auto 0.4 % (0-2); Eosinophils Absolute Auto 0.2 X10*3/uL (0.0-0.4); Eosinophils Percent Auto 2.5 % (0-4); Hemoglobin 13.4 g/dl (14.0-18.0); Imm Gran Abs Auto 0.01 X10*3/uL (0.00-0.03); Imm Gran Pct Auto 0.1 % (0.0-0.4); Lymphocytes Absolute Auto 1.8 X10*3/uL (1.2-4.9); Lymphocytes Percent Auto 26.5 % (20-40); Mean Corpuscular HGB Conc 34.4 g/dl (31.0-36.0); Mean Corpuscular Hemoglobin 28.6 pg (27.0-33.0); Mean Corpuscular Volume 83.2 fL (80.0-98.0); Mean Platelet Volume 10.2 fL (9.4-12.4); Monocytes Absolute Auto 0.6 X10*3/uL (0.1-1.2); Monocytes Percent Auto 8.3 % (2-11); Neutrophils Absolute Auto 4.2 x10*3/uL (2.0-8.3); Neutrophils Percent Auto 62.2 % (45-73); Platelet Count 210 X10*3/uL (160-400); Red Blood Count 4.69 X10*6/uL (4.60-5.80); Red Cell Distribution Width 12.7 % (11.0-16.0); White Blood Count 6.8 X10*3/uL (4.8-10.8)
[2022-11-10] MEDS: Albuterol Sulfate 5 MG, Albuterol Sulfate (0.083%) 2.5 MG 7.5 MG INHALE (21:30)
[2022-11-10 21:33] LABS: COVID-19 Test Negative (Negative); IDNOW Serial# BCCEAD1C
[2022-11-10 21:51] LABS: Alanine Aminotransferase 24 U/L (0-40); Alkaline Phosphatase 81 U/L (39-117); Anion Gap 19 (12-20); Aspartate Amino Transferase 20 U/L (5-37); Bilirubin Total 0.4 mg/dL (0.0-1.0); Blood Urea Nitrogen 20 mg/dL (9-16); Calcium 8.8 mg/dL (8.4-10.2); Carbon Dioxide 20 mmol/L (22-29); Chloride 105 mmol/L (96-108); Creatinine Clr Calc Pharmacy 126.6; Estimated Glomerular Filt Rate > 60; Glucose Random 190 mg/dL (60-115); Potassium 3.8 mmol/L (3.3-5.1); Sodium 140 mmol/L (135-145); Total Protein 6.5 g/dL (6.5-8.0)
--- NOTE | 2022-11-10 22:10 | ECG_ITS ---
Test Reason : SOB Blood Pressure : / mmHG Vent. Rate : 108 BPM Atrial Rate : 108 BPM P-R Int : 182 ms QRS Dur : 110 ms QT Int : 350 ms P-R-T Axes : 063 -04 070 degrees QTc Int : 469 ms Sinus tachycardia Minimal voltage criteria for LVH, may be normal variant ( Link product ) Borderline ECG When compared with ECG of 02-APR-2022 08:16, No significant change was found Referred By: Alexia Escobar Electronically Signed By:JERRI GOMEZ
--- NOTE | 2022-11-10 22:29 | PC.NURSE ---
lung sounds cta after treatment. pt reports improvement in breathing.
[2022-11-10 23:00] LABS: Troponin-I High Sensitivity < 2.7 ng/L (<3.5-35.0)
[2022-11-10] MEDS: Albuterol Sulfate 90 MCG 8 GM INHALER 2 PUFF INHALE (23:26)
== END 2022-11-10 23:32 | disposition home or self-care (01) ==
PROVIDERS: Emergency Provider Student in an Organized Health Care Education/Training Program; PCP Internal Medicine
DX: J45.901 Unspecified asthma with (acute) exacerbation (principal); R06.02 Shortness of breath; E11.9 Type 2 diabetes mellitus without complications; I10 Essential (primary) hypertension; E78.00 Pure hypercholesterolemia, unspecified; Z79.84 Long term (current) use of oral hypoglycemic drugs; Z79.85 Long-term (current) use of injectable non-insulin antidiabetic drugs; Z87.891 Personal history of nicotine dependence; Z20.822 Contact with and (suspected) exposure to COVID-19
CPT/HCPCS: 36415; 71045; 80053; 84484; 85025; 87635; 93005; 94640; 96365; 96375; 99285; J2930; J3475

== ENCOUNTER 2022-12-09 12:10 | Emergency (ER) | payer OTHER, SELFPAY ==
--- NOTE | ~2022-12-09 | XR_ITS ---
EXAMINATION: XR CHEST CLINICAL INFORMATION: Shortness of breath COMPARISON: Chest radiograph from 11/10/2022 TECHNIQUE: Frontal view of the chest was obtained. FINDINGS: Stable elevation of the left hemidiaphragm. Slight prominence of the pulmonary vasculature. No pneumothorax. Trachea is midline. Cardiac mediastinal silhouette is stable. No large pleural effusion. Degenerative changes of the thoracolumbar spine. Soft tissues are unremarkable. XR/XR chest 1V IMPRESSION: 1. Stable elevation of the left hemidiaphragm. 2. Slight prominence of the pulmonary vasculature.
--- NOTE | 2022-12-09 12:11 | ECG_ITS ---
Test Reason : SOB Blood Pressure : / mmHG Vent. Rate : 091 BPM Atrial Rate : 091 BPM P-R Int : 160 ms QRS Dur : 098 ms QT Int : 344 ms P-R-T Axes : 053 -01 054 degrees QTc Int : 423 ms Normal sinus rhythm Normal ECG When compared with ECG of 10-NOV-2022 22:23, No significant change was found Heart rate has decreased Referred By: Eliseo Aguila Electronically Signed By:MADDI VIRGEN MD
[2022-12-09 12:12] VITALS: BP 124/79; PULSE 92; RESP 22; TEMP 36.6; O2SAT 99; BMI 30.8
--- NOTE | 2022-12-09 12:12 | ED_ITS ---
HPI - General Adult General Chief complaint: Upper Respiratory Symptoms Stated complaint: Asthma Attack Time Seen by Provider: 12/09/22 12:22 Source: patient Mode of arrival: ambulatory Limitations: no limitations History of Present Illness HPI narrative: 68 yold male with pmh of asthma presents to the ED ashtma exacerbation. Patient presents to the ED for SOB and wheezing. Patient states no chest pain Related Data Home Medications ?Medication ?Instructions ?Recorded ?Confirmed amitriptyline 25 mg tablet 25 mg PO BEDTIME 03/04/23 citalopram 20 mg tablet 20 mg PO DAILY 03/04/23 nebulizers 03/04/23 Previous Rx's ?Medication ?Instructions ?Recorded blood sugar diagnostic (FreeStyle #200 ea 05/24/20 Lite Strips) lancets 28 gauge (FreeStyle #200 ea 07/06/20 Lancets) omeprazole 20 mg capsule,delayed 20 mg PO QAM 90 days #90 caps 01/08/22 release albuterol sulfate 90 mcg/actuation 1 inh inhalation QID PRN shortness 01/30/22 aerosol inhaler (ProAir HFA) of breath or wheezing #8.5 grams Magic Mouthwash 10 ml PO .QID 3 days #240 mL 04/02/22 Diphen/Lido/Antacid 1:1:1 240 mL suspension triamcinolone acetonide 55 mcg 1 spray intranasal DAILY 30 days 07/10/22 nasal spray aerosol (Nasacort) #16.9 mL doxycycline hyclate 100 mg tablet 100 mg PO BID 5 days #10 tabs 10/03/22 magnesium 250 mg tablet 250 mg PO DAILY 30 days #30 tabs 10/03/22 lisinopril 10 mg tablet 10 mg PO DAILY #90 tabs 10/20/22 albuterol sulfate 2.5 mg/3 mL 2.5 mg (3 mL) inhalation Q4-6H PRN 12/24/22 (0.083 %) solution for nebulization shortness of breath or wheezing #75 mL albuterol sulfate 0.63 mg/3 mL 0.63 mg (3 mL) inhalation QID PRN 12/30/22 solution for nebulization bronchospasm #75 mL lorazepam 1 mg tablet 1 mg PO DAILY PRN anxiety #4 tabs 12/30/22 dulaglutide 1.5 mg/0.5 mL 1.5 mg (0.5 mL) subcut QWEEK #6 mL 01/27/23 subcutaneous pen injector albuterol sulfate 90 mcg/actuation 2 puff inhalation 6XD PRN 02/15/23 aerosol inhaler shortness of breath or wheezing #6.7 grams fluticasone propionate 44 1 puff inhalation BID 30 days 02/15/23 mcg/actuation HFA aerosol inhaler #10.6 grams (Flovent HFA) acetaminophen 325 mg capsule 325 mg PO QID PRN pain 7 days #28 02/24/23 (Tylenol) caps cyclobenzaprine 10 mg tablet 10 mg PO TID PRN muscle spasm 5 02/24/23 days #15 tabs budesonide 160 mcg-glycopyr 9 2 inh inhalation BID #10.7 grams 03/04/23 mcg-formot 4.8 mcg/actuation HFA inhaler (Breztri Aerosphere) cetirizine 10 mg tablet 10 mg PO DAILY 30 days #30 tabs 03/04/23 montelukast 10 mg tablet 10 mg PO DAILY 30 days #30 tabs 03/04/23 atorvastatin 40 mg tablet 40 mg PO BEDTIME #90 tabs 03/22/23 zolpidem 10 mg tablet 10 mg PO BEDTIME PRN sleep 90 days 04/03/23 #90 tabs metformin 500 mg tablet,extended 1,000 mg (2 x 500 mg) PO BID 90 05/16/23 release 24 hr days #360 tabs Allergies Allergy/AdvReac Type Severity Reaction Status Date / Time aspirin [Aspirin] Allergy Mild RASH Verified 03/04/23 10:17 Penicillins Allergy Mild RASH Verified 03/04/23 10:17 tramadol AdvReac Intermediate abdominal Verified 03/04/23 10:17 pain Review of Systems 2 Review of Systems: SOB wheezing Yes all other systems are reviewed and are negative PMFSH Past Medical History Medical History (Updated 03/04/23 @ 12:58 by Gideon Tran MD) Chronic allergic rhinitis Allergies Hearing difficulty of left ear Onychomycosis Bladder pain Thyroid nodule DM2 (diabetes mellitus, type 2) BPH (benign prostatic hyperplasia) GERD (gastroesophageal reflux disease) Hyperlipidemia LDL goal <100 Rotator cuff tear Obesity Insomnia Pure hypercholesterolemia Essential hypertension Diabetes mellitus Arthritis High blood pressure Asthma No known health problems Surgical History History of knee replacement procedure of right knee Family History Family History Father No problems noted. Mother Diabetes Hypertension Brother Throat cancer Social History Social History Household Members: Spouse Housing: Apartment Alcohol intake: former Patient Tobacco Use Status: Former Tobacco user Tobacco use type: Cigarette e-Cigarette/Vaping Use: Never Used Second Hand Smoke Exposure: No service: No Current occupational status: disabled Cognitive needs: Yes Hearing needs: Yes Vision needs: Yes Physical Exam ED Vital Signs: BMI result Body Mass Index 30.8 Const General: cooperative, healthy appearing, comfortable, no acute distress, well developed, alert and awake Orientation/consciousness: oriented to person, oriented to place, oriented to time and patient oriented x3 HENMT Head: Yes normal to inspection, Yes No palpable skull fracture present, Yes normocephalic and Yes atraumatic Eyes General: appearance normal, both eyes and all related structures Neck Neck: Yes normal visual inspection, Yes full ROM, Yes no lymphadenopathy, Yes no meningeal signs, Yes trachea midline, Yes supple, No anterior neck swelling and No tender Chest Chest palpation & inspection: normal inspection of the chest and normal palpation of entire chest wall Resp Effort & Inspection: normal respiratory effort and able to speak in complete sentences Auscultation: wheezes expiratory wheezes Cardio Jugular venous distension: no JVD Heart sounds: S1 normal heart sound present and S2 normal heart sound present GI Inspection: Yes normal to inspection and No abdominal wall ecchymosis Palpation (GI): Soft to palpation, not firm, nontender, no guarding and not rigid General: No no CVA tenderness Back/Spine/Pelvis Back: No no CVA tenderness and No back tenderness Skin General skin exam: no rashes or lesions noted, elasticity normal and turgor normal Neuro General: oriented to person, oriented to place, oriented to time, patient oriented x3, gait normal, tone normal, moves all extremities, Normal light touch and pain sensation, no meningeal signs and no focal motor deficits Extrem Other: negative for bilateral swelling, pitting edema, or calf tenderness. General: Yes normal to inspection and Yes full ROM Psych Appearance: grossly normal, well kempt and not disheveled Course Course Course Narrative: This is an RME: Additional HPI, ROS, PE not included below will be deferred to primary provider. This is a 67-year-old male presenting with increasing shortness of breath x2 days with associated chest tightness, reports he is an asthmatic has been using his pump with little to no relief. He reports this happens to him frequently. Last happened a few weeks ago. Physical exam with audible wheezing. Saturating 98-99% however does have evident wheezing and is struggling to breathe. Plan at this time bronch protocol, labs, imaging. Patient will go straight to a room Medications Administered Discontinued Medications Generic Name Dose Route Start Last Admin Trade Name Freq PRN Reason Stop Dose Admin Albuterol Sulfate 5 mg/ 0 mg 12/09/22 12:44 12/09/22 12:30 Albuterol/Ipratropium 3 ml INHALE 12/09/22 12:45 0.5 each ONCE ONE Administration Magnesium Sulfate 2 gm in 50 mls @ 25 mls/hr 12/09/22 12:22 12/09/22 13:00 Magnesium Sulfate/H2o IV 12/09/22 14:21 Infused ONCE ONE Infusion Methylprednisolone Sodium Succinate 125 mg 12/09/22 12:22 12/09/22 12:34 Methylprednisolone Sod Succ 125 Mg/2 Ml Vial IVPUSH 12/09/22 12:23 125 mg ONCE ONE Administration Medical Decision Making Medical Decision Making [facility] Narrative: 68 yold male presents to the ED for asthma exacerbation. Patient has wheezing. Patient given asthma meds. EKG and labs and chest xray is normal. patient explained worrisome signs and inforemd to return to the ED. Differential Diagnosis Differential Diagnoses: The differential diagnosis associated with the presentation includes (asthma, pneumonia, viral) Admission/Observation Consideration of admission/observation: Escalation of care including admission/observation considered Lab Data [facility] Lab Attestation statement: I reviewed the patient's lab results. 12/09/22 12:30 12/09/22 12:30 Labs: Lab Results 12/09/22 12/09/22 12/09/22 Range/Units 12:27 12:30 13:36 WBC 5.6 (4.8-10.8) X10*3/uL RBC 4.95 (4.60-5.80) X10*6/uL Hgb 14.0 (14.0-18.0) g/dl Hct 41.0 L (42.0-52.0) % MCV 82.8 (80.0-98.0) fL MCH 28.3 (27.0-33.0) pg MCHC 34.1 (31.0-36.0) g/dl RDW 12.4 (11.0-16.0) % Plt Count 223 (160-400) X10*3/uL MPV 9.9 (9.4-12.4) fL Immature Gran % (Auto) 0.2 (0.0-0.4) % Neut % (Auto) 57.1 (45-73) % Lymph % (Auto) 28.0 (20-40) % [place] % (Auto) 10.0 (2-11) % Eos % (Auto) 4.3 H (0-4) % Baso % (Auto) 0.4 (0-2) % Lymph # (Auto) 1.6 (1.2-4.9) X10*3/uL [place] # (Auto) 0.6 (0.1-1.2) X10*3/uL Eos # (Auto) 0.2 (0.0-0.4) X10*3/uL Baso # (Auto) 0.0 (0.0-0.2) X10*3/uL Abs Immat Gran (auto) 0.01 (0.00-0.03) X10*3/uL Absolute Neuts (auto) 3.2 (2.0-8.3) x10*3/uL Absolute Nucleated RBC 0.000 (0.0-0.012) X10*3/uL Nucleated RBC % (auto) 0.0 (0.0-0.2) /100WBC Sodium 138 (135-145) mmol/L Potassium 4.4 (3.3-5.1) mmol/L Chloride 105 (96-108) mmol/L Carbon Dioxide 25 (22-29) mmol/L Anion Gap 12 (12-20) BUN 20 H (9-16) mg/dL Creatinine 0.96 (0.5-1.4) mg/dL Estim Creat Clear Calc 100.7 Estimated GFR > 60 Random Glucose 122 H (60-115) mg/dL Calcium 8.9 (8.4-10.2) mg/dL Total Bilirubin 0.5 (0.0-1.0) mg/dL AST 21 (5-37) U/L ALT 23 (0-40) U/L Alkaline Phosphatase 87 (39-117) U/L Troponin I High Sens < 2.7 (<3.5-35.0) ng/L B-Natriuretic Peptide < 10 (<100) pg/mL Total Protein 6.9 (6.5-8.0) g/dL Albumin 4.2 (3.5-5.0) g/dL COVID-19 (ISATU) Negative (Negative) COVID-19 Clin Com See Note Influenza Type A (MIRTA) Negative (Negative) Influenza Type B (MIRTA) Negative (Negative) Influenza A & B Note See Note Independent Interpretation I performed an independent interpretation of an: EKG (normal sinus rhythm) and Plain X-Ray Radiology Impression Discussion of test interpretation with radiology: I have reviewed the radiologist's reading. Independent Historian Clinical information obtained from an independent historian. History obtained from or confirmed by: Other (patient) External Record Review External record reviewed: Other (prior visits) Prescription Management I considered prescription management with: Other (albuterol, prednisone) Discharge Plan Discharge Clinical Impression: Upper respiratory infection Asthma Qualifiers: Asthma severity: moderate Asthma persistence: persistent Asthma complication type: uncomplicated Qualified Code(s): J45.40 - Moderate persistent asthma, uncomplicated Patient Disposition: Home, Self-Care Instructions: Asthma (ED), Upper Respiratory Infection (ED) Additional Instructions: Lo atendieron por juju exacerbaci?n del asma. [place] an?lisis de kris y radiograf?a resultaron negativos para detectar signos de ataque card?aco o insuficiencia card?dave. Result? negativo para COVID e influenza. Rena un seguimiento con el PCP. Regrese al servicio de urgencias si tiene dolor en el pecho, dificultad para respirar, sibilancias, hinchaz?n de las piernas, dolor en la pantorrilla, tos con kris, dolor en el pecho al inspirar, sarpullido o cualquier otro s?ntoma preocupante. Prescriptions: No Action (DME) FreeStyle Lite Strips Strip See Rx Instructions .ROUTE .MEDSUPPLY Qty: 200 3RF Rx Instructions: As directed twice a day (DME) lancets [FreeStyle Lancets] 28 gauge misc See Rx Instructions .ROUTE .MEDSUPPLY Qty: 200 3RF Rx Instructions: two time a day albuterol sulfate [ProAir HFA] 90 mcg/actuation HFA aerosol inhaler 1 inh inhalation QID PRN (Reason: shortness of breath or wheezing) Qty: 8.5 0RF lisinopril 10 mg tablet 10 mg PO DAILY Qty: 90 3RF albuterol sulfate 2.5 mg /3 mL (0.083 %) solution for nebulization 2.5 mg inhalation Q4-6H PRN (Reason: shortness of breath or wheezing) Qty: 75 0RF dulaglutide 1.5 mg/0.5 mL pen injector 1.5 mg subcut QWEEK Qty: 6 1RF albuterol sulfate 90 mcg/actuation HFA aerosol inhaler 2 puff inhalation 6XD PRN (Reason: shortness of breath or wheezing) Qty: 6.7 0RF fluticasone propionate [Flovent HFA] 44 mcg/actuation HFA aerosol inhaler 1 puff inhalation BID 30 Days Qty: 10.6 6RF Rx Instructions: administer with spacer cetirizine 10 mg tablet 10 mg PO DAILY 30 Days Qty: 30 11RF atorvastatin 40 mg tablet 40 mg PO BEDTIME Qty: 90 1RF zolpidem 10 mg tablet 10 mg PO BEDTIME PRN (Reason: sleep) 90 Days Qty: 90 0RF metformin 500 mg tablet extended release 24 hr 1,000 mg PO BID 90 Days Qty: 360 2RF Magic Mouthwash Diphen/Lido/Antacid 1:1:1 240 mL suspension 10 ml PO .QID 3 Days Qty: 240 0RF Rx Instructions: Lidocaine Viscous 2 % 80mL; diphenhydramine 12.5 mg/5 mL 80mL; aluminum-mag hydrox-simeth [id number]/5mL 80mL lorazepam 1 mg tablet 1 mg PO DAILY PRN (Reason: anxiety) Qty: 4 0RF albuterol sulfate 0.63 mg/3 mL solution for nebulization 0.63 mg inhalation QID PRN (Reason: bronchospasm) Qty: 75 0RF cyclobenzaprine 10 mg tablet 10 mg PO TID PRN (Reason: muscle spasm) 5 Days Qty: 15 0RF Rx Instructions: Side effect is drowsiness. Do not take at work or while driving. acetaminophen [Tylenol] 325 mg capsule 325 mg PO QID PRN (Reason: pain) 7 Days Qty: 28 0RF omeprazole 20 mg capsule,delayed release(DR/EC) 20 mg PO QAM 90 Days Qty: 90 1RF triamcinolone acetonide [Nasacort] 55 mcg aerosol,spray 1 spray intranasal DAILY 30 Days Qty: 16.9 1RF Rx Instructions: administer into each nostril doxycycline hyclate 100 mg tablet 100 mg PO BID 5 Days Qty: 10 0RF magnesium 250 mg tablet 250 mg PO DAILY 30 Days Qty: 30 0RF (DME) nebulizers Misc See Rx Instructions .ROUTE Rx Instructions: As directed amitriptyline 25 mg tablet 25 mg PO BEDTIME citalopram 20 mg tablet 20 mg PO DAILY Oscar Aerosphere 160-9-4.8 mcg/actuation HFA aerosol inhaler 2 inh inhalation BID Qty: 10.7 11RF montelukast 10 mg tablet 10 mg PO DAILY 30 Days Qty: 30 11RF Interventions: ED Discharge Assessment Last Done: 12/09/22 15:47 Discharge Date/Time: 12/09/22 15:48 Print Language: Mexican
--- NOTE | 2022-12-09 12:29 | ED_ITS ---
HPI - General Adult General Chief complaint: Upper Respiratory Symptoms Stated complaint: Asthma Attack Time Seen by Provider: 12/09/22 12:22 Source: patient Mode of arrival: ambulatory Limitations: no limitations History of Present Illness HPI narrative: 67 yold male with past medical history of asthma presents to ED for coughing, wheezing, shortness of breath asthma exacerbation. Patient states no relief with albuterol puffs. Patient denies any leg swelling, coughing up blood, calf pain, recent long travel, fever, or pleurisy. Related Data Previous Rx's Medication Instructions Recorded blood sugar diagnostic (FreeStyle #200 ea 05/24/20 Lite Strips) lancets 28 gauge (FreeStyle #200 ea 07/06/20 Lancets) omeprazole 20 mg capsule,delayed 20 mg PO QAM 90 days #90 caps 01/08/22 release albuterol sulfate 90 mcg/actuation 1 inh inhalation QID PRN shortness 01/30/22 aerosol inhaler (ProAir HFA) of breath or wheezing #8.5 grams albuterol sulfate 0.63 mg/3 mL 0.63 mg (3 mL) inhalation Q4-6H 02/06/22 solution for nebulization PRN shortness of breath or wheezing #75 mL Magic Mouthwash 10 ml PO .QID 3 days #240 mL 04/02/22 Diphen/Lido/Antacid 1:1:1 240 mL suspension fluticasone propionate 44 1 puff inhalation BID 30 days 07/10/22 mcg/actuation HFA aerosol inhaler #10.6 grams (Flovent HFA) triamcinolone acetonide 55 mcg 1 spray intranasal DAILY 30 days 07/10/22 nasal spray aerosol (Nasacort) #16.9 mL dulaglutide 1.5 mg/0.5 mL 1.5 mg (0.5 mL) subcut QWEEK #6 mL 08/06/22 subcutaneous pen injector metformin 500 mg tablet,extended 1,000 mg (2 x 500 mg) PO BID 90 08/20/22 release 24 hr days #360 tabs atorvastatin 40 mg tablet 40 mg PO BEDTIME #90 tabs 09/23/22 albuterol sulfate 90 mcg/actuation 2 puff inhalation 6XD PRN 09/28/22 aerosol inhaler shortness of breath or wheezing #6.7 grams prednisone 20 mg tablet 20 mg PO DAILY #5 tabs 09/28/22 albuterol sulfate 2.5 mg/3 mL 2.5 mg (3 mL) inhalation Q4-6H PRN 10/03/22 (0.083 %) solution for nebulization shortness of breath or wheezing #75 mL doxycycline hyclate 100 mg tablet 100 mg PO BID 5 days #10 tabs 10/03/22 magnesium 250 mg tablet 250 mg PO DAILY 30 days #30 tabs 10/03/22 lisinopril 10 mg tablet 10 mg PO DAILY #90 tabs 10/20/22 prednisone 50 mg tablet 50 mg PO DAILY 4 days #4 tabs 11/10/22 zolpidem 10 mg tablet 10 mg PO BEDTIME PRN sleep 90 days 11/20/22 #90 tabs albuterol sulfate 0.63 mg/3 mL 0.63 mg (3 mL) inhalation Q4-6H 12/09/22 solution for nebulization PRN shortness of breath or wheezing #90 mL albuterol sulfate 90 mcg/actuation 2 puff inhalation Q4-6H PRN 12/09/22 aerosol inhaler shortness of breath or wheezing #8.5 grams prednisone 20 mg tablet 40 mg (2 x 20 mg) PO DAILY 5 days 12/09/22 #10 tabs Allergies Allergy/AdvReac Type Severity Reaction Status Date / Time penicillin V Allergy Intermediate rash Verified 12/09/22 12:12 aspirin [Aspirin] Allergy Mild RASH Verified 12/09/22 12:12 Penicillins Allergy Mild RASH Verified 12/09/22 12:12 tramadol AdvReac Intermediate abdominal Verified 12/09/22 12:12 pain Review of Systems 2 Review of Systems: COughing, expiratory wheezing Yes all other systems are reviewed and are negative PMFSH Past Medical History Medical History Arthritis Asthma Bladder pain BPH (benign prostatic hyperplasia) Diabetes mellitus DM2 (diabetes mellitus, type 2) Essential hypertension GERD (gastroesophageal reflux disease) Hearing difficulty of left ear High blood pressure Hyperlipidemia LDL goal <100 Insomnia No known health problems Obesity Onychomycosis Pure hypercholesterolemia Rotator cuff tear Thyroid nodule Surgical History History of knee replacement procedure of right knee Family History Family History Father No problems noted. Mother Diabetes Hypertension Brother Throat cancer Social History Social History Household Members: Spouse Housing: Apartment Alcohol intake: former Patient Tobacco Use Status: Former Tobacco user Tobacco use type: Cigarette Smoked in Last 30 Days: No e-Cigarette/Vaping Use: Never Used Second Hand Smoke Exposure: No Use of substances other than those prescribed or required for medical reasons: No Advance Directives: No Advance Directives Information Provided: Yes service: No Current occupational status: disabled Cognitive needs: Yes Hearing needs: Yes Vision needs: Yes Physical Exam ED Vital Signs: Vital Signs - 24 hr 12/09/22 12:12 12/09/22 12:49 12/09/22 14:00 Temperature 98 F 98.0 F Pulse Rate 92 86 90 Respiratory Rate 22 H 22 H 16 Blood Pressure 124/79 127/57 L Pulse Oximetry 99 97 Oxygen Delivery Method Room Air BMI result Body Mass Index 30.8 Const General: cooperative, healthy appearing, comfortable, no acute distress, well developed, alert, awake and Physically active Orientation/consciousness: oriented to person, oriented to place, oriented to time and patient oriented x3 HENMT Head: Yes normal to inspection, Yes No palpable skull fracture present, Yes normocephalic and Yes atraumatic Eyes General: appearance normal, both eyes and all related structures Neck Neck: Yes normal visual inspection, Yes full ROM, Yes no lymphadenopathy, Yes no meningeal signs, Yes trachea midline, Yes supple, No anterior neck swelling and No tender Chest Chest palpation & inspection: normal inspection of the chest and normal palpation of entire chest wall Resp Effort & Inspection: normal respiratory effort Auscultation: wheezes expiratory wheezes (diffuse) Cardio Jugular venous distension: no JVD Heart sounds: S1 normal heart sound present and S2 normal heart sound present GI Inspection: Yes normal to inspection and No abdominal wall ecchymosis Palpation (GI): Soft to palpation, not firm, nontender, no guarding and not rigid General: No CVA tenderness and Yes no CVA tenderness Back/Spine/Pelvis Back: no CVA tenderness, No CVA tenderness and No back tenderness Skin General skin exam: no rashes or lesions noted, elasticity normal and turgor normal Neuro General: oriented to person, oriented to place, oriented to time, patient oriented x3, gait normal, tone normal, moves all extremities, Normal light touch and pain sensation, no meningeal signs, no focal motor deficits, CN's II-XI intact bilaterally and normal sensation to monofilament Extrem Other: Bilateral lower extremity negative for swelling, pitting edema, or calf tenderness General: Yes normal to inspection and Yes full ROM Psych Appearance: grossly normal, well kempt and not disheveled Medications Administered Discontinued Medications Generic Name Dose Route Start Last Admin Trade Name Maranda PRN Reason Stop Dose Admin Albuterol Sulfate 5 mg/ 0 mg 12/09/22 12:44 12/09/22 12:30 Albuterol/Ipratropium 3 ml INHALE 12/09/22 12:45 0.5 each ONCE ONE Administration Magnesium Sulfate 2 gm in 50 mls @ 25 mls/hr 12/09/22 12:22 12/09/22 13:00 Magnesium Sulfate/H2o IV 12/09/22 14:21 Infused ONCE ONE Infusion Methylprednisolone Sodium Succinate 125 mg 12/09/22 12:22 12/09/22 12:34 Methylprednisolone Sod Succ 125 Mg/2 Ml Vial IVPUSH 12/09/22 12:23 125 mg ONCE ONE Administration Medical Decision Making Medical Decision Making [facility] Narrative: 67-year-old male with history of asthma presents to ED for asthma exacerbation. On exam O2 saturation 99% the patient does have expiratory wheezing. EKG labs ordered from triage. E.d. bronchodilator ordered. IV Mag Solu-Medrol ordered. Chest x-ray ordered. 3:30pm: patient's wheezing resolved. Patient looks and feels better. Patient requests albuterol liquid for his nebulizer, and albuterol pump. Patient will be discharged with steroids. Not suspected myocardial infarction, pulmonary embolus, or heart failure. X-ray negative pneumonia Differential Diagnosis Differential Diagnoses: The differential diagnosis associated with the presentation includes ( pneumonia, asthma, COVID, influenza, RSV, PE, myocardial infarction, heart failure) Admission/Observation Consideration of admission/observation: Escalation of care including admission/observation considered Lab Data [facility] Lab Attestation statement: I reviewed the patient's lab results. 12/09/22 12:30 12/09/22 12:30 Labs: Lab Results 12/09/22 12/09/22 12/09/22 Range/Units 12:27 12:30 13:36 WBC 5.6 (4.8-10.8) X10*3/uL RBC 4.95 (4.60-5.80) X10*6/uL Hgb 14.0 (14.0-18.0) g/dl Hct 41.0 L (42.0-52.0) % MCV 82.8 (80.0-98.0) fL MCH 28.3 (27.0-33.0) pg MCHC 34.1 (31.0-36.0) g/dl RDW 12.4 (11.0-16.0) % Plt Count 223 (160-400) X10*3/uL MPV 9.9 (9.4-12.4) fL Immature Gran % (Auto) 0.2 (0.0-0.4) % Neut % (Auto) 57.1 (45-73) % Lymph % (Auto) 28.0 (20-40) % [place] % (Auto) 10.0 (2-11) % Eos % (Auto) 4.3 H (0-4) % Baso % (Auto) 0.4 (0-2) % Lymph # (Auto) 1.6 (1.2-4.9) X10*3/uL [place] # (Auto) 0.6 (0.1-1.2) X10*3/uL Eos # (Auto) 0.2 (0.0-0.4) X10*3/uL Baso # (Auto) 0.0 (0.0-0.2) X10*3/uL Abs Immat Gran (auto) 0.01 (0.00-0.03) X10*3/uL Absolute Neuts (auto) 3.2 (2.0-8.3) x10*3/uL Absolute Nucleated RBC 0.000 (0.0-0.012) X10*3/uL Nucleated RBC % (auto) 0.0 (0.0-0.2) /100WBC Sodium 138 (135-145) mmol/L Potassium 4.4 (3.3-5.1) mmol/L Chloride 105 (96-108) mmol/L Carbon Dioxide 25 (22-29) mmol/L Anion Gap 12 (12-20) BUN 20 H (9-16) mg/dL Creatinine 0.96 (0.5-1.4) mg/dL Estim Creat Clear Calc 100.7 Estimated GFR > 60 Random Glucose 122 H (60-115) mg/dL Calcium 8.9 (8.4-10.2) mg/dL Total Bilirubin 0.5 (0.0-1.0) mg/dL AST 21 (5-37) U/L ALT 23 (0-40) U/L Alkaline Phosphatase 87 (39-117) U/L Troponin I High Sens < 2.7 (<3.5-35.0) ng/L B-Natriuretic Peptide < 10 (<100) pg/mL Total Protein 6.9 (6.5-8.0) g/dL Albumin 4.2 (3.5-5.0) g/dL COVID-19 (ISATU) Negative (Negative) COVID-19 Clin Com See Note Influenza Type A (MIRTA) Negative (Negative) Influenza Type B (MIRTA) Negative (Negative) Influenza A & B Note See Note Independent Interpretation I performed an independent interpretation of an: EKG ( normal EKG negative STEMI) and Plain X-Ray Radiology Impression Discussion of test interpretation with radiology: I have reviewed the radiologist's reading. Independent Historian Clinical information obtained from an independent historian. History obtained from or confirmed by: Spouse External Record Review External record reviewed: Other ( prior ED visit) Prescription Management I considered prescription management with: Other (albuterol inhaler, steroids, and nebulizer liquid) Discharge Plan Discharge Clinical Impression: Asthma, Upper respiratory infection Patient Disposition: Home, Self-Care Instructions: Asthma (ED), Upper Respiratory Infection (ED) Additional Instructions: Lo atendieron por juju exacerbaci?n del asma. [place] an?lisis de kris y radiograf?a resultaron negativos para detectar signos de ataque card?aco o insuficiencia card?dave. Result? negativo para COVID e influenza. Rena un seguimiento con el PCP. Regrese al servicio de urgencias si tiene dolor en el pecho, dificultad para respirar, sibilancias, hinchaz?n de las piernas, dolor en la pantorrilla, tos con kris, dolor en el pecho al inspirar, sarpullido o cualquier otro s?ntoma preocupante. Prescriptions: New prednisone 20 mg tablet 40 mg PO DAILY 5 Days Qty: 10 0RF albuterol sulfate 0.63 mg/3 mL solution for nebulization 0.63 mg inhalation Q4-6H PRN (Reason: shortness of breath or wheezing) Qty: 90 0RF albuterol sulfate 90 mcg/actuation HFA aerosol inhaler 2 puff inhalation Q4-6H PRN (Reason: shortness of breath or wheezing) Qty: 8.5 0RF No Action (DME) FreeStyle Lite Strips Strip See Rx Instructions .ROUTE .MEDSUPPLY Qty: 200 3RF Rx Instructions: As directed twice a day (DME) lancets [FreeStyle Lancets] 28 gauge misc See Rx Instructions .ROUTE .MEDSUPPLY Qty: 200 3RF Rx Instructions: two time a day albuterol sulfate [ProAir HFA] 90 mcg/actuation HFA aerosol inhaler 1 inh inhalation QID PRN (Reason: shortness of breath or wheezing) Qty: 8.5 0RF dulaglutide 1.5 mg/0.5 mL pen injector 1.5 mg subcut QWEEK Qty: 6 1RF metformin 500 mg tablet extended release 24 hr 1,000 mg PO BID 90 Days Qty: 360 2RF atorvastatin 40 mg tablet 40 mg PO BEDTIME Qty: 90 1RF lisinopril 10 mg tablet 10 mg PO DAILY Qty: 90 3RF zolpidem 10 mg tablet 10 mg PO BEDTIME PRN (Reason: sleep) 90 Days Qty: 90 0RF albuterol sulfate 0.63 mg/3 mL solution for nebulization 0.63 mg inhalation Q4-6H PRN (Reason: shortness of breath or wheezing) Qty: 75 0RF Magic Mouthwash Diphen/Lido/Antacid 1:1:1 240 mL suspension 10 ml PO .QID 3 Days Qty: 240 0RF Rx Instructions: Lidocaine Viscous 2 % 80mL; diphenhydramine 12.5 mg/5 mL 80mL; aluminum-mag hydrox-simeth [id number]/5mL 80mL prednisone 50 mg tablet 50 mg PO DAILY 4 Days Qty: 4 0RF albuterol sulfate 90 mcg/actuation HFA aerosol inhaler 2 puff inhalation 6XD PRN (Reason: shortness of breath or wheezing) Qty: 6.7 0RF prednisone 20 mg tablet 20 mg PO DAILY Qty: 5 0RF omeprazole 20 mg capsule,delayed release(DR/EC) 20 mg PO QAM 90 Days Qty: 90 1RF fluticasone propionate [Flovent HFA] 44 mcg/actuation HFA aerosol inhaler 1 puff inhalation BID 30 Days Qty: 10.6 6RF Rx Instructions: administer with spacer triamcinolone acetonide [Nasacort] 55 mcg aerosol,spray 1 spray intranasal DAILY 30 Days Qty: 16.9 1RF Rx Instructions: administer into each nostril doxycycline hyclate 100 mg tablet 100 mg PO BID 5 Days Qty: 10 0RF magnesium 250 mg tablet 250 mg PO DAILY 30 Days Qty: 30 0RF albuterol sulfate 2.5 mg /3 mL (0.083 %) solution for nebulization 2.5 mg inhalation Q4-6H PRN (Reason: shortness of breath or wheezing) Qty: 75 0RF Interventions: ED Discharge Assessment Last Done: 12/09/22 15:47 Discharge Date/Time: 12/09/22 15:48 Print Language: Sami
[2022-12-09] MEDS: Albuterol Sulfate 5 MG, Albuterol/Iprat 2.5/0.5MG 3 ML 3 ML INHALE (12:30)
[2022-12-09 12:34] LABS: MANUAL DIFF FLAG NO
[2022-12-09] MEDS: Magnesium Sulfate/H2O 2 GM/50 ML PIGGYBACK IV (12:34)
[2022-12-09] MEDS: methylPREDNISolone Sod Succ 125 MG/2 ML VIAL IVPUSH (12:34)
[2022-12-09 12:39] LABS: Basophils Percent Auto 0.4 % (0-2); Eosinophils Absolute Auto 0.2 X10*3/uL (0.0-0.4); Eosinophils Percent Auto 4.3 % (0-4); Imm Gran Abs Auto 0.01 X10*3/uL (0.00-0.03); Imm Gran Pct Auto 0.2 % (0.0-0.4); Lymphocytes Absolute Auto 1.6 X10*3/uL (1.2-4.9); Mean Corpuscular HGB Conc 34.1 g/dl (31.0-36.0); Mean Corpuscular Hemoglobin 28.3 pg (27.0-33.0); Mean Corpuscular Volume 82.8 fL (80.0-98.0); Mean Platelet Volume 9.9 fL (9.4-12.4); Monocytes Absolute Auto 0.6 X10*3/uL (0.1-1.2); Neutrophils Absolute Auto 3.2 x10*3/uL (2.0-8.3); Neutrophils Percent Auto 57.1 % (45-73); Platelet Count 223 X10*3/uL (160-400); Red Blood Count 4.95 X10*6/uL (4.60-5.80); Red Cell Distribution Width 12.4 % (11.0-16.0); White Blood Count 5.6 X10*3/uL (4.8-10.8)
[2022-12-09 12:49] VITALS: PULSE 86; RESP 22; O2SAT 97
[2022-12-09 12:50] LABS: COVID-19 Test Negative (Negative); IDNOW Serial# 08D9AD1C
[2022-12-09 12:51] LABS: Alanine Aminotransferase 23 U/L (0-40); Albumin Level 4.2 g/dL (3.5-5.0); Alkaline Phosphatase 87 U/L (39-117); Anion Gap 12 (12-20); Aspartate Amino Transferase 21 U/L (5-37); Bilirubin Total 0.5 mg/dL (0.0-1.0); Blood Urea Nitrogen 20 mg/dL (9-16); Calcium 8.9 mg/dL (8.4-10.2); Carbon Dioxide 25 mmol/L (22-29); Chloride 105 mmol/L (96-108); Creatinine Clr Calc Pharmacy 100.7; Estimated Glomerular Filt Rate > 60; Glucose Random 122 mg/dL (60-115); Potassium 4.4 mmol/L (3.3-5.1); Sodium 138 mmol/L (135-145); Total Protein 6.9 g/dL (6.5-8.0)
[2022-12-09 12:59] LABS: Troponin-I High Sensitivity < 2.7 ng/L (<3.5-35.0)
[2022-12-09 14:00] VITALS: BP 127/57; PULSE 90; RESP 16; TEMP 36.7; O2SAT 97
[2022-12-09 14:05] LABS: IDNOW Serial# BCCEAD1C; Influenza A Negative (Negative); Influenza B2 Negative (Negative)
[2022-12-09 14:10] LABS: B Type Natriuretic Peptide < 10 pg/mL (<100)
== END 2022-12-09 15:48 | disposition home or self-care (01) ==
PROVIDERS: Physician Assistant; Emergency Provider Student in an Organized Health Care Education/Training Program; PCP Internal Medicine
DX: J06.9 Acute upper respiratory infection, unspecified (principal); J45.909 Unspecified asthma, uncomplicated; R06.02 Shortness of breath; Z20.822 Contact with and (suspected) exposure to COVID-19; Z20.828 Contact with and (suspected) exposure to other viral communicable diseases; Z79.899 Other long term (current) drug therapy
CPT/HCPCS: 36415; 71045; 80053; 83880; 84484; 85025; 87502; 87635; 93005; 94640; 96365; 96375; 99284; 99285; J2930; J3475

== ENCOUNTER 2022-12-30 06:56 | Emergency (ER) | payer OTHER, SELFPAY ==
--- NOTE | ~2022-12-30 | XR_ITS ---
EXAMINATION: XR chest 1V CLINICAL INFORMATION: Reason for Exam chest pain COMPARISON: 12/09/2022 TECHNIQUE: XR chest 1V Tubes and lines: None Lungs and pleura: Crowding of interstitial lung markings at lung bases mild infiltrates which could be chronic or recurrent, there is elevation of left hemidiaphragm unchanged. No solid lobar consolidation. No significant pleural effusion. Heart and mediastinum: The mediastinum is within normal limits.. Bones/soft tissue: Skeletal structures included are normal for patient's age. XR/XR chest 1V IMPRESSION: * Crowding of interstitial lung markings at lung bases which could be chronic or recurrent. * Elevation of left hemidiaphragm unchanged. * No solid lobar consolidation or pleural effusion.
[2022-12-30 07:02] VITALS: BP 133/72; PULSE 91; RESP 20; TEMP 36.2; O2SAT 98; BMI 28.4
--- NOTE | 2022-12-30 07:07 | ECG_ITS ---
Test Reason : chest pain Blood Pressure : / mmHG Vent. Rate : 092 BPM Atrial Rate : 092 BPM P-R Int : 200 ms QRS Dur : 100 ms QT Int : 350 ms P-R-T Axes : 058 -08 060 degrees QTc Int : 432 ms Normal sinus rhythm Minimal voltage criteria for LVH, may be normal variant ( [place] product ) Left axis deviation Intra-ventricular conduction delay Abnormal ECG When compared with ECG of 09-DEC-2022 12:22, No significant change was found Referred By: Generic ED Physician Electronically Signed By:MADDI VIRGEN MD
[2022-12-30 07:25] VITALS: BP 139/73; PULSE 94; RESP 20; TEMP 36.7; O2SAT 98
--- NOTE | 2022-12-30 07:31 | PC.NURSE ---
Patient reports x 5 days has had chest tightness and pressure. Patient reports has asthma and has ran out of his asthma medications.
--- NOTE | 2022-12-30 07:32 | ED.CHESTPAIN ---
HPI - Chest Pain General Chief Complaint: Chest Pain Stated Complaint: Fast heart rate on and off Time Seen by Provider: 12/30/22 07:27 Source: patient Mode of arrival: ambulatory Limitations: no limitations History of Present Illness HPI narrative: 67 years old patient with history of diabetes presented to emergency department with complaining of chest pain and palpitation for about a week. The pain is not exertional, no radiation of the pain, no diaphoresis. MD complaint: chest pain Onset (ago): week(s) (1) Timing of current episode: episodic Onset: during rest Pain location: left chest Pain radiation: none Quality: aching Relieving factors: nothing Exacerbating factors: nothing Risk Factors Coronary artery disease risk factors: diabetes Related Data Previous Rx's Medication Instructions Recorded blood sugar diagnostic (FreeStyle #200 ea 05/24/20 Lite Strips) lancets 28 gauge (FreeStyle #200 ea 07/06/20 Lancets) omeprazole 20 mg capsule,delayed 20 mg PO QAM 90 days #90 caps 01/08/22 release albuterol sulfate 90 mcg/actuation 1 inh inhalation QID PRN shortness 01/30/22 aerosol inhaler (ProAir HFA) of breath or wheezing #8.5 grams albuterol sulfate 0.63 mg/3 mL 0.63 mg (3 mL) inhalation Q4-6H 02/06/22 solution for nebulization PRN shortness of breath or wheezing #75 mL Magic Mouthwash 10 ml PO .QID 3 days #240 mL 04/02/22 Diphen/Lido/Antacid 1:1:1 240 mL suspension fluticasone propionate 44 1 puff inhalation BID 30 days 07/10/22 mcg/actuation HFA aerosol inhaler #10.6 grams (Flovent HFA) triamcinolone acetonide 55 mcg 1 spray intranasal DAILY 30 days 07/10/22 nasal spray aerosol (Nasacort) #16.9 mL dulaglutide 1.5 mg/0.5 mL 1.5 mg (0.5 mL) subcut QWEEK #6 mL 08/06/22 subcutaneous pen injector metformin 500 mg tablet,extended 1,000 mg (2 x 500 mg) PO BID 90 08/20/22 release 24 hr days #360 tabs atorvastatin 40 mg tablet 40 mg PO BEDTIME #90 tabs 09/23/22 albuterol sulfate 90 mcg/actuation 2 puff inhalation 6XD PRN 09/28/22 aerosol inhaler shortness of breath or wheezing #6.7 grams prednisone 20 mg tablet 20 mg PO DAILY #5 tabs 09/28/22 doxycycline hyclate 100 mg tablet 100 mg PO BID 5 days #10 tabs 10/03/22 magnesium 250 mg tablet 250 mg PO DAILY 30 days #30 tabs 10/03/22 lisinopril 10 mg tablet 10 mg PO DAILY #90 tabs 10/20/22 prednisone 50 mg tablet 50 mg PO DAILY 4 days #4 tabs 11/10/22 zolpidem 10 mg tablet 10 mg PO BEDTIME PRN sleep 90 days 11/20/22 #90 tabs albuterol sulfate 0.63 mg/3 mL 0.63 mg (3 mL) inhalation Q4-6H 12/09/22 solution for nebulization PRN shortness of breath or wheezing #90 mL albuterol sulfate 90 mcg/actuation 2 puff inhalation Q4-6H PRN 12/09/22 aerosol inhaler shortness of breath or wheezing #8.5 grams prednisone 20 mg tablet 40 mg (2 x 20 mg) PO DAILY 5 days 12/09/22 #10 tabs albuterol sulfate 2.5 mg/3 mL 2.5 mg (3 mL) inhalation Q4-6H PRN 12/24/22 (0.083 %) solution for nebulization shortness of breath or wheezing #75 mL albuterol sulfate 0.63 mg/3 mL 0.63 mg (3 mL) inhalation QID PRN 12/30/22 solution for nebulization bronchospasm #75 mL lorazepam 1 mg tablet 1 mg PO DAILY PRN anxiety #4 tabs 12/30/22 Allergies Allergy/AdvReac Type Severity Reaction Status Date / Time penicillin V Allergy Intermediate rash Verified 12/30/22 07:06 aspirin [Aspirin] Allergy Mild RASH Verified 12/30/22 07:06 Penicillins Allergy Mild RASH Verified 12/30/22 07:06 tramadol AdvReac Intermediate abdominal Verified 12/30/22 07:06 pain Review of Systems Constitutional: Constitutional: Reports no additional constitutional complaints Cardiovascular: Cardiovascular: Reports chest pain and Reports rapid heart rate Neurologic: Reports system reviewed and no additional complaints, except as documented PMFSH Past Medical History Medical History Hearing difficulty of left ear Onychomycosis Bladder pain Thyroid nodule DM2 (diabetes mellitus, type 2) BPH (benign prostatic hyperplasia) GERD (gastroesophageal reflux disease) Hyperlipidemia LDL goal <100 Rotator cuff tear Obesity Insomnia Pure hypercholesterolemia Essential hypertension Diabetes mellitus Arthritis High blood pressure Asthma No known health problems Surgical History History of knee replacement procedure of right knee Family History Family History Father No problems noted. Mother Diabetes Hypertension Brother Throat cancer Social History Social History Household Members: Spouse Housing: Apartment Alcohol intake: former Patient Tobacco Use Status: Former Tobacco user Tobacco use type: Cigarette Smoked in Last 30 Days: No e-Cigarette/Vaping Use: Never Used Second Hand Smoke Exposure: No Use of substances other than those prescribed or required for medical reasons: No Advance Directives: No Advance Directives Information Provided: Yes service: No Current occupational status: disabled Cognitive needs: Yes Hearing needs: Yes Vision needs: Yes Physical Exam Vital Signs: Vital Signs: Last Vital Signs Temp 98.1 F 12/30/22 07:25 Pulse 94 12/30/22 10:47 Resp 14 12/30/22 10:47 BP 132/60 12/30/22 10:47 Pulse Ox 98 12/30/22 10:47 O2 Del Method Room Air 12/30/22 10:47 BMI result Body Mass Index 28.4 Const: General: cooperative, comfortable and no acute distress Nutritional Appearance: well nourished Orientation/consciousness: patient oriented x3 Limitations: no limitations HEENT: Head: Yes normal to inspection General nose exam: Normal external nose present Face and sinus: Yes normal facial exam Mouth: Normal oral and palatal mucosa present Eyes: General: appearance normal, both eyes and all related structures Neck: Neck: Yes normal visual inspection and Yes full ROM Chest: Chest palpation & inspection: normal inspection of the chest Resp: Effort & Inspection: normal respiratory effort Auscultation: clear to auscultation bilaterally Cardio: Jugular venous distension: no JVD Rate: regular rate Rhythm: regular rhythm GI: Inspection: Yes normal to inspection Palpation (GI): Soft to palpation Percussion: Yes normal to percussion Skin: General skin exam: no rashes or lesions noted Rashes: no rashes Neuro: General: patient oriented x3 Extrem: General: Yes normal to inspection and Yes full ROM Right upper extremity: normal to inspection Course Reevaluation(s) Reevaluation #1: reexamined at 10:55 AM he is feeling much better delta tropi flat unlikely ACS. He is asking me for a prescripion for albuterol and ativan (I will give 5 tablets of ativan) Time: 10:56 Medications Administered Discontinued Medications Generic Name Dose Route Start Last Admin Trade Name Freq PRN Reason Stop Dose Admin Albuterol Sulfate 5 mg/ 7.5 mg 12/30/22 09:24 12/30/22 09:26 Albuterol Sulfate 2.5 mg INHALE 12/30/22 09:25 7.5 mg ONCE ONE Administration Lorazepam 1 mg 12/30/22 07:32 12/30/22 07:44 Lorazepam 1 Mg Tablet PO 12/30/22 07:33 1 mg ONCE ONE Administration Medical Decision Making Medical Decision Making [facility] Narrative: Patient presented with chest pain and palpitation for about a week will obtain high sensitive troponin and reassessed @10:55 Am he is feeling much better delta tropi flat, CXR normal Differential Diagnosis Differential Diagnoses: The differential diagnosis associated with the presentation includes ACS/atypical chest pain/anxiety Admission/Observation Consideration of admission/observation: Escalation of care including admission/observation considered Lab Data [facility] Lab Attestation statement: I reviewed the patient's lab results. 12/30/22 07:52 12/30/22 07:52 Labs: Lab Results 12/30/22 12/30/22 Range/Units 07:52 09:58 WBC 6.7 (4.8-10.8) X10*3/uL RBC 4.81 (4.60-5.80) X10*6/uL Hgb 13.8 L (14.0-18.0) g/dl Hct 39.9 L (42.0-52.0) % MCV 83.0 (80.0-98.0) fL MCH 28.7 (27.0-33.0) pg MCHC 34.6 (31.0-36.0) g/dl RDW 12.1 (11.0-16.0) % Plt Count 189 (160-400) X10*3/uL MPV 10.2 (9.4-12.4) fL Immature Gran % (Auto) 0.5 H (0.0-0.4) % Neut % (Auto) 67.1 (45-73) % Lymph % (Auto) 21.3 (20-40) % [place]ff[place] % (Auto) 8.7 (2-11) % Eos % (Auto) 2.1 (0-4) % Baso % (Auto) 0.3 (0-2) % Lymph # (Auto) 1.4 (1.2-4.9) X10*3/uL [place] # (Auto) 0.6 (0.1-1.2) X10*3/uL Eos # (Auto) 0.1 (0.0-0.4) X10*3/uL Baso # (Auto) 0.0 (0.0-0.2) X10*3/uL Abs Immat Gran (auto) 0.03 (0.00-0.03) X10*3/uL Absolute Neuts (auto) 4.5 (2.0-8.3) x10*3/uL Absolute Nucleated RBC 0.000 (0.0-0.012) X10*3/uL Nucleated RBC % (auto) 0.0 (0.0-0.2) /100WBC Sodium 137 (135-145) mmol/L Potassium 4.9 (3.3-5.1) mmol/L Chloride 102 (96-108) mmol/L Carbon Dioxide 26 (22-29) mmol/L Anion Gap 14 (12-20) BUN 17 H (9-16) mg/dL Creatinine 0.84 (0.5-1.4) mg/dL Estim Creat Clear Calc 110.9 Estimated GFR > 60 Random Glucose 128 H (60-115) mg/dL Calcium 8.9 (8.4-10.2) mg/dL Total Bilirubin 0.6 (0.0-1.0) mg/dL AST 27 (5-37) U/L ALT 21 (0-40) U/L Alkaline Phosphatase 78 (39-117) U/L Troponin I High Sens < 2.7 < 2.7 (<3.5-35.0) ng/L Total Protein 6.8 (6.5-8.0) g/dL Albumin 3.9 (3.5-5.0) g/dL Independent Interpretation I performed an independent interpretation of an: EKG and Plain X-Ray Interpretation: EKG NSR no ischemic chsnges; CXR no pneumonia Radiology Impression Discussion of test interpretation with radiology: I have reviewed the radiologist's reading. Radiologist Impression: Lungs and pleura: Crowding of interstitial lung markings at lung bases mild infiltrates which could be chronic or recurrent, there is elevation of left hemidiaphragm unchanged. No solid lobar consolidation. No significant pleural effusion. Heart and mediastinum: The mediastinum is within normal limits.. Bones/soft tissue: Skeletal structures included are normal for patient's age. XR/XR chest 1V IMPRESSION: * Crowding of interstitial lung markings at lung bases which could be chronic or recurrent. * Elevation of left hemidiaphragm unchanged. * No solid lobar consolidation or pleural effusion. Dictated By: Rocio Pedersen MD Signed By: <Electronically signed by Rocio Pedersen MD in OV> 12/30/22 0839 DD/ 0750 External Record Review External record reviewed: Inpatient record Chronic Conditions Patient?s care impacted by: Diabetes and Other (Asthma) Discharge Plan Discharge Clinical Impression: Chest pain, Anxiety, Asthma Patient Disposition: Home, Self-Care Instructions: Chest Pain (DC) Additional Instructions: Follow-up with your primary care physician return to the emergency room if you worse any concern Prescriptions: New lorazepam 1 mg tablet 1 mg PO DAILY PRN (Reason: anxiety) Qty: 4 0RF albuterol sulfate 0.63 mg/3 mL solution for nebulization 0.63 mg inhalation QID PRN (Reason: bronchospasm) Qty: 75 0RF No Action (DME) FreeStyle Lite Strips Strip See Rx Instructions .ROUTE .MEDSUPPLY Qty: 200 3RF Rx Instructions: As directed twice a day (DME) lancets [FreeStyle Lancets] 28 gauge misc See Rx Instructions .ROUTE .MEDSUPPLY Qty: 200 3RF Rx Instructions: two time a day albuterol sulfate [ProAir HFA] 90 mcg/actuation HFA aerosol inhaler 1 inh inhalation QID PRN (Reason: shortness of breath or wheezing) Qty: 8.5 0RF dulaglutide 1.5 mg/0.5 mL pen injector 1.5 mg subcut QWEEK Qty: 6 1RF metformin 500 mg tablet extended release 24 hr 1,000 mg PO BID 90 Days Qty: 360 2RF atorvastatin 40 mg tablet 40 mg PO BEDTIME Qty: 90 1RF lisinopril 10 mg tablet 10 mg PO DAILY Qty: 90 3RF zolpidem 10 mg tablet 10 mg PO BEDTIME PRN (Reason: sleep) 90 Days Qty: 90 0RF albuterol sulfate 2.5 mg /3 mL (0.083 %) solution for nebulization 2.5 mg inhalation Q4-6H PRN (Reason: shortness of breath or wheezing) Qty: 75 0RF albuterol sulfate 0.63 mg/3 mL solution for nebulization 0.63 mg inhalation Q4-6H PRN (Reason: shortness of breath or wheezing) Qty: 75 0RF Magic Mouthwash Diphen/Lido/Antacid 1:1:1 240 mL suspension 10 ml PO .QID 3 Days Qty: 240 0RF Rx Instructions: Lidocaine Viscous 2 % 80mL; diphenhydramine 12.5 mg/5 mL 80mL; aluminum-mag hydrox-simeth [id number]/5mL 80mL prednisone 50 mg tablet 50 mg PO DAILY 4 Days Qty: 4 0RF prednisone 20 mg tablet 40 mg PO DAILY 5 Days Qty: 10 0RF albuterol sulfate 0.63 mg/3 mL solution for nebulization 0.63 mg inhalation Q4-6H PRN (Reason: shortness of breath or wheezing) Qty: 90 0RF albuterol sulfate 90 mcg/actuation HFA aerosol inhaler 2 puff inhalation Q4-6H PRN (Reason: shortness of breath or wheezing) Qty: 8.5 0RF albuterol sulfate 90 mcg/actuation HFA aerosol inhaler 2 puff inhalation 6XD PRN (Reason: shortness of breath or wheezing) Qty: 6.7 0RF prednisone 20 mg tablet 20 mg PO DAILY Qty: 5 0RF omeprazole 20 mg capsule,delayed release(DR/EC) 20 mg PO QAM 90 Days Qty: 90 1RF fluticasone propionate [Flovent HFA] 44 mcg/actuation HFA aerosol inhaler 1 puff inhalation BID 30 Days Qty: 10.6 6RF Rx Instructions: administer with spacer triamcinolone acetonide [Nasacort] 55 mcg aerosol,spray 1 spray intranasal DAILY 30 Days Qty: 16.9 1RF Rx Instructions: administer into each nostril doxycycline hyclate 100 mg tablet 100 mg PO BID 5 Days Qty: 10 0RF magnesium 250 mg tablet 250 mg PO DAILY 30 Days Qty: 30 0RF Referrals: Allison Maradiaga MD [Primary Care Provider] - 2 days
[2022-12-30] MEDS: LORazepam 1 MG TABLET PO (07:44)
[2022-12-30 07:56] LABS: MANUAL DIFF FLAG NO
[2022-12-30 07:57] LABS: Basophils Percent Auto 0.3 % (0-2); Eosinophils Absolute Auto 0.1 X10*3/uL (0.0-0.4); Eosinophils Percent Auto 2.1 % (0-4); Hematocrit 39.9 % (42.0-52.0); Hemoglobin 13.8 g/dl (14.0-18.0); Imm Gran Abs Auto 0.03 X10*3/uL (0.00-0.03); Imm Gran Pct Auto 0.5 % (0.0-0.4); Lymphocytes Absolute Auto 1.4 X10*3/uL (1.2-4.9); Lymphocytes Percent Auto 21.3 % (20-40); Mean Corpuscular HGB Conc 34.6 g/dl (31.0-36.0); Mean Corpuscular Hemoglobin 28.7 pg (27.0-33.0); Mean Platelet Volume 10.2 fL (9.4-12.4); Monocytes Absolute Auto 0.6 X10*3/uL (0.1-1.2); Monocytes Percent Auto 8.7 % (2-11); Neutrophils Absolute Auto 4.5 x10*3/uL (2.0-8.3); Neutrophils Percent Auto 67.1 % (45-73); Platelet Count 189 X10*3/uL (160-400); Red Blood Count 4.81 X10*6/uL (4.60-5.80); Red Cell Distribution Width 12.1 % (11.0-16.0); White Blood Count 6.7 X10*3/uL (4.8-10.8)
[2022-12-30 08:12] LABS: Alanine Aminotransferase 21 U/L (0-40); Albumin Level 3.9 g/dL (3.5-5.0); Alkaline Phosphatase 78 U/L (39-117); Anion Gap 14 (12-20); Aspartate Amino Transferase 27 U/L (5-37); Bilirubin Total 0.6 mg/dL (0.0-1.0); Blood Urea Nitrogen 17 mg/dL (9-16); Calcium 8.9 mg/dL (8.4-10.2); Carbon Dioxide 26 mmol/L (22-29); Chloride 102 mmol/L (96-108); Creatinine Clr Calc Pharmacy 110.9; Estimated Glomerular Filt Rate > 60; Glucose Random 128 mg/dL (60-115); Potassium 4.9 mmol/L (3.3-5.1); Sodium 137 mmol/L (135-145); Total Protein 6.8 g/dL (6.5-8.0)
[2022-12-30 08:18] LABS: Troponin-I High Sensitivity < 2.7 ng/L (<3.5-35.0)
[2022-12-30] MEDS: Albuterol Sulfate 5 MG, Albuterol Sulfate (0.083%) 2.5 MG 7.5 MG INHALE (09:26)
[2022-12-30 09:36] VITALS: PULSE 94; RESP 16; O2SAT 95
[2022-12-30 10:29] LABS: Troponin-I High Sensitivity < 2.7 ng/L (<3.5-35.0)
[2022-12-30 10:47] VITALS: BP 132/60; PULSE 94; RESP 14; O2SAT 98
== END 2022-12-30 11:47 | disposition home or self-care (01) ==
PROVIDERS: Emergency Provider Emergency Medicine; PCP Internal Medicine
DX: R07.89 Other chest pain (principal); F41.1 Generalized anxiety disorder; F43.0 Acute stress reaction; J45.909 Unspecified asthma, uncomplicated; Z79.899 Other long term (current) drug therapy
CPT/HCPCS: 36415; 71045; 80053; 84484; 85025; 93005; 94640; 99284; 99285

== ENCOUNTER 2023-02-12 10:24 | Outpatient (AMB) | payer OTHER, SELFPAY ==
[2023-02-12 10:27] VITALS: BP 130/72; PULSE 86; O2SAT 98; BMI 31.0
--- NOTE | 2023-02-12 10:27 | A.OFFPC_ITS ---
Vital Signs 02/12/23 10:27 Height 6 ft 2 in Weight 241 lb 8 oz BMI 31.0 BP 130/72 Blood Pressure Location Lt brachial Position Sitting Pulse 86 Pulse Source Pulse Oximeter Pulse Oximetry (%) 98 Oxygen Delivery Method Room Air Intake Visit Reasons: dm Hand Mounter Required: No Accompanied by: Self / Same As Patient Allergies penicillin V Allergy (Intermediate, Verified 02/12/23 10:40) rash aspirin [Aspirin] Allergy (Mild, Verified 02/12/23 10:40) RASH Penicillins Allergy (Mild, Verified 02/12/23 10:40) RASH tramadol Adverse Reaction (Intermediate, Verified 02/12/23 10:40) abdominal pain Medication List - Last Reconciled 02/12/23 by Allison Fenton MD albuterol sulfate 0.63 mg (3 mL) inhalation Q4-6H PRN albuterol sulfate 90 mcg/actuation 2 puffs inhalation 6XD PRN albuterol sulfate 0.63 mg (3 mL) inhalation Q4-6H PRN albuterol sulfate 90 mcg/actuation 2 puffs inhalation Q4-6H PRN albuterol sulfate 0.63 mg (3 mL) inhalation QID PRN albuterol sulfate 2.5 mg (3 mL) inhalation Q4-6H PRN albuterol sulfate 90 mcg/actuation (ProAir HFA) 1 inh inhalation QID PRN atorvastatin 40 mg PO BEDTIME blood sugar diagnostic (FreeStyle Lite Strips) As directed twice a day doxycycline hyclate 100 mg PO BID 5 days dulaglutide 1.5 mg (0.5 mL) subcut QWEEK fluticasone propionate 44 mcg/actuation (Flovent HFA) 1 puff inhalation BID 30 days lancets (FreeStyle Lancets) two time a day lisinopril 10 mg PO DAILY lorazepam 1 mg PO DAILY PRN Magic Mouthwash Diphen/Lido/Antacid 1:1:1 10 mL PO .QID 3 days magnesium 250 mg PO DAILY 30 days metformin ER 1,000 mg (2 x 500 mg) PO BID 90 days omeprazole 20 mg PO QAM 90 days prednisone 50 mg PO DAILY 4 days prednisone 40 mg (2 x 20 mg) PO DAILY 5 days prednisone 20 mg PO DAILY triamcinolone acetonide (Nasacort) 1 spray intranasal DAILY 30 days zolpidem 10 mg PO BEDTIME PRN 90 days Tobacco use date assessed: 02/12/23 Fall risk assessment: No Falls in past year Last assessed Fall Risk: 02/12/23 Dental Screening Dental Screen Date: 02/12/23 Did you have a dental visit in the last 12 months?: No Did you have a dental problem in the last 6 months where you did not have access to dental care?: No Was dental information given to patient?: No HPI HPI Comments History of Present Illness Details This is a 67-year-old male with diabetes mellitus type 2, hypertension, pure hypercholesterolemia, insomnia and moderate asthma that comes today for follow-up on his conditions. A1c within goal. Blood pressure stable. Lipid panel was order. Use rescue inhaler few times a month and a will see pulmonology 03/04/2023. Insomnia stable with zolpidem as needed. No chest pain or shortness of breath. [facility] Medical History Hearing difficulty of left ear Onychomycosis Bladder pain Thyroid nodule DM2 (diabetes mellitus, type 2) BPH (benign prostatic hyperplasia) GERD (gastroesophageal reflux disease) Hyperlipidemia LDL goal <100 Rotator cuff tear Obesity Insomnia Pure hypercholesterolemia Essential hypertension Diabetes mellitus Arthritis High blood pressure Asthma No known health problems Surgical History History of knee replacement procedure of right knee Family History Father No problems noted. Mother Diabetes Hypertension Brother Throat cancer Social History Household Members: Spouse Housing: Apartment Alcohol intake: former Patient Tobacco Use Status: Former Tobacco user Tobacco use type: Cigarette e-Cigarette/Vaping Use: Never Used Second Hand Smoke Exposure: No service: No Current occupational status: disabled Cognitive needs: Yes Hearing needs: Yes Vision needs: Yes Questionnaire PHQ-9 Over the last 2 weeks, how often have you been bothered by any of the following problems? 1. Little interest or pleasure in doing things: several days 2. Feeling down, depressed, or hopeless: several days 3. Trouble falling or staying asleep, or sleeping too much: not at all 4. Feeling tired or having little energy: not at all 5. Poor appetite or overeating: not at all 6. Feeling bad about yourself - or that you are a failure or have let yourself or your family down: not at all 7. Trouble concentrating on things, such as reading the newspaper or watching television: not at all 8. Moving or speaking so slowly that other people could have noticed. Or the opposite - being so fidgety or restless that you have been moving around a lot more than usual: not at all 9. Thoughts that you would be better off or of hurting yourself in some way: not at all Total score: 2 Depression Screening Interpretation: Negative Depression Screening Done: Yes 42408 - PHQ-9 Billing: Yes Source: Developed by Drs. Eduardo Werner, Lesli Farfan, Carmelo Fleming and colleagues, with an educational mala from [employer]. Thrive Questionnaire Date Thrive assessed: 02/12/23 I am a: Patient What is your living situation today?: I have a steady place to live Within the past 12 months, did the food you bought not last and you didn't have the money to get more?: Never true Within the past 12 months, did you worry whether your food would run out before you got money to buy more?: Never true Do you have trouble paying for medicines?: No Do you have trouble getting transportation to medical appointments?: No Do you have trouble paying your heating and electricity bill?: No Do you have trouble taking care of your child, family member or friend?: No Do you have trouble with day-to-day activities such as bathing, preparing meals, shopping, managing finances, etc.?: No Are you currently unemployed and looking for a job?: No Are you interested in more education?: No Please select the resources that you would like help with: None Currently or been in a relationship where the following occur: no concerns reported AUDIT C Alcohol Use Questionnaire (AUDIT-C) 1. How often do you have a drink containing alcohol?: Never Total Score: 0 MILDRED-7 AMB Questionnaire MILDRED-7 Date MILDRED - 7 assessed: 02/12/23 Feeling nervous, anxious, or on edge: 1 = Several days Not being able to stop or control worryin = Not at all Worrying too much about different things: 0 = Not at all Trouble relaxin = Not at all Being so restless that it is hard to sit still: 0 = Not at all Becoming easily annoyed or irritable: 0 = Not at all Feeling afraid as if something awful might happen: 0 = Not at all Total MILDRED-7 score (0-4 normal; 5-9 mild; 10-14 moderate; 15-21 severe): 1 Source: Developed by Drs. Eduardo Werner, Lesli Farfan, Carmelo Fleming and colleagues, with an educational mala from [employer]. MILDRED-7 Assessment Billing MILDRED-7 Assessment Tool: MILDRED-7 Assessment 89711 Review of Systems Const All systems reviewed & are unremarkable except as noted in HPI and below Eyes Reports no additional complaints, Denies change in vision and Denies other visual disturbances Card Denies chest pain at rest, Denies chest pain with activity, Denies edema, Denies irregular heart rhythm, Denies claudication, Denies dyspnea, Denies dyspnea on exertion, Denies orthopnea, Denies paroxysmal nocturnal dyspnea and Denies slow heart rate Resp Denies cough, Denies dyspnea and Denies dyspnea on exertion GI Denies abdominal pain, Denies change in bowel habits, Denies excessive flatus, Denies nausea and Denies vomiting Denies urinary hesitancy, Denies urinary incontinence and Denies urinary urgency Musc Denies abnormal gait, Denies atrophy, Denies deformity and Denies limited range of motion Skin/Breast Denies bleeding lesions, Denies changing lesions and Denies rash Neuro Denies abnormal gait, Denies behavioral changes and Denies lack of coordination Psych Denies behavioral changes Physical exam (Primary Care) Vital Signs: Last Vital Signs Pulse 86 02/12/23 10:27 BP 130/72 02/12/23 10:27 Pulse Ox 98 02/12/23 10:27 Oxygen Delivery Method Room Air 02/12/23 10:27 BMI result Body Mass Index 31.0 Tobacco/Smoking Status: Tobacco use Status Tobacco use date assessed 02/12/23 02/12/23 10:29 Patient Tobacco Use Status Former Tobacco user 02/12/23 10:29 Tobacco use type Cigarette 02/12/23 10:29 e-Cigarette/Vaping Use Never Used 02/12/23 10:29 PHQ-9: PHQ-9 Score PHQ-9: Total score 2 02/12/23 10:36 Depression Screening Interpretation: Negative Thrive Assessment: Date of Thrive Assessment Date Thrive assessed 02/12/23 02/12/23 10:29 Currently or been in a relationship where the following occur: no concerns rep orted Eyes General: appearance normal, both eyes and all related structures Eyelids: Yes eyelids normal Conjunctivae: conjunctivae normal Neck Neck: Yes normal visual inspection and Yes supple Resp Effort & Inspection: normal respiratory effort Auscultation: clear to auscultation bilaterally Cardio Jugular venous distension: no JVD Rate: regular rate Rhythm: regular rhythm Heart sounds: S1 normal heart sound present and S2 normal heart sound present Extrem General: Yes full ROM Results AMB Hemoglobin A1c AMB Hemoglobin A1c 6.7 % Last Edit by Long Waggoner on 02/12/23 10:40 Assessment and Plan Assessment & Plan (1) Essential hypertension: Code(s): I10 - Essential (primary) hypertension Plan: Continue lisinopril. Blood pressure goal is equal or less than 130/80. (2) DM2 (diabetes mellitus, type 2): Code(s): E11.9 - Type 2 diabetes mellitus without complications Qualifiers: Diabetes mellitus snf insulin use: without [employer] use Diabetes mellitus complication status: without complication Qualified Code(s): E11.9 - Type 2 diabetes mellitus without complications Plan: Continue Trulicity and metformin. A1c goal is equal or less than 7%. (3) Pure hypercholesterolemia: Code(s): E78.00 - Pure hypercholesterolemia, unspecified Plan: Continue statins. Repeat lipid panel. LDL goal is less than 70. (4) Insomnia: Code(s): G47.00 - Insomnia, unspecified Qualifiers: Insomnia type: primary Qualified Code(s): F51.01 - Primary insomnia Plan: Continue zolpidem as needed. (5) Moderate asthma: Code(s): J45.909 - Unspecified asthma, uncomplicated Qualifiers: Asthma persistence: persistent Asthma complication type: uncomplicated Qualified Code(s): J45.40 - Moderate persistent asthma, uncomplicated Plan: Continue longstanding inhaler. [place] rescue inhaler as needed. Orders: Orders AMB Hemoglobin A1c Today Z13.9 - Encounter for screening, unspecified Microalbumin, Random (w Creat) Today E11.9 - Type 2 diabetes mellitus without complications Vitamin D 25-OH Total Today E55.9 - Vitamin D deficiency, unspecified Vitamin B12 and Folate Today E53.8 - Deficiency of other specified B group vitamins Complete Blood Count Auto Diff Today D64.9 - Anemia, unspecified IRON PROFILE Today D64.9 - Anemia, unspecified Comprehensive [place]. Panel Fast Today J45.909 - Unspecified asthma, uncomplicated Lipid Panel Today E78.5 - Hyperlipidemia, unspecified Medications: Discontinued prednisone Discontinued Reason: Patient Completed Course 50 mg PO DAILY 4 days 4 tabs 0RF prednisone Discontinued Reason: Patient Completed Course 40 mg (2 x 20 mg) PO DAILY 5 days 10 tabs 0RF prednisone Discontinued Reason: Patient Completed Course 20 mg PO DAILY 5 tabs 0RF Coding Level of Care Code Est Pt Level 4 (89023) Diagnoses Essential hypertension I10 Type 2 diabetes mellitus without complication, without long-term current use of insulin E11.9 Diabetes mellitus [employer] insulin use: without [employer] use Diabetes mellitus complication status: without complication Pure hypercholesterolemia E78.00 Primary insomnia F51.01 Insomnia type: primary Moderate persistent asthma without complication J45.40 Asthma persistence: persistent Asthma complication type: uncomplicated Additional Codes MILDRED-7 Assessment Billing - MILDRED-7 Assessment Tool: MILDRED-7 Assessment 09976 ([id number]) Time Spent (min) 22
== END 2023-02-12 10:46 | disposition home or self-care (01) ==
PROVIDERS: PCP Internal Medicine; Visit Provider Internal Medicine
DX: I10 Essential (primary) hypertension (principal); E11.9 Type 2 diabetes mellitus without complications; E78.00 Pure hypercholesterolemia, unspecified; F51.01 Primary insomnia; J45.40 Moderate persistent asthma, uncomplicated
CPT/HCPCS: 83036; 99214

== ENCOUNTER 2023-02-15 07:29 | Outpatient (REF) | payer OTHER, SELFPAY ==
[2023-02-15 08:33] LABS: Alanine Aminotransferase 51 U/L (0-40); Albumin Level 4.2 g/dL (3.5-5.0); Alkaline Phosphatase 99 U/L (39-117); Anion Gap 13 (12-20); Aspartate Amino Transferase 22 U/L (5-37); Bilirubin Total 0.6 mg/dL (0.0-1.0); Blood Urea Nitrogen 20 mg/dL (9-16); Calcium 9.5 mg/dL (8.4-10.2); Carbon Dioxide 31 mmol/L (22-29); Chloride 96 mmol/L (96-108); Cholesterol 142 mg/dL (<200); Estimated Glomerular Filt Rate > 60; Glucose Fasting 188 mg/dL (60-99); HDL Cholesterol 47 mg/dL (>40); Iron 81 mcg/dL (45-160); LDL Cholesterol Calculated 56 mg/dL (<100); Percent Iron Saturation 24 % (15-50); Potassium 4.7 mmol/L (3.3-5.1); Sodium 135 mmol/L (135-145); Total Iron Binding Capacity 341 mcg/dL (228-428); Total Protein 6.9 g/dL (6.5-8.0); Triglycerides 196 mg/dL (<150); Unsaturated Iron Binding 260 ug/dL
[2023-02-15 08:48] LABS: Vitamin D 25-OH Total 25.4 ng/mL (>30)
== END 2023-02-15 07:30 | disposition home or self-care (01) ==
LOC: HO.LAB 07:29
PROVIDERS: PCP Internal Medicine; Visit Provider Internal Medicine
DX: E11.9 Type 2 diabetes mellitus without complications (principal); E55.9 Vitamin D deficiency, unspecified; D64.9 Anemia, unspecified; E78.5 Hyperlipidemia, unspecified; E53.8 Deficiency of other specified B group vitamins; J45.909 Unspecified asthma, uncomplicated
CPT/HCPCS: 36415; 80053; 80061; 82043; 82306; 82570; 82607; 82746; 83540; 85025

== ENCOUNTER 2023-02-24 07:27 | Emergency (ER) | payer OTHER, SELFPAY ==
[2023-02-24 07:35] VITALS: BP 125/62; PULSE 98; RESP 20; TEMP 36.7; O2SAT 99; BMI 30.8
--- NOTE | 2023-02-24 10:13 | ED_ITS ---
HPI - General Adult General Chief complaint: Back Pain/Injury Stated complaint: Back pain/leg pain Time Seen by Provider: 02/24/23 09:23 Source: patient Mode of arrival: ambulatory Limitations: no limitations History of Present Illness HPI narrative: 67-year-old male history of diabetes, chronic back pain, and high cholesterol presents to ED for low back pain radiating down both legs. Patient denies any urinary/ bowel incontinence, testicular pain, abdominal pain, flank pain, fever, chills, nausea, trauma, or vomiting. Patient denies any weakness in lower extremities. Related Data Previous Rx's Medication Instructions Recorded blood sugar diagnostic (FreeStyle #200 ea 05/24/20 Lite Strips) lancets 28 gauge (FreeStyle #200 ea 07/06/20 Lancets) omeprazole 20 mg capsule,delayed 20 mg PO QAM 90 days #90 caps 01/08/22 release albuterol sulfate 90 mcg/actuation 1 inh inhalation QID PRN shortness 01/30/22 aerosol inhaler (ProAir HFA) of breath or wheezing #8.5 grams albuterol sulfate 0.63 mg/3 mL 0.63 mg (3 mL) inhalation Q4-6H 02/06/22 solution for nebulization PRN shortness of breath or wheezing #75 mL Magic Mouthwash 10 ml PO .QID 3 days #240 mL 04/02/22 Diphen/Lido/Antacid 1:1:1 240 mL suspension triamcinolone acetonide 55 mcg 1 spray intranasal DAILY 30 days 07/10/22 nasal spray aerosol (Nasacort) #16.9 mL metformin 500 mg tablet,extended 1,000 mg (2 x 500 mg) PO BID 90 08/20/22 release 24 hr days #360 tabs atorvastatin 40 mg tablet 40 mg PO BEDTIME #90 tabs 09/23/22 doxycycline hyclate 100 mg tablet 100 mg PO BID 5 days #10 tabs 10/03/22 magnesium 250 mg tablet 250 mg PO DAILY 30 days #30 tabs 10/03/22 lisinopril 10 mg tablet 10 mg PO DAILY #90 tabs 10/20/22 zolpidem 10 mg tablet 10 mg PO BEDTIME PRN sleep 90 days 11/20/22 #90 tabs albuterol sulfate 0.63 mg/3 mL 0.63 mg (3 mL) inhalation Q4-6H 12/09/22 solution for nebulization PRN shortness of breath or wheezing #90 mL albuterol sulfate 90 mcg/actuation 2 puff inhalation Q4-6H PRN 12/09/22 aerosol inhaler shortness of breath or wheezing #8.5 grams albuterol sulfate 2.5 mg/3 mL 2.5 mg (3 mL) inhalation Q4-6H PRN 12/24/22 (0.083 %) solution for nebulization shortness of breath or wheezing #75 mL albuterol sulfate 0.63 mg/3 mL 0.63 mg (3 mL) inhalation QID PRN 12/30/22 solution for nebulization bronchospasm #75 mL lorazepam 1 mg tablet 1 mg PO DAILY PRN anxiety #4 tabs 12/30/22 dulaglutide 1.5 mg/0.5 mL 1.5 mg (0.5 mL) subcut QWEEK #6 mL 01/27/23 subcutaneous pen injector albuterol sulfate 90 mcg/actuation 2 puff inhalation 6XD PRN 02/15/23 aerosol inhaler shortness of breath or wheezing #6.7 grams fluticasone propionate 44 1 puff inhalation BID 30 days 02/15/23 mcg/actuation HFA aerosol inhaler #10.6 grams (Flovent HFA) acetaminophen 325 mg capsule 325 mg PO QID PRN pain 7 days #28 02/24/23 (Tylenol) caps cyclobenzaprine 10 mg tablet 10 mg PO TID PRN muscle spasm 5 02/24/23 days #15 tabs prednisone 20 mg tablet 40 mg (2 x 20 mg) PO DAILY 5 days 02/24/23 #10 tabs Allergies Allergy/AdvReac Type Severity Reaction Status Date / Time penicillin V Allergy Intermediate rash Verified 02/24/23 07:31 aspirin [Aspirin] Allergy Mild RASH Verified 02/24/23 07:31 Penicillins Allergy Mild RASH Verified 02/24/23 07:31 tramadol AdvReac Intermediate abdominal Verified 02/24/23 07:31 pain Review of Systems Review of Systems: Chronic back pain exacerbation. Slight increased urinary frequency. Yes all other systems are reviewed and are negative PMFSH Past Medical History Onset Date is defined in the Problem List Problems that require an onset date and time if occurred within 24 hrs of arr ival to the ED Aortic Dissection and Rupture; Neurologic impairment; Cardiopulmonary Arrest; Endotracheal Intubation; Insertion or Replacement of Mechanical Circulatory Assi st Device Medical History (Updated 02/24/23 @ 11:07 by DAMIR Cabrera) Hearing difficulty of left ear Onychomycosis Bladder pain Thyroid nodule DM2 (diabetes mellitus, type 2) BPH (benign prostatic hyperplasia) GERD (gastroesophageal reflux disease) Hyperlipidemia LDL goal <100 Rotator cuff tear Obesity Insomnia Pure hypercholesterolemia Essential hypertension Diabetes mellitus Arthritis High blood pressure Asthma No known health problems Surgical History History of knee replacement procedure of right knee Family History Family History Father No problems noted. Mother Diabetes Hypertension Brother Throat cancer Social History Social History Household Members: Spouse Housing: Apartment Alcohol intake: former Patient Tobacco Use Status: Former Tobacco user Tobacco use type: Cigarette e-Cigarette/Vaping Use: Never Used Second Hand Smoke Exposure: No Advance Directives: No Advance Directives Information Provided: Yes service: No Current occupational status: disabled Cognitive needs: Yes Hearing needs: Yes Vision needs: Yes Physical Exam ED Vital Signs: Vital Signs - 24 hr 02/24/23 07:35 Temperature 98.1 F Pulse Rate 98 Respiratory Rate 20 Blood Pressure 125/62 Pulse Oximetry 99 Oxygen Delivery Method Room Air BMI result Body Mass Index 30.8 Const General: cooperative, healthy appearing, comfortable, no acute distress, well developed, alert, awake and Physically active Orientation/consciousness: oriented to person, oriented to place, oriented to time and patient oriented x3 HENMT Head: Yes normal to inspection, Yes No palpable skull fracture present, Yes normocephalic and Yes atraumatic Ears: hearing grossly normal bilaterally, external ears normal, TM's normal bilaterally, TM normal on the right, TM normal on the left, EAC's normal, mastoids normal and no periauricular adenopathy Throat: Yes posterior oropharynx normal, Yes tonsils normal and Yes uvula midline Eyes General: appearance normal, both eyes and all related structures Neck Neck: Yes normal visual inspection, Yes full ROM, Yes no lymphadenopathy, Yes no meningeal signs, Yes trachea midline, Yes supple, No anterior neck swelling and No tender Chest Chest palpation & inspection: normal inspection of the chest and normal palpa tion of entire chest wall Resp Effort & Inspection: normal respiratory effort and able to speak in complete sentences Auscultation: clear to auscultation bilaterally Cardio Jugular venous distension: no JVD Heart sounds: S1 normal heart sound present and S2 normal heart sound present GI Inspection: Yes normal to inspection Palpation (GI): Soft to palpation, not firm, nontender, no guarding and not rigid General: Yes no CVA tenderness Back/Spine/Pelvis Back: no CVA tenderness and back tenderness ( Lumbar) Skin General skin exam: no rashes or lesions noted, elasticity normal and turgor normal Neuro General: oriented to person, oriented to place, oriented to time, patient oriented x3, gait normal, tone normal, moves all extremities, Normal light touch and pain sensation, no meningeal signs, no focal motor deficits, CN's II-XI intact bilaterally and normal sensation to monofilament Extrem General: Yes normal to inspection and Yes full ROM Psych Appearance: grossly normal, well kempt and not disheveled Medications Administered Discontinued Medications Generic Name Dose Route Start Last Admin Trade Name Freq PRN Reason Stop Dose Admin Acetaminophen 975 mg 02/24/23 09:53 02/24/23 10:17 Acetaminophen 325 Mg Tablet PO 02/24/23 09:54 975 mg ONCE ONE Administration Prednisone 40 mg 02/24/23 10:06 02/24/23 10:17 Prednisone 20 Mg Tablet PO 02/24/23 10:07 40 mg ONCE ONE Administration Medical Decision Making Medical Decision Making [facility] Narrative: 67-year-old male history of diabetes high cholesterol chronic back pain presents to ED for chronic back pain exacerbation without any trauma. Patient denies any urinary/ bowel incontinence. Patient denies any abdominal pain flank pain, testicular pain, penile discharge or penile lesions. Pain meds UA ordered. 11:03am: urine negative for any blood or signs of infection. No need for new imaging. Patient denies any trauma or urinary/ bowel incontinence. Patient states no fever or chills. Not suspecting epidural abscess or cauda equinus syndrome. Not suspecting spinal fracture. Patient has history of lumbar radiculopathy. patient has normal gait. Negative for paralysis. Neuro exam intact Differential Diagnosis Differential Diagnoses: The differential diagnosis associated with the presentation includes ( lumbar radiculopathy, UTI, kidney stones, with scrotal pain) Lab Data MDM Lab Attestation statement: I reviewed the patient's lab results. Labs: Lab Results 02/24/23 02/24/23 Range/Units 10:15 10:20 POC Glucose 122 H (60-115) mg/dL Urine Color Yellow Urine Appearance Cloudy Urine pH >= 9.0 (5.0-9.0) Ur Specific Tyler 1.025 (1.005-1.025) Urine Protein 100 (2+) H (Neg-Trace) mg/dL Urine Glucose (UA) Negative (Negative) mg/dL Urine Ketones Negative (Negative) mg/dL Urine Blood Negative (Negative) Urine Nitrite Negative (Negative) Ur Leukocyte Esterase Negative (Negative) Urine RBC 0-2 (0-2) /HPF Urine WBC 0-5 (0-5) /HPF Ur Squamous Epith Cells 0-2 (0-2) /HPF Urine Bacteria None Seen (None Seen) Hyaline Casts 6-10 (0-2) /LPF External Record Review External record reviewed: Other ( prior visits) Prescription Management I considered prescription management with: Pain Medication Discharge Plan Discharge Clinical Impression: Lumbar radiculopathy Patient Disposition: Home, Self-Care Instructions: Lumbar Radiculopathy (ED) Additional Instructions: Recomendar seguimiento con el proveedor de atenci?n primaria. Regrese al s ervicio de urgencias inmediatamente si presenta cualquier incontinencia urinaria/intestinal, dolor abdominal, n?useas, v?mitos, dolor en el costado, fiebre, escalofr?os, disuria, hematuria, empeoramiento del dolor de espalda, debilidad/par?lisis de las extremidades inferiores, incapacidad para caminar, fiebre, escalofr?os o cualquier otro s?ntoma preocupante. Recommend follow-up with primary care provider. Return to the ED immediately for any urinary/ bowel incontinence, abdominal pain, nausea, vomiting, flank pain, fever, chills, dysuria, hematuria, worsening back pain, weakness/paralysis of lower extremities, inability to walk, fever, chills, or any other concerning symptoms. Prescriptions: New prednisone 20 mg tablet 40 mg PO DAILY 5 Days Qty: 10 0RF cyclobenzaprine 10 mg tablet 10 mg PO TID PRN (Reason: muscle spasm) 5 Days Qty: 15 0RF Rx Instructions: Side effect is drowsiness. Do not take at work or while driving. acetaminophen [Tylenol] 325 mg capsule 325 mg PO QID PRN (Reason: pain) 7 Days Qty: 28 0RF No Action (DME) FreeStyle Lite Strips Strip See Rx Instructions .ROUTE .MEDSUPPLY Qty: 200 3RF Rx Instructions: As directed twice a day (DME) lancets [FreeStyle Lancets] 28 gauge misc See Rx Instructions .ROUTE .MEDSUPPLY Qty: 200 3RF Rx Instructions: two time a day albuterol sulfate [ProAir HFA] 90 mcg/actuation HFA aerosol inhaler 1 inh inhalation QID PRN (Reason: shortness of breath or wheezing) Qty: 8.5 0RF metformin 500 mg tablet extended release 24 hr 1,000 mg PO BID 90 Days Qty: 360 2RF atorvastatin 40 mg tablet 40 mg PO BEDTIME Qty: 90 1RF lisinopril 10 mg tablet 10 mg PO DAILY Qty: 90 3RF zolpidem 10 mg tablet 10 mg PO BEDTIME PRN (Reason: sleep) 90 Days Qty: 90 0RF albuterol sulfate 2.5 mg /3 mL (0.083 %) solution for nebulization 2.5 mg inhalation Q4-6H PRN (Reason: shortness of breath or wheezing) Qty: 75 0RF dulaglutide 1.5 mg/0.5 mL pen injector 1.5 mg subcut QWEEK Qty: 6 1RF albuterol sulfate 90 mcg/actuation HFA aerosol inhaler 2 puff inhalation 6XD PRN (Reason: shortness of breath or wheezing) Qty: 6.7 0RF fluticasone propionate [Flovent HFA] 44 mcg/actuation HFA aerosol inhaler 1 puff inhalation BID 30 Days Qty: 10.6 6RF Rx Instructions: administer with spacer albuterol sulfate 0.63 mg/3 mL solution for nebulization 0.63 mg inhalation Q4-6H PRN (Reason: shortness of breath or wheezing) Qty: 75 0RF Magic Mouthwash Diphen/Lido/Antacid 1:1:1 240 mL suspension 10 ml PO .QID 3 Days Qty: 240 0RF Rx Instructions: Lidocaine Viscous 2 % 80mL; diphenhydramine 12.5 mg/5 mL 80mL; aluminum-mag hydrox-simeth [id number]/5mL 80mL albuterol sulfate 0.63 mg/3 mL solution for nebulization 0.63 mg inhalation Q4-6H PRN (Reason: shortness of breath or wheezing) Qty: 90 0RF albuterol sulfate 90 mcg/actuation HFA aerosol inhaler 2 puff inhalation Q4-6H PRN (Reason: shortness of breath or wheezing) Qty: 8 .5 0RF lorazepam 1 mg tablet 1 mg PO DAILY PRN (Reason: anxiety) Qty: 4 0RF albuterol sulfate 0.63 mg/3 mL solution for nebulization 0.63 mg inhalation QID PRN (Reason: bronchospasm) Qty: 75 0RF omeprazole 20 mg capsule,delayed release(DR/EC) 20 mg PO QAM 90 Days Qty: 90 1RF triamcinolone acetonide [Nasacort] 55 mcg aerosol,spray 1 spray intranasal DAILY 30 Days Qty: 16.9 1RF Rx Instructions: administer into each nostril doxycycline hyclate 100 mg tablet 100 mg PO BID 5 Days Qty: 10 0RF magnesium 250 mg tablet 250 mg PO DAILY 30 Days Qty: 30 0RF Stand Alone Forms: Work/School Release Interventions: ED Discharge Assessment Last Done: 02/24/23 11:22 Discharge Date/Time: 02/24/23 11:24 Print Language: Hebrew
[2023-02-24] MEDS: Acetaminophen 325 MG TABLET 975 MG PO (10:17)
[2023-02-24] MEDS: predniSONE 20 MG TABLET 40 MG PO (10:17)
[2023-02-24 10:25] LABS: Glucose, Whole Blood 122 mg/dL (60-115)
[2023-02-24 10:27] LABS: Appearance Urine Cloudy; Color Urine Yellow; Glucose Urine UA Negative (Negative); Leukocyte Esterase Urine Negative (Negative); Nitrite Urine Negative (Negative); PH >= 9.0 (5.0-9.0); Specific Gravity - Urine 1.025 (1.005-1.025); UMIC TRIGGER UACC YES; Urine Blood Negative (Negative); Urine Ketones Negative (Negative); Urine Protein 100 (2+) mg/dL (Neg-Trace)
[2023-02-24 10:38] LABS: Bacteria Urine None Seen (None Seen); RBC Urine 0-2 /HPF (0-2); Squamous Epithelial Cell Urine 0-2 /HPF (0-2); WBC Urine 0-5 /HPF (0-5)
== END 2023-02-24 11:24 | disposition home or self-care (01) ==
PROVIDERS: Physician Assistant; Emergency Provider Emergency Medicine; PCP Internal Medicine
DX: M54.16 Radiculopathy, lumbar region (principal); M54.50 Low back pain, unspecified; E11.9 Type 2 diabetes mellitus without complications; I10 Essential (primary) hypertension
CPT/HCPCS: 81001; 82947; 99283; 99284

== ENCOUNTER 2023-03-04 09:32 | Outpatient (REF) | payer OTHER, SELFPAY ==
[2023-03-04 10:55] LABS: MANUAL DIFF FLAG NO
[2023-03-04 11:54] LABS: Basophils Percent Auto 0.5 % (0-2); Eosinophils Absolute Auto 0.2 X10*3/uL (0.0-0.4); Hematocrit 42.2 % (42.0-52.0); Hemoglobin 14.1 g/dl (14.0-18.0); Imm Gran Abs Auto 0.03 X10*3/uL (0.00-0.03); Imm Gran Pct Auto 0.5 % (0.0-0.4); Lymphocytes Absolute Auto 1.4 X10*3/uL (1.2-4.9); Lymphocytes Percent Auto 23.6 % (20-40); Mean Corpuscular HGB Conc 33.4 g/dl (31.0-36.0); Mean Corpuscular Hemoglobin 29.1 pg (27.0-33.0); Mean Platelet Volume 10.5 fL (9.4-12.4); Monocytes Absolute Auto 0.5 X10*3/uL (0.1-1.2); Monocytes Percent Auto 9.5 % (2-11); Neutrophils Absolute Auto 3.6 x10*3/uL (2.0-8.3); Neutrophils Percent Auto 62.9 % (45-73); Platelet Count 203 X10*3/uL (160-400); Red Blood Count 4.85 X10*6/uL (4.60-5.80); Red Cell Distribution Width 12.4 % (11.0-16.0); White Blood Count 5.7 X10*3/uL (4.8-10.8)
[2023-03-04 12:51] LABS: Erythrocyte Sedimentation Rate 7 MM/HR (0-15)
[2023-03-05 16:47] LABS: IgA 187 mg/dL (70-320); IgG 898 mg/dL (600-1540); IgM 75 mg/dL (50-300)
[2023-03-05 19:09] LABS: Immunoglobulin E 194 kU/L (<OR=114)
== END 2023-03-04 09:33 | disposition home or self-care (01) ==
LOC: HO.LAB 09:32
PROVIDERS: PCP Internal Medicine; Visit Provider Hospitalist
DX: J45.40 Moderate persistent asthma, uncomplicated (principal); J30.9 Allergic rhinitis, unspecified; T78.40XA Allergy, unspecified, initial encounter
CPT/HCPCS: 36415; 82784; 82785; 85025; 85652; 99202

== ENCOUNTER 2023-03-04 09:32 | Outpatient (AMB) | payer OTHER, SELFPAY ==
--- NOTE | 2023-03-04 10:11 | MHC.OFFVIS ---
Intake Vital Signs 03/04/23 10:12 Height 6 ft 2 in Weight 244 lb 11.41 oz BMI 31.4 BP 128/70 Blood Pressure Location Lt brachial Position Sitting Pulse 90 Pulse Source Pulse Oximeter Pulse Oximetry (%) 97 Oxygen Delivery Method Room Air Intake Visit Reasons: Asthma Wastewater Technician Required: No Allergies aspirin [Aspirin] Allergy (Mild, Verified 03/04/23 10:17) RASH Penicillins Allergy (Mild, Verified 03/04/23 10:17) RASH tramadol Adverse Reaction (Intermediate, Verified 03/04/23 10:17) abdominal pain HPI HPI Comments History of Present Illness Details The patient is here for pulmonary evaluation. The patient is a 67-year-old gentleman with lifelong history of asthma. He states that he was diagnosed with asthma at the age of 3. He was not premature although his mom says that it all started with a respiratory virus when he was a . After that he is required respiratory medications. The patient also was a smoker but he quit 15 years ago. Denies any other significant exposures. Although he does state that he does feel like he has allergies and also chronic sinusitis. He was evaluated by ENT because he was getting a foul smell from his nose. He had a CT scan of the sinuses demonstrating some thickening of the sinuses. No evidence of any polyps. He had been using allergy medicines good effect. The patient has been using Flovent for his respiratory symptoms but has not been very helpful. He is used Advair in the past but isn't know why he stopped it. At this point the patient has had multiple evaluations in the ER because of asthma exacerbations. He also had previous lower respiratory infections. We did look at a CT scan from 2021 where he had a left lower lobe patchy pneumonia. His last chest x-ray all demonstrating some interstitial changes. At this point will maximize his respiratory therapy. He will need allergy testing. Will also request pulmonary function studies. [facility] Medical History (Updated 03/04/23 @ 12:58 by Gideon Tran MD) Chronic allergic rhinitis Allergies Hearing difficulty of left ear Onychomycosis Bladder pain Thyroid nodule DM2 (diabetes mellitus, type 2) BPH (benign prostatic hyperplasia) GERD (gastroesophageal reflux disease) Hyperlipidemia LDL goal <100 Rotator cuff tear Obesity Insomnia Pure hypercholesterolemia Essential hypertension Diabetes mellitus Arthritis High blood pressure Asthma No known health problems Surgical History History of knee replacement procedure of right knee Family History Father No problems noted. Mother Diabetes Hypertension Brother Throat cancer Social History Household Members: Spouse Housing: Apartment Alcohol intake: former Patient Tobacco Use Status: Former Tobacco user Tobacco use type: Cigarette e-Cigarette/Vaping Use: Never Used Second Hand Smoke Exposure: No service: No Current occupational status: disabled Cognitive needs: Yes Hearing needs: Yes Vision needs: Yes Review of Systems Const Denies fever(s) ENT Reports nasal congestion, Reports nasal discharge, Reports nasal obstruction and Reports post nasal drip Card Denies chest pain Resp Reports chest congestion, Reports cough and Reports wheezing GI Reports no additional complaints Musc Reports no additional complaints Skin/Breast Denies rash Roque/Lymph Denies lymphadenopathy Aller/Immun Reports wheezing Physical Exam Vital Signs: Last Vital Signs Pulse 90 03/04/23 10:12 BP 128/70 03/04/23 10:12 Pulse Ox 97 03/04/23 10:12 Oxygen Delivery Method Room Air 03/04/23 10:12 BMI result Body Mass Index 31.4 Const General: comfortable HEENT General nose exam: Abnormal mucous membranes and turbinates present erythematous Throat: Yes posterior oropharynx abnormal and Yes cobblestoning Neck Neck: Yes supple Chest Chest palpation & inspection: normal inspection of the chest Resp Effort & Inspection: normal respiratory effort and prolonged expiratory phase Auscultation: diminished lung sounds Cardio Heart sounds: S1 normal heart sound present and S2 normal heart sound present GI Palpation (GI): Soft to palpation Skin General skin exam: no rashes or lesions noted Extrem General: Yes no clubbing, cyanosis or edema Assessment & Plan Assessment & Plan (1) Asthma: Code(s): J45.909 - Unspecified asthma, uncomplicated Qualifiers: Asthma severity: moderate Asthma persistence: persistent Asthma complication type: uncomplicated Qualified Code(s): J45.40 - Moderate persistent asthma, uncomplicated (2) Chronic allergic rhinitis: Code(s): J30.9 - Allergic rhinitis, unspecified (3) Allergies: Code(s): T78.40XA - Allergy, unspecified, initial encounter Qualifiers: Encounter type: initial encounter Qualified Code(s): T78.40XA - Allergy, unspecified, initial encounter Plan Start Breztri 9 ( failed Flovent and Advair) [facility]U 3-4 months Orders: Orders Complete Blood Count Auto Diff Today J30.9 - Allergic rhinitis, unspecified, T78.40XA - Allergy, unspecified, initial encounter Erythrocyte Sedimentation Rate Today J30.9 - Allergic rhinitis, unspecified, T78.40XA - Allergy, unspecified, initial encounter Immunoglobulins,IgG IgA IgM Today J30.9 - Allergic rhinitis, unspecified, T78.40XA - Allergy, unspecified, initial encounter Immunoglobulin E Today J30.9 - Allergic rhinitis, unspecified, T78.40XA - Allergy, unspecified, initial encounter PFT pulmonary function test 3 Months J30.9 - Allergic rhinitis, unspecified, J45.909 - Unspecified asthma, uncomplicated, T78.40XA - Allergy, unspecified, initial encounter Resp Allergy Profile Region I Today J30.9 - Allergic rhinitis, unspecified, J45.909 - Unspecified asthma, uncomplicated, T78.40XA - Allergy, unspecified, initial encounter Medications: New ckqekblbaw-tejrwngl-bngaklrrkn 160-9-4.8 mcg/actuation (Breztri Aerosphere) 2 inhalations inhalation BID 10.7 grams 11RF montelukast 10 mg PO DAILY 30 days 30 tabs 11RF J45.909 - Unspecified asthma, uncomplicated Coding Level of Care Code New Pt Level 4 (82059) Diagnoses Moderate persistent asthma without complication J45.40 Asthma severity: moderate Asthma persistence: persistent Asthma complication type: uncomplicated Chronic allergic rhinitis J30.9 Allergy, initial encounter T78.40XA Encounter type: initial encounter Time Spent (min) 36
[2023-03-04 10:12] VITALS: BP 128/70; PULSE 90; O2SAT 97; BMI 31.4
== END 2023-03-04 10:38 | disposition home or self-care (01) ==
PROVIDERS: PCP Internal Medicine; Visit Provider Hospitalist
DX: J45.40 Moderate persistent asthma, uncomplicated (principal); J30.9 Allergic rhinitis, unspecified; T78.40XA Allergy, unspecified, initial encounter
CPT/HCPCS: 99204

== ENCOUNTER 2023-05-23 07:06 | Emergency (ER) | payer OTHER, SELFPAY ==
[2023-05-23] VITALS (7 sets, daily range): BP systolic 111–144; BP diastolic 64–81; PULSE 92–113; RESP 20–28; TEMP 36.4–36.6; O2SAT 96–99; BMI 30.3
--- NOTE | ~2023-05-23 | XR_ITS ---
EXAMINATION: XR CHEST CLINICAL INFORMATION: Dyspnea COMPARISON: Chest radiograph 12/30/2022, CT chest 02/06/2022 TECHNIQUE: Frontal view of the chest was obtained. FINDINGS: The heart and pulmonary vessels appear normal. No evidence of CHF. Some mild chronic increased reticular nodular markings are present. Left hemidiaphragm is again noted to be elevated. There is new patchy density seen at the left lung base consistent with atelectasis/infiltrate. No large effusions. XR/XR chest 1V IMPRESSION: New left lower lobe atelectasis/infiltrate.
[2023-05-23] MEDS: Albuterol Sulfate 5 MG, Albuterol/Iprat 2.5/0.5MG 3 ML 3 ML INHALE (07:30)
--- NOTE | 2023-05-23 07:30 | PC.NURSE ---
pt is alert and oriented, skin appropriate for ethnicity, respirations even and unlabored, ls diminished and audible wheezing, pt reports feeling sob with a cough x2 days using his inhaler without any improved and ran out of his albuterol solutions, having all over chest pain/tightness with the cough, and lower back pain 10/10. ns on the monitor and vs stable
--- NOTE | 2023-05-23 08:19 | ED_ITS ---
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 MD complaint: asthma attack Onset (ago): day(s) (1) Severity: moderate Context: ran out of meds Associated symptoms: dry cough Asthma History: childhood onset Related Data Home Medications ?Medication ?Instructions ?Recorded ?Confirmed amitriptyline 25 mg tablet 25 mg PO BEDTIME 03/04/23 citalopram 20 mg tablet 20 mg PO DAILY 03/04/23 nebulizers 03/04/23 Previous Rx's ?Medication ?Instructions ?Recorded blood sugar diagnostic (FreeStyle #200 ea 05/24/20 Lite Strips) lancets 28 gauge (FreeStyle #200 ea 07/06/20 Lancets) omeprazole 20 mg capsule,delayed 20 mg PO QAM 90 days #90 caps 01/08/22 release albuterol sulfate 90 mcg/actuation 1 inh inhalation QID PRN shortness 01/30/22 aerosol inhaler (ProAir HFA) of breath or wheezing #8.5 grams Magic Mouthwash 10 ml PO .QID 3 days #240 mL 04/02/22 Diphen/Lido/Antacid 1:1:1 240 mL suspension triamcinolone acetonide 55 mcg 1 spray intranasal DAILY 30 days 07/10/22 nasal spray aerosol (Nasacort) #16.9 mL doxycycline hyclate 100 mg tablet 100 mg PO BID 5 days #10 tabs 10/03/22 magnesium 250 mg tablet 250 mg PO DAILY 30 days #30 tabs 10/03/22 lisinopril 10 mg tablet 10 mg PO DAILY #90 tabs 10/20/22 albuterol sulfate 2.5 mg/3 mL 2.5 mg (3 mL) inhalation Q4-6H PRN 12/24/22 (0.083 %) solution for nebulization shortness of breath or wheezing #75 mL albuterol sulfate 0.63 mg/3 mL 0.63 mg (3 mL) inhalation QID PRN 12/30/22 solution for nebulization bronchospasm #75 mL lorazepam 1 mg tablet 1 mg PO DAILY PRN anxiety #4 tabs 12/30/22 dulaglutide 1.5 mg/0.5 mL 1.5 mg (0.5 mL) subcut QWEEK #6 mL 01/27/23 subcutaneous pen injector albuterol sulfate 90 mcg/actuation 2 puff inhalation 6XD PRN 02/15/23 aerosol inhaler shortness of breath or wheezing #6.7 grams fluticasone propionate 44 1 puff inhalation BID 30 days 02/15/23 mcg/actuation HFA aerosol inhaler #10.6 grams (Flovent HFA) acetaminophen 325 mg capsule 325 mg PO QID PRN pain 7 days #28 02/24/23 (Tylenol) caps cyclobenzaprine 10 mg tablet 10 mg PO TID PRN muscle spasm 5 02/24/23 days #15 tabs budesonide 160 mcg-glycopyr 9 2 inh inhalation BID #10.7 grams 03/04/23 mcg-formot 4.8 mcg/actuation HFA inhaler (Breztri Aerosphere) cetirizine 10 mg tablet 10 mg PO DAILY 30 days #30 tabs 03/04/23 montelukast 10 mg tablet 10 mg PO DAILY 30 days #30 tabs 03/04/23 atorvastatin 40 mg tablet 40 mg PO BEDTIME #90 tabs 03/22/23 zolpidem 10 mg tablet 10 mg PO BEDTIME PRN sleep 90 days 04/03/23 #90 tabs metformin 500 mg tablet,extended 1,000 mg (2 x 500 mg) PO BID 90 05/16/23 release 24 hr days #360 tabs albuterol sulfate 2.5 mg/3 mL 2.5 mg (3 mL) inhalation Q4-6H PRN 05/23/23 (0.083 %) solution for nebulization bronchospasm #75 mL budesonide 160 mcg-glycopyr 9 2 inh inhalation BID #10.7 grams 05/23/23 mcg-formot 4.8 mcg/actuation HFA inhaler cefuroxime axetil 500 mg tablet 500 mg PO BID 7 days #14 tabs 05/23/23 doxycycline hyclate 100 mg capsule 100 mg PO BID 7 days #14 caps 05/23/23 prednisone 20 mg tablet 40 mg (2 x 20 mg) PO DAILY 5 days 05/23/23 #10 tabs Allergies Allergy/AdvReac Type Severity Reaction Status Date / Time aspirin [Aspirin] Allergy Mild RASH Verified 05/23/23 07:12 Penicillins Allergy Mild RASH Verified 05/23/23 07:12 tramadol AdvReac Intermediate abdominal Verified 05/23/23 07:12 pain Review of Systems 2 Review of Systems: Constitutional : No Fever, No Chills ENT/Mouth : No Hoarseness, No sore throat, No Rhinorrhea Eyes: No Redness, No Discharge, No Vision Changes Cardiovascular : No Chest Pain, positive SOB, positive Dyspnea on Exertion, No Edema Respiratory : positive Cough, No Sputum, positive Wheezing, Gastrointestinal : No Nausea, No Vomiting, No Diarrhea, No abdominal Pain Genitourinary : No Dysuria, No Hematuria Musculoskeletal : No joint pain, No Myalgias Skin : No rash Neuro : No Weakness, No Numbness, No Headache Psych : No anxiety, depression Heme/Lymph: No Bruising, No Bleeding Endocrine : No Polyuria, No Polydipsia All other systems reviewed and are negative PMFSH Past Medical History Attestation statement: The following information was validated with the patient. Source: old records reviewed Medical History Chronic allergic rhinitis Allergies Hearing difficulty of left ear Onychomycosis Bladder pain Thyroid nodule DM2 (diabetes mellitus, type 2) BPH (benign prostatic hyperplasia) GERD (gastroesophageal reflux disease) Hyperlipidemia LDL goal <100 Rotator cuff tear Obesity Insomnia Pure hypercholesterolemia Essential hypertension Diabetes mellitus Arthritis High blood pressure Asthma No known health problems Surgical History History of knee replacement procedure of right knee Family History Family History Father No problems noted. Mother Diabetes Hypertension Brother Throat cancer Social History Social History Household Members: Spouse Housing: Apartment Alcohol intake: former Patient Tobacco Use Status: Former Tobacco user Tobacco use type: Cigarette Smoked in Last 30 Days: No e-Cigarette/Vaping Use: Never Used Second Hand Smoke Exposure: No Use of substances other than those prescribed or required for medical reasons: No Advance Directives: No Advance Directives Information Provided: Yes service: No Current occupational status: disabled Cognitive needs: Yes Hearing needs: Yes Vision needs: Yes Physical Exam 2 Vital Signs: Vital Signs: Last Vital Signs Temp 97.7 F 05/23/23 09:46 Pulse 113 H 05/23/23 09:46 Resp 20 05/23/23 09:46 BP 138/64 05/23/23 09:46 Pulse Ox 98 05/23/23 09:46 O2 Del Method Room Air 05/23/23 09:46 BMI result Body Mass Index 30.3 Appearance: Alert. Oriented X3. No acute distress. Eyes: Pupils equal, round and reactive to light. ENT: Pharynx normal. Neck: Normal inspection. Neck supple. CVS: Normal heart rate and rhythm. Pulses normal. Respiratory: No respiratory distress. Breath sounds diffuse end exp wheezes Abdomen: Soft and nontender. Skin: Skin warm and dry. Normal skin color. Normal skin turgor. Extremities: No lower extremity edema. No calf ttp Neuro: Oriented X 3. No motor deficit. No sensory deficit. Medications Administered Discontinued Medications Generic Name Dose Route Start Last Admin Trade Name Freq PRN Reason Stop Dose Admin Acetaminophen 975 mg 05/23/23 08:34 05/23/23 08:40 Acetaminophen 325 Mg Tablet PO 05/23/23 08:35 975 mg ONCE ONE Administration Albuterol Sulfate 5 mg/ 0 mg 05/23/23 07:28 05/23/23 07:30 Albuterol/Ipratropium 3 ml INHALE 05/23/23 07:29 1 each ONCE ONE Administration Albuterol Sulfate 2.5 mg/ 0 mg 05/23/23 08:22 05/23/23 08:24 Albuterol/Ipratropium 3 ml INHALE 05/23/23 08:23 1 dose ONCE ONE Administration Magnesium Sulfate 2 gm in 50 mls @ 150 mls/hr 05/23/23 08:17 05/23/23 09:30 Magnesium Sulfate/H2o IV 05/23/23 08:36 Infused ONCE ONE Infusion Methylprednisolone Sodium Succinate 125 mg 05/23/23 08:17 05/23/23 08:40 Methylprednisolone Sod Succ 125 Mg/2 Ml Vial IVPUSH 05/23/23 08:18 125 mg ONCE ONE Administration Medical Decision Making Medical Decision Making [facility] Narrative: 68 yo male with PMH of asthma ran out of his maintenance INH and albuterol for neb machine, DM2, HTN, HLD, here with c/o running out of his Bretzi and albuterol liquid for neb at this time will need basic labs, viral swab, CXR and start on neb treatments, IV steroids and IV magnesium. He has been seen here for this multiple times hopefully we can turn him around and start him back on his home medications. Differential Diagnosis Differential Diagnoses: The differential diagnosis associated with the presentation includes asthma due to lack of medications, viral syndrome Admission/Observation Consideration of admission/observation: Escalation of care including admission/observation considered no hypoxia clear lungs much improved stable for DC Lab Data [facility] Lab Attestation statement: I reviewed the patient's lab results. 05/23/23 08:28 05/23/23 08:28 Labs: Lab Results 05/23/23 05/23/23 Range/Units 08:27 08:28 WBC 6.8 (4.8-10.8) X10*3/uL RBC 5.23 (4.60-5.80) X10*6/uL Hgb 14.6 (14.0-18.0) g/dl Hct 42.7 (42.0-52.0) % MCV 81.6 (80.0-98.0) fL MCH 27.9 (27.0-33.0) pg MCHC 34.2 (31.0-36.0) g/dl RDW 11.9 (11.0-16.0) % Plt Count 174 (160-400) X10*3/uL MPV 11.0 (9.4-12.4) fL Immature Gran % (Auto) 0.4 (0.0-0.4) % Neut % (Auto) 65.7 (45-73) % Lymph % (Auto) 25.8 (20-40) % [place] % (Auto) 7.7 (2-11) % Eos % (Auto) 0.1 (0-4) % Baso % (Auto) 0.3 (0-2) % Lymph # (Auto) 1.8 (1.2-4.9) X10*3/uL [place] # (Auto) 0.5 (0.1-1.2) X10*3/uL Eos # (Auto) 0.0 (0.0-0.4) X10*3/uL Baso # (Auto) 0.0 (0.0-0.2) X10*3/uL Abs Immat Gran (auto) 0.03 (0.00-0.03) X10*3/uL Absolute Neuts (auto) 4.5 (2.0-8.3) x10*3/uL Absolute Nucleated RBC 0.000 (0.0-0.012) X10*3/uL Nucleated RBC % (auto) 0.0 (0.0-0.2) /100WBC Sodium 135 (135-145) mmol/L Potassium 5.0 (3.3-5.1) mmol/L Chloride 98 (96-108) mmol/L Carbon Dioxide 25 (22-29) mmol/L Anion Gap 17 (12-20) BUN 19 H (9-16) mg/dL Creatinine 0.82 (0.5-1.4) mg/dL Estim Creat Clear Calc 118.6 Estimated GFR > 60 Random Glucose 153 H (60-115) mg/dL Calcium 9.4 (8.4-10.2) mg/dL Influenza Type A (PCR) NEGATIVE (Negative) Influenza Type B (PCR) NEGATIVE (Negative) RSV RNA Qual (PCR) NEGATIVE (Negative) SARS-CoV-2 RNA (RT-PCR) NEGATIVE (Negative) Independent Interpretation I performed an independent interpretation of an: Plain X-Ray (left lower lobe disease) Radiology Impression Discussion of test interpretation with radiology: I have reviewed the radiologist's reading. External Record Review External record reviewed: Inpatient record Prescription Management I considered prescription management with: Antibiotic and Other Discharge Plan Discharge Clinical Impression: Asthma Pneumonia Qualifiers: Pneumonia type: due to unspecified organism Laterality: left Lung location: l ower lobe of lung Qualified Code(s): J18.9 - Pneumonia, unspecified organism Patient Disposition: Home, Self-Care Instructions: Asthma (ED), Pneumonia (ED) Additional Instructions: return for worsening symptoms difficulty breathing pain fevers or any other concerns Prescriptions: New cefuroxime axetil 500 mg tablet 500 mg PO BID 7 Days Qty: 14 0RF doxycycline hyclate 100 mg capsule 100 mg PO BID 7 Days Qty: 14 0RF albuterol sulfate 2.5 mg /3 mL (0.083 %) solution for nebulization 2.5 mg inhalation Q4-6H PRN (Reason: bronchospasm) Qty: 75 0RF [id number]-[id number] 160-9-4.8 mcg/actuation HFA aerosol inhaler 2 inh inhalation BID Qty: 10.7 0RF prednisone 20 mg tablet 40 mg PO DAILY 5 Days Qty: 10 0RF No Action (DME) FreeStyle Lite Strips Strip See Rx Instructions .ROUTE .MEDSUPPLY Qty: 200 3RF Rx Instructions: As directed twice a day (DME) lancets [FreeStyle Lancets] 28 gauge misc See Rx Instructions .ROUTE .MEDSUPPLY Qty: 200 3RF Rx Instructions: two time a day albuterol sulfate [ProAir HFA] 90 mcg/actuation HFA aerosol inhaler 1 inh inhalation QID PRN (Reason: shortness of breath or wheezing) Qty: 8.5 0RF lisinopril 10 mg tablet 10 mg PO DAILY Qty: 90 3RF albuterol sulfate 2.5 mg /3 mL (0.083 %) solution for nebulization 2.5 mg inhalation Q4-6H PRN (Reason: shortness of breath or wheezing) Qty: 75 0RF dulaglutide 1.5 mg/0.5 mL pen injector 1.5 mg subcut QWEEK Qty: 6 1RF albuterol sulfate 90 mcg/actuation HFA aerosol inhaler 2 puff inhalation 6XD PRN (Reason: shortness of breath or wheezing) Qty: 6.7 0RF fluticasone propionate [Flovent HFA] 44 mcg/actuation HFA aerosol inhaler 1 puff inhalation BID 30 Days Qty: 10.6 6RF Rx Instructions: administer with spacer cetirizine 10 mg tablet 10 mg PO DAILY 30 Days Qty: 30 11RF atorvastatin 40 mg tablet 40 mg PO BEDTIME Qty: 90 1RF zolpidem 10 mg tablet 10 mg PO BEDTIME PRN (Reason: sleep) 90 Days Qty: 90 0RF metformin 500 mg tablet extended release 24 hr 1,000 mg PO BID 90 Days Qty: 360 2RF Magic Mouthwash Diphen/Lido/Antacid 1:1:1 240 mL suspension 10 ml PO .QID 3 Days Qty: 240 0RF Rx Instructions: Lidocaine Viscous 2 % 80mL; diphenhydramine 12.5 mg/5 mL 80mL; aluminum-mag hydrox-simeth [id number]/5mL 80mL lorazepam 1 mg tablet 1 mg PO DAILY PRN (Reason: anxiety) Qty: 4 0RF albuterol sulfate 0.63 mg/3 mL solution for nebulization 0.63 mg inhalation QID PRN (Reason: bronchospasm) Qty: 75 0RF cyclobenzaprine 10 mg tablet 10 mg PO TID PRN (Reason: muscle spasm) 5 Days Qty: 15 0RF Rx Instructions: Side effect is drowsiness. Do not take at work or while driving. acetaminophen [Tylenol] 325 mg capsule 325 mg PO QID PRN (Reason: pain) 7 Days Qty: 28 0RF omeprazole 20 mg capsule,delayed release(DR/EC) 20 mg PO QAM 90 Days Qty: 90 1RF triamcinolone acetonide [Nasacort] 55 mcg aerosol,spray 1 spray intranasal DAILY 30 Days Qty: 16.9 1RF Rx Instructions: administer into each nostril doxycycline hyclate 100 mg tablet 100 mg PO BID 5 Days Qty: 10 0RF magnesium 250 mg tablet 250 mg PO DAILY 30 Days Qty: 30 0RF (DME) nebulizers Misc See Rx Instructions .ROUTE Rx Instructions: As directed amitriptyline 25 mg tablet 25 mg PO BEDTIME citalopram 20 mg tablet 20 mg PO DAILY Oscar Aerosphere 160-9-4.8 mcg/actuation HFA aerosol inhaler 2 inh inhalation BID Qty: 10.7 11RF montelukast 10 mg tablet 10 mg PO DAILY 30 Days Qty: 30 11RF Print Language: Occitan
[2023-05-23] MEDS: Albuterol Sulfate 2.5 MG, Albuterol/Iprat 2.5/0.5MG 3 ML 3 ML INHALE (08:24)
--- NOTE | 2023-05-23 08:32 | PC.NURSE ---
pt is still wheezing and diminished after the breathing treatment but some improvement
[2023-05-23 08:33] LABS: MANUAL DIFF FLAG NO
[2023-05-23 08:39] LABS: Basophils Percent Auto 0.3 % (0-2); Eosinophils Percent Auto 0.1 % (0-4); Hematocrit 42.7 % (42.0-52.0); Hemoglobin 14.6 g/dl (14.0-18.0); Imm Gran Abs Auto 0.03 X10*3/uL (0.00-0.03); Imm Gran Pct Auto 0.4 % (0.0-0.4); Lymphocytes Absolute Auto 1.8 X10*3/uL (1.2-4.9); Lymphocytes Percent Auto 25.8 % (20-40); Mean Corpuscular HGB Conc 34.2 g/dl (31.0-36.0); Mean Corpuscular Hemoglobin 27.9 pg (27.0-33.0); Mean Corpuscular Volume 81.6 fL (80.0-98.0); Monocytes Absolute Auto 0.5 X10*3/uL (0.1-1.2); Monocytes Percent Auto 7.7 % (2-11); Neutrophils Absolute Auto 4.5 x10*3/uL (2.0-8.3); Neutrophils Percent Auto 65.7 % (45-73); Platelet Count 174 X10*3/uL (160-400); Red Blood Count 5.23 X10*6/uL (4.60-5.80); Red Cell Distribution Width 11.9 % (11.0-16.0); White Blood Count 6.8 X10*3/uL (4.8-10.8)
[2023-05-23] MEDS: Acetaminophen 325 MG TABLET 975 MG PO (08:40)
[2023-05-23] MEDS: Magnesium Sulfate/H2O 2 GM/50 ML PIGGYBACK IV (08:40)
[2023-05-23] MEDS: methylPREDNISolone Sod Succ 125 MG/2 ML VIAL IVPUSH (08:40)
[2023-05-23 08:51] LABS: Anion Gap 17 (12-20); Blood Urea Nitrogen 19 mg/dL (9-16); Calcium 9.4 mg/dL (8.4-10.2); Carbon Dioxide 25 mmol/L (22-29); Chloride 98 mmol/L (96-108); Creatinine Clr Calc Pharmacy 118.6; Estimated Glomerular Filt Rate > 60; Glucose Random 153 mg/dL (60-115); Sodium 135 mmol/L (135-145)
[2023-05-23 09:11] LABS: Influenza A PCR NEGATIVE (Negative); Influenza B PCR NEGATIVE (Negative); Resp Syncy Virus RNA Qual PCR NEGATIVE (Negative); SARS COV2 PCR INHOUSE NEGATIVE (Negative)
--- NOTE | 2023-05-23 09:49 | PC.NURSE ---
pt reports feeling better, ls improved no wheezing at this time, but still slightly diminished on the right lower lobe
--- NOTE | 2023-05-23 09:58 | MHC.EDTECH ---
pt voided 250mL of urine into urinal
== END 2023-05-23 10:59 | disposition home or self-care (01) ==
PROVIDERS: Emergency Provider Emergency Medicine; PCP Internal Medicine
DX: J18.9 Pneumonia, unspecified organism (principal); J45.909 Unspecified asthma, uncomplicated; R06.02 Shortness of breath; Z11.52 Encounter for screening for COVID-19; Z20.822 Contact with and (suspected) exposure to COVID-19; Z87.891 Personal history of nicotine dependence; Z79.899 Other long term (current) drug therapy
CPT/HCPCS: 0241U; 71045; 80048; 85025; 94640; 96365; 96375; 99284; 99285; J2919; J2930; J3475

== ENCOUNTER 2023-07-05 10:22 | Outpatient (AMB) | payer OTHER, SELFPAY ==
[2023-07-05 10:47] VITALS: BP 104/62; PULSE 93; O2SAT 97; BMI 30.3
--- NOTE | 2023-07-05 10:47 | A.OFFVIS_ITS ---
Vital Signs 07/05/23 10:47 Height 6 ft 2 in Weight 235 lb 14.314 oz BMI 30.3 BP 104/62 Blood Pressure Location Rt brachial Position Sitting Pulse 93 Pulse Source Doppler Pulse Oximetry (%) 97 Oxygen Delivery Method Room Air Intake Visit Reasons: Asthma Allergies aspirin [Aspirin] Allergy (Mild, Verified 07/05/23 10:52) RASH Penicillins Allergy (Mild, Verified 07/05/23 10:52) RASH tramadol Adverse Reaction (Intermediate, Verified 07/05/23 10:52) abdominal pain HPI Comments Details: The patient is a 68-year-old gentleman with lifelong history of asthma. He states that he was diagnosed with asthma at the age of 3. He was not premature although his mom says that it all started with a respiratory virus when he was a . After that he is required respiratory medications. The patient also was a smoker but he quit 15 years ago. Denies any other significant exposures. Although he does state that he does feel like he has allergies and also chronic sinusitis. He was evaluated by ENT because he was getting a foul smell from his nose. He had a CT scan of the sinuses demonstrating some thickening of the sinuses. No evidence of any polyps. He had been using allergy medicines good effect. The patient has been using Flovent for his respiratory symptoms but has not been very helpful. He is used Advair in the past but isn't know why he stopped it. At this point the patient has had multiple evaluations in the ER because of asthma exacerbations. He also had previous lower respiratory infections. We did look at a CT scan from 2021 where he had a left lower lobe patchy pneumonia. His last chest x-ray all demonstrating some interstitial changes. At this point will maximize his respiratory therapy. He will need allergy testing. Will also request pulmonary function studies. 07/05/2023 the patient is here for a pulmonary follow-up visit. Overall he is doing well. Continues on the Breztri if major. He has been using it 3 to 4 times a day. As needed. I tried a instructed how to use it correctly. He will use it just twice a day. I will make sure to have an albuterol inhaler availa ble for him that he can use as needed in between. He did have PFTs and I do not see any blood work recently. Should have a chest x-ray whenever able to have a good baseline since the patient is doing better. The last x-ray did demonstrate out pneumonia or airspace disease in the left side. Otherwise patient is without any other complaints will continue with the current respiratory therapy. He should have a chest x-ray prior to the next visit. [facility] Medical History Chronic allergic rhinitis Allergies Hearing difficulty of left ear Onychomycosis Bladder pain Thyroid nodule DM2 (diabetes mellitus, type 2) BPH (benign prostatic hyperplasia) GERD (gastroesophageal reflux disease) Hyperlipidemia LDL goal <100 Rotator cuff tear Obesity Insomnia Pure hypercholesterolemia Essential hypertension Diabetes mellitus Arthritis High blood pressure Asthma No known health problems Surgical History History of knee replacement procedure of right knee Family History Father No problems noted. Mother Diabetes Hypertension Brother Throat cancer Social History Household Members: Spouse Housing: Apartment Alcohol intake: former Patient Tobacco Use Status: Former Tobacco user Tobacco use type: Cigarette e-Cigarette/Vaping Use: Never Used Second Hand Smoke Exposure: No service: No Current occupational status: disabled Cognitive needs: Yes Hearing needs: Yes Vision needs: Yes Review of Systems Const Denies fever(s) ENT Reports nasal congestion, Reports nasal discharge, Reports nasal obstruction and Reports post nasal drip Card Denies chest pain Resp Reports chest congestion, Reports cough and Reports wheezing GI Reports no additional complaints Musc Reports no additional complaints Skin/Breast Denies rash Roque/Lymph Denies lymphadenopathy Aller/Immun Reports wheezing Physical Exam Vital Signs: Last Vital Signs Pulse 93 07/05/23 10:47 BP 104/62 07/05/23 10:47 Pulse Ox 97 07/05/23 10:47 Oxygen Delivery Method Room Air 07/05/23 10:47 BMI result Body Mass Index 30.3 Const General: comfortable HEENT General nose exam: Abnormal mucous membranes and turbinates present erythematous Throat: Yes posterior oropharynx abnormal and Yes cobblestoning Neck Neck: Yes supple Chest Chest palpation & inspection: normal inspection of the chest Resp Effort & Inspection: normal respiratory effort and prolonged expiratory phase Auscultation: diminished lung sounds Cardio Heart sounds: S1 normal heart sound present and S2 normal heart sound present GI Palpation (GI): Soft to palpation Skin General skin exam: no rashes or lesions noted Extrem General: Yes no clubbing, cyanosis or edema Assessment & Plan Assessment & Plan (1) Asthma: Code(s): J45.909 - Unspecified asthma, uncomplicated Category: Medical Qualifiers: Asthma complication type: uncomplicated Asthma persistence: persistent Asthma severity: moderate Qualified Code(s): J45.40 - Moderate persistent asthma, uncomplicated (2) Chronic allergic rhinitis: Code(s): J30.9 - Allergic rhinitis, unspecified Category: Medical (3) Allergies: Code(s): T78.40XA - Allergy, unspecified, initial encounter Category: Medical Qualifiers: Encounter type: initial encounter Qualified Code(s): T78.40XA - Allergy, unspecified, initial encounter (4) Pneumonia: Code(s): J18.9 - Pneumonia, unspecified organism Category: Medical Qualifiers: Laterality: left Lung location: lower lobe of lung Pneumonia type: due to unspecified organism Qualified Code(s): J18.9 - Pneumonia, unspecified organism Plan continue Breztri CHRISTIAN as needed CXR continue Singulair F/U 6-8 months Orders: Orders XR chest 2V 07/05/23 J18.9 - Pneumonia, unspecified organism Medications: Changed From albuterol sulfate 90 mcg/actuation 2 puffs inhalation 6XD PRN 6.7 grams 0RF shortness of breath or wheezing To albuterol sulfate 90 mcg/actuation 2 puffs inhalation Q6H PRN 6.7 grams 11RF shortness of breath or wheezing 30 days Coding Level of Care Code Est Pt Level 4 (45291) Diagnoses Moderate persistent asthma without complication J45.40 Asthma complication type: uncomplicated Asthma persistence: persistent Asthma severity: moderate Chronic allergic rhinitis J30.9 Allergy, initial encounter T78.40XA Encounter type: initial encounter Pneumonia J18.9 Laterality: left Lung location: lower lobe of lung Pneumonia type: due to unspecified organism Time Spent (min) 16
== END 2023-07-05 11:09 | disposition home or self-care (01) ==
PROVIDERS: PCP Internal Medicine; Visit Provider Hospitalist
DX: J45.40 Moderate persistent asthma, uncomplicated (principal); J30.9 Allergic rhinitis, unspecified; T78.40XA Allergy, unspecified, initial encounter; J18.9 Pneumonia, unspecified organism
CPT/HCPCS: 99214

== ENCOUNTER → 2023-07-05 10:22 | Outpatient (BNVA) | payer OTHER, SELFPAY | PROVIDERS: PCP Internal Medicine; Visit Provider Hospitalist | DX: J45.40 Moderate persistent asthma, uncomplicated (principal); J30.9 Allergic rhinitis, unspecified; J18.9 Pneumonia, unspecified organism; T78.40XA Allergy, unspecified, initial encounter | CPT/HCPCS: 99212 ==

== ENCOUNTER 2023-10-15 06:07 | Emergency (ER) | payer OTHER, SELFPAY ==
--- NOTE | ~2023-10-15 | XR_ITS ---
EXAMINATION: XR LUMBOSACRAL SPINE CLINICAL INFORMATION: Mechanical fall, lumbar spine injury and pain COMPARISON: Lumbar spine x-ray on 04/28/2022 TECHNIQUE: Three views of the lumbosacral spine. FINDINGS: The visualized lumbar vertebrae are intact with normal alignment. Intervertebral disc spaces are normal. Bilateral 12th ribs are rudimentary XR/XR lumbar spine 2-3V IMPRESSION: 1. Unchanged Normal lumbosacral spine x-ray. 2. No fracture or dislocation of lumbar spine is seen. Electronically signed by: Svetlana Kearney MD 10/15/2023 08:03 AM EDT
--- NOTE | ~2023-10-15 | CT_ITS ---
EXAMINATION: CT HEAD WITHOUT CONTRAST CLINICAL INFORMATION: Mechanical fall. Blunt head trauma without loss of consciousness, significant head injury and posttraumatic headache. COMPARISON: CT scan of brain on 10/08/2020 TECHNIQUE: Contiguous axial imaging was performed from the skull base to vertex without intravenous administration of contrast. This CT examination was performed using dose optimization techniques as appropriate, variously including the following: *Automated exposure control *Adjustment of mA and/or kV according to patient size (this includes techniques or standardized protocols for targeted exams where dose is matched to indication/reason for exam; i.e. extremities or head) *Use of iterative reconstruction technique DLP: 762.05 mGy-cm FINDINGS: Ventricles, sulci and cisterns are dilated. There is no midline shift, no abnormal intra- or extra- axial fluid accumulation. Lee and white matter differentiation is normal. Bone window images show no evidence of skull fracture. Persistent metopic suture is again visualized. CT/CT head/brain wo IV con IMPRESSION: 1. Mild age related cerebral atrophy. 2. No intracranial hemorrhage or skull fracture is seen. 3. No evidence of space occupying lesion could be found. 4. The current plain CT scan of the brain shows no diagnostic evidence of acute cerebral infarction. Electronically signed by: Svetlana Kearney MD 10/15/2023 08:15 AM EDT
--- NOTE | ~2023-10-15 | CT_ITS ---
EXAMINATION: CT CERVICAL SPINE WITHOUT CONTRAST CLINICAL INFORMATION: Mechanical fall, neck injury and pain COMPARISON: Cervical spine x-ray on 04/20/2022 TECHNIQUE: Multiple 3 and 0.6 mm axial images were obtained from base of skull to T1 levels without IV contrast enhancement. Sagittal and coronal 2.0 mm bone window images were reconstructed from axial image data. This CT examination was performed using dose optimization techniques as appropriate, variously including the following: *Automated exposure control *Adjustment of mA and/or kV according to patient size (this includes techniques or standardized protocols for targeted exams where dose is matched to indication/reason for exam; i.e. extremities or head) *Use of iterative reconstruction technique DLP: 532.59 mGy-cm FINDINGS: C1/C2: Bony structures are intact with normal alignment. There is no spinal stenosis. C2/C3: Bony structures are intact with normal alignment. There is no spinal stenosis. There is mild asymmetric right C2/C3 neural foraminal stenosis. Bilateral apophyseal joints are intact with normal alignment. There is bony ankylosis of the right apophyseal joint. C3/C4: Bony structures are intact with normal alignment. There is no spinal stenosis. Bilateral C3/C4 neuroforamina are patent. Bilateral apophyseal joints are intact with normal alignment. C4/C5: Bony structures are intact with normal alignment. There is no spinal stenosis. Bilateral C4/C5 neuroforamina are patent. Bilateral apophyseal joints are intact with normal alignment. C5/C6: Bony structures are intact with normal alignment. There is marked decrease in C5-C6 disc height. Anterior and posterior syndesmophytes are present. There is no spinal stenosis. There is moderate asymmetric left C5/C6 neural foraminal stenosis. Bilateral apophyseal joints are intact with normal alignment. C6/C7: Bony structures are intact with normal alignment. Anterior bridging syndesmophytes are present. A prominent right parasagittal posterior inferior C6 syndesmophyte is seen impinging the right anterior thecal sac. There is no spinal stenosis. Bilateral C6/C7 neuroforamina are patent. Bilateral apophyseal joints are intact with normal alignment. C7/T1: Bony structures are intact with normal alignment. There is no spinal stenosis. Bilateral C7/T1 neuroforamina are patent. Bilateral apophyseal joints are intact with normal alignment. CT/CT cervical spine wo IV con IMPRESSION: 1. No evidence of acute fracture or dislocation. 2. Advanced C5-C6 degenerative cervical disc disease, Moderate asymmetric left C5/C6 neural foraminal stenosis. 3. Mild asymmetric right C2/C3 neural foraminal stenosis. 4. Anterior and posterior syndesmophytes are present at C5-C6 and C6-C7. A prominent right parasagittal posterior inferior C6 syndesmophyte is seen impinging the right anterior thecal sac. 5. Multilevel cervical spondylosis, right-sided C2-C3 apophyseal joint and bony ankylosis. Fleischner guidelines were followed. Electronically signed by: Svetlana Kearney MD 10/15/2023 08:26 AM EDT
--- NOTE | ~2023-10-15 | XR_ITS ---
EXAMINATION: XR SHOULDER, RIGHT CLINICAL INFORMATION: Mechanical fall, right shoulder injury and pain COMPARISON: Right shoulder x-ray on 01/23/2020 TECHNIQUE: AP external rotation, Grashey, scapular Y views of the right shoulder. FINDINGS: BONES: Bony structures are intact. There is no focal bone destruction or periosteal reaction seen. JOINTS: Alignment of joints is normal. SOFT TISSUE: Soft tissue is normal. No radiopaque foreign body or abnormal air collection is seen. XR/XR shoulder RT min 2V IMPRESSION: 1. Unchanged Normal x-rays of right shoulder. No fracture or dislocation or signs of osteomyelitis are found. Electronically signed by: Svetlana Kearney MD 10/15/2023 07:58 AM EDT
--- NOTE | ~2023-10-15 | XR_ITS ---
EXAMINATION: XR SHOULDER, LEFT CLINICAL INFORMATION: Fell down, left shoulder injury and pain COMPARISON: Left shoulder x-ray on 10/18/2018 TECHNIQUE: AP external rotation, Grashey, scapular Y, and axillary views of the left shoulder. FINDINGS: BONES: Bony structures are intact. Persistent inferior lateral left acromial bony protuberance is seen. There is no focal bone destruction or periosteal reaction seen. JOINTS: Alignment of joints is normal. SOFT TISSUE: Soft tissue is normal. No radiopaque foreign body or abnormal air collection is seen. XR/XR shoulder LT min 2V IMPRESSION: 1. Unchanged left subacromial bony spur, could impinge on the rotator cuff. 2. No fracture or dislocation or signs of osteomyelitis are found. Electronically signed by: Svetlana Kearney MD 10/15/2023 08:01 AM EDT
[2023-10-15 06:10] VITALS: BP 124/63; PULSE 93; RESP 18; TEMP 36.8; O2SAT 97; BMI 30.8
--- NOTE | 2023-10-15 06:27 | ED.FALL ---
HPI - Fall General Chief Complaint: Fall Stated Complaint: Back of Head/Back Pain Time Seen by Provider: 10/15/23 06:26 Source: patient Mode of arrival: ambulatory Limitations: no limitations History of Present Illness ED Provider: Celestino Nicole PA-C HPI Narrative: 68-year-old male with a history of asthma, DM 2, HTN, HLD, history of left-sided rotator cuff tear who presents to the ER for evaluation after a fall. He notes that he had a nightmare and was going to get out of bed when he fell, landing primarily on his left shoulder. He denies any head strike or LOC and states that his primary complaints are bilateral shoulder pain and lower back pain. Of note, he has had chronic pain relating to his rotator cuffs L>R for several years and was last seen by Dr. Perkins of [facility] in 2019 where they decided against surgery and to follow up PRN. He notes the pain has been worsened since falling and that he is unable to lift his arms completely. Patient denies any fevers, chills, chest pain, palpitations, shortness of breath, difficulty breathing outside of his baseline, abdominal pain, nausea, or vomiting at this time. MD complaint: fall Onset (ago): hour(s) Fall from: out of bed Place fall occurred: home Loss of consciousness: none Prolonged down time: no Symptoms prior to fall: none Location of injury: back (lower back) Location of injury - extremities: bilateral: shoulder Severity: moderate Quality: aching Associated symptoms (after fall): neck pain Related Data Home Medications ?Medication ?Instructions ?Recorded ?Confirmed amitriptyline 25 mg tablet 25 mg PO BEDTIME 03/04/23 citalopram 20 mg tablet 20 mg PO DAILY 03/04/23 nebulizers 03/04/23 Previous Rx's ?Medication ?Instructions ?Recorded blood sugar diagnostic (FreeStyle #200 ea 05/24/20 Lite Strips) lancets 28 gauge (FreeStyle #200 ea 07/06/20 Lancets) omeprazole 20 mg capsule,delayed 20 mg PO QAM 90 days #90 caps 01/08/22 release albuterol sulfate 90 mcg/actuation 1 inh inhalation QID PRN shortness 01/30/22 aerosol inhaler (ProAir HFA) of breath or wheezing #8.5 grams Magic Mouthwash 10 ml PO .QID 3 days #240 mL 04/02/22 Diphen/Lido/Antacid 1:1:1 240 mL suspension triamcinolone acetonide 55 mcg 1 spray intranasal DAILY 30 days 07/10/22 nasal spray aerosol (Nasacort) #16.9 mL doxycycline hyclate 100 mg tablet 100 mg PO BID 5 days #10 tabs 10/03/22 magnesium 250 mg tablet 250 mg PO DAILY 30 days #30 tabs 10/03/22 lisinopril 10 mg tablet 10 mg PO DAILY #90 tabs 10/20/22 albuterol sulfate 2.5 mg/3 mL 2.5 mg (3 mL) inhalation Q4-6H PRN 12/24/22 (0.083 %) solution for nebulization shortness of breath or wheezing #75 mL albuterol sulfate 0.63 mg/3 mL 0.63 mg (3 mL) inhalation QID PRN 12/30/22 solution for nebulization bronchospasm #75 mL lorazepam 1 mg tablet 1 mg PO DAILY PRN anxiety #4 tabs 12/30/22 fluticasone propionate 44 1 puff inhalation BID 30 days 02/15/23 mcg/actuation HFA aerosol inhaler #10.6 grams (Flovent HFA) acetaminophen 325 mg capsule 325 mg PO QID PRN pain 7 days #28 02/24/23 (Tylenol) caps cyclobenzaprine 10 mg tablet 10 mg PO TID PRN muscle spasm 5 02/24/23 days #15 tabs budesonide 160 mcg-glycopyr 9 2 inh inhalation BID #10.7 grams 03/04/23 mcg-formot 4.8 mcg/actuation HFA inhaler (Breztri Aerosphere) cetirizine 10 mg tablet 10 mg PO DAILY 30 days #30 tabs 03/04/23 montelukast 10 mg tablet 10 mg PO DAILY 30 days #30 tabs 03/04/23 metformin 500 mg tablet,extended 1,000 mg (2 x 500 mg) PO BID 90 05/16/23 release 24 hr days #360 tabs albuterol sulfate 2.5 mg/3 mL 2.5 mg (3 mL) inhalation Q4-6H PRN 05/23/23 (0.083 %) solution for nebulization bronchospasm #75 mL budesonide 160 mcg-glycopyr 9 2 inh inhalation BID #10.7 grams 05/23/23 mcg-formot 4.8 mcg/actuation HFA inhaler cefuroxime axetil 500 mg tablet 500 mg PO BID 7 days #14 tabs 05/23/23 doxycycline hyclate 100 mg capsule 100 mg PO BID 7 days #14 caps 05/23/23 prednisone 20 mg tablet 40 mg (2 x 20 mg) PO DAILY 5 days 05/23/23 #10 tabs zolpidem 10 mg tablet 10 mg PO BEDTIME PRN sleep 90 days 06/17/23 #90 tabs albuterol sulfate 90 mcg/actuation 2 puff inhalation Q6H PRN 07/05/23 aerosol inhaler shortness of breath or wheezing 30 days #6.7 grams dulaglutide 1.5 mg/0.5 mL 1.5 mg (0.5 mL) subcut QWEEK #6 mL 08/29/23 subcutaneous pen injector atorvastatin 40 mg tablet 40 mg PO BEDTIME #90 tabs 09/30/23 acetaminophen 500 mg tablet 1,000 mg (2 x 500 mg) PO Q6H PRN 10/15/23 (Tylenol Extra Strength) pain #20 tabs cyclobenzaprine 10 mg tablet 10 mg PO TID PRN muscle spasm #10 10/15/23 tabs lidocaine 5 % topical patch 1 patch topical DAILY #15 ea 10/15/23 Allergies Allergy/AdvReac Type Severity Reaction Status Date / Time aspirin [Aspirin] Allergy Mild RASH Verified 10/15/23 06:21 Penicillins Allergy Mild RASH Verified 10/15/23 06:21 tramadol AdvReac Intermediate abdominal Verified 10/15/23 06:21 pain Review of Systems Review of Systems: Yes all other systems are reviewed and are negative Constitutional: Constitutional: Reports no additional constitutional complaints, Denies chills and Denies fever(s) Eyes: Eyes: Reports no additional eye complaints ENT: Reports system reviewed and no additional complaints, except as documented Cardiovascular: Cardiovascular: Reports no additional cardiovascular complaints, Denies chest pain, Denies Loss of Consciousness, Denies palpitations and Denies dyspnea Respiratory: Respiratory: Reports no additional respiratory complaints and Denies dyspnea Gastrointestinal: Gastrointestinal: Reports no additional gastrointestinal complaints, Denies abdominal pain, Denies nausea and Denies vomiting Genitourinary: Genitourinary: Reports no additional male genitourinary complaints Musculoskeletal: Musculoskeletal: Reports as per HPI, Reports back pain (lower back pain) and Reports limited range of motion (decreased ROM in bilat shoulders) Integumentary/Breasts: Skin/Breast: Reports system reviewed and no additional complaints, except as docu Neurologic: Reports system reviewed and no additional complaints, except as documented Psychiatric: Psychiatric: Reports no additional psychiatric complaints Endocrine: Endocrine: Reports no additional endocrine complaints and Denies palpitations Hematologic/Lymphatic: Hematologic/Lymphatic: Reports no additional hematologic/lymphatic complaints Allergic/Immunologic: Allergic/Immunologic: Reports no additional allergic/immunologic complaints [facility] Past Medical History Medical History Chronic allergic rhinitis Allergies Hearing difficulty of left ear Onychomycosis Bladder pain Thyroid nodule DM2 (diabetes mellitus, type 2) BPH (benign prostatic hyperplasia) GERD (gastroesophageal reflux disease) Hyperlipidemia LDL goal <100 Rotator cuff tear Obesity Insomnia Pure hypercholesterolemia Essential hypertension Diabetes mellitus Arthritis High blood pressure Asthma No known health problems Surgical History History of knee replacement procedure of right knee Family History Family History Father No problems noted. Mother Diabetes Hypertension Brother Throat cancer Social History Social History Household Members: Spouse Housing: Apartment Alcohol intake: former Patient Tobacco Use Status: Former Tobacco user Tobacco use type: Cigarette e-Cigarette/Vaping Use: Never Used Second Hand Smoke Exposure: No Advance Directives: No Advance Directives Information Provided: Yes Do you have a plan to hurt others: No Plan service: No Current occupational status: disabled Cognitive needs: Yes Hearing needs: Yes Vision needs: Yes Physical Exam Vital Signs: Vital Signs: Last Vital Signs Temp 98.0 F 10/15/23 09:30 Pulse 79 10/15/23 09:30 Resp 14 10/15/23 09:30 BP 128/67 10/15/23 09:30 Pulse Ox 98 10/15/23 09:30 O2 Del Method Room Air 10/15/23 09:30 BMI result Body Mass Index 30.8 Appearance: Alert. Oriented X3. No acute distress. Head: normocephalic, atraumatic. Eyes: EOMI Neck: Normal inspection. Neck supple. tenderness of lower neck in the region of C7. normal ROM CVS: Normal heart rate and rhythm. Pulses normal. Respiratory: No respiratory distress, regular work of breathing without accessory muscle use. Skin: Skin warm and dry. Normal skin color. Normal skin turgor. No rashes. Extremities: No lower extremity edema. No joint swelling. MSK: minimal tenderness to palpation throughout bilateral shoulders in a generalized pattern, no gross deformities, ROM limited secondary to pain + empty can test bilaterally + lift off test bilaterally Neuro/psych: Oriented X 3. No motor deficit. No sensory deficit. Normal speech and cognition. Medications Administered Discontinued Medications Generic Name Dose Route Start Last Admin Trade Name Freq PRN Reason Stop Dose Admin Acetaminophen 975 mg 10/15/23 07:55 10/15/23 08:48 Acetaminophen 325 Mg Tablet PO 10/15/23 07:56 975 mg ONCE ONE Administration Lidocaine 1 patch 10/15/23 07:55 10/15/23 08:48 Lidocaine 4 % Patch Adh..Patch TRANSDERMA 10/15/23 07:56 1 patch ONCE ONE Administration Protocol Medical Decision Making Medical Decision Making MDM Narrative: Donald is a 68 year old male with a past medical history of asthma, DM 2, hypertension, hyperlipidemia, and a history of a chronic left sided rotator cuff tear who presents to the ED today for evaluation following a fall. He notes that he had a nightmare and was going to get out of bed when he fell, landing primarily on his left shoulder. He denies any head strike or LOC and states that his primary complaints are bilateral shoulder pain and lower back pain. Of note, he has had chronic pain relating to his rotator cuffs L>R for several years and was last seen by Dr. Perkins of [facility] in 2020 where they decided against surgery and to follow up PRN. He notes the pain has been worsened since falling and that he is unable to lift his arms completely. Patient denies any fevers, chills, chest pain, palpitations, shortness of breath, difficulty breathing outside of his baseline, abdominal pain, nausea, or vomiting at this time. X-rays of the bilateral shoulders were obtained and revealed no signs of fracture, dislocation, or osteomyelitis. X-ray of the lumbar spine was also obtained and revealed no acute processes such as fracture or dislocation. CT head and c-spine was obtained and showed no acute injuries. At this time the most likely etiology the of patient's pain is exacerbation of chronic rotator cuff tears secondary to his mechanical fall. X-rays revealed no acute fractures of the bilateral shoulders or lumbar spine, making this less likely. Patient's pain will be managed conservatively with acetaminophen and ice and he has been instructed to follow up again with [facility] to discuss possible surgical management as his symptoms have worsened since last seeing them. will start short course of muscle relaxer, around the clock tylenol, lidoderm patch. nsaid allergy noted. will refer back to ortho for further evaluation and treatment - he states he would like to discuss surgical options for his shoulder. stable for d/c Differential Diagnosis Differential Diagnoses: The differential diagnosis associated with the presentation includes Rotator cuff tear, fracture of bilat shoulders/lumbar spine, contusion Admission/Observation Consideration of admission/observation: Escalation of care including admission/observation considered Independent Interpretation I performed an independent interpretation of an: Plain X-Ray and CT Scan Interpretation: xray shoulders without acute fx or dislocation, xr lumbar spine without compression fx ct head without acute bleed or edema Radiology Impression Discussion of test interpretation with radiology: I have reviewed the radiologist's reading. Radiologist Impression: EXAMINATION: XR SHOULDER, LEFT CLINICAL INFORMATION: Fell down, left shoulder injury and pain COMPARISON: Left shoulder x-ray on 10/18/2018 TECHNIQUE: AP external rotation, Grashey, scapular Y, and axillary views of the left shoulder. FINDINGS: BONES: Bony structures are intact. Persistent inferior lateral left acromial bony protuberance is seen. There is no focal bone destruction or periosteal reaction seen. JOINTS: Alignment of joints is normal. SOFT TISSUE: Soft tissue is normal. No radiopaque foreign body or abnormal air collection is seen. XR/XR shoulder LT min 2V IMPRESSION: 1. Unchanged left subacromial bony spur, could impinge on the rotator cuff. 2. No fracture or dislocation or signs of osteomyelitis are found. EXAMINATION: XR SHOULDER, RIGHT CLINICAL INFORMATION: Mechanical fall, right shoulder injury and pain COMPARISON: Right shoulder x-ray on 01/23/2020 TECHNIQUE: AP external rotation, Grashey, scapular Y views of the right shoulder. FINDINGS: BONES: Bony structures are intact. There is no focal bone destruction or periosteal reaction seen. JOINTS: Alignment of joints is normal. SOFT TISSUE: Soft tissue is normal. No radiopaque foreign body or abnormal air collection is seen. XR/XR shoulder RT min 2V IMPRESSION: 1. Unchanged Normal x-rays of right shoulder. No fracture or dislocation or signs of osteomyelitis are found. EXAMINATION: XR LUMBOSACRAL SPINE CLINICAL INFORMATION: Mechanical fall, lumbar spine injury and pain COMPARISON: Lumbar spine x-ray on 04/28/2022 TECHNIQUE: Three views of the lumbosacral spine. FINDINGS: The visualized lumbar vertebrae are intact with normal alignment. Intervertebral disc spaces are normal. Bilateral 12th ribs are rudimentary XR/XR lumbar spine 2-3V IMPRESSION: 1. Unchanged Normal lumbosacral spine x-ray. 2. No fracture or dislocation of lumbar spine is seen. CT/CT head/brain wo IV con IMPRESSION: 1. Mild age related cerebral atrophy. 2. No intracranial hemorrhage or skull fracture is seen. 3. No evidence of space occupying lesion could be found. 4. The current plain CT scan of the brain shows no diagnostic evidence of acute cerebral infarction. CT/CT cervical spine wo IV con IMPRESSION: 1. No evidence of acute fracture or dislocation. 2. Advanced C5-C6 degenerative cervical disc disease, Moderate asymmetric left C5/C6 neural foraminal stenosis. 3. Mild asymmetric right C2/C3 neural foraminal stenosis. 4. Anterior and posterior syndesmophytes are present at C5-C6 and C6-C7. A prominent right parasagittal posterior inferior C6 syndesmophyte is seen impinging the right anterior thecal sac. 5. Multilevel cervical spondylosis, right-sided C2-C3 apophyseal joint and bony ankylosis. External Record Review External record reviewed: Outpatient record, Prior outpatient labs and Prior outpatient radiology Prescription Management I considered prescription management with: Pain Medication Chronic Conditions Patient?s care impacted by: Diabetes and Hypertension Critical Care Time Critical Care Time Critical Care Time: No Discharge Plan Discharge Clinical Impression: Bilateral shoulder pain Qualifiers: Chronicity: unspecified Qualified Code(s): M25.511 - Pain in right shoulder Low back pain Qualifiers: Chronicity: unspecified Back pain laterality: midline Sciatica presence: without sciatica Qualified Code(s): M54.50 - Low back pain, unspecified Patient Disposition: Home, Self-Care Instructions: Acute Low Back Pain (ED), Shoulder Pain (ED), Lower Back Exercises (ED) Additional Instructions: Your imaging today did not show any acute injuries. Your back pain is most likely due to muscle strain and spasm. No bending, lifting or twisting. Use ice several times per day for 20 minutes at a time for the next 48 hours and then change to heat. Take medications as prescribed to help with pain and discomfort. Follow up with your Primary Care Doctor this week. Call Orthopedics for further evaluation and treatment. If your pain worsens, if you develop new numbness, tingling, weakness, loss of function or incontinence call 911 or come back to the ER right away for evaluation. Prescriptions: New cyclobenzaprine 10 mg tablet 10 mg PO TID PRN (Reason: muscle spasm) Qty: 10 0RF lidocaine 5 % adhesive patch,medicated 1 patch topical DAILY Qty: 15 0RF Rx Instructions: leave on most painful area for up to 12 hrs acetaminophen [Tylenol Extra Strength] 500 mg tablet 1,000 mg PO Q6H PRN (Reason: pain) Qty: 20 0RF No Action (DME) FreeStyle Lite Strips Strip See Rx Instructions .ROUTE .MEDSUPPLY Qty: 200 3RF Rx Instructions: As directed twice a day (DME) lancets [FreeStyle Lancets] 28 gauge misc See Rx Instructions .ROUTE .MEDSUPPLY Qty: 200 3RF Rx Instructions: two time a day albuterol sulfate [ProAir HFA] 90 mcg/actuation HFA aerosol inhaler 1 inh inhalation QID PRN (Reason: shortness of breath or wheezing) Qty: 8.5 0RF lisinopril 10 mg tablet 10 mg PO DAILY Qty: 90 3RF albuterol sulfate 2.5 mg /3 mL (0.083 %) solution for nebulization 2.5 mg inhalation Q4-6H PRN (Reason: shortness of breath or wheezing) Qty: 75 0RF fluticasone propionate [Flovent HFA] 44 mcg/actuation HFA aerosol inhaler 1 puff inhalation BID 30 Days Qty: 10.6 6RF Rx Instructions: administer with spacer cetirizine 10 mg tablet 10 mg PO DAILY 30 Days Qty: 30 11RF metformin 500 mg tablet extended release 24 hr 1,000 mg PO BID 90 Days Qty: 360 2RF zolpidem 10 mg tablet 10 mg PO BEDTIME PRN (Reason: sleep) 90 Days Qty: 90 0RF dulaglutide 1.5 mg/0.5 mL pen injector 1.5 mg subcut QWEEK Qty: 6 1RF atorvastatin 40 mg tablet 40 mg PO BEDTIME Qty: 90 1RF Magic Mouthwash Diphen/Lido/Antacid 1:1:1 240 mL suspension 10 ml PO .QID 3 Days Qty: 240 0RF Rx Instructions: Lidocaine Viscous 2 % 80mL; diphenhydramine 12.5 mg/5 mL 80mL; aluminum-mag hydrox-simeth [id number]/5mL 80mL cefuroxime axetil 500 mg tablet 500 mg PO BID 7 Days Qty: 14 0RF doxycycline hyclate 100 mg capsule 100 mg PO BID 7 Days Qty: 14 0RF albuterol sulfate 2.5 mg /3 mL (0.083 %) solution for nebulization 2.5 mg inhalation Q4-6H PRN (Reason: bronchospasm) Qty: 75 0RF [id number]-hvaxubhmkf 160-9-4.8 mcg/actuation HFA aerosol inhaler 2 inh inhalation BID Qty: 10.7 0RF prednisone 20 mg tablet 40 mg PO DAILY 5 Days Qty: 10 0RF lorazepam 1 mg tablet 1 mg PO DAILY PRN (Reason: anxiety) Qty: 4 0RF albuterol sulfate 0.63 mg/3 mL solution for nebulization 0.63 mg inhalation QID PRN (Reason: bronchospasm) Qty: 75 0RF cyclobenzaprine 10 mg tablet 10 mg PO TID PRN (Reason: muscle spasm) 5 Days Qty: 15 0RF Rx Instructions: Side effect is drowsiness. Do not take at work or while driving. acetaminophen [Tylenol] 325 mg capsule 325 mg PO QID PRN (Reason: pain) 7 Days Qty: 28 0RF omeprazole 20 mg capsule,delayed release(DR/EC) 20 mg PO QAM 90 Days Qty: 90 1RF triamcinolone acetonide [Nasacort] 55 mcg aerosol,spray 1 spray intranasal DAILY 30 Days Qty: 16.9 1RF Rx Instructions: administer into each nostril doxycycline hyclate 100 mg tablet 100 mg PO BID 5 Days Qty: 10 0RF magnesium 250 mg tablet 250 mg PO DAILY 30 Days Qty: 30 0RF albuterol sulfate 90 mcg/actuation HFA aerosol inhaler 2 puff inhalation Q6H PRN (Reason: shortness of breath or wheezing) 30 Days Qty: 6.7 11RF (DME) nebulizers Misc See Rx Instructions .ROUTE Rx Instructions: As directed amitriptyline 25 mg tablet 25 mg PO BEDTIME citalopram 20 mg tablet 20 mg PO DAILY Breztri Aerosphere 160-9-4.8 mcg/actuation HFA aerosol inhaler 2 inh inhalation BID Qty: 10.7 11RF montelukast 10 mg tablet 10 mg PO DAILY 30 Days Qty: 30 11RF [place] [facility] [place] Group] Allison Maradiaga MD [Primary Care Provider] - Interventions: ED Discharge Assessment Last Done: 10/15/23 09:30 Discharge Date/Time: 10/15/23 09:30 Print Language: Brazilian
[2023-10-15 06:29] VITALS: BP 128/67; PULSE 91; RESP 16; TEMP 36.8; O2SAT 97
[2023-10-15 08:37] VITALS: BP 128/67; PULSE 79; RESP 14; TEMP 36.7; O2SAT 98
[2023-10-15] MEDS: Lidocaine 4 % Patch ADH..PATCH 1 PATCH TRANSDERMA (08:48)
[2023-10-15] MEDS: Acetaminophen 325 MG TABLET 975 MG PO (08:48)
--- NOTE | 2023-10-15 08:49 | PC.NURSE ---
Pt. medicated per MAR. Denies concerns and/or complaints at this time. Call light within reach.
--- NOTE | 2023-10-15 09:24 | PC.NURSE ---
Called [facility] to assist with pt.'s d/c.
[2023-10-15 09:30] VITALS: BP 128/67; PULSE 79; RESP 14; TEMP 36.7; O2SAT 98
== END 2023-10-15 09:30 | disposition home or self-care (01) ==
PROVIDERS: Emergency Provider Emergency Medicine; PCP Internal Medicine
DX: M25.511 Pain in right shoulder (principal); M54.50 Low back pain, unspecified; R51.9 Headache, unspecified; M54.2 Cervicalgia; M25.512 Pain in left shoulder; E11.9 Type 2 diabetes mellitus without complications; Z79.899 Other long term (current) drug therapy
CPT/HCPCS: 70450; 72100; 72125; 73030; 99283; 99284

== ENCOUNTER 2023-11-26 10:34 | Outpatient (REF) | payer OTHER, SELFPAY ==
--- NOTE | ~2023-11-26 | XR_ITS ---
EXAMINATION: XR CHEST 2 VIEWS CLINICAL INFORMATION: Pneumonia, unspecified organism [id number]. COMPARISON: XR Chest 05/23/2023 TECHNIQUE: 2 views of the chest were obtained. FINDINGS: Minimal linear opacities at the left base and right costophrenic angle compatible with scarring and/or discoid atelectasis unchanged. Persistent elevated left hemidiaphragm. Lungs otherwise clear. The cardiomediastinal silhouette normal. Osseous structures: Spondylosis of the dorsal spine unchanged. XR/XR chest 2V IMPRESSION: No acute disease. Chronic changes as above Electronically signed by: Berry Hopson MD 01/23/2024 11:43 AM [facility] [place]
== END 2023-11-26 10:35 | disposition home or self-care (01) ==
LOC: HO.XRAY 10:34
PROVIDERS: PCP Internal Medicine; Visit Provider Hospitalist
DX: J18.9 Pneumonia, unspecified organism (principal)
CPT/HCPCS: 71046

== ENCOUNTER 2024-03-20 06:59 | Emergency (ER) | payer OTHER, SELFPAY ==
--- NOTE | ~2024-03-20 | XR_ITS ---
CLINICAL HISTORY: fall 3 view left shoulder Comparison: CR/SR - XR SHOULDER LT MIN 2V - 10/15/23 06:44 EDT Findings: Bones intact. No dislocations. Downsloping acromion which can be seen in the setting of impingement. Glenohumeral joint spaces relatively well preserved. Mild AC joint hypertrophy. No erosions. No radiopaque foreign body. IMPRESSION: 1. Downsloping acromion can be seen in the setting of impingement. This document has been electronically signed by: Elo Barnett MD on 03/20/2024 08:00:00
[2024-03-20 07:20] VITALS: BP 123/53; PULSE 88; RESP 19; TEMP 36.6; O2SAT 98; BMI 30.2
--- NOTE | 2024-03-20 09:27 | ED.EXTPRO ---
HPI - Extremity Problem General Chief complaint: Extremity Injury, Upper Stated complaint: L Shoulder Pain Time Seen by Provider: 03/20/24 09:21 Source: patient, RN notes reviewed, old records reviewed and manager van Mode of arrival: ambulatory Limitations: language barrier History of Present Illness ED Provider: Matt HOLT Narrative: Patient is a 68-year-old male presenting to the emergency department with complaint of left shoulder pain after a trip and fall 1 week ago. Reports decreased range of motion. Denies any numbness or tingling to his shoulder or arm. Denies any bruising or change of color. Denies head strike or loss of consciousness at the time of fall. MD Complaint: joint pain Onset (ago): week(s) Pain Consistency: constant Location: left and upper extremity Quality: aching Relieving factors: rest Exacerbating factors: range of motion Associated symptoms: denies other symptoms Related Data Home Medications ?Medication ?Instructions ?Recorded ?Confirmed amitriptyline 25 mg tablet 25 mg PO BEDTIME 03/04/23 nebulizers 03/04/23 Previous Rx's ?Medication ?Instructions ?Recorded blood sugar diagnostic (FreeStyle #200 ea 05/24/20 Lite Strips) lancets 28 gauge (FreeStyle #200 ea 07/06/20 Lancets) omeprazole 20 mg capsule,delayed 20 mg PO QAM 90 days #90 caps 01/08/22 release albuterol sulfate 90 mcg/actuation 1 inh inhalation QID PRN shortness 01/30/22 aerosol inhaler (ProAir HFA) of breath or wheezing #8.5 grams Magic Mouthwash 10 ml PO .QID 3 days #240 mL 04/02/22 Diphen/Lido/Antacid 1:1:1 240 mL suspension triamcinolone acetonide 55 mcg 1 spray intranasal DAILY 30 days 07/10/22 nasal spray aerosol (Nasacort) #16.9 mL doxycycline hyclate 100 mg tablet 100 mg PO BID 5 days #10 tabs 10/03/22 magnesium 250 mg tablet 250 mg PO DAILY 30 days #30 tabs 10/03/22 albuterol sulfate 2.5 mg/3 mL 2.5 mg (3 mL) inhalation Q4-6H PRN 12/24/22 (0.083 %) solution for nebulization shortness of breath or wheezing #75 mL albuterol sulfate 0.63 mg/3 mL 0.63 mg (3 mL) inhalation QID PRN 12/30/22 solution for nebulization bronchospasm #75 mL lorazepam 1 mg tablet 1 mg PO DAILY PRN anxiety #4 tabs 12/30/22 fluticasone propionate 44 1 puff inhalation BID 30 days 02/15/23 mcg/actuation HFA aerosol inhaler #10.6 grams (Flovent HFA) acetaminophen 325 mg capsule 325 mg PO QID PRN pain 7 days #28 02/24/23 (Tylenol) caps cyclobenzaprine 10 mg tablet 10 mg PO TID PRN muscle spasm 5 02/24/23 days #15 tabs cetirizine 10 mg tablet 10 mg PO DAILY 30 days #30 tabs 03/04/23 albuterol sulfate 2.5 mg/3 mL 2.5 mg (3 mL) inhalation Q4-6H PRN 05/23/23 (0.083 %) solution for nebulization bronchospasm #75 mL budesonide 160 mcg-glycopyr 9 2 inh inhalation BID #10.7 grams 05/23/23 mcg-formot 4.8 mcg/actuation HFA inhaler cefuroxime axetil 500 mg tablet 500 mg PO BID 7 days #14 tabs 05/23/23 doxycycline hyclate 100 mg capsule 100 mg PO BID 7 days #14 caps 05/23/23 prednisone 20 mg tablet 40 mg (2 x 20 mg) PO DAILY 5 days 05/23/23 #10 tabs albuterol sulfate 90 mcg/actuation 2 puff inhalation Q6H PRN 07/05/23 aerosol inhaler shortness of breath or wheezing 30 days #6.7 grams atorvastatin 40 mg tablet 40 mg PO BEDTIME #90 tabs 09/30/23 acetaminophen 500 mg tablet 1,000 mg (2 x 500 mg) PO Q6H PRN 10/15/23 (Tylenol Extra Strength) pain #20 tabs cyclobenzaprine 10 mg tablet 10 mg PO TID PRN muscle spasm #10 10/15/23 tabs lidocaine 5 % topical patch 1 patch topical DAILY #15 ea 10/15/23 citalopram 20 mg tablet 20 mg PO DAILY 90 days #90 tabs 11/19/23 lisinopril 10 mg tablet 10 mg PO DAILY #90 tabs 11/21/23 budesonide 160 mcg-glycopyr 9 2 inh inhalation BID #10.7 grams 11/26/23 mcg-formot 4.8 mcg/actuation HFA inhaler (Breztri Aerosphere) dulaglutide 1.5 mg/0.5 mL 1.5 mg (0.5 mL) subcut QWEEK #6 mL 12/02/23 subcutaneous pen injector metformin 500 mg tablet,extended 1,000 mg (2 x 500 mg) PO BID 90 02/11/24 release 24 hr days #360 tabs zolpidem 10 mg tablet 10 mg PO BEDTIME PRN sleep 90 days 02/24/24 #90 tabs montelukast 10 mg tablet 10 mg PO DAILY 30 days #30 tabs 02/26/24 cyclobenzaprine 10 mg tablet 10 mg PO TID PRN muscle spasm #10 03/20/24 tabs prednisone 20 mg tablet 40 mg (2 x 20 mg) PO DAILY #10 tabs 03/20/24 Allergies Allergy/AdvReac Type Severity Reaction Status Date / Time aspirin [Aspirin] Allergy Mild RASH Verified 03/20/24 07:21 Penicillins Allergy Mild RASH Verified 03/20/24 07:21 tramadol AdvReac Intermediate abdominal Verified 03/20/24 07:21 pain Review of Systems Review of Systems: as per hpi Yes all other systems are reviewed and are negative Constitutional: Constitutional: Reports as per HPI PMFSH Past Medical History Medical History Chronic allergic rhinitis Allergies Hearing difficulty of left ear Onychomycosis Bladder pain Thyroid nodule DM2 (diabetes mellitus, type 2) BPH (benign prostatic hyperplasia) GERD (gastroesophageal reflux disease) Hyperlipidemia LDL goal <100 Rotator cuff tear Obesity Insomnia Pure hypercholesterolemia Essential hypertension Diabetes mellitus Arthritis High blood pressure Asthma No known health problems Surgical History History of knee replacement procedure of right knee Family History Family History Father No problems noted. Mother Diabetes Hypertension Brother Throat cancer Social History Social History Household Members: Spouse Housing: Apartment Alcohol intake: former Patient Tobacco Use Status: Former Tobacco user Tobacco use type: Cigarette e-Cigarette/Vaping Use: Never Used Second Hand Smoke Exposure: No Advance Directives: No Advance Directives Information Provided: Yes Do you have a plan to hurt others: No Plan service: No Current occupational status: disabled Cognitive needs: Yes Hearing needs: Yes Vision needs: Yes Physical Exam Vital Signs: Vital Signs: Last Vital Signs Temp 98 F 03/20/24 07:20 Pulse 88 03/20/24 07:20 Resp 19 03/20/24 07:20 BP 123/53 L 03/20/24 07:20 Pulse Ox 98 03/20/24 07:20 O2 Del Method Room Air 03/20/24 07:20 BMI result Body Mass Index 30.2 Vital signs have been reviewed and appear to be correct. Blood pressure normal. Heart rate normal. Respiratory rate normal. Temperature normal. Oxygen saturation normal. Const: General: cooperative, healthy appearing and no acute distress Orientation/consciousness: oriented to person, oriented to place, oriented to time and patient oriented x3 Limitations: no limitations HEENT: Head: Yes normocephalic and Yes atraumatic Ears: external ears normal General nose exam: Normal external nose present Face and sinus: Yes face symmetric Mouth: oropharynx normal and moist mucous membranes Throat: Yes uvula midline Eyes: Pupils: Equal, round and reactive pupils present Neck: Neck: Yes normal visual inspection and Yes supple Resp: Effort & Inspection: normal respiratory effort and able to speak in complete sentences Auscultation: clear to auscultation bilaterally Cardio: Rate: regular rate Rhythm: regular rhythm Heart sounds: S1 normal heart sound present and S2 normal heart sound present GI: Palpation (GI): Soft to palpation and nontender Auscultation: normoactive bowel sounds : General: Yes no CVA tenderness Back/Spine/Pelvis: Back: no CVA tenderness Skin: General skin exam: elasticity normal and turgor normal Neuro: General: oriented to person, oriented to place, oriented to time, patient oriented x3, moves all extremities, no focal motor deficits and CN's II-XI intact bilaterally Cranial nerves: Yes Equal, round and reactive pupils present Cognition (Neuro): normal cognition Extrem: General: Yes full ROM, Yes no pedal edema and Yes no calf tenderness Left upper extremity: shoulder/upper arm Details: inspection abnormal, tenderness Location: of the A-C joint and abnormal ROM Details: pain with active ROM Details: in ADduction, in extension, in internal rotation and external rotation- and hand Details: vascular exam Details: radial pulse present and normal capillary refill and normal ROM of fingers Psych: Mental Status: mental status grossly normal Affect: normal affect Thought process: Normal thought process present Medical Decision Making Medical Decision Making [facility] Narrative: Patient is a 68-year-old male presenting to the emergency department with complaint of left shoulder pain after a trip and fall 1 week ago. On exam patient is awake, A+Ox3, VS WNL, afebrile, normal neurological exam without focal deficits, physical exam findings as above. Given reported symptoms and physical exam findings, initial differential includes but is not limited to left shoulder strain, sprain, fracture, dislocation. X-ray shoulder notable for downsloping acromion which can be seen in impingement. My interpretation is in agreement with the radiologist's interpretation. Will treat with Flexeril, prednisone, follow-up with orthopedics. Return precautions discussed at bedside. Follow up with PCP as needed. Patient verbalized understanding of and agreement with plan. In-person non destructive testing inspector was utilized for all interactions, assessments, and discussions. Differential Diagnosis Differential Diagnoses: The differential diagnosis associated with the presentation includes As per [facility] Independent Interpretation I performed an independent interpretation of an: Plain X-Ray Interpretation: Left shoulder x-ray notable for downsloping acromion which can be seen in the setting of impingement Radiology Impression Discussion of test interpretation with radiology: I have reviewed the radiologist's reading. Radiologist Impression: Findings: Bones intact. No dislocations. Downsloping acromion which can be seen in the setting of impingement. Glenohumeral joint spaces relatively well preserved. Mild AC joint hypertrophy. No erosions. No radiopaque foreign body. IMPRESSION: 1. Downsloping acromion can be seen in the setting of impingement. External Record Review External record reviewed: Inpatient record, Office record and Outpatient record Prescription Management I considered prescription management with: Other Discharge Plan Discharge Clinical Impression: Left shoulder strain, Impingement of left shoulder Patient Disposition: Home, Self-Care Instructions: Muscle Strain (DC), Shoulder Impingement Syndrome (ED) Additional Instructions: You were evaluated in the emergency department for shoulder pain. You are being treated with a muscle relaxer as well as a steroid to decrease inflammation. Take these medications as prescribed. If your symptoms do not improve over the next 1-2 weeks, follow-up with the orthopedics office. Call their office to schedule an appointment, they will not call you. Perform the exercises provided to you in the printouts. Follow-up with your primary care provider as needed. Return to the emergency department if you develop worsening pain, new numbness or tingling, change of color in your arm or any other new or concerning symptoms. Prescriptions: New prednisone 20 mg tablet 40 mg PO DAILY Qty: 10 0RF cyclobenzaprine 10 mg tablet 10 mg PO TID PRN (Reason: muscle spasm) Qty: 10 0RF No Action (DME) FreeStyle Lite Strips Strip See Rx Instructions .ROUTE .MEDSUPPLY Qty: 200 3RF Rx Instructions: As directed twice a day (DME) lancets [FreeStyle Lancets] 28 gauge misc See Rx Instructions .ROUTE .MEDSUPPLY Qty: 200 3RF Rx Instructions: two time a day albuterol sulfate [ProAir HFA] 90 mcg/actuation HFA aerosol inhaler 1 inh inhalation QID PRN (Reason: shortness of breath or wheezing) Qty: 8.5 0RF albuterol sulfate 2.5 mg /3 mL (0.083 %) solution for nebulization 2.5 mg inhalation Q4-6H PRN (Reason: shortness of breath or wheezing) Qty: 75 0RF fluticasone propionate [Flovent HFA] 44 mcg/actuation HFA aerosol inhaler 1 puff inhalation BID 30 Days Qty: 10.6 6RF Rx Instructions: administer with spacer cetirizine 10 mg tablet 10 mg PO DAILY 30 Days Qty: 30 11RF atorvastatin 40 mg tablet 40 mg PO BEDTIME Qty: 90 1RF citalopram 20 mg tablet 20 mg PO DAILY 90 Days Qty: 90 1RF lisinopril 10 mg tablet 10 mg PO DAILY Qty: 90 3RF Breztri Aerosphere 160-9-4.8 mcg/actuation HFA aerosol inhaler 2 inh inhalation BID Qty: 10.7 11RF dulaglutide 1.5 mg/0.5 mL pen injector 1.5 mg subcut QWEEK Qty: 6 1RF metformin 500 mg tablet extended release 24 hr 1,000 mg PO BID 90 Days Qty: 360 2RF zolpidem 10 mg tablet 10 mg PO BEDTIME PRN (Reason: sleep) 90 Days Qty: 90 0RF montelukast 10 mg tablet 10 mg PO DAILY 30 Days Qty: 30 3RF Magic Mouthwash Diphen/Lido/Antacid 1:1:1 240 mL suspension 10 ml PO .QID 3 Days Qty: 240 0RF Rx Instructions: Lidocaine Viscous 2 % 80mL; diphenhydramine 12.5 mg/5 mL 80mL; aluminum-mag hydrox-simeth [id number]-895zg-21gx/5mL 80mL cefuroxime axetil 500 mg tablet 500 mg PO BID 7 Days Qty: 14 0RF doxycycline hyclate 100 mg capsule 100 mg PO BID 7 Days Qty: 14 0RF albuterol sulfate 2.5 mg /3 mL (0.083 %) solution for nebulization 2.5 mg inhalation Q4-6H PRN (Reason: bronchospasm) Qty: 75 0RF [id number]-fwqjecvrbg 160-9-4.8 mcg/actuation HFA aerosol inhaler 2 inh inhalation BID Qty: 10.7 0RF prednisone 20 mg tablet 40 mg PO DAILY 5 Days Qty: 10 0RF cyclobenzaprine 10 mg tablet 10 mg PO TID PRN (Reason: muscle spasm) Qty: 10 0RF lidocaine 5 % adhesive patch,medicated 1 patch topical DAILY Qty: 15 0RF Rx Instructions: leave on most painful area for up to 12 hrs acetaminophen [Tylenol Extra Strength] 500 mg tablet 1,000 mg PO Q6H PRN (Reason: pain) Qty: 20 0RF lorazepam 1 mg tablet 1 mg PO DAILY PRN (Reason: anxiety) Qty: 4 0RF albuterol sulfate 0.63 mg/3 mL solution for nebulization 0.63 mg inhalation QID PRN (Reason: bronchospasm) Qty: 75 0RF cyclobenzaprine 10 mg tablet 10 mg PO TID PRN (Reason: muscle spasm) 5 Days Qty: 15 0RF Rx Instructions: Side effect is drowsiness. Do not take at work or while driving. acetaminophen [Tylenol] 325 mg capsule 325 mg PO QID PRN (Reason: pain) 7 Days Qty: 28 0RF omeprazole 20 mg capsule,delayed release(DR/EC) 20 mg PO QAM 90 Days Qty: 90 1RF triamcinolone acetonide [Nasacort] 55 mcg aerosol,spray 1 spray intranasal DAILY 30 Days Qty: 16.9 1RF Rx Instructions: administer into each nostril doxycycline hyclate 100 mg tablet 100 mg PO BID 5 Days Qty: 10 0RF magnesium 250 mg tablet 250 mg PO DAILY 30 Days Qty: 30 0RF albuterol sulfate 90 mcg/actuation HFA aerosol inhaler 2 puff inhalation Q6H PRN (Reason: shortness of breath or wheezing) 30 Days Qty: 6.7 11RF (DME) nebulizers Misc See Rx Instructions .ROUTE Rx Instructions: As directed amitriptyline 25 mg tablet 25 mg PO BEDTIME Referrals: [facility] [place] [facility] [place] [facility] [Provider Group] Stand Alone Forms: Work/School Release Print Language: Nauruan
[2024-03-20 10:13] VITALS: BP 123/53; PULSE 88; RESP 19; TEMP 36.6; O2SAT 98
== END 2024-03-20 10:14 | disposition home or self-care (01) ==
PROVIDERS: Emergency Provider Emergency Medicine Emergency Medical Services; PCP Internal Medicine
DX: S46.912A Strain of unspecified muscle, fascia and tendon at shoulder and upper arm level, left arm, initial encounter (principal); M25.812 Other specified joint disorders, left shoulder; W01.0XXA Fall on same level from slipping, tripping and stumbling without subsequent striking against object, initial encounter; Y93.9 Activity, unspecified; Y92.9 Unspecified place or not applicable; Y99.8 Other external cause status; Z79.899 Other long term (current) drug therapy; Z87.891 Personal history of nicotine dependence
CPT/HCPCS: 73030; 99282; 99283

== ENCOUNTER → 2024-03-20 07:34 | Outpatient (BNV) | payer OTHER, SELFPAY | PROVIDERS: PCP Internal Medicine; Visit Provider Radiology Diagnostic Radiology | DX: M75.42 Impingement syndrome of left shoulder (principal) | CPT/HCPCS: 73030 ==

== ENCOUNTER 2024-04-20 10:10 | Outpatient (AMB) | payer OTHER, SELFPAY ==
--- NOTE | 2024-04-20 10:12 | A.OFFVIS_ITS ---
Vital Signs 04/20/24 10:13 Height 6 ft 2 in Weight 242 lb 8.136 oz BMI 31.1 BP 142/76 H Blood Pressure Location Lt brachial Position Sitting Pulse 95 Pulse Source Pulse Oximeter Pulse Oximetry (%) 97 Oxygen Delivery Method Room Air Intake Visit Reasons: Asthma Allergies aspirin [Aspirin] Allergy (Mild, Verified 03/20/24 07:21) RASH Penicillins Allergy (Mild, Verified 03/20/24 07:21) RASH tramadol Adverse Reaction (Intermediate, Verified 03/20/24 07:21) abdominal pain HPI Comments Details: The patient is a 68-year-old gentleman with lifelong history of asthma. He states that he was diagnosed with asthma at the age of 3. He was not premature although his mom says that it all started with a respiratory virus when he was a . After that he is required respiratory medications. The patient also was a smoker but he quit 15 years ago. Denies any other significant exposures. Although he does state that he does feel like he has allergies and also chronic sinusitis. He was evaluated by ENT because he was getting a foul smell from his nose. He had a CT scan of the sinuses demonstrating some thickening of the sinuses. No evidence of any polyps. He had been using allergy medicines good effect. The patient has been using Flovent for his respiratory symptoms but has not been very helpful. He is used Advair in the past but isn't know why he stopped it. At this point the patient has had multiple evaluations in the ER because of asthma exacerbations. He also had previous lower respiratory inf ections. We did look at a CT scan from 2021 where he had a left lower lobe patchy pneumonia. His last chest x-ray all demonstrating some interstitial changes. At this point will maximize his respiratory therapy. He will need allergy testing. Will also request pulmonary function studies. 07/05/2023 the patient is here for a pulmonary follow-up visit. Overall he is doing well. Continues on the Breztri if major. He has been using it 3 to 4 times a day. As needed. I tried a instructed how to use it correctly. He will use it just twice a day. I will make sure to have an albuterol inhaler available for him that he can use as needed in between. He did have PFTs and I do not see any blood work recently. Should have a chest x-ray whenever able to have a good baseline since the patient is doing better. The last x-ray did demonstrate out pneumonia or airspace disease in the left side. Otherwise patient is without any other complaints will continue with the current respiratory therapy. He should have a chest x-ray prior to the next visit. 04/20/2024 the patient is here for pulmonary follow-up visit. Overall he is doing well. Recently he was in [place] and painting endorse with oil-based pains. He developed acute respiratory distress and significant asthma symptoms. He went to the hospital and did get in IV medications and subsequent prednisone. Unfortunately though his sugar goes CHI. Therefore he had to stop the prednisone prematurely. He is feeling better right now. He continues on the Breztri twice a day. He also has a rescue inhaler that times a week. Overall he is feeling much better. He had an x-ray done that back in 12/01/2023 and also reviewed his CT scan from 2021. Seems to have some atelectasis and scarring at the left base. Likely an old infection. At this point will plan to repeat the x-ray sometime next year. He will follow-up in a year's time. Her continue with the current therapy. He will receive Prevnar 20 today. Needs to make sure that his Tdap is update. He will check at the pharmacy. [facility], [facility] Medical History (Updated 04/20/24 @ 12:46 by Gideon Tran MD) Atelectasis Chronic allergic rhinitis Allergies Hearing difficulty of left ear Onychomycosis Bladder pain Thyroid nodule DM2 (diabetes mellitus, type 2) BPH (benign prostatic hyperplasia) GERD (gastroesophageal reflux disease) Hyperlipidemia LDL goal <100 Rotator cuff tear Obesity Insomnia Pure hypercholesterolemia Essential hypertension Diabetes mellitus Arthritis High blood pressure Asthma No known health problems Surgical History History of knee replacement procedure of right knee Family History Father No problems noted. Mother Diabetes Hypertension Brother Throat cancer Social History Household Members: Spouse Housing: Apartment Alcohol intake: former Patient Tobacco Use Status: Former Tobacco user Tobacco use type: Cigarette e-Cigarette/Vaping Use: Never Used Second Hand Smoke Exposure: No service: No Current occupational status: disabled Cognitive needs: Yes Hearing needs: Yes Vision needs: Yes Review of Systems Const Denies fever(s) ENT Reports nasal congestion, Reports nasal discharge, Reports nasal obstruction and Reports post nasal drip Card Denies chest pain Resp Reports chest congestion, Reports cough and Reports wheezing GI Reports no additional complaints Musc Reports no additional complaints Skin/Breast Denies rash Roque/Lymph Denies lymphadenopathy Aller/Immun Reports wheezing Physical Exam Vital Signs: Last Vital Signs Pulse 95 04/20/24 10:13 BP 142/76 H 04/20/24 10:13 Pulse Ox 97 04/20/24 10:13 Oxygen Delivery Method Room Air 04/20/24 10:13 BMI result Body Mass Index 31.1 Const General: comfortable HEENT General nose exam: Abnormal mucous membranes and turbinates present erythematous Throat: Yes posterior oropharynx abnormal and Yes cobblestoning Neck Neck: Yes supple Chest Chest palpation & inspection: normal inspection of the chest Resp Effort & Inspection: normal respiratory effort Auscultation: diminished lung sounds Cardio Heart sounds: S1 normal heart sound present and S2 normal heart sound present GI Palpation (GI): Soft to palpation Skin General skin exam: no rashes or lesions noted Extrem General: Yes no clubbing, cyanosis or edema Immunizations pneumoc 20-ramos conj-dip cr(PF) 0.5 mL IM syringe Performing Provider: Gideon Tran MD Performing Location: [facility] Administered by: Pamela Meng LPN on 04/20/24 10:39 Dose Route Admin Location Dispensed Lot Number Expiration Date NDC Workers Compensation Administrator 0.5 mL IM Right Deltoid 0.5 mL [id number] 07/11/25 Predect/WorkCast VIS Given Date VIS Provided VIS Publication Date 04/20/24 Single Vaccine 22 Eligibility Eligibility Date Funding Source Not [facility] Eligible 04/20/24 Private Assessment & Plan Assessment & Plan (1) Asthma: Code(s): J45.909 - Unspecified asthma, uncomplicated Category: Medical Qualifiers: Asthma complication type: uncomplicated Asthma persistence: persistent Asthma severity: moderate Qualified Code(s): J45.40 - Moderate persistent asthma, uncomplicated (2) Chronic allergic rhinitis: Code(s): J30.9 - Allergic rhinitis, unspecified Category: Medical (3) Allergies: Code(s): T78.40XA - Allergy, unspecified, initial encounter Category: Medical Qualifiers: Encounter type: initial encounter Qualified Code(s): T78.40XA - Allergy, unspecified, initial encounter (4) Atelectasis: Code(s): J98.11 - Atelectasis Category: Medical Plan continue Breztri CHRISTIAN as needed CXR continue Singulair F/U 8-12 months Orders: Orders Pneumococcal 20 Immunization Today Z23 - Encounter for immunization XR chest 2V Today J98.11 - Atelectasis Coding Level of Care Code Est Pt Level 4 (19720) Diagnoses Moderate persistent asthma without complication J45.40 Asthma complication type: uncomplicated Asthma persistence: persistent Asthma severity: moderate Chronic allergic rhinitis J30.9 Allergy, initial encounter T78.40XA Encounter type: initial encounter Atelectasis J98.11 Time Spent (min) 16
[2024-04-20 10:13] VITALS: BP 142/76; PULSE 95; O2SAT 97; BMI 31.1
--- OUTSIDE RECORDS SUMMARY | 2024-04-20 11:19 | XMS_ITS | Data Portability ---
Author Organization [facility] [place] [facility] [employer] Address [address] [place] [phone] Care Team Providers Care Green House Manager Name Role Phone HIM HUEY OTHER Assessment Encounter Date Assessment Date Assessment LastModified by Organization Details LastModified Time 03/25/2024 03/25/2024 Impression: 68yo/m referred for evaluation of shoulder pain. Triage note initially noted possible fracture, however DC paperwork from [facility] able to be reviewed. Patient went to ED with approx 1-2 weeks of atraumatic shoulder pain, seen in ED and diagnosed as shoulder impingement. Recommended course of anti-inflammator ies, flexeril, prednisone. He finished the flexeril and prednisone, he is taking tylenol. He has a aspirin allergy, however medic able to clarify through interpretation, patient has tolerated motrin/ibuprofen in the past. For medic in the home patient is awake, alert, in no distress. No new trauma. Points to shoulder as area of discomfort. He is not anticoagulated. No associated chest pain, back pain, dyspnea. No associated numbness/weaknes s/paresthesias in the extremity. No redness, swelling, warmth. No fevers. No systemic symptoms of illness. Denies other ROS. Plan: Patient seen by medic in home, diagnosis is shoulder impingement syndrome, no fracture. His exam is re-assuring today, able to range joint, no swelling or redness or warmth, distal neurovascular exam is normal. I have a lower suspicion for an occult emergency medical condition such as ACS, PE, aortic dissection, septic joint, DVT, occult dislocation. Patient is amenable to ketorolac, again states able to take motrin/ibuprofen with his aspirin allergy. Counseled regarding his diagnosis and need for followup with PMD and physical therapy. Advised to followup in 1-2 days for recheck, and strict instructions to seek care immediately with any acute worsening or change in symptoms which he understands. Primary care, consider f/u for PT Disposition: We discussed the diagnostic uncertainty of home visits and the risk associated with this. In this case, the patient and I felt this to be an acceptable and reasonable amount of risk given the benefit of avoiding an ED visit. We discussed the need to seek care urgently/emergen tly in the setting of any new or worsening serious symptoms [id number] Not available 03/25/2024 11:40:48 Plan of Treatment Reminders Order Date Submit Date Provider Last Modified By Organization Details Last Modified Time Details Appointments None recorded. Lab None recorded. Referral None recorded. Procedures None recorded. Surgeries None recorded. Imaging None recorded. Medication Orders ketorolac 30 mg/mL injection solution 2024 025 [email or web address] Not available 11:10:13 Patient TargetsNo targets recorded. Patient InstructionsNo instructions recorded. Reason for Referral None Reported. Medical Equipment None Reported. Allergies Allergen ID Allergen Name Allergen Category Reaction Reaction Severity Criticality Documentation Date Start Date Code Code System Note Provider Name and Address Organization Details Recorded Time 97320 aspirin medicatio n Not available Not available Not available 03/25/2024 1191 RxNorm Not Available [facility] - production 5 08:57:36 94388 Product containin g penicilli n (product) medicatio n Not available Not available Not available 03/25/2024 81739 8001 SNOMED Not Available [facility] - production 5 08:57:36 Medications Name Sig Start Date Stop Date Status Note LastModified by Organization Details LastModified Time cyclobenzapr ine 10 mg tablet 10 MG ORALLY 3 TIMES A DAY NEEDED FOR MUSCLE SPASM active Not Available Not Available No t Available atorvastatin 40 mg tablet TAKE 1 TABLET BY MOUTH EVERYDAY AT BEDTIME active Not Available Not Available No t Available doxycycline hyclate 100 mg capsule TAKE 1 CAPSULE BY MOUTH TWICE A DAY FOR 7 DAYS active Not Available Not Available No t Available albuterol sulfate 2.5 mg/3 mL (0.083 %) solution for nebulization USE 1 VIAL VIA NEBULIZER EVERY 4 TO 6 HOURS NEEDED FOR BRONCHOSPAS M active Not Available Not Available No t Available cetirizine 10 mg tablet TAKE 1 TABLET BY MOUTH EVERY DAY active Not Available Not Available No t Available prednisone 20 mg tablet TAKE 2 TABLETS BY MOUTH EVERY DAY active Not Available Not Available No t Available sumatriptan 50 mg tablet TAKE 1 TABLET BY MOUTH NEEDED FOR MIGRAINE. MAY REPEAT IN 2 HOURS ONCE DAILY. active Not Available Not Available Not Available citalopram 20 mg tablet TAKE 1 TABLET BY MOUTH EVERY DAY active Not Available Not Available No t Available amitriptylin e 25 mg tablet TAKE 1 TABLET BY MOUTH EVERY DAY AT BEDTIME FOR 90 DAYS active Not Available Not Available No t Available lisinopril 10 mg tablet TAKE 1 TABLET BY MOUTH DAILY active Not Available Not Available Not Available fluticasone propionate 44 mcg/actuatio n HFA aerosol inhaler INHALE 1 PUFF BY MOUTH 2 TIMES A DAY ADMINISTER WITH SPACER active Not Available Not Available Not Available montelukast 10 mg tablet TAKE 1 TABLET BY MOUTH EVERY DAY active Not Available Not Available No t Available cefuroxime axetil 500 mg tablet TAKE 1 TABLET BY MOUTH 2 TIMES A DAY FOR 7 DAYS active Not Available Not Available N ot Available zolpidem 10 mg tablet TAKE 1 TABLET ORALLY BEDTIME NEEDED FOR SLEEP FOR 90 DAYS active Not Available Not Available No t Available albuterol sulfate HFA 90 mcg/actuatio n aerosol inhaler 2 PUFF INHALED EVERY 6 HOURS NEEDED FOR SHORTNESS OF BREATH OR WHEEZING FOR 30 DAYS active Not Available Not Available Not Available metformin ER 500 mg tablet,exten ded release 24 hr TAKE 2 TABLETS BY MOUTH TWICE A DAY active Not Available Not Available No t Available Pain Relief Extra Strength (acetaminoph en) 500 mg tablet TAKE 2 TABLETS BY MOUTH EVERY 6 HOURS NEEDED FOR PAIN active Not Available Not Available No t Available ketorolac 30 mg/mL injection solution Inject 30 mg by intravenous route. 2024 active IM Not Available Not Available Not Avai lable Trulicity 1.5 mg/0.5 mL subcutaneous pen injector INJECT 0.5 ML (1.5 MG) SUBCUTANEOU SLY ONE TIME PER WEEK active Not Available Not Available No t Available Breztri Aerosphere 160 mcg-9mcg-4.8 mcg/actuatio n HFA aerosol inhaler USE 2 INH INHALED 2 TIMES A DAY active Not Available Not Available Not Available Vitals Date Recorded Body temperature Heart rate Respiratory rate Oxygen saturation Oxygen saturation in Arterial blood by Pulse oximetry Systolic blood pressure Diastolic blood pressure Provider Name and Address Organization Details Last Updated DateTime 5 98.4 [degF] 68 /min 16 /min 99 % 99 % 140 mm[Hg] 88 mm[Hg] Not Available [facility] - production 11:05:55 Social History None recorded. Functional Status None recorded. Mental Status None recorded. Family History Nothing Reported. Medical History No medical history recorded. Past Encounters Encounter ID Performer Location Encounter Start Date Encounter Closed Date Diagnosis/Indication Diagnosis SNOMED-CT Code Diagnosis ICD10 Code Diagnosis Note [id number] Moises Winkler MD [facility] [address] [place] [phone] 03/25/2024 11:05:52 03/25/2024 11:57:34 Shoulder pain [id number] M25.519 Health Concerns Section Related Observation LastModified by Organization Detai ls LastModified Time None Recorded Concern Status LastModified by Organization Details LastModified Time None Recorded Advance Directives Directive None Recorded Payers Encounter Date Sequence Insurance Name Policy Number Policy Chowdary Covered Member ID Chowdary Member ID Guarantor Name 03/25/2024 1 [facility] - DOS ON OR AFTER 2022 - DUAL ELIGIBLE - [employer] AND ONE [employer] (MEDICARE REPLACEMENT/ADV ANTAGE - HMO) Donald Mooney [id number] Donald Mooney Notes Date Note Type Note Provider Name and Address Organization Details Recorded Time 03/25/2024 text/html [facility] Nurse Triage Notes (Demetria Coon - RN): Chief Complaints: Joint pain/swelling PMH: Asthma, Osteoarthritis, Hypertension PMH Reviewed at 03/25/2024 - 08:57 Allergies Reviewed at 03/25/2024 - 08:57 Comments: Referral taken via Hot Dimpling Machine Operator. Patient calling in to place a referral, identified via name and . Patient who fractured his left arm 8 days, was seen in the ED, he was not given any slings, but was given a muscle relaxant, 4 pills prescribed. He still reports pain and swelling with poor mobility to the left arm. He has an appt with his PCP April 20, and does not have any referrals to a surgeon or orthopedic. Patient requesting an assessment of his left arm. .................. .................. .................. .................. .................. .................. .................. ............... Feedmobile Driver Note From [employer]: Dispatched to the call address for the male with shoulder pain. Pt states he has had left shoulder pain for about 8 days now. He was seen in the ED and diagnosed with shoulder impingement. Pt was prescribed a muscle relaxer and an oral steroid. Pt advises he still has pain. He has not taken anything other than Tylenol which has not been effective. He has not been doing the stretches outline in his discharge paper work. Pt was found opening door, CAOx4, airway open and patent, breathing non labored, able to speak in full sentences, -JVD, -HEENT, skin PWD with good turgor, abd soft non tender/distended, pupils PERRL, +CMSx4, mucous membranes pink and moist, no obvious deformities/bruisi ng or crepitus noted in effected shoulder. [facility] [place]. Pt given 30mg of IM Ketorolac after confirming he has had Ibuprofen before and 5 med rights confirmed. Red flags discussed. ALL times are approx. .................. .................. .................. .................. .................. .................. .................. ............... [facility] Consulted: Moises Winkler .................. .................. .................. .................. .................. .................. .................. ............... Disposition: Fulfilled Moises Winkler MD [address] [place] [address],[address], [place], [phone], [facility] - [employer]EARCHKUL[employer]ER [place] 03/25/2024 11:41:04
== END 2024-04-20 10:33 | disposition home or self-care (01) ==
PROVIDERS: PCP Internal Medicine; Visit Provider Hospitalist
DX: J45.40 Moderate persistent asthma, uncomplicated (principal); J30.9 Allergic rhinitis, unspecified; T78.40XA Allergy, unspecified, initial encounter; J98.11 Atelectasis; Z23 Encounter for immunization
CPT/HCPCS: 99214

== ENCOUNTER → 2024-04-20 10:10 | Outpatient (BNVA) | payer OTHER, SELFPAY | PROVIDERS: PCP Internal Medicine; Visit Provider Hospitalist | DX: Z23 Encounter for immunization (principal); J45.40 Moderate persistent asthma, uncomplicated; J30.9 Allergic rhinitis, unspecified; T78.40XA Allergy, unspecified, initial encounter; J98.11 Atelectasis | CPT/HCPCS: 90471; 90677; 99212 ==

== ENCOUNTER 2024-05-14 08:21 | Outpatient (AMB) | payer OTHER, SELFPAY ==
--- NOTE | 2024-05-14 08:27 | MHC.OFFVIS ---
Intake Visit Reasons: New Pt - Left Chronic RTC Tear - Recent Trauma Intake Note: Donald is a 69 year old right hand dominant male who presents today as a New Patient with complaints of Left Shoulder Pain. He was previously seen in 2019 where management of a chronic rotator cuff tear was discussed and it was decided to continue conservative management. Currently patient reports a trip and fall in the beginning of March causing increased pain and decreased ROM. He was seen at [facility] about 1 week following the injury where he was given muscle relaxers and a course of steroids. Allergies aspirin [Aspirin] Allergy (Mild, Verified 03/20/24 07:21) RASH Penicillins Allergy (Mild, Verified 03/20/24 07:21) RASH tramadol Adverse Reaction (Intermediate, Verified 03/20/24 07:21) abdominal pain HPI HPI New Pt - Left Chronic RTC Tear - Recent Trauma: Details: This is a 69 yo M with a history of left shoulder RTC tear from ~5 years ago that was doing well until he fell 6 weeks ago and has been having pain with abduction since. He has not been treated. [facility] Medical History (Updated 05/14/24 @ 09:14 by Vivek Perkins MD) Atelectasis Chronic allergic rhinitis Allergies Hearing difficulty of left ear Onychomycosis Bladder pain Thyroid nodule BPH (benign prostatic hyperplasia) GERD (gastroesophageal reflux disease) Hyperlipidemia LDL goal <100 Rotator cuff tear Obesity Insomnia Pure hypercholesterolemia Essential hypertension Diabetes mellitus Arthritis High blood pressure Asthma No known health problems Surgical History History of knee replacement procedure of right knee Family History Father No problems noted. Mother Diabetes Hypertension Brother Throat cancer Social History Household Members: Spouse Housing: Apartment Alcohol intake: former Patient Tobacco Use Status: Former Tobacco user Tobacco use type: Cigarette e-Cigarette/Vaping Use: Never Used Second Hand Smoke Exposure: No service: No Current occupational status: disabled Cognitive needs: Yes Hearing needs: Yes Vision needs: Yes Physical Exam Extrem Other: 4/5 ec 35/90/120/S1 Office Procedures Joint Inj/Aspir; Non-Pain Clin Joint Injection/Drain Details: Injected 1 mL of Decadron and 3 mL 1% lidocaine and 3 mL of 0.25% Marcaine. Site was prepped using aseptic technique. Patient tolerated the procedure well. Shoulders, Hips, Knees, Shoulder Injection Large joint 62768: Left Shoulder Coding Procedure code (CPT) selection complete Results Reviewed Results Reviewed: I personally reviewed relevant radiographs. Mild GH OA and downsloping acromion. Assessment & Plan Assessment & Plan (1) Rotator cuff tear: Code(s): M75.100 - Unspecified rotator cuff tear or rupture of unspecified shoulder, not specified as traumatic Category: Medical Plan: Left shoulder pain after a fall in setting or old high grade partial thickness rtc tear. Injected shoulder and ordered PT. F/u p PT (2) Incomplete rotator cuff tear or rupture of left shoulder, not specified as traumatic: Code(s): M75.112 - Incomplete rotator cuff tear or rupture of left shoulder, not specified as traumatic Category: Medical Plan: Injecion and PT (3) Diabetes mellitus: Code(s): E11.9 - Type 2 diabetes mellitus without complications Category: Medical Qualifiers: Diabetes mellitus type: type 2 Diabetes mellitus remote computer terminal operator insulin use: without remote computer terminal operator use Diabetes mellitus complication status: without complication Qualified Code(s): E11.9 - Type 2 diabetes mellitus without complications Plan: Discussed hyperglycemic effects of steroid with patient Orders: Orders PT Evaluation and Treatment Today M75.112 - Incomplete rotator cuff tear or rupture of left shoulder, not specified as traumatic Coding Level of Care Code New Pt Level 4 (39336) Diagnoses Rotator cuff tear M75.100 Incomplete rotator cuff tear or rupture of left shoulder, not specified as traumatic M75.112 Type 2 diabetes mellitus without complication, without long-term current use of insulin E11.9 Diabetes mellitus type: type 2 Diabetes mellitus senior care insulin use: without remote computer terminal operator use Diabetes mellitus complication status: without complication CPT Codes Shoulders, Hips, Knees, - Shoulder Injection Large joint 17172: Left Shoulder ([id number])
--- OUTSIDE RECORDS SUMMARY | 2024-05-14 08:27 | XMS_ITS | Data Portability ---
Author Organization [employer] [employer] [facility] [employer] Address [address] [place] [phone] Care Team Providers Care Wet Washer Machine Name Role Phone HIM HUEY OTHER Assessment [...] of any new or worsening serious symptoms [id number] Not available 03/25/2024 11:40:48 Plan of Treatment [...] Name and Address Organization Details Recorded Time 86197 aspirin medicatio n Not available Not available Not available 03/25/2024 1191 RxNorm Not Available [facility] - production 5 08:57:36 53400 Product containin g penicilli n (product) medicatio n Not available Not available Not available 03/25/2024 92550 8001 SNOMED Not Available [facility] - production [...] SNOMED-CT Code Diagnosis ICD10 Code Diagnosis Note [id number] Moises Winkler MD [facility] - [facility] [address] [place] [phone] 03/25/2024 11:05:52 03/25/2024 11:57:34 Shoulder pain [id number] M25.519 Health Concerns Section Related Observation LastModified by Organization Detai ls LastModified Time None Recorded Concern Status LastModified by Organization Details LastModified Time None Recorded Advance Directives Directive None Recorded Payers Encounter Date Sequence Insurance Name Policy Number Policy Chowdary Covered Member ID Chowdary Member ID Guarantor Name 03/25/2024 1 [facility] - DOS ON OR AFTER 2022 - DUAL ELIGIBLE - [facility] OPTIONS AND ONE CARE (MEDICARE REPLACEMENT/ADV ANTAGE - HMO) Donald Mooney [id number] Donald Mooney Notes Date Note Type Note Provider Name and Address Organization Details Recorded Time 03/25/2024 text/html [facility] Nurse Triage Notes (Demetria Coon - RN): Chief Complaints: Joint pain/swelling PMH: Asthma, Osteoarthritis, Hypertension PMH Reviewed at 03/25/2024 - 08:57 Allergies Reviewed at 03/25/2024 - 08:57 Comments: Referral taken via Erp Analyst. Patient calling in to place a referral, [...] .................. .................. .................. .................. .................. .................. ............... Scale Mechanic Note From [employer]: Dispatched to the [...] ng or crepitus noted in effected shoulder. [facility] consulted. Pt given 30mg of IM Ketorolac after confirming he has had Ibuprofen before and 5 med rights confirmed. Red flags discussed. ALL times are approx. .................. .................. .................. .................. .................. .................. .................. ............... [facility] Consulted: Moises Winkler .................. .................. .................. .................. .................. .................. .................. ............... Disposition: Fulfilled Moises Winkler MD [address] [place] [address],[address], [place], [phone], [facility] - [employer]ome[employer]ULWINDER [place] 03/25/2024 11:41:04
== END 2024-05-14 09:07 | disposition home or self-care (01) ==
LOC: HO.HOS 08:22
PROVIDERS: PCP Internal Medicine; Visit Provider Orthopaedic Surgery
DX: M75.112 Incomplete rotator cuff tear or rupture of left shoulder, not specified as traumatic (principal); E11.9 Type 2 diabetes mellitus without complications
CPT/HCPCS: 20610; 99204

== ENCOUNTER → 2024-05-14 08:21 | Outpatient (BNVA) | payer OTHER, SELFPAY | PROVIDERS: PCP Internal Medicine; Visit Provider Orthopaedic Surgery | DX: M75.112 Incomplete rotator cuff tear or rupture of left shoulder, not specified as traumatic (principal); E11.9 Type 2 diabetes mellitus without complications | CPT/HCPCS: 20610; 99202; J0665; J1100; J2003 ==

== ENCOUNTER 2024-06-28 05:39 | Emergency (ER) | payer OTHER, SELFPAY ==
--- NOTE | ~2024-06-28 | XR_ITS ---
CLINICAL HISTORY: pain 2 view left knee Comparison: None Findings: No acute fracture or dislocation is identified. Mild marginal osteophyte formation is seen about the knee with mild medial femorotibial joint space narrowing. Soft tissue structures appear within normal limits. IMPRESSION: No acute osseous abnormality is identified. This document has been electronically signed by: Lucio Guthrie on 06/28/2024 07:56:37
[2024-06-28 05:44] VITALS: BP 119/58; PULSE 84; RESP 18; TEMP 36.9; O2SAT 96; BMI 30.8
--- NOTE | 2024-06-28 07:23 | ED.EXTPRO ---
HPI - Extremity Problem General Chief complaint: Extremity Problem Stated complaint: knee pain Time Seen by Provider: 06/28/24 05:45 Source: patient Mode of arrival: ambulatory Limitations: no limitations History of Present Illness ED Provider: Dr. Lola Moyer HPI Narrative: patient comes to the emergency room complaining of left-sided knee pain for 2 weeks. Patient states that he did not injure his knee. Patient states that he has history of severe arthritis on the right knee and has needed surgery. Patient denies fever chills. Patient denies swelling. Related Data Home Medications ?Medication ?Instructions ?Recorded ?Confirmed amitriptyline 25 mg tablet 25 mg PO BEDTIME 03/04/23 nebulizers 03/04/23 Previous Rx's ?Medication ?Instructions ?Recorded blood sugar diagnostic (FreeStyle #200 ea 05/24/20 Lite Strips) lancets 28 gauge (FreeStyle #200 ea 07/06/20 Lancets) omeprazole 20 mg capsule,delayed 20 mg PO QAM 90 days #90 caps 01/08/22 release albuterol sulfate 90 mcg/actuation 1 inh inhalation QID PRN shortness 01/30/22 aerosol inhaler (ProAir HFA) of breath or wheezing #8.5 grams Magic Mouthwash 10 ml PO .QID 3 days #240 mL 04/02/22 Diphen/Lido/Antacid 1:1:1 240 mL suspension triamcinolone acetonide 55 mcg 1 spray intranasal DAILY 30 days 07/10/22 nasal spray aerosol (Nasacort) #16.9 mL doxycycline hyclate 100 mg tablet 100 mg PO BID 5 days #10 tabs 10/03/22 magnesium 250 mg tablet 250 mg PO DAILY 30 days #30 tabs 10/03/22 albuterol sulfate 2.5 mg/3 mL 2.5 mg (3 mL) inhalation Q4-6H PRN 12/24/22 (0.083 %) solution for nebulization shortness of breath or wheezing #75 mL albuterol sulfate 0.63 mg/3 mL 0.63 mg (3 mL) inhalation QID PRN 12/30/22 solution for nebulization bronchospasm #75 mL lorazepam 1 mg tablet 1 mg PO DAILY PRN anxiety #4 tabs 12/30/22 fluticasone propionate 44 1 puff inhalation BID 30 days 01/05/24 mcg/actuation HFA aerosol inhaler #10.6 grams (Flovent HFA) acetaminophen 325 mg capsule 325 mg PO QID PRN pain 7 days #28 02/24/23 (Tylenol) caps cyclobenzaprine 10 mg tablet 10 mg PO TID PRN muscle spasm 5 02/24/23 days #15 tabs albuterol sulfate 2.5 mg/3 mL 2.5 mg (3 mL) inhalation Q4-6H PRN 05/23/23 (0.083 %) solution for nebulization bronchospasm #75 mL budesonide 160 mcg-glycopyr 9 2 inh inhalation BID #10.7 grams 05/23/23 mcg-formot 4.8 mcg/actuation HFA inhaler cefuroxime axetil 500 mg tablet 500 mg PO BID 7 days #14 tabs 05/23/23 doxycycline hyclate 100 mg capsule 100 mg PO BID 7 days #14 caps 05/23/23 prednisone 20 mg tablet 40 mg (2 x 20 mg) PO DAILY 5 days 05/23/23 #10 tabs albuterol sulfate 90 mcg/actuation 2 puff inhalation Q6H PRN 07/05/23 aerosol inhaler shortness of breath or wheezing 30 days #6.7 grams acetaminophen 500 mg tablet 1,000 mg (2 x 500 mg) PO Q6H PRN 10/15/23 (Tylenol Extra Strength) pain #20 tabs cyclobenzaprine 10 mg tablet 10 mg PO TID PRN muscle spasm #10 10/15/23 tabs lidocaine 5 % topical patch 1 patch topical DAILY #15 ea 10/15/23 citalopram 20 mg tablet 20 mg PO DAILY 90 days #90 tabs 11/19/23 lisinopril 10 mg tablet 10 mg PO DAILY #90 tabs 11/21/23 budesonide 160 mcg-glycopyr 9 2 inh inhalation BID #10.7 grams 11/26/23 mcg-formot 4.8 mcg/actuation HFA inhaler (Breztri Aerosphere) metformin 500 mg tablet,extended 1,000 mg (2 x 500 mg) PO BID 90 02/11/24 release 24 hr days #360 tabs montelukast 10 mg tablet 10 mg PO DAILY 30 days #30 tabs 02/26/24 cyclobenzaprine 10 mg tablet 10 mg PO TID PRN muscle spasm #10 03/20/24 tabs prednisone 20 mg tablet 40 mg (2 x 20 mg) PO DAILY #10 tabs 03/20/24 atorvastatin 40 mg tablet 40 mg PO BEDTIME #90 tabs 03/27/24 dulaglutide 1.5 mg/0.5 mL 1.5 mg (0.5 mL) subcut QWEEK #6 mL 04/08/24 subcutaneous pen injector zolpidem 10 mg tablet 10 mg PO BEDTIME PRN sleep 90 days 05/18/24 #90 tabs cetirizine 10 mg tablet 10 mg PO DAILY 90 days #90 tabs 06/09/24 Allergies Allergy/AdvReac Type Severity Reaction Status Date / Time aspirin [Aspirin] Allergy Mild RASH Verified 06/28/24 05:45 Penicillins Allergy Mild RASH Verified 06/28/24 05:45 tramadol AdvReac Intermediate abdominal Verified 06/28/24 05:45 pain Review of Systems Review of Systems: Constitutional : No Weight loss, No Fever, No Chills, No Night Sweats, No Fatigue, No Malaise ENT/Mouth : No Hearing loss, No Ear Pain, No Nasal Congestion, No Sinus Pain, No Hoarseness, No sore throat, No Rhinorrhea, No Swallowing Difficulty Eyes: No Eye Pain, No Swelling, No Redness, No Foreign Body, No Discharge, No Vision Changes Cardiovascular : No Chest Pain, No SOB, No Dyspnea on Exertion, No Orthopnea, No Edema, No Palpitations Respiratory : No Cough, No Sputum, No Wheezing, No Smoke Exposure, No Dyspnea Gastrointestinal : No Nausea, No Vomiting, No Diarrhea, No Constipation, No abdominal Pain, No Hematochezia, No Melena Genitourinary : no irregular bleeding, No Dysuria, No Urinary Frequency, No Hematuria, No Urinary Incontinence, No Urgency, No Flank Pain, No Urinary Flow Changes, No Hesitancy Musculoskeletal : Complaining of left knee pain, atraumatic, No Myalgias, No Joint Swelling Skin : No Skin Lesions, No rash Neuro : No Weakness, No Numbness, No Paresthesias, No Loss of Consciousness, No Dizziness, No Headache Psych : No Anxiety/Panic, No Depression, No SI/HI/AH/VH, No Social Issues, Heme/Lymph: No Bruising, No Bleeding,No Lymphadenopathy Endocrine : No Polyuria, No Polydipsia, No Temperature Intolerance PMFSH Past Medical History Medical History Atelectasis Chronic allergic rhinitis Allergies Hearing difficulty of left ear Onychomycosis Bladder pain Thyroid nodule BPH (benign prostatic hyperplasia) GERD (gastroesophageal reflux disease) Hyperlipidemia LDL goal <100 Rotator cuff tear Obesity Insomnia Pure hypercholesterolemia Essential hypertension Diabetes mellitus Arthritis High blood pressure Asthma No known health problems Surgical History History of knee replacement procedure of right knee Family History Family History Father No problems noted. Mother Diabetes Hypertension Brother Throat cancer Social History Social History Household Members: Spouse Housing: Apartment Alcohol intake: former Patient Tobacco Use Status: Former Tobacco user Tobacco use type: Cigarette e-Cigarette/Vaping Use: Never Used Second Hand Smoke Exposure: No Advance Directives: No Advance Directives Information Provided: Yes service: No Current occupational status: disabled Cognitive needs: Yes Hearing needs: Yes Vision needs: Yes Physical Exam Vital Signs: Vital Signs: Last Vital Signs Temp 97.8 F 06/28/24 07:55 Pulse 75 06/28/24 07:55 Resp 15 06/28/24 07:55 BP 122/62 06/28/24 07:55 Pulse Ox 98 06/28/24 07:55 O2 Del Method Room Air 06/28/24 07:55 BMI result Body Mass Index 30.8 Const: Other: Appearance: Alert. Oriented X3. No acute distress. Eyes: Pupils equal, round and reactive to light. ENT: Pharynx normal. Neck: Normal inspection. Neck supple. No lymph nodes noted. No crepitus CVS: Normal heart rate and rhythm. Pulses normal. Normal S1 and S2 Respiratory: No respiratory distress. Breath sounds normal. No Wheezing. No rales Abdomen: Soft and nontender. No rigidity. No distention. Skin: Skin warm and dry. Normal skin color. Normal skin turgor. Extremities: No lower extremity edema. No Lacerations. No Rash. Patient able to flex and extend the knee. Patient came in walking with Help of a cane. No swelling, no ecchymosis, no signs of effusion Neuro: Oriented X 3. No motor deficit. No sensory deficit. Moving all extremities. No slurred speech. CN 2 through 12 grossly intact Psych: calm, cooperative, normal affect Course Course Course Narrative: patient complaining of chronic knee pain. X-ray pending sign out given to my colleague Dr. Llamas Reevaluation(s) Reevaluation #1: Patient was signed out to me at 07:[address] Moyer pending x-ray, I reviewed the x-ray at this time within normal limit I also re-examined the patient I think he can be discharged home examination of the knee showed no effusion no redness we will prescribe analgesia he will follow-up with the ortho Time: 08:04 Discharge Plan Discharge Clinical Impression: Knee pain Prescriptions: No Action (DME) FreeStyle Lite Strips Strip See Rx Instructions .ROUTE .MEDSUPPLY Qty: 200 3RF Rx Instructions: As directed twice a day (DME) lancets [FreeStyle Lancets] 28 gauge misc See Rx Instructions .ROUTE .MEDSUPPLY Qty: 200 3RF Rx Instructions: two time a day albuterol sulfate [ProAir HFA] 90 mcg/actuation HFA aerosol inhaler 1 inh inhalation QID PRN (Reason: shortness of breath or wheezing) Qty: 8.5 0RF albuterol sulfate 2.5 mg /3 mL (0.083 %) solution for nebulization 2.5 mg inhalation Q4-6H PRN (Reason: shortness of breath or wheezing) Qty: 75 0RF fluticasone propionate [Flovent HFA] 44 mcg/actuation HFA aerosol inhaler 1 puff inhalation BID 30 Days Qty: 10.6 6RF Rx Instructions: administer with spacer citalopram 20 mg tablet 20 mg PO DAILY 90 Days Qty: 90 1RF lisinopril 10 mg tablet 10 mg PO DAILY Qty: 90 3RF Breztri Aerosphere 160-9-4.8 mcg/actuation HFA aerosol inhaler 2 inh inhalation BID Qty: 10.7 11RF metformin 500 mg tablet extended release 24 hr 1,000 mg PO BID 90 Days Qty: 360 2RF montelukast 10 mg tablet 10 mg PO DAILY 30 Days Qty: 30 3RF atorvastatin 40 mg tablet 40 mg PO BEDTIME Qty: 90 1RF dulaglutide 1.5 mg/0.5 mL pen injector 1.5 mg subcut QWEEK Qty: 6 1RF zolpidem 10 mg tablet 10 mg PO BEDTIME PRN (Reason: sleep) 90 Days Qty: 90 0RF cetirizine 10 mg tablet 10 mg PO DAILY 90 Days Qty: 90 0RF Magic Mouthwash Diphen/Lido/Antacid 1:1:1 240 mL suspension 10 ml PO .QID 3 Days Qty: 240 0RF Rx Instructions: Lidocaine Viscous 2 % 80mL; diphenhydramine 12.5 mg/5 mL 80mL; aluminum-mag hydrox-simeth [id number]/5mL 80mL cefuroxime axetil 500 mg tablet 500 mg PO BID 7 Days Qty: 14 0RF doxycycline hyclate 100 mg capsule 100 mg PO BID 7 Days Qty: 14 0RF albuterol sulfate 2.5 mg /3 mL (0.083 %) solution for nebulization 2.5 mg inhalation Q4-6H PRN (Reason: bronchospasm) Qty: 75 0RF [id number] 160-9-4.8 mcg/actuation HFA aerosol inhaler 2 inh inhalation BID Qty: 10.7 0RF prednisone 20 mg tablet 40 mg PO DAILY 5 Days Qty: 10 0RF cyclobenzaprine 10 mg tablet 10 mg PO TID PRN (Reason: muscle spasm) Qty: 10 0RF lidocaine 5 % adhesive patch,medicated 1 patch topical DAILY Qty: 15 0RF Rx Instructions: leave on most painful area for up to 12 hrs acetaminophen [Tylenol Extra Strength] 500 mg tablet 1,000 mg PO Q6H PRN (Reason: pain) Qty: 20 0RF prednisone 20 mg tablet 40 mg PO DAILY Qty: 10 0RF cyclobenzaprine 10 mg tablet 10 mg PO TID PRN (Reason: muscle spasm) Qty: 10 0RF lorazepam 1 mg tablet 1 mg PO DAILY PRN (Reason: anxiety) Qty: 4 0RF albuterol sulfate 0.63 mg/3 mL solution for nebulization 0.63 mg inhalation QID PRN (Reason: bronchospasm) Qty: 75 0RF cyclobenzaprine 10 mg tablet 10 mg PO TID PRN (Reason: muscle spasm) 5 Days Qty: 15 0RF Rx Instructions: Side effect is drowsiness. Do not take at work or while driving. acetaminophen [Tylenol] 325 mg capsule 325 mg PO QID PRN (Reason: pain) 7 Days Qty: 28 0RF omeprazole 20 mg capsule,delayed release(DR/EC) 20 mg PO QAM 90 Days Qty: 90 1RF triamcinolone acetonide [Nasacort] 55 mcg aerosol,spray 1 spray intranasal DAILY 30 Days Qty: 16.9 1RF Rx Instructions: administer into each nostril doxycycline hyclate 100 mg tablet 100 mg PO BID 5 Days Qty: 10 0RF magnesium 250 mg tablet 250 mg PO DAILY 30 Days Qty: 30 0RF albuterol sulfate 90 mcg/actuation HFA aerosol inhaler 2 puff inhalation Q6H PRN (Reason: shortness of breath or wheezing) 30 Days Qty: 6.7 11RF (DME) nebulizers Misc See Rx Instructions .ROUTE Rx Instructions: As directed amitriptyline 25 mg tablet 25 mg PO BEDTIME Print Language: Divehi
[2024-06-28 07:55] VITALS: BP 122/62; PULSE 75; RESP 15; TEMP 36.6; O2SAT 98
[2024-06-28 08:26] VITALS: BP 122/62; PULSE 75; RESP 15; TEMP 36.6; O2SAT 98
== END 2024-06-28 08:27 | disposition home or self-care (01) ==
PROVIDERS: Emergency Provider Emergency Medicine; PCP Internal Medicine
DX: M25.562 Pain in left knee (principal); E11.9 Type 2 diabetes mellitus without complications; I10 Essential (primary) hypertension; E78.00 Pure hypercholesterolemia, unspecified; J45.909 Unspecified asthma, uncomplicated; Z79.02 Long term (current) use of antithrombotics/antiplatelets; Z79.85 Long-term (current) use of injectable non-insulin antidiabetic drugs; Z79.899 Other long term (current) drug therapy
CPT/HCPCS: 73560; 99283; 99284

== ENCOUNTER → 2024-06-28 07:23 | Outpatient (BNV) | payer OTHER, SELFPAY | PROVIDERS: Emergency Provider Emergency Medicine; PCP Internal Medicine; Visit Provider Radiology Vascular & Interventional Radiology | DX: M25.562 Pain in left knee (principal) | CPT/HCPCS: 73560 ==

== ENCOUNTER 2024-06-30 17:00 | Outpatient (RCR) | payer OTHER, SELFPAY ==
--- NOTE | 2024-06-08 14:33 | MHC.PT.EP ---
[facility] [place] [facility] [place] [facility] [place] Office [address] Viraj Hair [address] [phone] F: [phone] F: [phone] F: [phone] F: [phone] Physical Therapy Plan of Care Date of Evaluation: 06/08/24 Date of Surgery: N/A Diagnosis: rotator cuff tear or rupture of left shoulder (RL) Assessment: pt is a 69 y/o male presenting to physical therapy w/ referring diagnosis of rotator cuff tear or rupture of left shoulder. Impairments include pain, decreased range of motion, decreased strength, impaired functional mobility, impaired postural awareness, and altered ambulation mechanics. pt is a fair candidate for skilled PT due to age, potential remediation of impairments, typical disease/condition progression and prognosis, comorbidities, and motivation. pt would benefit from skilled PT intervention to provide a tailored strengthening and stretching exercise program, functional training, gait training, postural re-training, neuromuscular re-education, modalities as needed for pain, equipment safety demonstration. Frequency and Duration: The patient will be seen 1x/wk for 4 wks Short Term Goals: pt will be I w/ HEP to promote self-management of condition. pt will improve L shoulder flexion and abduction AROM by at least 10* to promote ease in overhead reaching. Longterm Goals: pt will report a statistically significant improvement in self-reported outcome measure, SPADI, to promote return to PLOF. pt will demo proper lifting mechanics w/ 15# w/ <5/10 L shoulder pain to promote return to functional lifting. pt will improve L shoulder functional ER to at least suboccipital region to promote ease in upper body ADLs. Treatment Plan: Modalities to reduce pain, spasms and effusion. Manual therapy to restore motion and function. Therapeutic exercise to improve strength and flexibility. Neuromuscular re-education for posture and balance. Therapeutic activities to return to functional activities of daily living. Electronically signed by: Britni Chambers PT, DPT Please sign and return to therapist. Thank you for your referral.
--- NOTE | 2024-07-30 14:59 | MHC.PT.DC ---
[facility] [place] Office [place] Office [place] Office [address] Viraj Hair [address] [facility] [phone] F: [phone] F: [phone] F: [phone] F: [phone] Physical Therapy Discharge Report Diagnosis: rotator cuff tear or rupture of left shoulder (RL) Date of Surgery: N/A Date of Evaluation: 06/08/24 Date of Discharge: 07/30/24 Treatments to Date: 4 Cancellations to Date: 3 No Shows to Date: 0 Discharge Status: Recommend MD Follow-up Discharge Summary: Pts pain levels remain unchanged and he made fair progress with PT. He is I with [facility]. He will follow up with MD regarding possible surgery. D/C to [facility] Electronically signed by: Britni Chambers PT, DPT Please sign and return to therapist. Thank you for your referral.
== END 2024-07-30 14:59 | disposition home or self-care (01) ==
LOC: HO.PT 17:00
PROVIDERS: PCP Internal Medicine; Visit Provider Orthopaedic Surgery
DX: M75.112 Incomplete rotator cuff tear or rupture of left shoulder, not specified as traumatic (principal)
CPT/HCPCS: 97110; 97140; 97162; 97530

== ENCOUNTER → 2024-07-18 09:57 | Outpatient (BNV) | payer OTHER, SELFPAY | PROVIDERS: PCP Internal Medicine; Visit Provider Radiology Diagnostic Radiology | DX: M17.12 Unilateral primary osteoarthritis, left knee (principal) | CPT/HCPCS: 73564 ==

== ENCOUNTER 2024-07-18 10:36 | Emergency (ER) | payer OTHER, SELFPAY ==
--- NOTE | ~2024-07-18 | XR_ITS ---
CLINICAL HISTORY: pain swelling, R O arthritis. nki 4 views left knee Comparison: CR - XR KNEE LT 2V - 06/28/24 07:24 EDT Findings: No fractures, subluxations or dislocations. Mild joint space narrowing medial knee compartment. No osteochondral lesions or loose bodies. Normal patellar alignment. No suprapatellar joint effusion.No prepatellar soft tissue swelling. Normal bone mineralization and soft tissues. No unusual radiopaque foreign body. Impression: 1. Mild joint space narrowing medial knee compartment and small enthesophytes. This reflects mild osteoarthritic changes. This document has been electronically signed by: Medhat Benjamin MD on 07/18/2024 11:31:49
[2024-07-18 10:46] VITALS: BP 126/41; PULSE 88; RESP 18; TEMP 36.4; O2SAT 97; BMI 30.1
--- NOTE | 2024-07-18 12:39 | ED.LOWEXIN ---
HPI - Extremity Injury (Lower) General Chief Complaint: Extremity Injury, Lower Stated Complaint: l leg pain Time Seen by Provider: 07/18/24 12:37 Source: patient and RN notes reviewed Mode of arrival: ambulatory Limitations: no limitations History of Present Illness ED Provider: Vane Valdez PA-C HPI Narrative: This is a 69-year-old male who presents emergency department with concerns of left knee pain for the last 2 months. No injury or trauma. Patient was seen here multiple weeks ago with similar symptoms. No new injury or trauma since. He states pain worsens with ambulation. No calf tenderness. He has been taking Tylenol at home which has provided him with minimal relief. He was instructed to follow-up with orthopedist however he failed to do so. No fevers or chills. No chest pain or shortness of breath. No other complaints or concerns at this time. Onset (ago): month(s) Relieving factors: nothing Exacerbating factors: weight bearing, movement and palpation Other symptoms: none Related Data Home Medications ?Medication ?Instructions ?Recorded ?Confirmed amitriptyline 25 mg tablet 25 mg PO BEDTIME 03/04/23 nebulizers 03/04/23 Previous Rx's ?Medication ?Instructions ?Recorded blood sugar diagnostic (FreeStyle #200 ea 05/24/20 Lite Strips) lancets 28 gauge (FreeStyle #200 ea 07/06/20 Lancets) omeprazole 20 mg capsule,delayed 20 mg PO QAM 90 days #90 caps 01/08/22 release albuterol sulfate 90 mcg/actuation 1 inh inhalation QID PRN shortness 01/30/22 aerosol inhaler (ProAir HFA) of breath or wheezing #8.5 grams Magic Mouthwash 10 ml PO .QID 3 days #240 mL 04/02/22 Diphen/Lido/Antacid 1:1:1 240 mL suspension triamcinolone acetonide 55 mcg 1 spray intranasal DAILY 30 days 07/10/22 nasal spray aerosol (Nasacort) #16.9 mL doxycycline hyclate 100 mg tablet 100 mg PO BID 5 days #10 tabs 10/03/22 magnesium 250 mg tablet 250 mg PO DAILY 30 days #30 tabs 10/03/22 albuterol sulfate 2.5 mg/3 mL 2.5 mg (3 mL) inhalation Q4-6H PRN 12/24/22 (0.083 %) solution for nebulization shortness of breath or wheezing #75 mL albuterol sulfate 0.63 mg/3 mL 0.63 mg (3 mL) inhalation QID PRN 12/30/22 solution for nebulization bronchospasm #75 mL lorazepam 1 mg tablet 1 mg PO DAILY PRN anxiety #4 tabs 12/30/22 fluticasone propionate 44 1 puff inhalation BID 30 days 02/15/23 mcg/actuation HFA aerosol inhaler #10.6 grams (Flovent HFA) acetaminophen 325 mg capsule 325 mg PO QID PRN pain 7 days #28 02/24/23 (Tylenol) caps cyclobenzaprine 10 mg tablet 10 mg PO TID PRN muscle spasm 5 02/24/23 days #15 tabs albuterol sulfate 2.5 mg/3 mL 2.5 mg (3 mL) inhalation Q4-6H PRN 05/23/23 (0.083 %) solution for nebulization bronchospasm #75 mL budesonide 160 mcg-glycopyr 9 2 inh inhalation BID #10.7 grams 05/23/23 mcg-formot 4.8 mcg/actuation HFA inhaler cefuroxime axetil 500 mg tablet 500 mg PO BID 7 days #14 tabs 05/23/23 doxycycline hyclate 100 mg capsule 100 mg PO BID 7 days #14 caps 05/23/23 prednisone 20 mg tablet 40 mg (2 x 20 mg) PO DAILY 5 days 05/23/23 #10 tabs albuterol sulfate 90 mcg/actuation 2 puff inhalation Q6H PRN 07/05/23 aerosol inhaler shortness of breath or wheezing 30 days #6.7 grams acetaminophen 500 mg tablet 1,000 mg (2 x 500 mg) PO Q6H PRN 10/15/23 (Tylenol Extra Strength) pain #20 tabs cyclobenzaprine 10 mg tablet 10 mg PO TID PRN muscle spasm #10 10/15/23 tabs lidocaine 5 % topical patch 1 patch topical DAILY #15 ea 10/15/23 citalopram 20 mg tablet 20 mg PO DAILY 90 days #90 tabs 11/19/23 lisinopril 10 mg tablet 10 mg PO DAILY #90 tabs 11/21/23 budesonide 160 mcg-glycopyr 9 2 inh inhalation BID #10.7 grams 11/26/23 mcg-formot 4.8 mcg/actuation HFA inhaler (Breztri Aerosphere) metformin 500 mg tablet,extended 1,000 mg (2 x 500 mg) PO BID 90 02/11/24 release 24 hr days #360 tabs montelukast 10 mg tablet 10 mg PO DAILY 30 days #30 tabs 02/26/24 cyclobenzaprine 10 mg tablet 10 mg PO TID PRN muscle spasm #10 03/20/24 tabs prednisone 20 mg tablet 40 mg (2 x 20 mg) PO DAILY #10 tabs 03/20/24 atorvastatin 40 mg tablet 40 mg PO BEDTIME #90 tabs 03/27/24 zolpidem 10 mg tablet 10 mg PO BEDTIME PRN sleep 90 days 05/18/24 #90 tabs cetirizine 10 mg tablet 10 mg PO DAILY 90 days #90 tabs 06/09/24 oxycodone 5 mg tablet 5 mg PO Q6H PRN pain #15 tabs 06/28/24 dulaglutide 1.5 mg/0.5 mL 1.5 mg (0.5 mL) subcut QWEEK 90 07/17/24 subcutaneous pen injector days #6.5 mL acetaminophen 500 mg tablet 1,000 mg (2 x 500 mg) PO Q8H PRN 07/18/24 (Tylenol Extra Strength) pain #30 tabs oxycodone 5 mg tablet 5 mg PO Q6H PRN severe pain (scale 07/18/24 score 7-10) #7 tabs Allergies Allergy/AdvReac Type Severity Reaction Status Date / Time aspirin [Aspirin] Allergy Mild RASH Verified 07/18/24 10:47 Penicillins Allergy Mild RASH Verified 07/18/24 10:47 tramadol AdvReac Intermediate abdominal Verified 07/18/24 10:47 pain Review of Systems Review of Systems: Yes all other systems are reviewed and are negative Constitutional: Constitutional: Reports as per [facility] Past Medical History Medical History Atelectasis Chronic allergic rhinitis Allergies Hearing difficulty of left ear Onychomycosis Bladder pain Thyroid nodule BPH (benign prostatic hyperplasia) GERD (gastroesophageal reflux disease) Hyperlipidemia LDL goal <100 Rotator cuff tear Obesity Insomnia Pure hypercholesterolemia Essential hypertension Diabetes mellitus Arthritis High blood pressure Asthma No known health problems Surgical History History of knee replacement procedure of right knee Family History Family History Father No problems noted. Mother Diabetes Hypertension Brother Throat cancer Social History Social History Household Members: Spouse Housing: Apartment Unable to assess alcohol history related to: Unknown Alcohol intake: former Patient Tobacco Use Status: Former Tobacco user Tobacco use type: Cigarette e-Cigarette/Vaping Use: Never Used Second Hand Smoke Exposure: No Use of substances other than those prescribed or required for medical reasons: Unknown Advance Directives: No Advance Directives Information Provided: No service: No Current occupational status: disabled Cognitive needs: Yes Hearing needs: Yes Vision needs: Yes Physical Exam Vital Signs: Vital Signs: Last Vital Signs Temp 97.6 F 07/18/24 10:46 Pulse 88 07/18/24 10:46 Resp 18 07/18/24 10:46 BP 126/41 L 07/18/24 10:46 Pulse Ox 97 07/18/24 10:46 O2 Del Method Room Air 07/18/24 10:46 BMI result Body Mass Index 30.1 Const: Other: General: Awake, alert, and oriented X3. No acute distress. HEENT: Normal inspection CVS: Normal heart rate and rhythm. Pulses normal. Respiratory: No respiratory distress Skin: Warm, dry, no rashes noted to exposed skin. Normal skin color. Normal skin turgor. Extremities: Patient has tenderness palpation along the medial joint line, full ROM without difficulty, knee joint is nonerythematous, nonedematous. No calf tenderness, no pedal edema. Neuro: Oriented X 3. No motor deficit. No sensory deficit. Medical Decision Making Medical Decision Making MDM Narrative: This is a 69-year-old male who presents emergency department with concerns of left knee pain ongoing for the last 2 months. On arrival, patient is well-appearing, ambulatory, using cane. Patient has had knee pain for several months, without any injury or trauma. Knee is nonerythematous nonedematous. He has tenderness palpation along the medial joint line, patient was seen here several weeks ago with similar symptoms, no new injury or trauma. X-ray was obtained prior to my evaluation revealing mild joint space narrowing medial knee compartment and small esthesophyte, reflecting mild osteoarthritic changes. Discussed findings with patient. Patient reports that he is unable to sleep secondary to pain. I stressed the importance of continuing taking Tylenol, given small course of oxycodone to be taken only for severe pain only. Given safety precautions with this medication. He understands agrees with plan. Given dose in the emergency department, he is not driving. Stressed the importance of following up with orthopedics. He understands and agrees with plan. Patient stable for discharge. Differential Diagnosis Differential Diagnoses: The differential diagnosis associated with the presentation includes Osteoarthritis, knee sprain, strain, contusion, fracture, internal derangement of ligament, septic arthritis - unlikely Radiology Impression Discussion of test interpretation with radiology: I have reviewed the radiologist's reading. Radiologist Impression: Findings: No fractures, subluxations or dislocations. Mild joint space narrowing medial knee compartment. No osteochondral lesions or loose bodies. Normal patellar alignment. No suprapatellar joint effusion.No prepatellar soft tissue swelling. Normal bone mineralization and soft tissues. No unusual radiopaque foreign body. Impression: 1. Mild joint space narrowing medial knee compartment and small enthesophytes. This reflects mild osteoarthritic changes. This document has been electronically signed by: Medhat Benjamin MD on 07/18/2024 11:31:49 Discharge Plan Discharge Clinical Impression: Knee pain, left Patient Disposition: Home, Self-Care Instructions: Knee Pain (ED) Additional Instructions: You were seen in the emergency department due to left knee pain. Your x-ray shows evidence of arthritis. You need to follow-up with the sales enablement specialist, call on Saturday morning to make an appointment. Rest, ice, elevate, and use David wrap. Take Tylenol as needed for pain and symptoms. Take oxycodone as needed for severe pain only. Please be advised that this can cause drowsiness, do not drink alcohol or drive while taking this medication. If any new or worsening symptoms occur including but not limited to redness or more inflammation in your left knee, inability to ambulate, or unable to bend your knee, please return for re-evaluation. Prescriptions: New acetaminophen [Tylenol Extra Strength] 500 mg tablet 1,000 mg PO Q8H PRN (Reason: pain) Qty: 30 0RF oxycodone 5 mg tablet 5 mg PO Q6H PRN (Reason: severe pain (scale score 7-10)) Qty: 7 0RF Rx Instructions: Partial Fill upon patient request. No Action (DME) FreeStyle Lite Strips Strip See Rx Instructions .ROUTE .MEDSUPPLY Qty: 200 3RF Rx Instructions: As directed twice a day (DME) lancets [FreeStyle Lancets] 28 gauge misc See Rx Instructions .ROUTE .MEDSUPPLY Qty: 200 3RF Rx Instructions: two time a day albuterol sulfate [ProAir HFA] 90 mcg/actuation HFA aerosol inhaler 1 inh inhalation QID PRN (Reason: shortness of breath or wheezing) Qty: 8.5 0RF albuterol sulfate 2.5 mg /3 mL (0.083 %) solution for nebulization 2.5 mg inhalation Q4-6H PRN (Reason: shortness of breath or wheezing) Qty: 75 0RF fluticasone propionate [Flovent HFA] 44 mcg/actuation HFA aerosol inhaler 1 puff inhalation BID 30 Days Qty: 10.6 6RF Rx Instructions: administer with spacer citalopram 20 mg tablet 20 mg PO DAILY 90 Days Qty: 90 1RF lisinopril 10 mg tablet 10 mg PO DAILY Qty: 90 3RF Breztri Aerosphere 160-9-4.8 mcg/actuation HFA aerosol inhaler 2 inh inhalation BID Qty: 10.7 11RF metformin 500 mg tablet extended release 24 hr 1,000 mg PO BID 90 Days Qty: 360 2RF montelukast 10 mg tablet 10 mg PO DAILY 30 Days Qty: 30 3RF atorvastatin 40 mg tablet 40 mg PO BEDTIME Qty: 90 1RF zolpidem 10 mg tablet 10 mg PO BEDTIME PRN (Reason: sleep) 90 Days Qty: 90 0RF cetirizine 10 mg tablet 10 mg PO DAILY 90 Days Qty: 90 0RF dulaglutide 1.5 mg/0.5 mL pen injector 1.5 mg subcut QWEEK 90 Days Qty: 6.5 1RF Magic Mouthwash Diphen/Lido/Antacid 1:1:1 240 mL suspension 10 ml PO .QID 3 Days Qty: 240 0RF Rx Instructions: Lidocaine Viscous 2 % 80mL; diphenhydramine 12.5 mg/5 mL 80mL; aluminum-mag hydrox-simeth [id number]/5mL 80mL cefuroxime axetil 500 mg tablet 500 mg PO BID 7 Days Qty: 14 0RF doxycycline hyclate 100 mg capsule 100 mg PO BID 7 Days Qty: 14 0RF albuterol sulfate 2.5 mg /3 mL (0.083 %) solution for nebulization 2.5 mg inhalation Q4-6H PRN (Reason: bronchospasm) Qty: 75 0RF [id number]-[id number] 160-9-4.8 mcg/actuation HFA aerosol inhaler 2 inh inhalation BID Qty: 10.7 0RF prednisone 20 mg tablet 40 mg PO DAILY 5 Days Qty: 10 0RF cyclobenzaprine 10 mg tablet 10 mg PO TID PRN (Reason: muscle spasm) Qty: 10 0RF lidocaine 5 % adhesive patch,medicated 1 patch topical DAILY Qty: 15 0RF Rx Instructions: leave on most painful area for up to 12 hrs acetaminophen [Tylenol Extra Strength] 500 mg tablet 1,000 mg PO Q6H PRN (Reason: pain) Qty: 20 0RF prednisone 20 mg tablet 40 mg PO DAILY Qty: 10 0RF cyclobenzaprine 10 mg tablet 10 mg PO TID PRN (Reason: muscle spasm) Qty: 10 0RF lorazepam 1 mg tablet 1 mg PO DAILY PRN (Reason: anxiety) Qty: 4 0RF albuterol sulfate 0.63 mg/3 mL solution for nebulization 0.63 mg inhalation QID PRN (Reason: bronchospasm) Qty: 75 0RF cyclobenzaprine 10 mg tablet 10 mg PO TID PRN (Reason: muscle spasm) 5 Days Qty: 15 0RF Rx Instructions: Side effect is drowsiness. Do not take at work or while driving. acetaminophen [Tylenol] 325 mg capsule 325 mg PO QID PRN (Reason: pain) 7 Days Qty: 28 0RF oxycodone 5 mg tablet 5 mg PO Q6H PRN (Reason: pain) Qty: 15 0RF Rx Instructions: partial filing upon pt request; Partial Fill upon patient request. omeprazole 20 mg capsule,delayed release(DR/EC) 20 mg PO QAM 90 Days Qty: 90 1RF triamcinolone acetonide [Nasacort] 55 mcg aerosol,spray 1 spray intranasal DAILY 30 Days Qty: 16.9 1RF Rx Instructions: administer into each nostril doxycycline hyclate 100 mg tablet 100 mg PO BID 5 Days Qty: 10 0RF magnesium 250 mg tablet 250 mg PO DAILY 30 Days Qty: 30 0RF albuterol sulfate 90 mcg/actuation HFA aerosol inhaler 2 puff inhalation Q6H PRN (Reason: shortness of breath or wheezing) 30 Days Qty: 6.7 11RF (DME) nebulizers Misc See Rx Instructions .ROUTE Rx Instructions: As directed amitriptyline 25 mg tablet 25 mg PO BEDTIME Referrals: [facility] [place], [place] Orth[facility] Surgeons [Provider Group] Print Language: Kiswahili
--- OUTSIDE RECORDS SUMMARY | 2024-07-18 12:57 | XMS_ITS | Data Portability ---
Author Organization [facility], [facility] Address [address] [place] [address] Care Team Providers Care Splicing Supervisor Name Role Phone HIM CCA OTHER YULIANA VALENCIA Primary Care Provider Assessment Encounter Date Assessment Date Assessment LastModified by Organization Details LastModified Time 03/25/2024 03/25/2024 Impression: 68yo/m referred for evaluation of shoulder pain. Triage note initially noted possible fracture, however DC paperwork from medic able to be reviewed. Patient went to ED with approx 1-2 weeks of atraumatic shoulder pain, seen in ED and diagnosed as shoulder impingement. Recommended course of anti-inflammatori es, flexeril, prednisone. He finished the flexeril and [...] chest pain, back pain, dyspnea. No associated numbness/weakness /paresthesias in the extremity. No redness, swelling, warmth. [...] We discussed the need to seek care urgently/emergent ly in the setting of any new or worsening serious symptoms [email or web address] Not available 03/25/2024 11:40:48 07/01/2024 07/01/2024 I have reviewed and agree with the Assessment and Plan as documented by the Interactive Producer. I provided real-time medical direction via phone for this encounter, and was available for additional phone based assistance as needed. I would add/emphasize: Patient seen for 3 weeks of left knee pain. Denies trauma. Denies fevers chills erythema. No anticoagulation. Able to range the joint without difficulty. AVSS afebrile and well-appearing. Per report knee with very mild swelling without significant tenderness to palpation, no warmth or erythema and patient able to passively range the joint. Low suspicion for septic arthritis on the basis of history and reported exam. No posterior calf or leg tenderness to suggest DVT. No warmth or focal tenderness to suggest crystal arthropathy. Suspect possible osteoarthritis versus knee sprain. Patient has an NSAID allergy. Will advise supportive care measures including rest ice and elevation and trial of lidocaine ointment. Advise close PCP follow-up. pallfather Not available 07/02/2024 11:53:45 Plan of Treatment Reminders Order Date Submit Date Provider Last Modified By Organization Details Last Modified Time Details Appointments None recorded. Lab None recorded. Referral None recorded. Procedures None recorded. Surgeries None recorded. Imaging None recorded. Medication Orders lidocaine 5 % topical ointment 2024 025 [facility]arm[facility] #[id number], [address] [facility], [place], [address], 19:44:10 ketorolac 30 mg/mL injection solution 2024 025 [email or web address] Not available 11:10:13 Patient TargetsNo targets recorded. Patient InstructionsNo instructions recorded. Reason for Referral None Reported. Medical Equipment None Reported. Allergies Allergen ID Allergen Name Allergen Category Reaction Reaction Severity Criticality Documentation Date Start Date Code Code System Note Provider Name and Address Organization Details Recorded Time 39632 aspirin medicatio n Not available Not available Not available 03/25/2024 1191 RxNorm Not Available [facility] 08:57:36 04170 Product containin g penicilli n (product) medicatio n Not available Not available Not available 03/25/2024 80685 8001 SNOMED Not Available [facility]:57[facility]36 Medications Name Sig Start Date Stop [...] zolpidem 10 mg tablet TAKE 1 TABLET BY MOUTH EVERY DAY BEDTIME NEEDED FOR SLEEP FOR 90 DAYS active Not Available Not Available Not Available albuterol sulfate HFA 90 mcg/actuatio n aerosol inhaler 2 PUFF INHALED EVERY 6 HOURS NEEDED FOR SHORTNESS OF BREATH OR WHEEZING FOR 30 DAYS active Not Available Not Available Not Available metformin ER 500 mg tablet,exten ded release 24 hr TAKE 2 TABLETS BY MOUTH TWICE A DAY active Not Available Not Available No t Available oxycodone 5 mg tablet TAKE 1 TABLET BY MOUTH EVERY 6 HOURS NEEDED FOR [...] Not Available Not Available Not Avai lable lidocaine 5 % topical ointment active Not Available Not Available Not Available Trulicity 1.5 mg/0.5 mL subcutaneous pen injector [...] 88 mm[Hg] Not Available [facility] - production 5 11:05:55 Date Recorded Oxygen saturation Oxygen saturation in Arterial blood by Pulse oximetry Heart rate Respiratory rate Body temperature Systolic blood pressure Diastolic blood pressure Provider Name and Address Organization Details Last Updated DateTime 5 96 % 96 % 94 /min 16 /min 98.6 [degF] 136 mm[Hg] 60 mm[Hg] Not Available [facility] - production 5 19:40:46 Social History None recorded. Functional Status None recorded. Mental Status None recorded. Family History Nothing Reported. Medical History No medical history recorded. Past Encounters Encounter ID Performer Location Encounter Start Date Encounter Closed Date Diagnosis/Indication Diagnosis SNOMED-CT Code Diagnosis ICD10 Code Diagnosis Note [id number] Moises Winkler MD Main - [address] [address] 03/25/2024 11:05:52 03/25/2024 11:57:34 Pain of shoulder region 77356355 M25.519 [id number] Scottie Rosales MD Main - [address] [address] 07/01/2024 19:40:44 07/02/2024 15:24:16 Pain of knee region 1675608219 M25.569 Health Concerns Section Related Observation LastModified by Organization Detai ls LastModified Time None Recorded Concern Status LastModified by Organization Details LastModified Time None Recorded Advance Directives Directive None Recorded Payers Insurance Date Sequence Insurance Name Policy Number Policy Chowdary Covered Member ID Chowdary Member ID Guarantor Name 07/01/2024 1 [facility] - DOS ON OR AFTER 2022 - DUAL ELIGIBLE - ALF OPTIONS AND ONE CARE (MEDICARE REPLACEMENT/ADV ANTAGE - HMO) Donald Mooney [id number] Donald Mooney Notes Date Note Type Note Provider Name and Address Organization Details Recorded Time 03/25/2024 text/html [facility] Nurse Triage Notes (Demetria Coon - RN): Chief Complaints: Joint pain/swelling PMH: Asthma, Osteoarthritis, Hypertension PMH Reviewed at 03/25/2024 - 08:57 Allergies Reviewed at 03/25/2024 - 08:57 Comments: Referral taken via Test Architect. Patient calling in to place a referral, [...] .................. .................. .................. .................. .................. .................. ............... Interactive Producer Note From Colt Gamez: Dispatched to the [...] ng or crepitus noted in effected shoulder. [facility] consulted. Pt given 30mg of IM Ketorolac after confirming he has had Ibuprofen before and 5 med rights confirmed. Red flags discussed. ALL times are approx. .................. .................. .................. .................. .................. .................. .................. ............... [facility] Consulted: Moises Winkler .................. .................. .................. .................. .................. .................. .................. ............... Disposition: Fulfilled Moises Winkler MD [address] [place] [address],[address], [place], [address], [facility]. 03/25/2024 11:41:04 07/01/2024 text/html [facility] Nurse Triage Notes (Nirmala Barraza): Reason For Request: Pt has severe knee pain in left knee Chief Complaints: Extremity Pain PMH: Asthma, Osteoarthritis, Hypertension, Diabetes Mellitus Type 2 PMH Reviewed at 07/01/2024 - 16:10 Allergies Reviewed at 07/01/2024 - 16:10 Pain Assessment: Level 10 out of 10 Comments: 69 y.o male complains of Extremity Pain The patient has had left knee pain for three weeks. He has not had any falls or injuries. The area is not red, warm, or swollen. He feels his body getting hot. He is unsure if he has gout or arthritis. He has had surgery on the right knee, but unsure why , he thinks it was bone on bone. He has 10/10 pain. He has not been taking anything OTC for pain, no ice, heat , or elevation. He has not had this kind of pain on the knee prior. He is not on blood thinners. He does not have kidney disease I provided information on the mobile health provider response time and advised the patient and/or caregiver to monitor reported signs and symptoms. I discussed the warning signs of when to seek emergency care. .................. .................. .................. .................. .................. .................. .................. ............... Interactive Producer Note From Vivek Ventura: SC12 dispatched to the address listed above for the report of a male republican with knee pain. Arrival on scene, patient was found inside with seated on couch, alert and oriented x4, patent airway, breathing non labored speaking in complete sentences, skin WPD. +/= Chest rise. -SOB, -CP, -NVD, -Trauma, -Fever. GCS 15. Patient Japanese speaking only so translated for [facility]. Patient reports that he has been having persistent left knee pain for about 3 weeks, reports pain on any form of movement, ambulation, or palpation. Patient denies any recent fevers, chills, trauma, or use of blood thinners. CMS intact to affected extremity, patient denies any numbness/tingling, reports normal sensation. [facility] noted knee is not hot to the touch, no redness, and minor amounts of swelling. Patient reports he has not taken any Ibuprofen/Tylenol for the pain, reports normal food/fluid intake, reports medication compliance. Patient reports he has been to the hospital in which they performed XRAY and said it was normal. Patient vital signs obtained as noted. [facility] consulted, advised patient to ice his knee, keep it elevated, and follow up with PCP for imaging. [facility] advised he would send prescription to patient preferred pharmacy. Red flags discussed with patient, advised to call 911 if he experiences any life threatening symptoms. SC12 Clear. .................. .................. .................. .................. .................. .................. .................. ............... [facility] Consulted: Scottie Rosales .................. .................. .................. .................. .................. .................. .................. ............... Disposition: Fulfilled Scottie Rosales MD [address] [facility],[address], [place], [address], [facility] - KULWINDER DELUCA 07/02/2024 11:53:56
[2024-07-18 13:36] VITALS: BP 130/80; PULSE 77; RESP 14; TEMP 36.7; O2SAT 99
[2024-07-18] MEDS: oxyCODONE HCl Immed Release 5 MG TABLET PO (13:50)
[2024-07-18] MEDS: Acetaminophen 325 MG TABLET 975 MG PO (13:51)
[2024-07-18 13:55] VITALS: BP 130/80; PULSE 77; RESP 14; TEMP 36.7; O2SAT 99
== END 2024-07-18 13:56 | disposition home or self-care (01) ==
PROVIDERS: Emergency Provider Emergency Medicine; PCP Internal Medicine
DX: M25.562 Pain in left knee (principal); I10 Essential (primary) hypertension; E11.9 Type 2 diabetes mellitus without complications
CPT/HCPCS: 73564; 99283; 99284

== ENCOUNTER 2024-07-20 10:59 | Outpatient (AMB) | payer OTHER, SELFPAY ==
[2024-07-20 11:14] VITALS: BMI 30.1
--- NOTE | 2024-07-20 11:14 | MHC.OFFVIS ---
Vital Signs 07/20/24 11:14 Height 6 ft 3 in Weight 241 lb BMI 30.1 Intake Visit Reasons: New Problem - Left Knee Pain Intake Note: Donald is a 69 year old male who presents today for a New Problem Visit with complaints of Left Knee Pain. Hx of DM. He was seen at [facility] on 06/28/24 where he reported ongoing pain for about 2 weeks without any injury. States he was told he has O.A in his knee. Currently states his pain has worsen since his trip to ED. States his knee gives out when walking, weakness and tightness in knee. No P.T or injection done in his left knee. Patient reports he also has numbness and tingling due to hx of DM. Allergies aspirin [Aspirin] Allergy (Mild, Verified 07/20/24 11:17) RASH Penicillins Allergy (Mild, Verified 07/20/24 11:17) RASH tramadol Adverse Reaction (Intermediate, Verified 07/20/24 11:17) abdominal pain HPI HPI New Problem - Left Knee Pain: Details: 69-year-old gentleman with 1 month of left knee pain. He has known left knee osteoarthritis. He went to the ED recently with pain. He denies fevers and chills. He states it has occurred in the past but this time there was no inciting event. He denies trauma. He denies fevers and chills. He has been using a cane because of the pain [facility] Medical History Atelectasis Chronic allergic rhinitis Allergies Hearing difficulty of left ear Onychomycosis Bladder pain Thyroid nodule BPH (benign prostatic hyperplasia) GERD (gastroesophageal reflux disease) Hyperlipidemia LDL goal <100 Rotator cuff tear Obesity Insomnia Pure hypercholesterolemia Essential hypertension Diabetes mellitus Arthritis High blood pressure Asthma No known health problems Surgical History History of knee replacement procedure of right knee Family History Father No problems noted. Mother Diabetes Hypertension Brother Throat cancer Social History Household Members: Spouse Housing: Apartment Unable to assess alcohol history related to: Unknown Alcohol intake: former Patient Tobacco Use Status: Former Tobacco user Tobacco use type: Cigarette e-Cigarette/Vaping Use: Never Used Second Hand Smoke Exposure: No service: No Current occupational status: disabled Cognitive needs: Yes Hearing needs: Yes Vision needs: Yes Physical Exam Vital Signs: BMI result Body Mass Index 30.1 Extrem Other: Left knee with sharp tenderness to palpation along the medial joint line and medial femoral condyle. There is no effusion. Equivocal Samantha's with stable varus/valgus. Office Procedures Joint Inj/Aspir; Non-Pain Clin Joint Injection/Drain Details: Injected 1 mL of Decadron and 3 mL 1% lidocaine and 3 mL of 0.25% Marcaine. Site was prepped using aseptic technique. Patient tolerated the procedure well. Shoulders, Hips, Knees, Knee Large Joint Injection : Left Knee Coding Procedure code (CPT) selection complete Assessment & Plan Assessment & Plan (1) Localized osteoarthritis of left knee: Code(s): M17.12 - Unilateral primary osteoarthritis, left knee Category: Medical Plan: 69-year-old gentleman with a flare-up of his left knee arthritis. I injected his left knee today. He can follow up in 2 months if his pain is not improved. I warned him of the hyperglycemic effects of steroids (2) DM2 (diabetes mellitus, type 2): Code(s): E11.9 - Type 2 diabetes mellitus without complications Category: Medical Qualifiers: Diabetes mellitus halfway insulin use: without halfway use Diabetes mellitus complication status: without complication Qualified Code(s): E11.9 - Type 2 diabetes mellitus without complications Plan: I warned him of the hyperglycemic effects of steroids Coding Level of Care Code Est Pt Level 4 (30677) Diagnoses Localized osteoarthritis of left knee M17.12 Type 2 diabetes mellitus without complication, without long-term current use of insulin E11.9 Diabetes mellitus aerospace mechanic insulin use: without halfway use Diabetes mellitus complication status: without complication CPT Codes Shoulders, Hips, Knees, - Knee Large Joint Injection : Left Knee ([id number])
--- OUTSIDE RECORDS SUMMARY | 2024-07-20 12:31 | XMS_ITS | Data Portability ---
Author Organization [employer], [facility] Address [address] [place] [address] Care Team Providers Care Hoist Cylinder Loader Name Role Phone HIM CCA OTHER YULIANA [...] of any new or worsening serious symptoms [email or web address] Not available 03/25/2024 11:40:48 07/01/2024 07/01/2024 I have reviewed and agree with the Assessment and Plan as documented by the Pet Counselor. I provided real-time medical direction via phone [...] lidocaine 5 % topical ointment 2024 025 [facility]/Pharmacy #[id number], [address] [facility], [place], [address], 19:44:10 ketorolac 30 mg/mL injection solution 2024 025 [email or web address] Not available 11:10:13 Patient TargetsNo targets recorded. Patient InstructionsNo instructions recorded. Reason for Referral None Reported. Medical Equipment None Reported. Allergies Allergen ID Allergen Name Allergen Category Reaction Reaction Severity Criticality Documentation Date Start Date Code Code System Note Provider Name and Address Organization Details Recorded Time 95343 aspirin medicatio n Not available Not available Not available 03/25/2024 1191 Rx[facility] Available [facility]:57:36 48580 Product containin g penicilli n (product) medicatio n Not available Not available Not available 03/25/2024 67129 8001 SNOMED Not Available [facility] 08:57:36 Medications Name Sig Start [...] SNOMED-CT Code Diagnosis ICD10 Code Diagnosis Note [id number] Moises Winkler MD Main - [address] [address] 03/25/2024 11:05:52 03/25/2024 11:57:34 Pain of shoulder region [id number] M25.519 [id number] Scottie Rosales MD Main - [address] [address] 07/01/2024 19:40:44 07/02/2024 15:24:16 Pain of knee region [id number] M25.569 Health Concerns Section Related Observation LastModified by Organization Detai ls LastModified Time None Recorded Concern Status LastModified by Organization Details LastModified Time None Recorded Advance Directives Directive None Recorded Payers Insurance Date Sequence Insurance Name Policy Number Policy Chowdary Covered Member ID Chowdary Member ID Guarantor Name 07/01/[address] [facility] - DOS ON OR AFTER 2022 - DUAL ELIGIBLE - LONGTERM OPTIONS AND ONE CARE (MEDICARE REPLACEMENT/ADV ANTAGE - HMO) Donald Mooney [id number] Donald Mooney Notes Date Note Type Note Provider Name and Address Organization Details Recorded Time 03/25/2024 text/html [facility] Nurse Triage Notes (Demetria Coon - RN): Chief Complaints: Joint pain/swelling PMH: Asthma, Osteoarthritis, Hypertension PMH Reviewed at 03/25/2024 - 08:57 Allergies Reviewed at 03/25/2024 - 08:57 Comments: Referral taken via Bottle Packing Machine Cleaner. Patient calling in to place a referral, [...] .................. .................. .................. .................. .................. .................. ............... Pet Counselor Note From Colt Gamez: Dispatched to the [...] ng or crepitus noted in effected shoulder. [facility] [place]. Pt given 30mg of IM Ketorolac after confirming he has had Ibuprofen before and 5 med rights confirmed. Red flags discussed. ALL times are approx. .................. .................. .................. .................. .................. .................. .................. ............... [facility] Consulted: Moises Winkler .................. .................. .................. .................. .................. .................. .................. ............... Disposition: Fulfilled Moises Winkler MD [address] [place] [address],[address], [place], [address], [employer] 03/25/2024 11:41:04 07/01/2024 text/html CRC Nurse Triage [...] .................. .................. .................. .................. .................. .................. ............... Pet Counselor Note From Vivek Ventura: SC12 dispatched to the address listed above for the report of a male alliance party with knee pain. Arrival on scene, patient was found inside with seated on couch, alert and oriented x4, patent airway, breathing non labored speaking in complete sentences, skin WPD. +/= Chest rise. -SOB, -CP, -NVD, -Trauma, -Fever. GCS 15. Patient Italian speaking only so translated for [facility]. Patient reports that he has been having persistent left knee pain for about 3 weeks, reports pain on any form of movement, ambulation, or palpation. Patient denies any recent fevers, chills, trauma, or use of blood thinners. CMS intact to affected extremity, patient denies any numbness/tingling, reports normal sensation. [facility] noted knee is not hot to the touch, no redness, and minor amounts of swelling. Patient reports he has not taken any Ibuprofen/Tylenol for the pain, reports normal food/fluid intake, reports medication compliance. Patient reports he has been to the hospital in which they performed XRAY and said it was normal. Patient vital signs obtained as noted. [facility] consulted, advised patient to ice his knee, keep it elevated, and follow up with PCP for imaging. [facility] advised he would send prescription to patient preferred pharmacy. Red flags discussed with patient, advised to call 911 if he experiences any life threatening symptoms. SC12 Clear. .................. .................. .................. .................. .................. .................. .................. ............... [facility] Consulted: Scottie Rosales .................. .................. .................. .................. .................. .................. .................. ............... Disposition: Fulfilled Scottie Rosales MD [address] [facility],[address], [place], [address], [facility] - KULWINDER DELUCA 07/02/2024 11:53:56
== END 2024-07-20 12:07 | disposition home or self-care (01) ==
LOC: HO.HOS 11:00
PROVIDERS: PCP Internal Medicine; Visit Provider Orthopaedic Surgery
DX: M17.12 Unilateral primary osteoarthritis, left knee (principal); E11.9 Type 2 diabetes mellitus without complications
CPT/HCPCS: 20610; 99214

== ENCOUNTER → 2024-07-20 10:59 | Outpatient (BNVA) | payer OTHER, SELFPAY | PROVIDERS: PCP Internal Medicine; Visit Provider Orthopaedic Surgery | DX: M17.12 Unilateral primary osteoarthritis, left knee (principal); E11.9 Type 2 diabetes mellitus without complications | CPT/HCPCS: 20610; 99212; J0665; J1100; J2003 ==

== ENCOUNTER 2024-08-13 11:39 | Outpatient (AMB) | payer OTHER, SELFPAY ==
--- NOTE | 2024-08-13 12:16 | MHC.PC.OV ---
Vital Signs 08/13/24 12:28 Height 6 ft 3 in Weight 233 lb 6 oz BMI 29.2 BP 110/60 Blood Pressure Location Lt brachial Position Sitting Intake Visit Reasons: annual exam Intake Note: Patient here for an annual physical exam Enlisted Advisor Required: No Accompanied by: Self / Same As Patient Allergies aspirin (Aspirin) Allergy (Mild, Verified 08/13/24 12:37) RASH Penicillins Allergy (Mild, Verified 08/13/24 12:37) RASH tramadol Adverse Reaction (Intermediate, Verified 08/13/24 12:37) abdominal pain Medication List - Last Reconciled 08/13/24 by Allison Fenton MD acetaminophen (Tylenol Extra Strength) 1,000 mg (2 x 500 mg) PO Q8H PRN albuterol sulfate 0.63 mg (3 mL) inhalation QID PRN albuterol sulfate 2.5 mg (3 mL) inhalation Q4-6H PRN albuterol sulfate 90 mcg/actuation 2 puffs inhalation Q6H PRN 30 days amitriptyline 25 mg PO BEDTIME atorvastatin 40 mg PO BEDTIME blood sugar diagnostic (FreeStyle Lite Strips) As directed twice a day dqlkqvtose-qkjpkkjs-zkgcduicbs 160-9-4.8 mcg/actuation (Breztri Aerosphere) 2 inhalations inhalation BID cetirizine 10 mg PO DAILY 90 days citalopram 20 mg PO DAILY 90 days dulaglutide 1.5 mg (0.5 mL) subcut QWEEK 90 days fluticasone propionate 44 mcg/actuation (Flovent HFA) 1 puff inhalation BID 30 days lancets (FreeStyle Lancets) two time a day lidocaine 5% 1 patch topical DAILY lisinopril 10 mg PO DAILY lorazepam 1 mg PO DAILY PRN magnesium 250 mg PO DAILY 30 days metformin ER 1,000 mg (2 x 500 mg) PO BID 90 days montelukast 10 mg PO DAILY 30 days nebulizers As directed omeprazole 20 mg PO QAM 90 days triamcinolone acetonide (Nasacort) 1 spray intranasal DAILY 30 days zolpidem 10 mg PO BEDTIME PRN 90 days Tobacco use date assessed: 08/13/24 Fall risk assessment: No Falls in past year Last assessed Fall Risk: 08/13/24 Dental Screening Dental Screen Date: 08/13/24 Did you have a dental visit in the last 12 months?: No Did you have a dental problem in the last 6 months where you did not have access to dental care?: No Was dental information given to patient?: Yes HPI HPI Comments History of Present Illness Details The patient is a 69-year-old male presenting for a physical examination and preventative care. He has a history of diabetes mellitus, currently managed with metformin and Trulicity, with a recent A1c of 6.6%. His hyperlipidemia is controlled with statins, aiming for an LDL goal of less than 70 mg/dL, with the last measurement taken a year ago. The patient also has hypertension, managed with lisinopril, and reports no recent episodes of elevated blood pressure. He experiences depression with anxiety, for which he is prescribed citalopram. Asthma is managed with a long-acting inhaler, and he denies any recent exacerbations or respiratory distress. He reports well-controlled gastroesophageal reflux disease with omeprazole and insomnia managed with Zolpidem. The patient is a former smoker, and an ultrasound is planned to rule out an abdominal aortic aneurysm. [facility] Medical History (Updated 08/13/24 @ 13:05 by Allison Fenton MD) Atelectasis Chronic allergic rhinitis Allergies Hearing difficulty of left ear Onychomycosis Bladder pain Thyroid nodule BPH (benign prostatic hyperplasia) GERD (gastroesophageal reflux disease) Hyperlipidemia LDL goal <100 Rotator cuff tear Obesity Insomnia Pure hypercholesterolemia Essential hypertension Diabetes mellitus Arthritis High blood pressure Asthma No known health problems Surgical History History of knee replacement procedure of right knee Family History Father No problems noted. Mother Diabetes Hypertension Brother Throat cancer Social History Household Members: Spouse Housing: Apartment Unable to assess alcohol history related to: Unknown Alcohol intake: former Patient Tobacco Use Status: Former Tobacco user Tobacco use type: Cigarette e-Cigarette/Vaping Use: Never Used Second Hand Smoke Exposure: No service: No Current occupational status: disabled Cognitive needs: Yes Hearing needs: Yes Vision needs: Yes Questionnaire PHQ-9 Over the last 2 weeks, how often have you been bothered by any of the following problems? 1. Little interest or pleasure in doing things: not at all 2. Feeling down, depressed, or hopeless: not at all 3. Trouble falling or staying asleep, or sleeping too much: not at all 4. Feeling tired or having little energy: not at all 5. Poor appetite or overeating: not at all 6. Feeling bad about yourself - or that you are a failure or have let yourself or your family down: not at all 7. Trouble concentrating on things, such as reading the newspaper or watching television: not at all 8. Moving or speaking so slowly that other people could have noticed. Or the opposite - being so fidgety or restless that you have been moving around a lot more than usual: not at all 9. Thoughts that you would be better off or of hurting yourself in some way: not at all Total score: 0 Depression Screening Interpretation: Negative Depression Screening Done: Yes 91222 - PHQ-9 Billing: Yes Source: Developed by Drs. Eduardo Werner, Lesli Farfan, Carmelo Fleming and colleagues, with an educational mala from [employer]. Thrive Questionnaire Date Thrive assessed: 08/13/24 I am a: Patient What is your living situation today?: I have a steady place to live Within the past 12 months, did the food you bought not last and you didn't have the money to get more?: Never true Within the past 12 months, did you worry whether your food would run out before you got money to buy more?: Never true Do you have trouble paying for medicines?: No Do you have trouble getting transportation to medical appointments?: No Do you have trouble paying your heating and electricity bill?: No Do you have trouble taking care of your child, family member or friend?: No Do you have trouble with day-to-day activities such as bathing, preparing meals, shopping, managing finances, etc.?: No Are you currently unemployed and looking for a job?: No Are you interested in more education?: No Please select the resources that you would like help with: None Currently or been in a relationship where the following occur: No concerns reported THRIVE Score: 0 AUDIT C Alcohol Use Questionnaire (AUDIT-C) 1. How often do you have a drink containing alcohol?: Never Total Score: 0 Score Reviewed/Action Taken: No MILDRED-7 AMB Questionnaire MILDRED-7 Date MILDRED - 7 assessed: 08/13/24 Feeling nervous, anxious, or on edge: 0 = Not at all Not being able to stop or control worryin = Not at all Worrying too much about different things: 0 = Not at all Trouble relaxin = Not at all Being so restless that it is hard to sit still: 0 = Not at all Becoming easily annoyed or irritable: 0 = Not at all Feeling afraid as if something awful might happen: 0 = Not at all Total MILDRED-7 score (0-4 normal; 5-9 mild; 10-14 moderate; 15-21 severe): 0 Source: Developed by Drs. Eduardo Werner, Lesli Farfan, Carmelo Fleming and colleagues, with an educational mala from [employer]. MILDRED-7 Assessment Billing MILDRED-7 Assessment Tool: MILDRED-7 Assessment 82374 Review of Systems Const All systems reviewed & are unremarkable except as noted in HPI and below Card Denies chest pain at rest, Denies chest pain with activity, Denies edema, Denies irregular heart rhythm, Denies claudication, Denies dyspnea, Denies dyspnea on exertion, Denies orthopnea, Denies paroxysmal nocturnal dyspnea and Denies slow heart rate Resp Denies cough, Denies dyspnea and Denies dyspnea on exertion Musc Denies abnormal gait, Denies atrophy, Denies deformity and Denies limited range of motion Skin/Breast Denies bleeding lesions, Denies changing lesions and Denies rash Neuro Denies abnormal gait and Denies lack of coordination Physical exam (Primary Care) Vital Signs: Last Vital Signs BP 110/60 08/13/24 12:28 BMI result Body Mass Index 29.2 Tobacco/Smoking Status: Tobacco use Status Tobacco use date assessed 08/13/24 08/13/24 12:24 Patient Tobacco Use Status Former Tobacco user 08/13/24 12:24 Tobacco use type Cigarette 08/13/24 12:24 e-Cigarette/Vaping Use Never Used 08/13/24 12:24 PHQ-9: PHQ-9 Score PHQ-9: Total score 0 08/13/24 12:33 Depression Screening Interpretation: Negative Thrive Assessment: Date of Thrive Assessment Date Thrive assessed 08/13/24 08/13/24 12:24 Currently or been in a relationship where the following occur: No concerns reported Const Orientation/consciousness: patient oriented x3 HENMT Head: Yes normal to inspection, Yes normocephalic and Yes atraumatic Ears: external ears normal Eyes General: appearance normal, both eyes and all related structures Eyelids: Yes eyelids normal Conjunctivae: conjunctivae normal Neck Neck: Yes normal visual inspection and Yes supple Resp Effort & Inspection: normal respiratory effort Auscultation: clear to auscultation bilaterally Cardio Jugular venous distension: no JVD Rate: regular rate Rhythm: regular rhythm Heart sounds: S1 normal heart sound present and S2 normal heart sound present GI Inspection: Yes normal to inspection Palpation (GI): Soft to palpation and nontender Auscultation: normal bowel sounds Skin General skin exam: no rashes or lesions noted Neuro General: patient oriented x3 and no focal motor deficits Extrem General: Yes full ROM Psych Appearance: grossly normal Results AMB Hemoglobin A1c AMB Hemoglobin A1c 6.6 % Last Edit by SINAN Torres on 08/13/24 12:36 Coding Level of Care Code Est Pt Prev Care >65y(65378) Diagnoses Physical exam Z00.00 Type 2 diabetes mellitus without complication, without long-term current use of insulin E11.9 Diabetes mellitus type: type 2 Diabetes mellitus correction insulin use: without buttermilk drier operator use Diabetes mellitus complication status: without complication Additional Codes MILDRED-7 Assessment Billing - MILDRED-7 Assessment Tool: MILDRED-7 Assessment 62743 ([id number]) PHQ-9 - 62029 - PHQ-9 Billing: Yes ([id number]) Time Spent (min) 31 Assessment & Plan Assessment & Plan (1) Physical exam: Code(s): Z00.00 - Encounter for general adult medical examination without abnormal findings Category: Medical (2) Diabetes mellitus: Code(s): E11.9 - Type 2 diabetes mellitus without complications Category: Medical Qualifiers: Diabetes mellitus type: type 2 Diabetes mellitus correction insulin use: without buttermilk drier operator use Diabetes mellitus complication status: without complication Qualified Code(s): E11.9 - Type 2 diabetes mellitus without complications Plan The patient will undergo a colonoscopy due to a history of borderline adenoma, which necessitates regular screening. A pneumonia vaccination is recommended as part of preventative care measures. An ultrasound is planned to rule out an abdominal aortic aneurysm, considering the patient's history as a former smoker. Patient was informed and verbally consented to the use of an ambient scribe for clinic note documentation during this visit. Orders: Orders Microalbumin, Random (w Creat) Today R80.9 - Proteinuria, unspecified Comprehensive [place]. Panel Fast Today E11.9 - Type 2 diabetes mellitus without complications US abdominal aortic aneurysm Today Z87.891 - Personal history of nicotine dependence AMB Hemoglobin A1c Today E11.9 - Type 2 diabetes mellitus without complications Lipid Panel Today E78.5 - Hyperlipidemia, unspecified Referrals Ophthalmology Referral E11.9 - Type 2 diabetes mellitus without complications Open Access Screening Colonoscopy Referral E11.9 - Type 2 diabetes mellitus without complications, Z12.12 - Encounter for screening for malignant neoplasm of rectum Medications: Refilled zolpidem 10 mg PO BEDTIME PRN 90 tabs 0RF sleep 90 days
--- OUTSIDE RECORDS SUMMARY | 2024-08-13 12:22 | XMS_ITS | Data Portability ---
Author Organization Klarna Proberry [facility], [facility] [employer] [facility] Address [address] [place] [address] Care Team Providers Care Consultant Technology Name Role Phone HIM CCA OTHER YULIANA [...] of any new or worsening serious symptoms Not available 03/25/2024 11:40:48 07/01/2024 07/01/2024 I have reviewed and agree with the Assessment and Plan as documented by the Ssrs Report Developer. I provided real-time medical direction via phone [...] lidocaine 5 % topical ointment 2024 025 [facility] #[id number], [address], [place], [address], 19:44:10 ketorolac 30 mg/mL injection solution 2024 025 rsullivan 84 Not available 11:10:13 Patient TargetsNo targets recorded. Patient InstructionsNo instructions recorded. Reason for Referral None Reported. Medical Equipment None Reported. Allergies Allergen ID Allergen Name Allergen Category Reaction Reaction Severity Criticality Documentation Date Start Date Code Code System Note Provider Name and Address Organization Details Recorded Time 77974 aspirin medicatio n Not available Not available Not available 03/25/2024 1191 RxNorm Not Available [facility] - production 08:57:36 38193 Product containin g penicilli n (product) medicatio n Not available Not available Not available 03/25/2024 85423 8001 SNOMED Not Available [facility] - production 5 08:57:36 Medications Name Sig [...] in Arterial blood by Pulse oximetry Systolic And Diastolic Provider Name and Address Organization Details Last Updated DateTime 5 98.4 [degF] 68 /min 16 /min 99 % 99 % 140/88 mm[Hg] Not Available [employer] - production 5 11:05:55 Date Recorded Oxygen saturation Oxygen saturation in Arterial blood by Pulse oximetry Heart rate Respiratory rate Body temperature Systolic And Diastolic Provider Name and Address Organization Details Last Updated DateTime 5 96 % 96 % 94 /min 16 /min 98.6 [degF] 136/60 mm[Hg] Not Available [employer] - production 5 19:40:46 Social History None recorded. Functional Status None recorded. Mental Status None recorded. Family History Nothing Reported. Medical History No medical history recorded. Past Encounters Encounter ID Performer Location Encounter Start Date Encounter Closed Date Diagnosis/Indication Diagnosis SNOMED-CT Code Diagnosis ICD10 Code Diagnosis Note [id number] Moises Winkler MD [facility] - [address] [address] 03/25/2024 11:05:52 03/25/2024 11:57:34 Pain of shoulder region 73090677 M25.519 [id number] Scottie Rosales MD Main - [address] [address] 07/01/2024 19:40:44 07/02/2024 15:24:16 Pain of knee region 7740433810 M25.569 Health Concerns Section Related Observation LastModified by Organization Detai ls LastModified Time None Recorded Concern Status LastModified by Organization Details LastModified Time None Recorded Advance Directives Directive None Recorded Payers Insurance Date Sequence Insurance Name Policy Number Policy Chowdary Covered Member ID Chowdary Member ID Guarantor Name 07/01/2024 1 [facility] - DOS ON OR AFTER 2022 - DUAL ELIGIBLE - SKILLED NURSING OPTIONS AND ONE CARE (MEDICARE REPLACEMENT/ADV ANTAGE - HMO) Donald Mooney [id number] Donald Mooney Notes Date Note Type Note Provider Name and Address Organization Details Recorded Time 03/25/2024 text/html [facility] Nurse Triage Notes (Demetria Coon - RN): Chief Complaints: Joint pain/swelling PMH: Asthma, Osteoarthritis, Hypertension PMH Reviewed at 03/25/2024 - 08:57 Allergies Reviewed at 03/25/2024 - 08:57 Comments: Referral taken via Senior Portfolio Analyst. Patient calling in to place a [...] .................. .................. .................. .................. .................. .................. ............... Ssrs Report Developer Note From [employer]t [employer]: Dispatched to the [...] ng or crepitus noted in effected shoulder. C consulted. Pt given 30mg of IM Ketorolac after confirming he has had Ibuprofen before and 5 med rights confirmed. Red flags discussed. ALL times are approx. .................. .................. .................. .................. .................. .................. .................. ............... [facility] Consulted: Moises Winkler .................. .................. .................. .................. .................. .................. .................. ............... Disposition: Fulfilled Moises Winkler MD [address] [place] [address],[address], [place], [address], [employer] 03/25/2024 11:41:04 07/01/2024 text/html [facility] Nurse Triage [...] .................. .................. .................. .................. .................. .................. ............... Ssrs Report Developer Note From Vivek Ventura: SC12 dispatched to the address listed above for the report of a male constitution party with knee pain. Arrival on scene, patient was found inside with seated on couch, alert and oriented x4, patent airway, breathing non labored speaking in complete sentences, skin WPD. +/= Chest rise. -SOB, -CP, -NVD, -Trauma, -Fever. GCS 15. Patient Kenyan speaking only so translated for [facility]. Patient reports that he has been having persistent left knee pain for about 3 weeks, reports pain on any form of movement, ambulation, or palpation. Patient denies any recent fevers, chills, trauma, or use of blood thinners. CMS intact to affected extremity, patient denies any numbness/tingling, reports normal sensation. [facility] noted knee is not hot to the touch, no redness, and minor amounts of swelling. Patient reports he has not taken any Ibuprofen/Tylenol for the pain, reports normal food/fluid intake, reports medication compliance. Patient reports he has been to the hospital in which they performed XRAY and said it was normal. Patient vital signs obtained as noted. [facility] consulted, advised patient to ice his knee, keep it elevated, and follow up with PCP for imaging. [facility] advised he would send prescription to patient preferred pharmacy. Red flags discussed with patient, advised to call 911 if he experiences any life threatening symptoms. SC12 Clear. .................. .................. .................. .................. .................. .................. .................. ............... [facility] Consulted: Scottie Rosales .................. .................. .................. .................. .................. .................. .................. ............... Disposition: Fulfilled Scottie Roslaes MD [address] [facility], [place], [address], [employer] [facility] KULWINDER DELUCA 07/02/2024 11:53:56
[2024-08-13 12:28] VITALS: BP 110/60; BMI 29.2
== END 2024-08-13 12:46 | disposition home or self-care (01) ==
LOC: HO.HMCH 11:40
PROVIDERS: PCP Internal Medicine; Visit Provider Internal Medicine
DX: Z00.00 Encounter for general adult medical examination without abnormal findings (principal); E11.9 Type 2 diabetes mellitus without complications

== ENCOUNTER → 2024-08-13 11:39 | Outpatient (BNVA) | payer OTHER, SELFPAY | PROVIDERS: PCP Internal Medicine; Visit Provider Internal Medicine | DX: Z00.00 Encounter for general adult medical examination without abnormal findings (principal); E11.9 Type 2 diabetes mellitus without complications; I10 Essential (primary) hypertension; J45.909 Unspecified asthma, uncomplicated; K21.9 Gastro-esophageal reflux disease without esophagitis; R80.9 Proteinuria, unspecified; E78.5 Hyperlipidemia, unspecified; Z87.891 Personal history of nicotine dependence; Z79.84 Long term (current) use of oral hypoglycemic drugs; Z79.899 Other long term (current) drug therapy | CPT/HCPCS: 83036; 96127; 99397 ==

== ENCOUNTER 2024-08-20 14:55 | Outpatient (AMB) | payer OTHER, SELFPAY ==
--- NOTE | 2024-08-20 15:03 | MHC.OFFVIS ---
Vital Signs 08/20/24 15:04 Height 6 ft 3 in Intake Visit Reasons: Migraine, insomnia, anxiety Accompanied by: Spouse Allergies aspirin (Aspirin) Allergy (Mild, Verified 08/20/24 15:12) RASH Penicillins Allergy (Mild, Verified 08/20/24 15:12) RASH tramadol Adverse Reaction (Intermediate, Verified 08/20/24 15:12) abdominal pain Medication List - Last Reconciled 08/20/24 by Inge Mcneil CNP acetaminophen (Tylenol Extra Strength) 1,000 mg (2 x 500 mg) PO Q8H PRN albuterol sulfate 0.63 mg (3 mL) inhalation QID PRN albuterol sulfate 2.5 mg (3 mL) inhalation Q4-6H PRN albuterol sulfate 90 mcg/actuation 2 puffs inhalation Q6H PRN 30 days amitriptyline 25 mg PO BEDTIME atorvastatin 40 mg PO BEDTIME blood sugar diagnostic (FreeStyle Lite Strips) As directed twice a day [id number]-[id number] 160-9-4.8 mcg/actuation (Breztri Aerosphere) 2 inhalations inhalation BID cetirizine 10 mg PO DAILY 90 days citalopram 20 mg PO DAILY 90 days dulaglutide 1.5 mg (0.5 mL) subcut QWEEK 90 days fenofibrate 160 mg PO DAILY fluticasone propionate 44 mcg/actuation (Flovent HFA) 1 puff inhalation BID 30 days glyburide 5 mg PO DAILY lancets (FreeStyle Lancets) two time a day lidocaine 5% 1 patch topical DAILY lisinopril 10 mg PO DAILY lorazepam 1 mg PO DAILY PRN magnesium 250 mg PO DAILY 30 days metformin ER 1,000 mg (2 x 500 mg) PO BID 90 days montelukast 10 mg PO DAILY 30 days montelukast (Singulair) 10 mg PO BEDTIME nebulizers As directed omeprazole 20 mg PO QAM 90 days sumatriptan succinate take 1 tab at onset of headache; if no relief may repeat 1 tab after at least 2 hrs; max = 4 tabs/24 hr PO triamcinolone acetonide (Nasacort) 1 spray intranasal DAILY 30 days zolpidem 10 mg PO BEDTIME PRN 90 days HPI Comments Details: 69-year-old man with the migraine, tinnitus, and anxiety disorder resulting in insomnia. He was doing okay. He ran out of amitriptyline a few weeks ago and was having more headaches without medication. Sumatriptan as needed helped. Mood was okay with citalopram. Sleep was okay with zolpidem. Tinnitus was unchanged. [facility] Medical History (Updated 08/20/24 @ 15:08 by Inge Mcneil CNP) Migraine Proteinuria Anxiety disorder Tinnitus Atelectasis Chronic allergic rhinitis Allergies Hearing difficulty of left ear Onychomycosis Bladder pain Thyroid nodule BPH (benign prostatic hyperplasia) GERD (gastroesophageal reflux disease) Hyperlipidemia LDL goal <100 Rotator cuff tear Obesity Insomnia Pure hypercholesterolemia Essential hypertension Diabetes mellitus Arthritis High blood pressure Asthma No known health problems Surgical History History of knee replacement procedure of right knee Family History Father No problems noted. Mother Diabetes Hypertension Brother Throat cancer Social History Household Members: Spouse Housing: Apartment Unable to assess alcohol history related to: Unknown Alcohol intake: former Patient Tobacco Use Status: Former Tobacco user Tobacco use type: Cigarette e-Cigarette/Vaping Use: Never Used Second Hand Smoke Exposure: No service: No Current occupational status: disabled Cognitive needs: Yes Hearing needs: Yes Vision needs: Yes Review of Systems Const Denies chills, Denies daytime sleepiness, Reports difficulty sleeping, Denies fatigue, Denies fever(s), Denies frequent falls, Reports headache(s), Denies increased appetite, Denies poor appetite, Denies snoring, Denies weakness, Denies weight gain and Denies weight loss Eyes Denies loss of vision ENT Denies vertigo, Denies dizziness, Reports headache(s) and Reports tinnitus Card Denies chest pain at rest, Denies chest pain with activity, Denies leg edema and Denies palpitations Resp Denies snoring GI Denies constipation, Denies heartburn, Denies diarrhea and Denies nausea Denies urinary frequency, Denies urinary incontinence and Denies urinary urgency Musc Denies abnormal gait, Denies numbness and Denies tingling Skin/Breast Denies dry skin and Denies rash Neuro Denies abnormal gait, Denies vertigo, Denies dizziness, Denies frequent falls, Reports headache(s), Denies lack of coordination, Denies loss of vision, Denies memory loss, Denies numbness, Denies restless legs, Denies seizure-like activity, Denies tingling, Denies paresthesias, Denies tremor(s) and Denies weakness Psych Reports anxiety, Denies depression, Denies auditory hallucinations, Denies memory loss, Denies visual hallucinations and Denies suicidal ideation Endo Denies fatigue and Denies palpitations Physical Exam Const Other: General Appearance:? normal, in no acute distress. Skin:? no rashes, no significant birthmarks. Heart:? S1, S2 normal, no murmurs. Lungs:? clear anteriorly and posteriorly. Extremities:? no edema. Psych:? alert, oriented, cognitive function intact, cooperative with exam. Neuro Other: Mental Status:?Normal attention, orientation, memory and affect.? Cranial Nerves:?Pupils are equal, round and reactive to light. External occular muscles are intact. Visual gutierres are full. Face is symmetrical. Facial sensations are normal. Tongue is midline. Palate elevates symmetrically. Shoulder shrugging is normal. Hearing to bedside conversation is normal. Motor Examination:?Normal muscle tone, bulk and strength,?Deep tendon reflexes are 2+,?Plantars are flexor.? Sensory Exam:?....? Coordination:?No ataxia,?no titubation.? Gait Exam: Cautious with cane. Cerebellar Signs:?Yqqegh-rs-jcug and xllk-bz-hzix is normal.? Extrapyramidal System:?No tremor, rigidity with normal facial expressions.? Pronator Drift:?Not present.? Involuntary Movements:?No tremors seen.? Speech:?Normal.? Results Reviewed Results Reviewed: CT brain WO at [facility] in Sep 2020: [place] CTA brain and neck at [facility] in Sep 2020: [place] MRI brain WWO at [facility] in 2017: minimal MVD CT brain WO at [facility] in 2010: ok Assessment & Plan Assessment & Plan (1) Migraine: Code(s): G43.909 - Migraine, unspecified, not intractable, without status migrainosus Category: Medical Qualifiers: Intractability: not intractable Migraine type: without aura Status migrainosus presence: without status migrainosus Qualified Code(s): G43.009 - Migraine without aura, not intractable, without status migrainosus Plan: Continue amitriptyline 25mg 1 tablet at bedtime. Continue sumatriptan 50mg 1 tablet as needed for migraine. (2) Anxiety disorder: Code(s): F41.9 - Anxiety disorder, unspecified Category: Medical Qualifiers: Anxiety disorder type: unspecified anxiety disorder Qualified Code(s): F41.9 - Anxiety disorder, unspecified Plan: Continue citalopram 20mg 1 tablet daily. (3) Insomnia: Code(s): G47.00 - Insomnia, unspecified Category: Medical Qualifiers: Insomnia type: primary Qualified Code(s): F51.01 - Primary insomnia Plan: Amitriptyline may also help with sleep. (4) Tinnitus: Code(s): H93.19 - Tinnitus, unspecified ear Category: Medical Qualifiers: Laterality: unspecified laterality Qualified Code(s): H93.19 - Tinnitus, unspecified ear Plan: . Plan . Medications: New amitriptyline 25 mg PO BEDTIME 90 tabs 1RF 90 days sumatriptan succinate take 1 tab at onset of headache; if no relief may repeat 1 tab after at least 2 hrs; PO 10 tabs 5RF 30 days citalopram 20 mg PO DAILY 90 tabs 1RF 90 days Discontinued citalopram Discontinued Reason: Order 20 mg PO DAILY 90 days 90 tabs 1RF amitriptyline Discontinued Reason: Order 25 mg PO BEDTIME sumatriptan succinate Discontinued Reason: Order take 1 tab at onset of headache; if no relief may repeat 1 tab after at least 2 hrs; max = 4 tabs/24 hr PO Coding Level of Care Code Est Pt Level 4 (01047) Diagnoses Migraine G43.009 Intractability: not intractable Migraine type: without aura Status migrainosus presence: without status migrainosus Anxiety disorder, unspecified type F41.9 Anxiety disorder type: unspecified anxiety disorder Primary insomnia F51.01 Insomnia type: primary Tinnitus, unspecified laterality H93.19 Laterality: unspecified laterality
== END 2024-08-20 15:21 | disposition home or self-care (01) ==
LOC: HO.HSM 14:56
PROVIDERS: PCP Internal Medicine; Referring Provider Internal Medicine; Visit Provider Registered Nurse
DX: G43.009 Migraine without aura, not intractable, without status migrainosus (principal); F41.9 Anxiety disorder, unspecified; F51.01 Primary insomnia; H93.19 Tinnitus, unspecified ear
CPT/HCPCS: 99214

== ENCOUNTER → 2024-08-20 14:55 | Outpatient (BNVA) | payer OTHER, SELFPAY | PROVIDERS: PCP Internal Medicine; Referring Provider Internal Medicine; Visit Provider Registered Nurse | DX: G43.009 Migraine without aura, not intractable, without status migrainosus (principal); F41.9 Anxiety disorder, unspecified; F51.01 Primary insomnia; H93.19 Tinnitus, unspecified ear | CPT/HCPCS: 99212 ==

== ENCOUNTER 2024-09-24 08:58 | Outpatient (AMB) | payer OTHER, SELFPAY ==
[2024-09-24 09:06] VITALS: BMI 29.1
--- NOTE | 2024-09-24 09:06 | MHC.OFFVIS ---
Vital Signs 09/24/24 09:06 Height 6 ft 3 in Weight 233 lb BMI 29.1 Intake Visit Reasons: OV- Left Chronic RTC Tear - s/p PT Intake Note: Donald is a 69 year old right hand dominant male who presents today for a follow up of his Left Chronic Rotator Cuff Tear. At his last visit on 05/14/24 an injection was given and physical therapy was ordered. Patient reports that physical therapy and injections were helpful. He would like to repeat injection in the left shoulder today. Allergies aspirin (Aspirin) Allergy (Mild, Verified 09/24/24 09:12) RASH Penicillins Allergy (Mild, Verified 09/24/24 09:12) RASH tramadol Adverse Reaction (Intermediate, Verified 09/24/24 09:12) abdominal pain HPI HPI OV- Left Chronic RTC Tear - s/p PT: Details: Donald is a 69 year old right hand dominant male who presents today for a follow up of his Left Chronic Rotator Cuff Tear. At his last visit on 05/14/24 an injection was given and physical therapy was ordered. Patient reports that physical therapy and injections were helpful. He would like to repeat injection in the left shoulder today. [facility] Medical History (Updated 08/20/24 @ 15:08 by Inge Mcneil CNP) Migraine Proteinuria Anxiety disorder Tinnitus Atelectasis Chronic allergic rhinitis Allergies Hearing difficulty of left ear Onychomycosis Bladder pain Thyroid nodule BPH (benign prostatic hyperplasia) GERD (gastroesophageal reflux disease) Hyperlipidemia LDL goal <100 Rotator cuff tear Obesity Insomnia Pure hypercholesterolemia Essential hypertension Diabetes mellitus Arthritis High blood pressure Asthma No known health problems Surgical History History of knee replacement procedure of right knee Family History Father No problems noted. Mother Diabetes Hypertension Brother Throat cancer Social History Household Members: Spouse Housing: Apartment Unable to assess alcohol history related to: Unknown Alcohol intake: former Patient Tobacco Use Status: Former Tobacco user Tobacco use type: Cigarette e-Cigarette/Vaping Use: Never Used Second Hand Smoke Exposure: No service: No Current occupational status: disabled Cognitive needs: Yes Hearing needs: Yes Vision needs: Yes Physical Exam Vital Signs: BMI result Body Mass Index 29.1 Extrem Other: 4/5 ec 35/90/120/S1 Office Procedures Joint Inj/Aspir; Non-Pain Clin Joint Injection/Drain Details: Injected 1 mL of Decadron and 3 mL 1% lidocaine and 3 mL of 0.25% Marcaine. Site was prepped using aseptic technique. Patient tolerated the procedure well. Shoulders, Hips, Knees, Shoulder Injection Large joint : Left Shoulder Coding Procedure code (CPT) selection complete Assessment & Plan Assessment & Plan (1) Incomplete rotator cuff tear or rupture of left shoulder, not specified as traumatic: Code(s): M75.112 - Incomplete rotator cuff tear or rupture of left shoulder, not specified as traumatic Category: Medical Plan: 69-year-old gentleman with left rotator cuff tearing at is chronic. He gets periodic injections. He is pretty adamant that he does not want surgery. Injections seem to help him. I injected left shoulder. He understands that this may have a deleterious effect on the rotator cuff. (2) Diabetes mellitus: Code(s): E11.9 - Type 2 diabetes mellitus without complications Category: Medical Qualifiers: Diabetes mellitus type: type 2 Diabetes mellitus jail insulin use: without jail use Diabetes mellitus complication status: without complication Qualified Code(s): E11.9 - Type 2 diabetes mellitus without complications Plan: I explained the hyperglycemic effects of steroids. Expressed understanding. Coding Level of Care Code Est Pt Level 4 (98912) Diagnoses Incomplete rotator cuff tear or rupture of left shoulder, not specified as traumatic M75.112 Type 2 diabetes mellitus without complication, without long-term current use of insulin E11.9 Diabetes mellitus type: type 2 Diabetes mellitus superintendent terminal insulin use: without superintendent terminal use Diabetes mellitus complication status: without complication CPT Codes Shoulders, Hips, Knees, - Shoulder Injection Large joint : Left Shoulder ([id number])
== END 2024-09-24 09:30 | disposition home or self-care (01) ==
LOC: HO.HOS 09:05
PROVIDERS: PCP Internal Medicine; Visit Provider Orthopaedic Surgery
DX: M75.112 Incomplete rotator cuff tear or rupture of left shoulder, not specified as traumatic (principal); E11.9 Type 2 diabetes mellitus without complications
CPT/HCPCS: 20610; 99214

== ENCOUNTER → 2024-09-24 08:58 | Outpatient (BNVA) | payer OTHER, SELFPAY | PROVIDERS: PCP Internal Medicine; Visit Provider Orthopaedic Surgery | DX: M75.112 Incomplete rotator cuff tear or rupture of left shoulder, not specified as traumatic (principal); E11.9 Type 2 diabetes mellitus without complications | CPT/HCPCS: 20610; 99212; J0665; J1100; J2003 ==

== ENCOUNTER 2024-10-06 07:06 | Outpatient (REF) | payer OTHER, SELFPAY ==
--- NOTE | ~2024-10-06 | US_ITS ---
CLINICAL HISTORY: Z87.891 - Personal history of nicotine dependence Exam: Ultrasound of the abdominal aorta Comparison: None provided Findings: Aorta proximal 2.7 cm. Aorta mid 2.4 cm. Aorta distal 2.6 cm. Right common iliac artery 1.6 cm. Left common iliac artery 1.5 cm. IMPRESSION: Ectasia of the distal abdominal aorta without aneurysmal dilatation. This document has been electronically signed by: Henri Mclaughlin MD on 10/06/2024 09:31:55
--- NOTE | ~2024-10-06 | XR_ITS ---
EXAMINATION: XR CHEST 2 VIEWS HISTORY: J98.11 - Atelectasis COMPARISON: Comparison is made with the prior examination dated 11/26/2023. FINDINGS: PA and lateral views of the chest are submitted. There are increased interstitial markings bilaterally scarring at the lung bases. The appearance is not significantly changed given differences in technique. No focal airspace opacities are identified. There is no pleural effusion, pneumothorax, or pulmonary vascular congestion. The heart is normal in size. There is degenerative disc disease of the spine. XR/XR chest 2V IMPRESSION: No acute cardiopulmonary abnormality. Electronically signed by: Eduardo Eldridge MD 10/06/2024 07:49 AM EDT
[2024-10-06 08:06] LABS: Microalbum/Creatinine Ratio Ur 4.0 ug/mg cr (<30)
[2024-10-06 08:12] LABS: Alanine Aminotransferase 54 U/L (0-40); Albumin Level 4.0 g/dL (3.5-5.0); Alkaline Phosphatase 96 U/L (39-117); Anion Gap 13 (12-20); Aspartate Amino Transferase 66 U/L (5-37); Blood Urea Nitrogen 19 mg/dL (9-16); Calcium 8.4 mg/dL (8.4-10.2); Carbon Dioxide 28 mmol/L (22-29); Chloride 102 mmol/L (96-108); Cholesterol 181 mg/dL (<200); Estimated Glomerular Filt Rate > 60; HDL Cholesterol 26 mg/dL (>40); Potassium 4.0 mmol/L (3.3-5.1); Sodium 139 mmol/L (135-145); Total Protein 6.4 g/dL (6.5-8.0); Triglycerides 776 mg/dL (<150)
== END 2024-10-06 07:07 | disposition home or self-care (01) ==
LOC: HO.US 07:06
PROVIDERS: PCP Internal Medicine; Visit Provider Internal Medicine
DX: E11.9 Type 2 diabetes mellitus without complications (principal); J98.11 Atelectasis; R80.9 Proteinuria, unspecified; E78.5 Hyperlipidemia, unspecified; Z87.891 Personal history of nicotine dependence
CPT/HCPCS: 36415; 71046; 76706; 80053; 80061; 82043; 82570

== ENCOUNTER → 2024-10-06 07:34 | Outpatient (BNV) | payer OTHER, SELFPAY | PROVIDERS: PCP Internal Medicine; Visit Provider Radiology Diagnostic Radiology | DX: I77.811 Abdominal aortic ectasia (principal); J98.11 Atelectasis | CPT/HCPCS: 71046; 76706 ==

== ENCOUNTER 2024-10-22 06:44 | Emergency (ER) | payer OTHER, SELFPAY ==
--- NOTE | ~2024-10-22 | XR_ITS ---
EXAMINATION: XR HAND 3 OR MORE VIEWS LEFT HISTORY: trauma dog bite left index COMPARISON: There are no prior studies available for comparison. FINDINGS: Three views of the left hand are submitted. Osseous mineralization is normal. There is no fracture or dislocation. The joint spaces are preserved. The soft tissues are unremarkable. XR/XR hand LT min 3V IMPRESSION: Unremarkable examination of the left hand. Electronically signed by: Eduardo Eldridge MD 10/22/2024 07:57 AM EDT
[2024-10-22 06:46] VITALS: BP 141/63; PULSE 86; RESP 20; TEMP 36.3; O2SAT 98
--- NOTE | 2024-10-22 07:01 | ED.ANIMALBIT ---
HPI - Animal Bite General Chief Complaint: Animal Bite Stated Complaint: dog bite left finger Time Seen by Provider: 10/22/24 06:53 Source: patient Mode of arrival: ambulatory Limitations: no limitations History of Present Illness HPI narrative: This is a 69 years old the patient presented to the emergency department after a dog bite in the left hand. The dog is his own dog but he is not vaccinated for rabies MD complaint: other (Dog bite) Onset (ago): hour(s) (4) Animal: dog Description of animal: household pet (No vaccinated for rabies) Mechanism: bite Location: other (Left hand) Location - Extremities: left: hand Pain description: dull Context: playing with animal Associated symptoms: none Related Data Home Medications ?Medication ?Instructions ?Recorded ?Confirmed nebulizers 03/04/23 08/13/24 glyburide 5 mg tablet 5 mg PO DAILY 08/20/24 08/20/24 montelukast 10 mg tablet 10 mg PO BEDTIME 08/20/24 08/20/24 (Singulair) Previous Rx's ?Medication ?Instructions ?Recorded blood sugar diagnostic (FreeStyle #200 ea 05/24/20 Lite Strips) lancets 28 gauge (FreeStyle #200 ea 07/06/20 Lancets) omeprazole 20 mg capsule,delayed 20 mg PO QAM 90 days #90 caps 01/08/22 release triamcinolone acetonide 55 mcg 1 spray intranasal DAILY 30 days 07/10/22 nasal spray aerosol (Nasacort) #16.9 mL magnesium 250 mg tablet 250 mg PO DAILY 30 days #30 tabs 10/03/22 albuterol sulfate 0.63 mg/3 mL 0.63 mg (3 mL) inhalation QID PRN 12/30/22 solution for nebulization bronchospasm #75 mL lorazepam 1 mg tablet 1 mg PO DAILY PRN anxiety #4 tabs 12/30/22 fluticasone propionate 44 1 puff inhalation BID 30 days 02/15/23 mcg/actuation HFA aerosol inhaler #10.6 grams (Flovent HFA) albuterol sulfate 2.5 mg/3 mL 2.5 mg (3 mL) inhalation Q4-6H PRN 05/23/23 (0.083 %) solution for nebulization bronchospasm #75 mL albuterol sulfate 90 mcg/actuation 2 puff inhalation Q6H PRN 07/05/23 aerosol inhaler shortness of breath or wheezing 30 days #6.7 grams lidocaine 5 % topical patch 1 patch topical DAILY #15 ea 10/15/23 lisinopril 10 mg tablet 10 mg PO DAILY #90 tabs 11/21/23 budesonide 160 mcg-glycopyr 9 2 inh inhalation BID #10.7 grams 11/26/23 mcg-formot 4.8 mcg/actuation HFA inhaler (Breztri Aerosphere) metformin 500 mg tablet,extended 1,000 mg (2 x 500 mg) PO BID 90 02/11/24 release 24 hr days #360 tabs montelukast 10 mg tablet 10 mg PO DAILY 30 days #30 tabs 02/26/24 cetirizine 10 mg tablet 10 mg PO DAILY 90 days #90 tabs 06/09/24 dulaglutide 1.5 mg/0.5 mL 1.5 mg (0.5 mL) subcut QWEEK 90 07/17/24 subcutaneous pen injector days #6.5 mL acetaminophen 500 mg tablet 1,000 mg (2 x 500 mg) PO Q8H PRN 07/18/24 (Tylenol Extra Strength) pain #30 tabs zolpidem 10 mg tablet 10 mg PO BEDTIME PRN sleep 90 days 08/17/24 #90 tabs amitriptyline 25 mg tablet 25 mg PO BEDTIME 90 days #90 tabs 08/20/24 citalopram 20 mg tablet 20 mg PO DAILY 90 days #90 tabs 08/20/24 sumatriptan succinate 50 mg tablet See Rx Instructions PO .COMPLEX 30 08/20/24 days #10 tabs atorvastatin 40 mg tablet 40 mg PO BEDTIME #90 tabs 09/22/24 fenofibrate 160 mg tablet 160 mg PO DAILY 90 days #90 tabs 10/08/24 clindamycin HCl 300 mg capsule 300 mg PO TID 5 days #15 caps 10/22/24 (Cleocin HCl) oxycodone 5 mg tablet 5 mg PO Q6H PRN pain #15 tabs 10/22/24 Allergies Allergy/AdvReac Type Severity Reaction Status Date / Time aspirin (Aspirin) Allergy Mild RASH Verified 10/22/24 06:47 Penicillins Allergy Mild RASH Verified 10/22/24 06:47 tramadol AdvReac Intermediate abdominal Verified 10/22/24 06:47 pain Review of Systems Constitutional: Constitutional: Reports no additional constitutional complaints ENT: Reports system reviewed and no additional complaints, except as documented PMF Past Medical History Attestation statement: The following information was validated with the patient. Medical History Migraine Proteinuria Anxiety disorder Tinnitus Atelectasis Chronic allergic rhinitis Allergies Hearing difficulty of left ear Onychomycosis Bladder pain Thyroid nodule BPH (benign prostatic hyperplasia) GERD (gastroesophageal reflux disease) Hyperlipidemia LDL goal <100 Rotator cuff tear Obesity Insomnia Pure hypercholesterolemia Essential hypertension Diabetes mellitus Arthritis High blood pressure Asthma No known health problems Surgical History History of knee replacement procedure of right knee Family History Family History Father No problems noted. Mother Diabetes Hypertension Brother Throat cancer Social History Social History Household Members: Spouse Housing: Apartment Unable to assess alcohol history related to: Unknown Alcohol intake: former Patient Tobacco Use Status: Former Tobacco user Tobacco use type: Cigarette e-Cigarette/Vaping Use: Never Used Second Hand Smoke Exposure: No service: No Current occupational status: disabled Cognitive needs: Yes Hearing needs: Yes Vision needs: Yes Physical Exam ED Exam Exam: Not toxic appearing looks well Vital Signs: Vital Signs - 24 hr 10/22/24 06:46 10/22/24 08:00 10/22/24 09:28 Temperature 97.3 F 97.4 F 98.2 F Pulse Rate 86 78 79 Respiratory Rate 20 15 16 Blood Pressure 141/63 H 132/71 129/64 Pulse Oximetry 98 97 99 Oxygen Delivery Method Room Air Room Air Room Air 10/22/24 09:35 Temperature 98.2 F Pulse Rate 79 Respiratory Rate 16 Blood Pressure 129/64 Pulse Oximetry 99 Oxygen Delivery Method Room Air BMI result Body Mass Index 30.0 Const General: cooperative Orientation/consciousness: oriented to person, oriented to place and patient oriented x3 HENMT Head: Yes normal to inspection General nose exam: Normal external nose present Face and sinus: Yes normal facial exam Mouth: Normal oral and palatal mucosa present Throat: Yes posterior oropharynx normal Neck Neck: Yes normal visual inspection Chest Chest palpation & inspection: normal inspection of the chest Resp Effort & Inspection: normal respiratory effort Auscultation: clear to auscultation bilaterally Cardio Jugular venous distension: no JVD Rate: regular rate Rhythm: regular rhythm GI Inspection: Yes normal to inspection Palpation (GI): Soft to palpation, not firm and nontender Auscultation: normal bowel sounds Neuro General: oriented to person, oriented to place and patient oriented x3 Cranial nerves: Yes CN's II-XII intact bilaterally Extrem Other: Examination of the left hand shows 2 dog bite in the proximal phalanx and interphalangeal joint of the left hand, full range of motion no deficits on sensation See picture General: Yes full ROM Medications Administered Discontinued Medications Generic Name Dose Route Start Last Admin Trade Name Freq PRN Reason Stop Dose Admin Diphtheria/Tetanus/Acell Pertussis 0.5 ml 10/22/24 07:16 10/22/24 07:58 Diphth,Pertus(Acell),Tet Adult 0.5 Ml Syringe IM 10/22/24 07:17 0.5 ml .ONCE ONE Administration Clindamycin Phosphate 900 mg in 50 mls @ 50 mls/hr 10/22/24 06:58 10/22/24 09:34 Cleocin IV 10/22/24 07:57 Infused ONCE ONE Infusion Rabies Immune Globulin 2,177.24 unit 10/22/24 07:00 10/22/24 07:43 Rabies Immune Globulin/Pf 900 Unit/3 Ml Vial 20 unit/kg (2177.24 unit) 10/22/24 07:01 Not Given IM ONCE ONE Rabies Immune Globulin 2,177.24 unit 10/22/24 07:30 10/22/24 07:59 Rabies Immune Globulin/Pf 300 Unit/Ml Vial 20 unit/kg (2177.24 unit) 10/22/24 07:31 2,177.24 unit IM Administration ONCE ONE Rabies Vaccine 1 ml 10/22/24 06:59 10/22/24 07:59 Rabies Vaccine (Pcec)/Pf 1 Ml Vial IM 10/22/24 07:00 1 ml .ONCE ONE Administration Medical Decision Making Medical Decision Making MDM Narrative: Patient is here with a dog bite of the left index finger he is diabetic we will prophylax with the antibiotic I am going to give him 1 dose of IV antibiotic and we will discharge him on p.o. clinda he has a an allergy to penicillin Differential Diagnosis Differential Diagnoses: The differential diagnosis associated with the presentation includes Fracture finger/cellulitis Admission/Observation Consideration of admission/observation: Escalation of care including admission/observation considered Discharge Plan Discharge Clinical Impression: Dog bite Qualifiers: Encounter type: initial encounter Qualified Code(s): W54.0XXA - Bitten by dog, initial encounter Patient Disposition: Home, Self-Care Instructions: Animal Bite (ED), Rabies (ED) Additional Instructions: Follow-up with your primary care physician return if worse if you have a sign of infection like redness is willing and drainage return for rabies shot in the infusion center Prescriptions: New clindamycin HCl [Cleocin HCl] 300 mg capsule 300 mg PO TID 5 Days Qty: 15 0RF oxycodone 5 mg tablet 5 mg PO Q6H PRN (Reason: pain) Qty: 15 0RF Rx Instructions: partial filing upon pt request; Partial Fill upon patient request. No Action (DME) FreeStyle Lite Strips Strip See Rx Instructions .ROUTE .MEDSUPPLY Qty: 200 3RF Rx Instructions: As directed twice a day (DME) lancets [FreeStyle Lancets] 28 gauge misc See Rx Instructions .ROUTE .MEDSUPPLY Qty: 200 3RF Rx Instructions: two time a day fluticasone propionate [Flovent HFA] 44 mcg/actuation HFA aerosol inhaler 1 puff inhalation BID 30 Days Qty: 10.6 6RF Rx Instructions: administer with spacer lisinopril 10 mg tablet 10 mg PO DAILY Qty: 90 3RF Breztri Aerosphere 160-9-4.8 mcg/actuation HFA aerosol inhaler 2 inh inhalation BID Qty: 10.7 11RF metformin 500 mg tablet extended release 24 hr 1,000 mg PO BID 90 Days Qty: 360 2RF montelukast 10 mg tablet 10 mg PO DAILY 30 Days Qty: 30 3RF cetirizine 10 mg tablet 10 mg PO DAILY 90 Days Qty: 90 0RF dulaglutide 1.5 mg/0.5 mL pen injector 1.5 mg subcut QWEEK 90 Days Qty: 6.5 1RF zolpidem 10 mg tablet 10 mg PO BEDTIME PRN (Reason: sleep) 90 Days Qty: 90 0RF atorvastatin 40 mg tablet 40 mg PO BEDTIME Qty: 90 1RF fenofibrate 160 mg tablet 160 mg PO DAILY 90 Days Qty: 90 1RF albuterol sulfate 2.5 mg /3 mL (0.083 %) solution for nebulization 2.5 mg inhalation Q4-6H PRN (Reason: bronchospasm) Qty: 75 0RF lidocaine 5 % adhesive patch,medicated 1 patch topical DAILY Qty: 15 0RF Rx Instructions: leave on most painful area for up to 12 hrs lorazepam 1 mg tablet 1 mg PO DAILY PRN (Reason: anxiety) Qty: 4 0RF albuterol sulfate 0.63 mg/3 mL solution for nebulization 0.63 mg inhalation QID PRN (Reason: bronchospasm) Qty: 75 0RF acetaminophen [Tylenol Extra Strength] 500 mg tablet 1,000 mg PO Q8H PRN (Reason: pain) Qty: 30 0RF omeprazole 20 mg capsule,delayed release(DR/EC) 20 mg PO QAM 90 Days Qty: 90 1RF triamcinolone acetonide [Nasacort] 55 mcg aerosol,spray 1 spray intranasal DAILY 30 Days Qty: 16.9 1RF Rx Instructions: administer into each nostril magnesium 250 mg tablet 250 mg PO DAILY 30 Days Qty: 30 0RF albuterol sulfate 90 mcg/actuation HFA aerosol inhaler 2 puff inhalation Q6H PRN (Reason: shortness of breath or wheezing) 30 Days Qty: 6.7 11RF (DME) nebulizers Misc See Rx Instructions .Route Rx Instructions: As directed glyburide 5 mg tablet 5 mg PO DAILY montelukast [Singulair] 10 mg tablet 10 mg PO BEDTIME sumatriptan succinate 50 mg tablet See Rx Instructions PO .COMPLEX 30 Days Qty: 10 5RF Rx Instructions: take 1 tab at onset of headache; if no relief may repeat 1 tab after at least 2 hrs; PO citalopram 20 mg tablet 20 mg PO DAILY 90 Days Qty: 90 1RF amitriptyline 25 mg tablet 25 mg PO BEDTIME 90 Days Qty: 90 1RF Interventions: ED Discharge Assessment Last Done: 10/22/24 09:35 Discharge Date/Time: 10/22/24 09:35 Print Language: Hebrew
[2024-10-22] MEDS: Diphth,Pertus(ACell),Tet Adult 0.5 ML SYRINGE IM (07:58)
[2024-10-22] MEDS: Rabies Vaccine (PCEC)/PF 1 ML VIAL IM (07:59)
[2024-10-22 08:00] VITALS: BP 132/71; PULSE 78; RESP 15; TEMP 36.3; O2SAT 97
--- NOTE | 2024-10-22 08:33 | PC.NURSE ---
22gIV placed in the right AC - medication administered per provider order. rabies form filled out/faxed to [facility]. delay in abx administration d/t medication not being available in [facility]. medication now infused per provider order. plan of care ongoing. call dent placed within reach.
[2024-10-22 09:28] VITALS: BP 129/64; PULSE 79; RESP 16; TEMP 36.8; O2SAT 99
[2024-10-22 09:35] VITALS: BP 129/64; PULSE 79; RESP 16; TEMP 36.8; O2SAT 99
== END 2024-10-22 09:35 | disposition home or self-care (01) ==
PROVIDERS: Emergency Provider Emergency Medicine; PCP Internal Medicine
DX: S61.452A Open bite of left hand, initial encounter (principal); W54.0XXA Bitten by dog, initial encounter; Y93.83 Activity, rough housing and horseplay; Y92.039 Unspecified place in apartment as the place of occurrence of the external cause; Y99.8 Other external cause status; Z23 Encounter for immunization; Z20.3 Contact with and (suspected) exposure to rabies
CPT/HCPCS: 73130; 90375; 90471; 90675; 90715; 96360; 96365; 96372; 99284; J0736

== ENCOUNTER → 2024-10-22 07:08 | Outpatient (BNV) | payer OTHER, SELFPAY | PROVIDERS: Emergency Provider Emergency Medicine; PCP Internal Medicine; Visit Provider Radiology Diagnostic Radiology | DX: S61.251A Open bite of left index finger without damage to nail, initial encounter (principal) | CPT/HCPCS: 73130 ==

== ENCOUNTER 2024-12-16 12:34 | Emergency (ER) | payer OTHER, SELFPAY ==
--- NOTE | ~2024-12-16 | XR_ITS ---
EXAMINATION: XR CHEST 1 VIEW HISTORY: Chest pain COMPARISON: Keny is made with the prior examination dated 10/06/2024. FINDINGS: A single AP portable view of the chest performed at 1:17 PM is submitted. There are low lung volumes. Again seen is scarring at the left lung base. There are mild increased interstitial markings. No new focal airspace opacity is seen. There is no pleural effusion, pneumothorax, or pulmonary vascular congestion. The heart is normal in size given technique and degree of inspiration. There is degenerative disc disease of the spine. XR/XR chest 1V IMPRESSION: No acute cardiopulmonary abnormality. Electronically signed by: Eduardo Eldridge MD 12/16/2024 01:17 PM [facility]
[2024-12-16 12:43] VITALS: BP 147/65; PULSE 93; RESP 16; TEMP 36.6; O2SAT 98; BMI 31.7
--- NOTE | 2024-12-16 12:51 | ECG_ITS ---
Test Reason : chest pain Blood Pressure : */* mmHG Vent. Rate : 91 BPM Atrial Rate : 91 BPM P-R Int : 170 ms QRS Dur : 98 ms QT Int : 346 ms P-R-T Axes : 54 -24 68 degrees QTcB Int : 425 ms Normal sinus rhythm Minimal voltage criteria for LVH, may be normal variant ( Link product ) Borderline ECG When compared with ECG of 30-Dec-2022 07:11, No significant change was found Referred By: Generic ED Physician Electronically Signed By: Miguel Alegria
--- NOTE | 2024-12-16 12:55 | ED.CHESTPAIN ---
HPI - Chest Pain General Chief Complaint: Chest Pain Stated Complaint: Back Pain Time Seen by Provider: 12/16/24 16:01 History of Present Illness ED Provider: Preston Abbott MD HPI narrative: 69-year-old male with diabetes who reports to me chronic intermittent panic attacks anxiety. Tells me few years ago he had similar and was prescribed lorazepam of which he had several tablets left over. You reports fluctuating panic symptoms including the past 3 days intermittently and self-resolving he ran out of the lorazepam and comes for evaluation. He is asymptomatic at this time. Despite triage she denies to me that he had any chest pain or palpitations also denies sweating abdominal pain vomiting. He did feel he was trembling during an episode earlier today of the lasted about 1/2 hour. at the bedside confirms his report of the event today Related Data Home Medications ?Medication ?Instructions ?Recorded ?Confirmed nebulizers 03/04/23 08/13/24 glyburide 5 mg tablet 5 mg PO DAILY 08/20/24 08/20/24 montelukast 10 mg tablet 10 mg PO BEDTIME 08/20/24 08/20/24 (Stephanieir) Previous Rx's ?Medication ?Instructions ?Recorded blood sugar diagnostic (FreeStyle #200 ea 05/24/20 Lite Strips) lancets 28 gauge (FreeStyle #200 ea 07/06/20 Lancets) omeprazole 20 mg capsule,delayed 20 mg PO QAM 90 days #90 caps 01/08/22 release triamcinolone acetonide 55 mcg 1 spray intranasal DAILY 30 days 07/10/22 nasal spray aerosol (Nasacort) #16.9 mL magnesium 250 mg tablet 250 mg PO DAILY 30 days #30 tabs 10/03/22 albuterol sulfate 0.63 mg/3 mL 0.63 mg (3 mL) inhalation QID PRN 12/30/22 solution for nebulization bronchospasm #75 mL lorazepam 1 mg tablet 1 mg PO DAILY PRN anxiety #4 tabs 12/30/22 fluticasone propionate 44 1 puff inhalation BID 30 days 02/15/23 mcg/actuation HFA aerosol inhaler #10.6 grams (Flovent HFA) albuterol sulfate 2.5 mg/3 mL 2.5 mg (3 mL) inhalation Q4-6H PRN 05/23/23 (0.083 %) solution for nebulization bronchospasm #75 mL lidocaine 5 % topical patch 1 patch topical DAILY #15 ea 10/15/23 lisinopril 10 mg tablet 10 mg PO DAILY #90 tabs 11/21/23 montelukast 10 mg tablet 10 mg PO DAILY 30 days #30 tabs 02/26/24 cetirizine 10 mg tablet 10 mg PO DAILY 90 days #90 tabs 06/09/24 acetaminophen 500 mg tablet 1,000 mg (2 x 500 mg) PO Q8H PRN 07/18/24 (Tylenol Extra Strength) pain #30 tabs zolpidem 10 mg tablet 10 mg PO BEDTIME PRN sleep 90 days 08/17/24 #90 tabs amitriptyline 25 mg tablet 25 mg PO BEDTIME 90 days #90 tabs 08/20/24 citalopram 20 mg tablet 20 mg PO DAILY 90 days #90 tabs 08/20/24 sumatriptan succinate 50 mg tablet See Rx Instructions PO .COMPLEX 30 08/20/24 days #10 tabs atorvastatin 40 mg tablet 40 mg PO BEDTIME #90 tabs 09/22/24 fenofibrate 160 mg tablet 160 mg PO DAILY 90 days #90 tabs 10/08/24 clindamycin HCl 300 mg capsule 300 mg PO TID 5 days #15 caps 10/22/24 (Cleocin HCl) oxycodone 5 mg tablet 5 mg PO Q6H PRN pain #15 tabs 10/22/24 metformin 500 mg tablet,extended 1,000 mg (2 x 500 mg) PO BID 90 11/10/24 release 24 hr days #360 tabs albuterol sulfate 90 mcg/actuation 2 puff inhalation Q6H PRN for 11/24/24 aerosol inhaler wheezing #6.7 ea dulaglutide 1.5 mg/0.5 mL 1.5 mg (0.5 mL) subcut QWEEK 90 11/25/24 subcutaneous pen injector days #6.5 mL budesonide 160 mcg-glycopyr 9 2 inh inhalation BID #10.7 grams 11/27/24 mcg-formot 4.8 mcg/actuation HFA inhaler (Breztri Aerosphere) hydroxyzine HCl 25 mg tablet 25 mg PO TID PRN anxiety #10 tabs 12/16/24 Allergies Allergy/AdvReac Type Severity Reaction Status Date / Time aspirin (Aspirin) Allergy Mild RASH Verified 12/16/24 12:44 Penicillins Allergy Mild RASH Verified 12/16/24 12:44 tramadol AdvReac Intermediate abdominal Verified 12/16/24 12:44 pain PMFSH Past Medical History Medical History Migraine Proteinuria Anxiety disorder Tinnitus Atelectasis Chronic allergic rhinitis Allergies Hearing difficulty of left ear Onychomycosis Bladder pain Thyroid nodule BPH (benign prostatic hyperplasia) GERD (gastroesophageal reflux disease) Hyperlipidemia LDL goal <100 Rotator cuff tear Obesity Insomnia Pure hypercholesterolemia Essential hypertension Diabetes mellitus Arthritis High blood pressure Asthma No known health problems Surgical History History of knee replacement procedure of right knee Family History Family History Father No problems noted. Mother Diabetes Hypertension Brother Throat cancer Social History Social History Household Members: Spouse Housing: Apartment Alcohol intake: former Patient Tobacco Use Status: Former Tobacco user Tobacco use type: Cigarette e-Cigarette/Vaping Use: Never Used Second Hand Smoke Exposure: No Advance Directives: No Advance Directives Information Provided: Yes Do you have a plan to hurt others: No Plan service: No Current occupational status: disabled Cognitive needs: Yes Hearing needs: Yes Vision needs: Yes Physical Exam Exam: Exam: EXAM: Gen: Alert, awake, well appearing, well hydrated. Head: Atraumatic Eyes: Anicteric, Normal conjunctiva. ENT: Moist mucosa, no pallor. ? Neck: Supple. Skin: ?No observable rash or bruising on exposed or examined skin Respiratory: Breathing comfortably, No distress.Clear to auscultation bilaterally, symmetric chest expansion, No wheeze, rales, ronchi. Cardiovascular: Regular rate and rhythm. No murmurs or rub. Well perfused periphery, warm extremities. No edema. ? Abdominal: No focal tenderness. Soft, no objective distension. No palpable masses or obvious organomegaly. ?No guarding, no rebound tenderness or other peritoneal findings. : No flank tenderness. Neuro: Alert. Gross movement of all extremities intact. ? Psych: Calm. Cooperative. Anxiety, panic symptoms MSK: No grossly visible deformity. Vital signs: See flowsheet Vital Signs: Vital Signs: Last Vital Signs Temp 98.0 F 12/16/24 17:55 Pulse 93 12/16/24 17:55 Resp 18 12/16/24 17:55 BP 114/53 L 12/16/24 17:55 Pulse Ox 97 12/16/24 17:55 O2 Del Method Room Air 12/16/24 17:55 BMI result Body Mass Index 31.7 Course Course Course Narrative: RME: 69-year-old male presents to history for chest pain described as panic attack. Patient states he ran out of his anxiety medication. Due to age will do cardiac workup Medications Administered Discontinued Medications Generic Name Dose Route Start Last Admin Trade Name Freq PRN Reason Stop Dose Admin Clonazepam 1 mg 12/16/24 16:38 12/16/24 17:04 Clonazepam 1 Mg Tablet PO 12/16/24 16:39 1 mg ONCE ONE Administration Medical Decision Making Medical Decision Making MDM Narrative: Medical Decision Makin-year-old male with self-reported panic symptoms. No chest pain previously despite triage note. Use to have lorazepam seems to have run out. He is calm comfortable without any symptoms now. Symptomatology most suggestive of anxiety/panic disorder. No therapist or psychiatrist outpatient follow up is delayed until April when he can see his PCP. Does have diabetes does not have any diagnosed psychiatric illness or previous psychiatric disorder. No drugs or other toxic habits. Does not appear to be withdrawing. Supportive spouse at the bedside. No SI or HI. Presumed panic/stress/anxiety. Given that he is asymptomatic comfortable has reassuring lab work ECG here think it is reasonable to provide 1 dose of benzodiazepine and discharged with hydroxyzine PRN. Care team was consulted to assist with expediting outpatient behavioral health follow up. Preliminary Favored Differential Diagnosis: Panic, anxiety, electrolyte derangement, dysrhythmia, thyroid disorder among additional considered etiologies Testing Interpreted Independently: ?ECG: Left bundle-branch block no acute ischemic changes or dynamic changes from previous when it was similar 2022 Radiology or Lab testing Results Reviewed: ?Labs ECG unremarkable no actionable findings Consults: ?See below for details Independent Historians/External Chart Reviews: ?See below for details Social Determinants of Health Impacting MDM/Planning: ?See below for details Lab Data 12/16/24 13:07 12/16/24 13:07 Labs: Lab Results 12/16/24 Range/Units 13:07 WBC 5.5 (4.8-10.8) X10*3/uL RBC 5.03 (4.60-5.80) X10*6/uL Hgb 14.3 (14.0-18.0) g/dl Hct 41.7 L (42.0-52.0) % MCV 82.9 (80.0-98.0) fL MCH 28.4 (27.0-33.0) pg MCHC 34.3 (31.0-36.0) g/dl RDW 11.9 (11.0-16.0) % Plt Count 224 D (160-400) X10*3/uL MPV 10.0 (9.4-12.4) fL Immature Gran % (Auto) 0.5 H (0.0-0.4) % Neut % (Auto) 55.5 (45-73) % Lymph % (Auto) 26.5 (20-40) % Harrison % (Auto) 9.0 (2-11) % Eos % (Auto) 7.8 H (0-4) % Baso % (Auto) 0.7 (0-2) % Lymph # (Auto) 1.5 (1.2-4.9) X10*3/uL Harrison # (Auto) 0.5 (0.1-1.2) X10*3/uL Eos # (Auto) 0.4 (0.0-0.4) X10*3/uL Baso # (Auto) 0.0 (0.0-0.2) X10*3/uL Abs Immat Gran (auto) 0.03 (0.00-0.03) X10*3/uL Absolute Neuts (auto) 3.1 (2.0-8.3) x10*3/uL Absolute Nucleated RBC 0.000 (0.0-0.012) X10*3/uL Nucleated RBC % (auto) 0.0 (0.0-0.2) /100WBC PT 12.1 (11.2-13.5) SEC INR 1.0 (0.9-1.1) APTT 25.8 L (26.7-34.1) SEC Sodium 137 (135-145) mmol/L Potassium 4.3 (3.3-5.1) mmol/L Chloride 102 (96-108) mmol/L Carbon Dioxide 27 (22-29) mmol/L Anion Gap 12 (12-20) BUN 19 H (9-16) mg/dL Creatinine 1.07 (0.5-1.4) mg/dL Estim Creat Clear Calc 86.6 Estimated GFR > 60 Random Glucose 163 H (60-115) mg/dL Calcium 9.1 D (8.4-10.2) mg/dL Total Bilirubin 0.5 (0.0-1.0) mg/dL AST 28 (5-37) U/L ALT 31 (0-40) U/L Alkaline Phosphatase 82 (39-117) U/L Troponin I High Sens < 2.7 (<3.5-35.0) ng/L NT-Pro-B Natriuret Pep 27.2 (<300) pg/mL Total Protein 7.0 (6.5-8.0) g/dL Albumin 4.5 (3.5-5.0) g/dL Discharge Plan Discharge Clinical Impression: Anxiety Patient Disposition: Home, Self-Care Instructions: Anxiety (ED) Additional Instructions: Call your primary doctor to try to expedite outpatient follow up. Today we did workup with basic blood work EKG which was normal. In discussing with you your symptoms and the fact that your symptoms are fluctuating resolve on their own completely feel you may have anxiety or panic attack but we can not completely exclude alternative causes. There was no identified medical emergency in the emergency department workup you may need outpatient testing or workup further. We have had behavioral health team talk to you and try to expedite outpatient behavioral health follow up as you may need therapist or psychiatrist. We have prescribed hydroxyzine only as needed for severe or significant panic symptoms. If you develop chest pain difficulty breathing during 1 of these episodes call him on 1 Prescriptions: New hydroxyzine HCl 25 mg tablet 25 mg PO TID PRN (Reason: anxiety) Qty: 10 0RF No Action (DME) FreeStyle Lite Strips Strip See Rx Instructions .ROUTE .MEDSUPPLY Qty: 200 3RF Rx Instructions: As directed twice a day (DME) lancets [FreeStyle Lancets] 28 gauge misc See Rx Instructions .ROUTE .MEDSUPPLY Qty: 200 3RF Rx Instructions: two time a day fluticasone propionate [Flovent HFA] 44 mcg/actuation HFA aerosol inhaler 1 puff inhalation BID 30 Days Qty: 10.6 6RF Rx Instructions: administer with spacer lisinopril 10 mg tablet 10 mg PO DAILY Qty: 90 3RF montelukast 10 mg tablet 10 mg PO DAILY 30 Days Qty: 30 3RF cetirizine 10 mg tablet 10 mg PO DAILY 90 Days Qty: 90 0RF zolpidem 10 mg tablet 10 mg PO BEDTIME PRN (Reason: sleep) 90 Days Qty: 90 0RF atorvastatin 40 mg tablet 40 mg PO BEDTIME Qty: 90 1RF fenofibrate 160 mg tablet 160 mg PO DAILY 90 Days Qty: 90 1RF metformin 500 mg tablet extended release 24 hr 1,000 mg PO BID 90 Days Qty: 360 2RF albuterol sulfate 90 mcg/actuation HFA aerosol inhaler 2 puff inhalation Q6H PRN (Reason: for wheezing) Qty: 6.7 11RF dulaglutide 1.5 mg/0.5 mL pen injector 1.5 mg subcut QWEEK 90 Days Qty: 6.5 1RF Breztri Aerosphere 160-9-4.8 mcg/actuation HFA aerosol inhaler 2 inh inhalation BID Qty: 10.7 0RF albuterol sulfate 2.5 mg /3 mL (0.083 %) solution for nebulization 2.5 mg inhalation Q4-6H PRN (Reason: bronchospasm) Qty: 75 0RF lidocaine 5 % adhesive patch,medicated 1 patch topical DAILY Qty: 15 0RF Rx Instructions: leave on most painful area for up to 12 hrs clindamycin HCl [Cleocin HCl] 300 mg capsule 300 mg PO TID 5 Days Qty: 15 0RF oxycodone 5 mg tablet 5 mg PO Q6H PRN (Reason: pain) Qty: 15 0RF Rx Instructions: partial filing upon pt request; Partial Fill upon patient request. lorazepam 1 mg tablet 1 mg PO DAILY PRN (Reason: anxiety) Qty: 4 0RF albuterol sulfate 0.63 mg/3 mL solution for nebulization 0.63 mg inhalation QID PRN (Reason: bronchospasm) Qty: 75 0RF acetaminophen [Tylenol Extra Strength] 500 mg tablet 1,000 mg PO Q8H PRN (Reason: pain) Qty: 30 0RF omeprazole 20 mg capsule,delayed release(DR/EC) 20 mg PO QAM 90 Days Qty: 90 1RF triamcinolone acetonide [Nasacort] 55 mcg aerosol,spray 1 spray intranasal DAILY 30 Days Qty: 16.9 1RF Rx Instructions: administer into each nostril magnesium 250 mg tablet 250 mg PO DAILY 30 Days Qty: 30 0RF (DME) nebulizers Misc See Rx Instructions .Route Rx Instructions: As directed glyburide 5 mg tablet 5 mg PO DAILY montelukast [Singulair] 10 mg tablet 10 mg PO BEDTIME sumatriptan succinate 50 mg tablet See Rx Instructions PO .COMPLEX 30 Days Qty: 10 5RF Rx Instructions: take 1 tab at onset of headache; if no relief may repeat 1 tab after at least 2 hrs; PO citalopram 20 mg tablet 20 mg PO DAILY 90 Days Qty: 90 1RF amitriptyline 25 mg tablet 25 mg PO BEDTIME 90 Days Qty: 90 1RF Interventions: ED Discharge Assessment Last Done: 12/16/24 17:55 Discharge Date/Time: 12/16/24 17:55 Print Language: New Zealander
[2024-12-16 13:13] LABS: MANUAL DIFF FLAG NO
[2024-12-16 13:18] LABS: Hematocrit 41.7 % (42.0-52.0); Hemoglobin 14.3 g/dl (14.0-18.0); Imm Gran Abs Auto 0.03 X10*3/uL (0.00-0.03); Imm Gran Pct Auto 0.5 % (0.0-0.4); Lymphocytes Absolute Auto 1.5 X10*3/uL (1.2-4.9); Mean Corpuscular HGB Conc 34.3 g/dl (31.0-36.0); Mean Corpuscular Hemoglobin 28.4 pg (27.0-33.0); Mean Corpuscular Volume 82.9 fL (80.0-98.0); NRBC Abs Auto 0.000 X10*3/uL (0.0-0.012); NRBC Pct Auto 0.0 /100WBC (0.0-0.2); Platelet Count 224 X10*3/uL (160-400); Red Blood Count 5.03 X10*6/uL (4.60-5.80); White Blood Count 5.5 X10*3/uL (4.8-10.8)
[2024-12-16 13:30] LABS: INTERNATIONAL NORM RATIO 1.0 (0.9-1.1); Prothrombin Time 12.1 SEC (11.2-13.5)
[2024-12-16 13:32] LABS: Albumin Level 4.5 g/dL (3.5-5.0); Alkaline Phosphatase 82 U/L (39-117); Anion Gap 12 (12-20); Aspartate Amino Transferase 28 U/L (5-37); Blood Urea Nitrogen 19 mg/dL (9-16); Calcium 9.1 mg/dL (8.4-10.2); Carbon Dioxide 27 mmol/L (22-29); Chloride 102 mmol/L (96-108); Creatinine Clr Calc Pharmacy 86.6; Estimated Glomerular Filt Rate > 60; Potassium 4.3 mmol/L (3.3-5.1); Sodium 137 mmol/L (135-145); Total Protein 7.0 g/dL (6.5-8.0)
[2024-12-16 13:33] LABS: Partial Thromboplastin Time 25.8 SEC (26.7-34.1)
[2024-12-16 13:41] LABS: Troponin-I High Sensitivity < 2.7 ng/L (<3.5-35.0)
[2024-12-16 13:46] LABS: Alanine Aminotransferase 31 U/L (0-40)
[2024-12-16 13:49] LABS: NT Pro B Type Natriuretic Pept 27.2 pg/mL (<300)
[2024-12-16 15:37] VITALS: BP 114/53; PULSE 93; RESP 18; TEMP 36.7; O2SAT 97
[2024-12-16 17:55] VITALS: BP 114/53; PULSE 93; RESP 18; TEMP 36.7; O2SAT 97
--- OUTSIDE RECORDS SUMMARY | 2024-12-16 18:18 | XMS_ITS | Data Portability ---
Author Organization [employer] [facility], [facility] Address [address] [place] [address] Care Team Providers Care House Moving Supervisor Name Role Phone HIM CCA OTHER YULIANA VALENCIA Primary Care Provider [phone] Assessment Encounter Date Assessment Date Assessment LastModified [...] of any new or worsening serious symptoms [email or web address] Not available 03/25/2024 11:40:48 07/01/2024 07/01/2024 I have reviewed and agree with the Assessment and Plan as documented by the Director Mission. I provided real-time medical direction via phone [...] lidocaine 5 % topical ointment 2024 025 [id number], [address], [place], [address], 19:44:10 ketorolac 30 mg/mL injection solution 2024 025 [email or web address] Not available 11:10:13 Patient TargetsNo targets recorded. Patient InstructionsNo instructions recorded. Reason for Referral None Reported. Medical Equipment None Reported. Allergies Allergen ID Allergen Name Allergen Category Reaction Reaction Severity Criticality Documentation Date Start Date Code Code System Note Provider Name and Address Organization Details Recorded Time 81999 aspirin medicatio n Not available Not available Not available 03/25/2024 1191 RxNorm Not Available [facility] 08:57:36 16859 Product containin g penicilli n (product) medicatio n Not available Not available Not available 03/25/2024 20247 8001 SNOMED Not Available [facility] 5 08:57:36 Medications Name Sig [...] Diagnosis SNOMED-CT Code Diagnosis ICD10 Code Diagnosis IMO Codes Diagnosis Note [id number] Moises Winkler MD Main - [address] [address] 03/25/2024 11:05:52 03/25/2024 11:57:34 Pain of shoulder region 64174990 M25.519 28306 Scottie Rosales MD Main - [address] [phone] 07/01/2024 19:40:44 07/02/2024 15:24:16 Pain of knee region [id number] M25.569 [id number] Health Concerns Section Related Observation LastModified by Organization Detai ls LastModified Time None Recorded Concern Status LastModified by Organization Details LastModified Time None Recorded Advance Directives Directive None Recorded Payers Insurance Date Sequence Insurance Name Policy Number Policy Chowdary Covered Member ID Chowdary Member ID Guarantor Name 07/01/2024 1 [facility] - DOS ON OR AFTER 2022 - DUAL ELIGIBLE - HALF-WAY OPTIONS AND ONE CARE (MEDICARE REPLACEMENT/ADV ANTAGE - HMO) Donald Mooney [id number] Donald Mooney Notes Date Note Type Note Provider Name and Address Organization Details Recorded Time 03/25/2024 text/html ROS as noted in the [facility] CRC Nurse Triage Notes (Demetria Coon - RN): Chief Complaints: Joint pain/swelling PMH: Asthma, Osteoarthritis, Hypertension PMH Reviewed at 03/25/2024 - 08:57 Allergies Reviewed at 03/25/2024 - 08:57 Comments: Referral taken via [employer]. Patient calling in to place a referral, [...] .................. .................. .................. .................. .................. .................. ............... Director Mission Note From Colt Gamez: Dispatched to the [...] ng or crepitus noted in effected shoulder. [facility] [place]. Pt given 30mg of IM Ketorolac after confirming he has had Ibuprofen before and 5 med rights confirmed. Red flags discussed. ALL times are approx. .................. .................. .................. .................. .................. .................. .................. ............... [facility] Consulted: Moises Winkler .................. .................. .................. .................. .................. .................. .................. ............... Disposition: Fulfilled Moises Winkler MD [address] [place] [address],[address], [place], [address], [employer] 03/25/2024 11:41:04 07/01/2024 text/html CRC Nurse Triage [...] .................. .................. .................. .................. .................. .................. ............... Director Mission Note From Vivek Ventura: SC12 dispatched to the address listed above for the report of a male libertarian with knee pain. Arrival on scene, patient was found inside with seated on couch, alert and oriented x4, patent airway, breathing non labored speaking in complete sentences, skin WPD. +/= Chest rise. -SOB, -CP, -NVD, -Trauma, -Fever. GCS 15. Patient Italian speaking only so translated for [facility]. Patient reports that he has been having persistent left knee pain for about 3 weeks, reports pain on any form of movement, ambulation, or palpation. Patient denies any recent fevers, chills, trauma, or use of blood thinners. CMS intact to affected extremity, patient denies any numbness/tingling, reports normal sensation. [facility] noted knee is not hot to the touch, no redness, and minor amounts of swelling. Patient reports he has not taken any Ibuprofen/Tylenol for the pain, reports normal food/fluid intake, reports medication compliance. Patient reports he has been to the hospital in which they performed XRAY and said it was normal. Patient vital signs obtained as noted. [facility] consulted, advised patient to ice his knee, keep it elevated, and follow up with PCP for imaging. [facility] advised he would send prescription to patient preferred pharmacy. Red flags discussed with patient, advised to call 911 if he experiences any life threatening symptoms. SC12 Clear. .................. .................. .................. .................. .................. .................. .................. ............... [facility] Consulted: Scottie Rosales .................. .................. .................. .................. .................. .................. .................. ............... Disposition: Fulfilled Scottie Rosales MD [address] [facility] [facility],[address], [place], [address], KULWINDER OSORIO 07/02/2024 11:53:56
== END 2024-12-16 17:55 | disposition home or self-care (01) ==
PROVIDERS: Physician Assistant; Emergency Provider Emergency Medicine; PCP Internal Medicine
DX: F41.9 Anxiety disorder, unspecified (principal); R07.9 Chest pain, unspecified; I10 Essential (primary) hypertension; E11.9 Type 2 diabetes mellitus without complications
CPT/HCPCS: 36415; 71045; 80053; 83880; 84484; 85025; 85610; 85730; 93005; 99283; 99284

== ENCOUNTER → 2024-12-16 12:51 | Outpatient (BNV) | payer OTHER, SELFPAY | PROVIDERS: Emergency Provider Emergency Medicine; PCP Internal Medicine; Visit Provider Internal Medicine Cardiovascular Disease | DX: R07.9 Chest pain, unspecified (principal) | CPT/HCPCS: 93010 ==

== ENCOUNTER → 2024-12-16 12:56 | Outpatient (BNV) | payer OTHER, SELFPAY | PROVIDERS: Visit Provider Radiology Diagnostic Radiology | DX: R07.9 Chest pain, unspecified (principal) | CPT/HCPCS: 71045 ==